=== PATIENT | female | born 1995 | race Caucasian/White ===

== ENCOUNTER 2020-12-26 01:09 | Emergency (ER) | payer SELFPAY ==
--- NOTE | 2020-12-26 04:31 | ER ---
Nurse's Notes [facility] Name: Janine Diaz Age: 25 yrs Sex: Female : 1995 Arrival Date: 12/26/2020 Time: 01:15 Bed 8 Private MD: Diagnosis: 19 weeks gestation of ;Possible amniotic fluid leakage Presentation: 12/26 01:17 Chief complaint: Patient states: Pt states she is 19 weeks preg and at 0045 she coughed wg and felt a wet leakage into her underwear. Pt states it was not bloody in nature and describes it as a small amount. Pt states she called her OB (Kiko Mcgovern) and she recommended she come to the ED. This is patient's first child. No other complaints or concerns at this time. Coronavirus screen: Vaccine status: Patient reports being unvaccinated. At this time, the client does not indicate any symptoms associated with coronavirus-19. Ebola Screen: Patient negative for fever greater than or equal to 101.5 degrees Fahrenheit, and additional compatible Ebola Virus Disease symptoms Patient denies exposure to infectious person. Patient denies travel to an Ebola-affected area in the 21 days before illness onset. Initial Sepsis Screen: Does the patient meet any 2 criteria? No. Patient's initial sepsis screen is negative. Does the patient have a suspected source of infection? No. Patient's initial sepsis screen is negative. Risk Assessment: Do you want to hurt yourself or someone else? Patient reports no desire to harm self or others. Onset of symptoms was December 26, 2020 at 00:45. 01:17 Method Of Arrival: Ambulatory 01:17 Acuity: RICARDO 4 wg Triage Assessment: 01:20 General: Appears in no apparent distress. Behavior is cooperative, appropriate for age, wg anxious. Pain: Denies pain. 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 - Social history:: Smoking status: Patient denies any tobacco usage or history of. Screenin:28 Abuse screen: Denies threats or abuse. Nutritional screening: No deficits noted. cw2 Tuberculosis screening: No symptoms or risk factors identified. Fall Risk None identified. Assessment: 01:28 Reassessment: Patient appears in no apparent distress at this time. No changes from cw2 previously documented assessment. General: Appears in no apparent distress. Behavior is calm, cooperative. Pain: Denies pain. Neuro: No deficits noted. Cardiovascular: No deficits noted. Respiratory: No deficits noted. 03:00 Reassessment: Patient and/or family updated on plan of care and expected duration. Pain ea level reassessed. Patient is alert, oriented x 3, equal unlabored respirations, skin warm/dry/pink. 04:36 Reassessment: Patient and/or family updated on plan of care and expected duration. Pain ea level reassessed. Patient is alert, oriented x 3, equal unlabored respirations, skin warm/dry/pink. Discharge instruction given to patient verbalized the understanding of instruction. Vital Signs: 01:17 BP 141 / 83; Pulse 88; Resp 18; Temp 98.7; Pulse Ox 100% on R/A; Weight 65.77 kg; wg Height 5 ft. 3 in. (160.02 cm); Pain 0/10; 04:36 BP 134 / 68; Pulse 88; Resp 17; Pulse Ox 99% ; ea 01:17 Body Mass Index 25.69 (65.77 kg, 160.02 cm) ED Course: 01:15 Patient arrived in ED. wm 01:20 Triage completed. wg 01:20 Arm band placed on left wrist. wg 01:24 Allen Arreola PA is PHCP. ea 01:24 Aayush Coppola MD is Attending Physician. ea 01:28 No apparent distress. cw2 01:28 Patient has correct armband on for positive identification. Placed in gown. Bed in low cw2 position. Call light in reach. Side rails up X2. 01:30 Yoselin Alex, REYNA is Primary Nurse. ea 02:44 US OB Limited In Process Unspecified. EDMS 03:02 Assist provider with pelvic exam: Set up pelvic tray. Performed by Allen MASON ea Patient tolerated well. 04:01 Reached out to [facility] to connect Dr. Coppola with the on-call OBGYN regarding the tt3 pt. Spoke with Myrna and was informed she would call back once she got in contact with whomever was electronic prepress operator. 04:36 Patient did not have IV access during this emergency room visit. ea Administered Medications: No medications were administered Outcome: 01:29 Condition: good cw2 04:30 Discharge ordered by . bon 04:35 Discharged to home ambulatory, with family. ea 04:35 Discharge instructions given to patient, Instructed on discharge instructions, follow up and referral plans. Demonstrated understanding of instructions, follow-up care. 04:36 Patient left the ED. ea Signatures: Dispatcher [employer] EDMS Allen Arreola PA PA jr8 Yoselin Alex RN RN Aayush Meneses MD MD 7 Nicolas Cai3 Jessica Novoa Liam, RN wg Williams, Christopher, RN RN cw2
--- NOTE | 2020-12-26 04:31 | EDPHYS ---
Physician Documentation [facility] Name: Janine Diaz Age: 25 yrs Sex: Female : 1995 Arrival Date: 12/26/2020 Time: 01:15 Bed 8 Private MD: ED Physician Aayush Coppola HPI: 12/26 01:36 This 25 yrs old Female presents to ER via Ambulatory with complaints of Leaking fluid, jr8 19wks . 01:36 Onset: The symptoms/episode began/occurred acutely, today. Associated signs and jr8 symptoms: The patient has no apparent associated signs or symptoms. The patient has not experienced similar symptoms in the past. The patient has not recently seen a physician. Stated that she coughed and felt a little fluid leak. Did not know where it came from. Incident happened about 1230 this morning. Since then has been feeling fine but had called the on-call OB nurse and stated that she needed to go to the emergency room for further evaluation. This is patient's first . Had anatomy scan with normal results yesterday.. 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 - Social history:: Smoking status: Patient denies any tobacco usage or history of. ROS: 01:36 Eyes: Negative for injury, pain, redness, and discharge, ENT: Negative for injury, jr8 pain, and discharge, Neck: Negative for injury, pain, and swelling, Cardiovascular: Negative for chest pain, palpitations, and edema, Respiratory: Negative for shortness of breath, cough, wheezing, and pleuritic chest pain, Abdomen/GI: Negative for abdominal pain, nausea, vomiting, diarrhea, and constipation, Back: Negative for injury and pain, : Negative for injury, bleeding, discharge, and swelling, MS/Extremity: Negative for injury and deformity, Skin: Negative for injury, rash, and discoloration, Neuro: Negative for headache, weakness, numbness, tingling, and seizure. Exam: 01:36 Constitutional: This is a well developed, well nourished patient who is awake, alert, jr8 and in no acute distress. Cardiovascular: Regular rate and rhythm with a normal S1 and S2. No gallops, murmurs, or rubs. Normal PMI, no JVD. No pulse deficits. Respiratory: Lungs have equal breath sounds bilaterally, clear to auscultation and percussion. No rales, rhonchi or wheezes noted. No increased work of breathing, no retractions or nasal flaring. Abdomen/GI: Soft, non-tender, with normal bowel sounds. No distension or tympany. No guarding or rebound. No evidence of tenderness throughout. Gravid in appearance Skin: Warm, dry with normal turgor. Normal color with no rashes, no lesions, and no evidence of cellulitis. MS/ Extremity: Pulses equal, no cyanosis. Neurovascular intact. Full, normal range of motion. Neuro: Awake and alert, GCS 15, oriented to person, place, time, and situation. Motor strength 5/5 in all extremities. Sensory grossly intact. Vital Signs: 01:17 BP 141 / 83; Pulse 88; Resp 18; Temp 98.7; Pulse Ox 100% on R/A; Weight 65.77 kg; wg Height 5 ft. 3 in. (160.02 cm); Pain 0/10; 04:36 BP 134 / 68; Pulse 88; Resp 17; Pulse Ox 99% ; ea 01:17 Body Mass Index 25.69 (65.77 kg, 160.02 cm) MDM: 01:35 Patient medically screened. [facility] 18:22 Data reviewed: vital signs, nurses notes, lab test result(s), radiologic studies, [facility] ultrasound. Data interpreted: Pulse oximetry: on room air is 99 %. Interpretation: normal. Counseling: I had a detailed discussion with the patient and/or guardian regarding: the historical points, exam findings, and any diagnostic results supporting the discharge/admit diagnosis, lab results, radiology results. 12/26 02:11 Order name: US OB Limited [facility] 12/26 04:00 Order name: Urine Dipstick-Ancillary (obtain specimen) [facility] Administered Medications: No medications were administered Disposition: 05:34 Co-signature as Attending Physician, Aayush Coppola MD. [facility] Disposition Summary: 12/26/20 04:30 Discharge Ordered Location: Home [facility] Problem: new [facility] Symptoms: have improved mh7 Condition: Stable mh7 Diagnosis - 19 weeks gestation of mh7 - Possible amniotic fluid leakage 7 Followup: [facility] - With: Private Physician - When: Today - Reason: Recheck today's complaints, Continuance of care, Re-evaluation by your physician Discharge Instructions: - Discharge Summary Sheet [facility] - Second Trimester of , [id number] [facility] - Amniotic Fluid Analysis [facility] Forms: - Medication Reconciliation Form [facility] - Thank You Letter [facility] - Antibiotic Education [facility] - Prescription Opioid Use [facility] Signatures: Dispatcher [employer] EDAllen Rosa PA PA jr8 Aayush Coppola MD MD 7 Devan Chin RN
[2020-12-26 04:42] VITALS: TEMP 98.7
[2020-12-26 04:43] VITALS: BP 134/68; O2SAT 99
--- NOTE | 2020-12-26 13:49 | RAD REPORT ---
EXAM DESCRIPTION: US - OB Limited - 12/26/2020 3:52 am COMPARISON: None. CLINICAL HISTORY: [facility] possible amniotic leak TECHNIQUE: Multiple transabdominal sonographic images of the pelvis were obtained. FINDINGS: Fetus: Single living intrauterine gestation in variable presentation has a heart rat e of 154 beats per minute. Placenta/Cervix: Placenta is anterior and demonstrates a 2.2 cm placental brambila. Cervical length is 3. 1 cm. Amniotic Fluid: Amniotic fluid volume appears subjectively normal with an amniotic fluid index of 1 1.2 cm, which is normal in quantity. Biometric measurements: Femur length is 29 mm (19 weeks 0 days). Humerus length is 30 mm (19 weeks 4 days). Estimated gestational age by this ultrasound: 19 weeks 2 days Estimated date of delivery by this ultrasound: 05/20/2021 IMPRESSION: 1. Single living intrauterine gestation with a heart rate of 154 beats per minute and a gestational age by this ultrasound of 19 weeks 2 days. 2. Placenta is anterior with a small placental brambila. Electronically signed by: Jalen Strange MD 12/26/2020 3:22 AM CDT Due to temporary technical issues with the PACS/Fluency reporting system, reports are being signed by the in house radiologists without review as a courtesy to insure prompt reporting. The interpreting radiologist is fully responsible for the content of the report.
== END 2020-12-26 04:36 | disposition home or self-care (01) ==
LOC: ER 01:09
DX: O42.90 Premature rupture of membranes, unspecified as to length of time between rupture and onset of labor, unspecified weeks of gestation (principal); Z3A.19 19 weeks gestation of pregnancy
CPT/HCPCS: 76815; 99283

== ENCOUNTER 2022-09-22 12:36 | Emergency (ER) | payer OTHER ==
--- OUTSIDE RECORDS SUMMARY | 2022-09-22 12:48 | XMS REPORT | Continuity of Care Document ---
:[address] [facility] t Address [address] [place] [address] Care Team Providers Name Role Phone TISH BELLAMY Attending Clinician Unavailable [id number] Attending Clinician Unavailable [facility] Attending Clinician Unavailable JOSHUA RAZO Attending Clinician Unavailable GC_QUIRINO_Shaniqua_Sasha Attending Clinician Unavailable Lashae Acevedo Attending Clinician [facility]_GC_VIRTUAL_PROV Attending Clinician Unavailable DORON_Efrain Attending Clinician Unavailable Aakash Stein Attending Clinician [phone] Kiko Mcgovern Attending Clinician [phone] Chitra Brink Attending Clinician Kiko Mcgovern Attending Clinician Unavailable Mandy Kaplan Attending Clinician Unavailable Andrzej Michelle Attending Clinician Nan Fontanez Attending Clinician GC_QUIRINO_Shaniqua_Sasha Admitting Clinician Unavailable PV_GC_VIRTUAL_PROV Admitting Clinician Unavailable [email or web address]_Emil_J Admitting Clinician Unavailable Kiko Mcgovern Admitting Clinician Unavailable Payers Payer Name Policy Type Policy Number Effective Date Expiration Date Reyna dixon [facility] 2 [id number] 2022 00:00:00 [facility] [id number] 2021 00:00:00 [facility] [id number] 2021 00:00:00 [employer] - [facility] [id number] SMART BENEFITS [facility] SMART [id number] BENEFITS (PPO) Problems Condition Condition Condition Status Onset Resolution Last Treating Co mments Source Name Details Category Date Date Treatment Clinician Date Borderline Borderline Disease Active K ramila personalit personalit 3-23 Se ybold y disorder y disorder 00:00: - 00 Externa l Bipolar 1 Bipolar 1 Disease Active Bryan sey disorder disorder 3-23 Seybol d 00:00: - 00 Externa l Depression Depression Disease Active Pat mcgrath with with 3 Seybold anxiety anxiety 00:00: - 00 Externa l WEAKNESS WEAKNESS Diagnosis Active 2020-10-26 Memoria Active 10-26 21:07:00 l 10/26/2020 00:00: [place] 00 [place] Depressive Depressiv Problem Active 2022-03-31 Memoria disorder e disorder 10:52:21 l (disorder) (disorder) He rmann Active Problem 03/31/2022 Medical Group,[facility] Time Share Disorder Disorder Problem Active 2022-03-31 Memoria of of 10:52:21 l hemostatic hemostatic He rmann system system (disorder) (disorder) Active Problem 03/31/2022 Medical Group,[facility] Time Share Recurrent Recurrent Problem Active 2022-03-31 Memoria urinary urinary 10:52:21 l tract tract [place] infection infection (disorder) (disorder) Active Problem 03/31/2022 Medical Group,[facility] Time Share History of Past Illness Condition Condition Condition Status Onset Resolution Last Treating Co mments Source Name Details Category Date Date Treatment Clinician Date Mild Mild Problem 2021-0 2020-10-28 2020-10-28 M emoria hyperemesi hyperemesi 10-26 22:57:56 22:57:56 l s s 17:00: Michael gravidarum gravidarum 00 10/26/2020 10/28/2020 [facility] Other Other Problem 2020-06-14 2020-06-14 M emoria fatigue fatigue -16 22:05:35 22:05:35 l 06/12/2020 17:00: Taurus n 1 [facility] Allergies, Adverse Reactions, Alerts Allergy Allergy Status Severity Reaction(s) Onset Inactive Treating Comm ents Source Name Type Date Date Clinician No Known DA Active [facility] 00 [facility] No Known DA Active [facility] Allergie 04-12 [facility] 00 [facility] No Known DA Active [facility] Allergie 04-04 [facility] 00 [facility] No Known DA Active [facility] Allergie 12-26 [facility] 00:[facility]: [facility] 00 [facility] No Known DA Active [facility] Allergie 12-26 [facility] 00:[facility]: [facility] 00 [facility] Cefprozi Propensi Active Rash 2009-03 Marci l ty to 04-15 Seybold Monohydr adverse 00:00: - ate reaction 00 Externa s l Cefprozi Allergy Active Mild Rash 2009-03 [facility] to 04-15 Medical substanc 00:00: e 00 Social History Social Habit Start Date Stop Date Quantity Comments Source Alcohol intake 2022-06-19 2022-06-19 Lifetime Marci Velazquez bold - 00:00:00 00:00:00 non-drinker External (finding) Sex Ass[birth year] At [birth year] Marci Multani ybold - 00:00:00 00:00:00 External Smoking Status Start Date Stop Date Source Tobacco smoking status [facility] Medications Ordered Filled Start Stop Current Ordering Indication Dosage Frequency Signature Comments Components Source Medication Medication Date Date Medication? Clinician (SIG) Name Name Quetiapine Yes 300mg Take 300 Marci Fumarate 3-23 mg by Seybold 300 MG oral 14:34: mouth - Tablet 48 daily Externa l Estradiol Yes [id number] 1{tbl} Place 1 Marci (Vagifem) 3-23 tablet Seybold 10 MCG 09:50: vaginally - vaginal 57 twice a Externa Tablet week l Norethin-Et 2022- No 1{each} 1 each Marci h Estrad-Fe 3-23 03-23 daily Seybol d Biphas (Lo 09:50: 00:00 - Loestrin 05 :00 Externa Fe) 1 MG-10 l MCG / 10 MCG oral Tablet Divalproex Yes 500mg 500 mg 2 Marci Sodium 125 3-22 times Seybold MG oral 00:00: daily - Tablet 00 Externa Delayed l Response Etonogestre Yes INSERT 1 Ke lsey l-Ethinyl 3-20 VAGINAL Seybold Estradiol 00:00: RING EVERY - 0.12-0.015 00 3 WEEKS BY Ext kaylen MG/24HR VAGINAL l vaginal ROUTE. RING Fluoxetine Yes 20mg Take 20 mg Marci HCl 20 MG 2-13 by mouth Seybol d oral 00:00: at bedtime - Capsule 00 Externa l QUEtiapine Yes 1{tbl} Take 1 Marci Fumarate 50 1-25 tablet by Sey bold MG oral 00:00: mouth - TABLET SR 00 daily Externa 24 HR l Fluconazole 0 2022- No TAKE 1 Bryan sey 150 MG oral 1-21 06-23 TABLET BY Se ybold Tablet 00:00: 00:00 MOUTH - 00 :00 EVERY DAY Externa l DIRECTED FOR 2 DAYS Yuvafem 10 2022- No INSERT 1 Ke lsey MCG vaginal 1-11 -23 TABLET Seybo ld Tablet 00:00: 00:00 TWICE A - 00 :00 WEEK BY Externa VAGINAL l ROUTE FOR 14 DAYS. Lamotrigine 2022- No TAKE 1 Bryan sey 25 MG oral 1-04 -23 TABLET BY Sey bold Tablet 00:00: 00:00 MOUTH AT - 00 :00 BEDTIME Externa FOR TWO l WEEKS AND THEN TAKE 2 TABLETS AFTER WEEK 2 Phenazopyri 2022- No 100mg Take 100 Marci dine HCl 04-01 mg by Seybold 100 MG oral 00:00: 00:00 mouth 3 - Tablet 00 :00 times Externa daily l Ibuprofen 2022- No 800mg [id number] Take 800 Marci (MOTRIN) 03-30 [id number] mg by Marcus bold 800 MG oral 00:00: 00:00 3D mouth 3 - Tablet 00 :00 times Externa daily as l needed ESTRADIOL 2021-03- No INSERT 1 Bryan sey VAGINAL 0.1 06-19 APPLICATOR S eybold MG/GM 00:00: 00:00 FUL - vaginal 00 :00 VAGINALLY Externa Cream EVERY l NIGHT AT BEDTIME Macrobid Yes 100 mg = 1 Mem oria 100 mg oral 9-21 cap, PO, l capsule 21:43: Daily, take #1 tab after intercours e as needed- max daily dose is #1 tab, # 30 cap, 0 Refill(s), Pharmacy: [id number], 160.02, cm, 09/02/21 10:46:00 CDT, Height, 65.17, kg, 09/02/21 10:46:00 CDT, Weight Macrobid Yes 100 mg = 1 Mem oria 100 mg oral 9-21 cap, PO, l capsule 21:43: Daily, take #1 tab after intercours e as needed- max daily dose is #1 tab, # 30 cap, 0 Refill(s), Pharmacy: [id number], 160.02, cm, 09/02/21 10:46:00 CDT, Height, 65.17, kg, 09/02/21 10:46:00 CDT, Weight Macrobid Yes 100 mg = 1 Mem oria 100 mg oral 9-21 cap, PO, l capsule 21:43: Daily, take #1 tab after intercours e as needed- max daily dose is #1 tab, # 30 cap, 0 Refill(s), Pharmacy: [id number], 160.02, cm, 09/02/21 10:46:00 CDT, Height, 65.17, kg, 09/02/21 10:46:00 CDT, Weight Cipro 500 2021-0 Yes 500 mg = 1 Me moria mg oral 6-09 tab, PO, l tablet 15:17: Q12H, X 7 Taurus n 00 day, # 14 tab, 0 Refill(s), Pharmacy: [id number], 160.02, cm, 09/02/21 10:46:00 CDT, Height, 65.17, kg, 09/02/21 10:46:00 CDT, Weight Cipro 500 2021-0 Yes 500 mg = 1 Me moria mg oral 6-09 tab, PO, l tablet 15:17: Q12H, X 7 Taurus n 00 day, # 14 tab, 0 Refill(s), Pharmacy: [id number], 160.02, cm, 09/02/21 10:46:00 CDT, Height, 65.17, kg, 09/02/21 10:46:00 CDT, Weight Cipro 500 2021-0 Yes 500 mg = 1 Me moria mg oral 6-09 tab, PO, l tablet 15:17: Q12H, X 7 Taurus n 00 day, # 14 tab, 0 Refill(s), Pharmacy: [id number], 160.02, cm, 09/02/21 10:46:00 CDT, Height, 65.17, kg, 09/02/21 10:46:00 CDT, Weight Latuda 80 2022-0 Yes 80 mg = 1 Mem oria mg oral 6-06 tab, PO, l tablet 15:39: Daily, 0 Michael 00 Refill(s) Latuda 80 2022-0 Yes 80 mg = 1 Mem oria mg oral 6-06 tab, PO, l tablet 15:39: Daily, 0 Michael 00 Refill(s) Latuda 80 2022-0 Yes 80 mg = 1 Mem oria mg oral 6-06 tab, PO, l tablet 15:39: Daily, 0 Michael 00 Refill(s) PROzac 2022-0 Yes 60 mg, PO, Memor ia 6-06 Daily, 0 l 15:38: Refill(s) [place] 00 PROzac 2022-0 Yes 60 mg, PO, Memor ia 6-06 Daily, 0 l 15:38: Refill(s) Michael 00 PROzac Yes 60 mg, PO, Memor ia 6-06 Daily, 0 l 15:38: Refill(s) Michael 00 ParaGard T ParaGard T No ParaGard T [facility] 380A 380 380A 380 3-17 380A 380 Med ical square mm square mm 12:54: square mm intrauterin intrauterin 50 intrauteri e e ne deviceTake deviceTake deviceTake 1 device by 1 device by 1 device intrauterin intrauterin by e route. e route. intrauteri ne route. RhoGAM RhoGAM 2020-03 No RhoGAM [facility] Ultra-Filte Ultra-Filte 2-15 Ultra-Filt Medical red PLUS red PLUS 14:26: ered PLUS 1,500 unit 1,500 unit 34 1,500 unit (300 mcg) (300 mcg) (300 mcg) intramuscul intramuscul intramuscu ar ar lar syringeInje syringeInje syringeInj ct 1 ct 1 ect 1 syringe by syringe by syringe by intramuscul intramuscul intramuscu ar route. ar route. lar route. Diclegis Yes 1 tab, PO, Memoria mg-10 mg 7- Bedtime, # l oral 03:51: 14 tab, 0 Michael delayed 00 Refill(s) release tablet doxylamine Yes 1 tab, PO, M emoria succinate 7- Bedtime, # l 10 MG / 03:51: 14 tab, 0 Ksenia nn Pyridoxine 00 Refill(s) Hydrochlori de 10 MG Enteric Coated Tablet [Diclegis] Diclegis Yes 1 tab, PO, Memoria mg-10 mg 7- Bedtime, # l oral 03:51: 14 tab, 0 [place] delayed 00 Refill(s) release tablet doxylamine Yes 1 tab, PO, M emoria succinate 7-31 Bedtime, # l 10 MG / 03:51: 14 tab, 0 Ksenia nn Pyridoxine 00 Refill(s) Hydrochlori de 10 MG Enteric Coated Tablet [Diclegis] Diclegis Yes 1 tab, PO, Memoria mg-10 mg 7-31 Bedtime, # l oral 03:51: 14 tab, 0 [place] delayed 00 Refill(s) release tablet doxylamine Yes 1 tab, PO, M emoria succinate 10-27 Bedtime, # l 10 MG / 03:51: 14 tab, 0 Ksenia nn Pyridoxine 00 Refill(s) Hydrochlori de 10 MG Enteric Coated Tablet [Diclegis] Calcium No 1,000 mL, Memor ia Chloride 10-27 1,000 l 0.0014 01:26: ml/hr, [place] MEQ/ML / 00 Infuse Potassium Over: 1 Chloride hr, Route: 0.004 IV, 1,000, MEQ/ML / Drug form: Sodium INJ, ONCE, Chloride Priority: 0.103 STAT, MEQ/ML / Dosing Sodium Weight Lactate 61.364 kg, 0.028 Start MEQ/ML date: Injectable 10/26/20 Solution 20:26:00 CDT, Stop date: 10/26/20 20:26:00 CDT, 0 Reglan No Notes: Memoria 10-27 (Same as: l : lan) Michael Calcium No 1,000 mL, Memor ia Chloride 10-27 1,000 l 0.0014 01:26: ml/hr, Michael MEQ/ML / 00 Infuse Potassium Over: 1 Chloride hr, Route: 0.004 IV, 1,000, MEQ/ML / Drug form: Sodium INJ, ONCE, Chloride Priority: 0.103 STAT, MEQ/ML / Dosing Sodium Weight Lactate 61.364 kg, 0.028 Start MEQ/ML date: Injectable 10/26/20 Solution 20:26:00 CDT, Stop date: 10/26/20 20:26:00 CDT, 0 Reglan No Notes: Memoria 10-27 (Same as: l : Reglan) [place] Calcium No 1,000 mL, Memor ia Chloride 10-27 1,000 l 0.0014 01:26: ml/hr, Michael MEQ/ML / 00 Infuse Potassium Over: 1 Chloride hr, Route: 0.004 IV, 1,000, MEQ/ML / Drug form: Sodium INJ, ONCE, Chloride Priority: 0.103 STAT, MEQ/ML / Dosing Sodium Weight Lactate 61.364 kg, 0.028 Start MEQ/ML date: Injectable 10/26/20 Solution 20:26:00 CDT, Stop date: 10/26/20 20:26:00 CDT, 0 Reglan 1-0 No Notes: Memoria 7-31 (Same as: l 01:26: Reglan) Michael 00 Sodium 1-0 No 1,000 mL, Memori a Chloride 3-16 1000 l 0.9% 17:53: ml/hr, Michael (Bolus) IV 00 Infuse Over: 1 hr, Route: IV, 1,000, Drug form: INJ, ONCE, Priority: STAT, Dosing Weight 61.364 kg, Start date: 06/12/20 12:53:00 CDT, Stop date: 06/12/20 12:53:00 CDT, 0 Sodium 2020-0 No 1,000 mL, Memori a Chloride 3-16 1000 l 0.9% 17:53: ml/hr, [place] (Bolus) IV 00 Infuse Over: 1 hr, Route: IV, 1,000, Drug form: INJ, ONCE, Priority: STAT, Dosing Weight 61.364 kg, Start date: 06/12/20 12:53:00 CDT, Stop date: 06/12/20 12:53:00 CDT, 0 Sodium 2020-0 No 1,000 mL, Memori a Chloride 3-16 1000 l 0.9% 17:53: ml/hr, Michael (Bolus) IV 00 Infuse Over: 1 hr, Route: IV, 1,000, Drug form: INJ, ONCE, Priority: STAT, Dosing Weight 61.364 kg, Start date: 06/12/20 12:53:00 CDT, Stop date: 06/12/20 12:53:00 CDT, 0 cephalexin cephalexin 2017- No cephalexin [facility] 500 mg 500 mg 8-24 500 mg Medical capsule capsule 00:00: capsule 00 mupirocin 2 mupirocin 2 No mupirocin [facility] % ointment % ointment 8-22 2 % Med ical topical kit topical kit 00:00: ointment 00 topical kit mupirocin 2 mupirocin 2 No mupirocin [facility] % ointment % ointment 8-22 2 % Med ical topical kit topical kit 00:00: ointment 00 topical kit mupirocin 2 mupirocin 2 2018-0 No mupirocin [facility] % ointment % ointment 8-22 2 % Med ical topical kit topical kit 00:00: ointment 00 topical kit mupirocin 2 mupirocin 2 2018-0 No mupirocin [facility] % ointment % ointment 8-22 2 % Med ical topical kit topical kit 00:00: ointment 00 topical kit mupirocin 2 mupirocin 2 2018-0 No mupirocin [facility] % ointment % ointment 8-22 2 % Med ical topical kit topical kit 00:00: ointment 00 topical kit mupirocin 2 mupirocin 2 2018-0 No mupirocin [facility] % ointment % ointment 8-22 2 % Med ical topical kit topical kit 00:00: ointment 00 topical kit mupirocin 2 mupirocin 2 2018-0 No mupirocin [facility] % ointment % ointment 8-22 2 % Med ical topical kit topical kit 00:00: ointment 00 topical kit Mydayis Mydayis No 1{tbl} Mydayis Pr ivia 12.5 mg 12.5 mg 8-15 12.5 mg Medica l capsule capsule 00:00: capsule extended extended 00 extended release 24 release 24 release 24 hr 1 {tbl} hr 1 {tbl} hr 1 {tbl} by oral by oral by oral route. route. route. Mydayis Mydayis No 1{tbl} Mydayis Pr ivia 12.5 mg 12.5 mg 8-15 12.5 mg Medica l capsule capsule 00:00: capsule extended extended 00 extended release 24 release 24 release 24 hr 1 {tbl} hr 1 {tbl} hr 1 by oral by oral {tbl} by route. route. oral route. Mydayis Mydayis No 1{tbl} Mydayis Pr ivia 12.5 mg 12.5 mg 8-15 12.5 mg Medica l capsule capsule 00:00: capsule extended extended 00 extended release 24 release 24 release 24 hr 1 {tbl} hr 1 {tbl} hr 1 {tbl} by oral by oral by oral route. route. route. Mydayis Mydayis No 1{tbl} Mydayis Pr ivia 12.5 mg 12.5 mg 8-15 12.5 mg Medica l capsule capsule 00:00: capsule extended extended 00 extended release 24 release 24 release 24 hr 1 {tbl} hr 1 {tbl} hr 1 {tbl} by oral by oral by oral route. route. route. Mydayis Mydayis No 1{tbl} Mydayis Pr ivia 12.5 mg 12.5 mg 8-15 12.5 mg Medica l capsule capsule 00:00: capsule extended extended 00 extended release 24 release 24 release 24 hr 1 {tbl} hr 1 {tbl} hr 1 {tbl} by oral by oral by oral route. route. route. Mydayis Mydayis No 1{tbl} Mydayis Pr ivia 12.5 mg 12.5 mg 8-15 12.5 mg Medica l capsule capsule 00:00: capsule extended extended 00 extended release 24 release 24 release 24 hr 1 {tbl} hr 1 {tbl} hr 1 {tbl} by oral by oral by oral route. route. route. Mydayis Mydayis No 1{tbl} Mydayis Pr ivia 12.5 mg 12.5 mg 8-15 12.5 mg Medica l capsule capsule 00:00: capsule extended extended 00 extended release 24 release 24 release 24 hr 1 {tbl} hr 1 {tbl} hr 1 {tbl} by oral by oral by oral route. route. route. lamotrigine lamotrigine No lamotrigin [facility] 100 mg 100 mg 6-05 e 100 mg Medical tablet tablet 00:00: tablet 00 lamotrigine lamotrigine No lamotrigin [facility] 100 mg 100 mg 6-05 e 100 mg Medical tablet tablet 00:00: tablet 00 lamotrigine lamotrigine No lamotrigin [facility] 100 mg 100 mg 6-05 e 100 mg Medical tablet tablet 00:00: tablet 00 lamotrigine lamotrigine No lamotrigin [facility] 100 mg 100 mg 6-05 e 100 mg Medical tablet tablet 00:00: tablet 00 lamotrigine lamotrigine 0 No lamotrigin [facility] 100 mg 100 mg 6-05 e 100 mg Medical tablet tablet 00:00: tablet 00 lamotrigine lamotrigine 0 No lamotrigin [facility] 100 mg 100 mg 6-05 e 100 mg Medical tablet tablet 00:00: tablet 00 lamotrigine lamotrigine 0 No lamotrigin [facility] 100 mg 100 mg 6-05 e 100 mg Medical tablet tablet 00:00: tablet 00 fluticasone fluticasone No 50ug fluticason [facility] propionate propionate 16 e Med ical 50 50 00:00: propionate mcg/actuati mcg/actuati 00 50 on nasal on nasal mcg/actuat spray,suspe spray,suspe ion nasal nsion 50 nsion 50 spray,susp ugs by ugs by ension 50 nasal nasal ugs by route. route. nasal route. fluticasone fluticasone No 50ug fluticason [facility] propionate propionate 16 e Med ical 50 50 00:00: propionate mcg/actuati mcg/actuati 00 50 on nasal on nasal mcg/actuat spray,suspe spray,suspe ion nasal nsion 50 nsion 50 spray,susp ugs by ugs by ension 50 nasal nasal ugs by route. route. nasal route. fluticasone fluticasone No 50ug fluticason [facility] propionate propionate 16 e Med ical 50 50 00:00: propionate mcg/actuati mcg/actuati 00 50 on nasal on nasal mcg/actuat spray,suspe spray,suspe ion nasal nsion 50 nsion 50 spray,susp ugs by ugs by ension 50 nasal nasal ugs by route. route. nasal route. fluticasone fluticasone No 50ug fluticason [facility] propionate propionate 16 e Med ical 50 50 00:00: propionate mcg/actuati mcg/actuati 00 50 on nasal on nasal mcg/actuat spray,suspe spray,suspe ion nasal nsion 50 nsion 50 spray,susp ugs by ugs by ension 50 nasal nasal ugs by route. route. nasal route. fluticasone fluticasone No 50ug fluticason [facility] propionate propionate 16 e Med ical 50 50 00:00: propionate mcg/actuati mcg/actuati 00 50 on nasal on nasal mcg/actuat spray,suspe spray,suspe ion nasal nsion 50 nsion 50 spray,susp ugs by ugs by ension 50 nasal nasal ugs by route. route. nasal route. fluticasone fluticasone No 50ug fluticason [facility] propionate propionate 16 e Med ical 50 50 00:00: propionate mcg/actuati mcg/actuati 00 50 on nasal on nasal mcg/actuat spray,suspe spray,suspe ion nasal nsion 50 nsion 50 spray,susp ugs by ugs by ension 50 nasal nasal ugs by route. route. nasal route. fluticasone fluticasone No 50ug fluticason [facility] propionate propionate 16 e Med ical 50 50 00:00: propionate mcg/actuati mcg/actuati 00 50 on nasal on nasal mcg/actuat spray,suspe spray,suspe ion nasal nsion 50 nsion 50 spray,susp ugs by ugs by ension 50 nasal nasal ugs by route. route. nasal route. Latuda 40 Latuda 40 No Latuda 40 [facility] mg tablet mg tablet mg tablet Medical TAKE 1 TAKE 1 TAKE 1 TABLET BY TABLET BY TABLET BY MOUTH ONCE MOUTH ONCE MOUTH ONCE A DAY IN A DAY IN A DAY IN THE EVENING THE EVENING THE WITH FOOD WITH FOOD EVENING WITH FOOD Latuda 80 Latuda 80 No Latuda 80 [facility] mg tablet mg tablet mg tablet Medical TAKE 1 TAKE 1 TAKE 1 TABLET BY TABLET BY TABLET BY MOUTH ONCE MOUTH ONCE MOUTH ONCE A DAY IN A DAY IN A DAY IN THE EVENING THE EVENING THE WITH FOOD WITH FOOD EVENING WITH FOOD Lo Loestrin Lo Loestrin No 1 Q1D Lo P rivia Fe 1 mg-10 Fe 1 mg-10 Loestrin Medical mcg (24)/10 mcg (24)/10 Fe 1 mg-10 mcg (2) mcg (2) mcg tablet Take tablet Take (24)/10 1 tablet 1 tablet mcg (2) every day every day tablet by oral by oral Take 1 route. route. tablet every day by oral route. Macrobid Macrobid No 1capsul Macrobid [facility] 100 mg 100 mg e(s) 100 mg Medical capsule capsule capsule Take 1 Take 1 Take 1 capsule as capsule as capsule as needed by needed by needed by oral route. oral route. oral route. methylpredn methylpredn No methylpred [facility] isolone 4 isolone 4 nisolone 4 Medical mg tablets mg tablets mg tablets in a dose in a dose in a dose pack TAKE 6 pack TAKE 6 pack TAKE TABLETS ON TABLETS ON 6 TABLETS DAY 1 DAY 1 ON DAY 1 DIRECTED ON DIRECTED ON PACKAGE AND PACKAGE AND DIRECTED DECREASE BY DECREASE BY ON PACKAGE 1 TAB EACH 1 TAB EACH AND DAY FOR A DAY FOR A DECREASE TOTAL OF 6 TOTAL OF 6 BY 1 TAB DAYS DAYS EACH DAY FOR A TOTAL OF 6 DAYS metronidazo metronidazo No metronidaz [facility] le 500 mg le 500 mg ole 500 mg Medical tablet TAKE tablet TAKE tablet 2 TABLETS 2 TABLETS TAKE 2 BY MOUTH BY MOUTH TABLETS BY EVERY DAY EVERY DAY MOUTH FOR 5 DAYS FOR 5 DAYS EVERY DAY FOR 5 DAYS ParaGard T ParaGard T No 1device ParaGard T [facility] 380A 380 380A 380 (s) 380A 380 Med ical square mm square mm square mm intrauterin intrauterin intrauteri e device e device ne device Take 1 Take 1 Take 1 device by device by device by intrauterin intrauterin intrauteri e route. e route. ne route. phenazopyri phenazopyri No phenazopyr [facility] dine 100 mg dine 100 mg idine 100 Medical tablet tablet mg tablet phenazopyri phenazopyri No phenazopyr [facility] dine 200 mg dine 200 mg idine 200 Medical tablet TAKE tablet TAKE mg tablet 1 TABLET BY 1 TABLET BY TAKE 1 MOUTH THREE MOUTH THREE TABLET BY TIMES A DAY TIMES A DAY MOUTH NEEDED NEEDED THREE TIMES A DAY NEEDED quetiapine quetiapine No quetiapine [facility] 100 mg 100 mg 100 mg Medical tablet TAKE tablet TAKE tablet 1 TABLET BY 1 TABLET BY TAKE 1 MOUTH EVERY MOUTH EVERY TABLET BY DAY DAY MOUTH EVERY DAY quetiapine quetiapine No quetiapine [facility] 300 mg 300 mg 300 mg Medical tablet TAKE tablet TAKE tablet 1 TABLET 1 TABLET TAKE 1 (300MG) BY (300MG) BY TABLET MOUTH MOUTH (300MG) BY NIGHTLY FOR NIGHTLY FOR MOUTH MOOD MOOD NIGHTLY FOR MOOD quetiapine quetiapine No quetiapine [facility] 50 mg 50 mg 50 mg Medical tablet tablet tablet PLEASE SEE PLEASE SEE PLEASE SEE ATTACHED ATTACHED ATTACHED FOR FOR FOR DETAILED DETAILED DETAILED DIRECTIONS DIRECTIONS DIRECTIONS quetiapine quetiapine No quetiapine [facility] ER 150 mg ER 150 mg ER 150 mg Medical tablet,exte tablet,exte tablet,ext nded nded ended release 24 release 24 release 24 hr TAKE 1 hr TAKE 1 hr TAKE 1 TABLET TABLET TABLET (150MG) BY (150MG) BY (150MG) BY MOUTH DAILY MOUTH DAILY MOUTH DAILY quetiapine quetiapine No quetiapine [facility] ER 50 mg ER 50 mg ER 50 mg Med ical tablet,exte tablet,exte tablet,ext nded nded ended release 24 release 24 release 24 hr TAKE 1 hr TAKE 1 hr TAKE 1 TABLET TABLET TABLET (50MG) BY (50MG) BY (50MG) BY MOUTH EVERY MOUTH EVERY MOUTH MORNING FOR MORNING FOR EVERY MOOD MOOD MORNING FOR MOOD sulfamethox sulfamethox No sulfametho [facility] azole 800 azole 800 xazole 800 Medical mg-trimetho mg-trimetho mg-trimeth prim 160 mg prim 160 mg oprim 160 tablet TAKE tablet TAKE mg tablet 1 TABLET BY 1 TABLET BY TAKE 1 MOUTH TWICE MOUTH TWICE TABLET BY A DAY WITH A DAY WITH MOUTH FOOD FOOD TWICE A DAY WITH FOOD terconazole terconazole No terconazol [facility] 0.8 % 0.8 % e 0.8 % Medical vaginal vaginal vaginal cream cream cream INSERT 1 INSERT 1 INSERT 1 APPLICATORF APPLICATORF APPLICATOR UL UL FUL VAGINALLY VAGINALLY VAGINALLY EVERY DAY EVERY DAY EVERY DAY AT BEDTIME AT BEDTIME AT BEDTIME FOR 7 DAYS FOR 7 DAYS FOR 7 DAYS terconazole terconazole No terconazol [facility] 80 mg 80 mg e 80 mg Medical vaginal vaginal vaginal suppository suppository suppositor y Yuvafem 10 Yuvafem 10 No 1 Q3.5D Yuvafem 10 [facility] mcg vaginal mcg vaginal mcg M edical tablet tablet vaginal Insert 1 Insert 1 tablet tablet tablet Insert 1 twice a twice a tablet week by week by twice a vaginal vaginal week by route for route for vaginal 14 days. 14 days. route for 14 days. amoxicillin amoxicillin No amoxicilli [facility] [phone] [id number] [id number] Medical mg-potassiu mg-potassiu mg-potassi m m um clavulanate clavulanate clavulanat 125 mg 125 mg e 125 mg tablet tablet tablet bupropion bupropion No bupropion [facility] HCl XL 150 HCl XL 150 HCl XL 150 Medical mg 24 hr mg 24 hr mg 24 hr tablet, tablet, tablet, extended extended extended release release release TAKE 1 TAKE 1 TAKE 1 TABLET TABLET TABLET (150MG) BY (150MG) BY (150MG) BY MOUTH DAILY MOUTH DAILY MOUTH FOR FOR DAILY FOR DEPRESSION DEPRESSION DEPRESSION cefdinir cefdinir No cefdinir [place] via 300 mg 300 mg 300 mg Medical capsule capsule capsule TAKE 1 TAKE 1 TAKE 1 CAPSULE BY CAPSULE BY CAPSULE BY MOUTH TWICE MOUTH TWICE MOUTH A DAY FOR A DAY FOR TWICE A 10 DAYS 10 DAYS DAY FOR 10 DAYS cephalexin cephalexin No cephalexin [facility] 250 mg 250 mg 250 mg Medical capsule capsule capsule TAKE 1 TAKE 1 TAKE 1 CAPSULE BY CAPSULE BY CAPSULE BY ORAL ROUTE ORAL ROUTE ORAL ROUTE DIRECTED. DIRECTED. DIRECTED. cephalexin cephalexin No cephalexin [facility] 500 mg 500 mg 500 mg Medical capsule capsule capsule TAKE 1 TAKE 1 TAKE 1 CAPSULE BY CAPSULE BY CAPSULE BY MOUTH THREE MOUTH THREE MOUTH TIMES A DAY TIMES A DAY THREE TIMES A DAY cephalexin cephalexin No cephalexin [facility] 500 mg 500 mg 500 mg Medical tablet TAKE tablet TAKE tablet 1 TABLET BY 1 TABLET BY TAKE 1 MOUTH THREE MOUTH THREE TABLET BY TIMES A DAY TIMES A DAY MOUTH FOR 7 DAYS FOR 7 DAYS THREE TIMES A DAY FOR 7 DAYS ciprofloxac ciprofloxac No ciprofloxa [facility] in 500 mg in 500 mg lukasz 500 mg Medical tablet TAKE tablet TAKE tablet 1 TABLET BY 1 TABLET BY TAKE 1 MOUTH EVERY MOUTH EVERY TABLET BY 12 HOURS 12 HOURS MOUTH DIRECTED DIRECTED EVERY 12 FOR 7 DAYS FOR 7 DAYS HOURS DIRECTED FOR 7 DAYS clindamycin clindamycin No clindamyci [facility] 2 % vaginal 2 % vaginal n 2 % Medical cream cream vaginal INSERT 1 INSERT 1 cream APPLICATOR APPLICATOR INSERT 1 FUL FUL APPLICATOR VAGINALLY VAGINALLY FUL EVERY DAY EVERY DAY VAGINALLY FOR 7 DAYS FOR 7 DAYS EVERY DAY FOR 7 DAYS clindamycin clindamycin No clindamyci [facility] HCl 300 mg HCl 300 mg n HCl 300 Medical capsule capsule mg capsule TAKE 1 TAKE 1 TAKE 1 CAPSULE BY CAPSULE BY CAPSULE BY MOUTH THREE MOUTH THREE MOUTH TIMES A DAY TIMES A DAY THREE FOR 10 DAYS FOR 10 DAYS TIMES A DAY FOR 10 DAYS clonazepam clonazepam No .25mg clonazepam [facility] 0.5 mg 0.5 mg 0.5 mg Medical tablet 0.25 tablet 0.25 tablet mg by oral mg by oral 0.25 mg by route. route. oral route. clotrimazol clotrimazol No clotrimazo [facility] e 1 % e 1 % le 1 % Medical vaginal vaginal vaginal cream cream cream INSERT 1 INSERT 1 INSERT 1 APPLICATORF APPLICATORF APPLICATOR UL IN THE UL IN THE FUL IN THE VAGINA VAGINA VAGINA EVERY NIGHT EVERY NIGHT EVERY AT BEDTIME AT BEDTIME NIGHT AT FOR 7 DAYS FOR 7 DAYS BEDTIME FOR 7 DAYS Diclegis 10 Diclegis 10 No Diclegis [facility] mg-10 mg mg-10 mg 10 mg-10 Med ical tablet,lotus tablet,lotus mg yed release yed release tablet,del TAKE 2 TAKE 2 ayed TABLET BY TABLET BY release MOUTH EVERY MOUTH EVERY TAKE 2 DAY DAY TABLET BY MOUTH EVERY DAY dicloxacill dicloxacill No dicloxacil [facility] in 500 mg in 500 mg laurita 500 mg Medical capsule capsule capsule TAKE 1 TAKE 1 TAKE 1 CAPSULE BY CAPSULE BY CAPSULE BY MOUTH EVERY MOUTH EVERY MOUTH 6 HOURS FOR 6 HOURS FOR EVERY 6 10 DAYS 10 DAYS HOURS FOR 10 DAYS docusate docusate No docusate [place] via sodium 100 sodium 100 sodium 100 Medical mg capsule mg capsule mg capsule TAKE 1 TAKE 1 TAKE 1 TABLET BY TABLET BY TABLET BY MOUTH EVERY MOUTH EVERY MOUTH DAY AT 9AM DAY AT 9AM EVERY DAY AND 9PM AND 9PM AT 9AM AND 9PM escitalopra escitalopra No 20mg escitalopr [facility] m 10 mg m 10 mg am 10 mg Medic al tablet 20 tablet 20 tablet 20 mg by oral mg by oral mg by oral route. route. route. estradiol estradiol No estradiol [facility] 0.01% (0.1 0.01% (0.1 0.01% (0.1 Medical mg/gram) mg/gram) mg/gram) vaginal vaginal vaginal cream cream cream INSERT 1 INSERT 1 INSERT 1 APPLICATORF APPLICATORF APPLICATOR UL UL FUL VAGINALLY VAGINALLY VAGINALLY EVERY DAY EVERY DAY EVERY DAY AT BEDTIME AT BEDTIME AT BEDTIME etonogestre etonogestre No etonogestr [facility] l 0.12 l 0.12 el 0.12 Medical mg-ethinyl mg-ethinyl mg-ethinyl estradiol estradiol estradiol 0.015 mg/24 0.015 mg/24 0.015 hr vaginal hr vaginal mg/24 hr ring INSERT ring INSERT vaginal 1 VAGINAL 1 VAGINAL ring RING EVERY RING EVERY INSERT 1 3 WEEKS BY 3 WEEKS BY VAGINAL VAGINAL VAGINAL RING EVERY ROUTE. ROUTE. 3 WEEKS BY VAGINAL ROUTE. fluconazole fluconazole No fluconazol [facility] 150 mg 150 mg e 150 mg Medical tablet TAKE tablet TAKE tablet 1 TABLET BY 1 TABLET BY TAKE 1 MOUTH EVERY MOUTH EVERY TABLET BY DAY DAY MOUTH DIRECTED DIRECTED EVERY DAY FOR 2 DAYS FOR 2 DAYS DIRECTED FOR 2 DAYS fluoxetine fluoxetine No fluoxetine [facility] 20 mg 20 mg 20 mg Medical capsule capsule capsule TAKE 1 TAKE 1 TAKE 1 CAPSULE BY CAPSULE BY CAPSULE BY MOUTH MOUTH MOUTH EVERYDAY AT EVERYDAY AT EVERYDAY BEDTIME BEDTIME AT BEDTIME fluoxetine fluoxetine No fluoxetine [facility] 40 mg 40 mg 40 mg Medical capsule capsule capsule TAKE 1 TAKE 1 TAKE 1 CAPSULE BY CAPSULE BY CAPSULE BY MOUTH EVERY MOUTH EVERY MOUTH DAY DAY EVERY DAY hydroxyzine hydroxyzine No hydroxyzin [facility] HCl 25 mg HCl 25 mg e HCl 25 M edical tablet Take tablet Take mg tablet 1 tablet 3 1 tablet 3 Take 1 times a day times a day tablet 3 by oral by oral times a route as route as day by needed. needed. oral route as needed. ibuprofen ibuprofen No ibuprofen [facility] 800 mg 800 mg 800 mg Medical tablet TAKE tablet TAKE tablet 1 TABLET BY 1 TABLET BY TAKE 1 MOUTH EVERY MOUTH EVERY TABLET BY 8 HOURS 8 HOURS MOUTH NEEDED FOR NEEDED FOR EVERY 8 PAIN PAIN HOURS NEEDED FOR PAIN ketoconazol ketoconazol No ketoconazo [facility] e 2 % e 2 % le 2 % Medical topical topical topical cream APPLY cream APPLY cream TO AFFECTED TO AFFECTED APPLY TO AREA 3 AREA 3 AFFECTED TIMES A DAY TIMES A DAY AREA 3 NEEDED NEEDED TIMES A FOR FOR DAY IRRITATION, IRRITATION, NEEDED FOR UNTIL UNTIL IRRITATION SYNPTOMS SYNPTOMS , UNTIL IMPROVE IMPROVE SYNPTOMS IMPROVE lamotrigine lamotrigine No lamotrigin [facility] 25 mg 25 mg e 25 mg Medical tablet tablet tablet Latuda 20 Latuda 20 No Latuda 20 [facility] mg tablet mg tablet mg tablet Medical TAKE 3 TAKE 3 TAKE 3 TABLETS BY TABLETS BY TABLETS BY MOUTH FOR 3 MOUTH FOR 3 MOUTH FOR DAYS, THEN DAYS, THEN 3 DAYS, 2 TABLETS 2 TABLETS THEN 2 FOR 3 DAYS, FOR 3 DAYS, TABLETS THEN 1 THEN 1 FOR 3 TABLET FOR TABLET FOR DAYS, THEN 3 DAYS THEN 3 DAYS THEN 1 TABLET STOP STOP FOR 3 DAYS THEN STOP Latuda 40 Latuda 40 No Latuda 40 [facility] mg tablet mg tablet mg tablet Medical TAKE 1 TAKE 1 TAKE 1 TABLET BY TABLET BY TABLET BY MOUTH ONCE MOUTH ONCE MOUTH ONCE A DAY IN A DAY IN A DAY IN THE EVENING THE EVENING THE WITH FOOD WITH FOOD EVENING WITH FOOD Latuda 80 Latuda 80 No Latuda 80 [facility] mg tablet mg tablet mg tablet Medical TAKE 1 TAKE 1 TAKE 1 TABLET BY TABLET BY TABLET BY MOUTH ONCE MOUTH ONCE MOUTH ONCE A DAY IN A DAY IN A DAY IN THE EVENING THE EVENING THE WITH FOOD WITH FOOD EVENING WITH FOOD Lo Loestrin Lo Loestrin No 1 Q1D Lo P [facility] Fe 1 mg-10 Fe 1 mg-10 Loestrin Medical mcg (24)/10 mcg (24)/10 Fe 1 mg-10 mcg (2) mcg (2) mcg tablet Take tablet Take (24)/10 1 tablet 1 tablet mcg (2) every day every day tablet by oral by oral Take 1 route. route. tablet every day by oral route. methylpredn methylpredn No methylpred [facility] isolone 4 isolone 4 nisolone 4 Medical mg tablets mg tablets mg tablets in a dose in a dose in a dose pack TAKE 6 pack TAKE 6 pack TAKE TABLETS ON TABLETS ON 6 TABLETS DAY 1 DAY 1 ON DAY 1 DIRECTED ON DIRECTED ON PACKAGE AND PACKAGE AND DIRECTED DECREASE BY DECREASE BY ON PACKAGE 1 TAB EACH 1 TAB EACH AND DAY FOR A DAY FOR A DECREASE TOTAL OF 6 TOTAL OF 6 BY 1 TAB DAYS DAYS EACH DAY FOR A TOTAL OF 6 DAYS metronidazo metronidazo No metronidaz [facility] le 500 mg le 500 mg ole 500 mg Medical tablet TAKE tablet TAKE tablet 2 TABLETS 2 TABLETS TAKE 2 BY MOUTH BY MOUTH TABLETS BY EVERY DAY EVERY DAY MOUTH FOR 5 DAYS FOR 5 DAYS EVERY DAY FOR 5 DAYS nitrofurant nitrofurant No nitrofuran [facility] oin oin toin Medical monohydrate monohydrate monohydrat /macrocryst /macrocryst e/macrocry als 100 mg als 100 mg stals 100 capsule capsule mg capsule TAKE 1 TAKE 1 TAKE 1 CAPSULE BY CAPSULE BY CAPSULE BY MOUTH TWICE MOUTH TWICE MOUTH A DAY A DAY TWICE A DIRECTED DIRECTED DAY FOR 7 DAYS FOR 7 DAYS DIRECTED FOR 7 DAYS ParaGard T ParaGard T No 1device ParaGard T [facility] 380A 380 380A 380 (s) 380A 380 Med ical square mm square mm square mm intrauterin intrauterin intrauteri e device e device ne device Take 1 Take 1 Take 1 device by device by device by intrauterin intrauterin intrauteri e route. e route. ne route. phenazopyri phenazopyri No phenazopyr [facility] dine 100 mg dine 100 mg idine 100 Medical tablet tablet mg tablet phenazopyri phenazopyri No phenazopyr [facility] dine 200 mg dine 200 mg idine 200 Medical tablet TAKE tablet TAKE mg tablet 1 TABLET BY 1 TABLET BY TAKE 1 MOUTH THREE MOUTH THREE TABLET BY TIMES A DAY TIMES A DAY MOUTH NEEDED NEEDED THREE TIMES A DAY NEEDED quetiapine quetiapine No quetiapine [facility] 100 mg 100 mg 100 mg Medical tablet TAKE tablet TAKE tablet 1 TABLET BY 1 TABLET BY TAKE 1 MOUTH EVERY MOUTH EVERY TABLET BY DAY DAY MOUTH EVERY DAY quetiapine quetiapine No quetiapine [facility] 300 mg 300 mg 300 mg Medical tablet TAKE tablet TAKE tablet 1 TABLET 1 TABLET TAKE 1 (300MG) BY (300MG) BY TABLET MOUTH MOUTH (300MG) BY NIGHTLY FOR NIGHTLY FOR MOUTH MOOD MOOD NIGHTLY FOR MOOD quetiapine quetiapine No quetiapine [facility] 50 mg 50 mg 50 mg Medical tablet tablet tablet PLEASE SEE PLEASE SEE PLEASE SEE ATTACHED ATTACHED ATTACHED FOR FOR FOR DETAILED DETAILED DETAILED DIRECTIONS DIRECTIONS DIRECTIONS quetiapine quetiapine No quetiapine [facility] ER 150 mg ER 150 mg ER 150 mg Medical tablet,exte tablet,exte tablet,ext nded nded ended release 24 release 24 release 24 hr TAKE 1 hr TAKE 1 hr TAKE 1 TABLET TABLET TABLET (150MG) BY (150MG) BY (150MG) BY MOUTH DAILY MOUTH DAILY MOUTH DAILY quetiapine quetiapine No quetiapine [facility] ER 50 mg ER 50 mg ER 50 mg Med ical tablet,exte tablet,exte tablet,ext nded nded ended release 24 release 24 release 24 hr TAKE 1 hr TAKE 1 hr TAKE 1 TABLET BY TABLET BY TABLET BY MOUTH EVERY MOUTH EVERY MOUTH DAY DAY EVERY DAY sulfamethox sulfamethox No sulfametho [facility] azole 800 azole 800 xazole 800 Medical mg-trimetho mg-trimetho mg-trimeth prim 160 mg prim 160 mg oprim 160 tablet TAKE tablet TAKE mg tablet 1 TABLET BY 1 TABLET BY TAKE 1 MOUTH TWICE MOUTH TWICE TABLET BY A DAY WITH A DAY WITH MOUTH FOOD FOOD TWICE A DAY WITH FOOD terconazole terconazole No terconazol [facility] 0.8 % 0.8 % e 0.8 % Medical vaginal vaginal vaginal cream cream cream INSERT 1 INSERT 1 INSERT 1 APPLICATORF APPLICATORF APPLICATOR UL UL FUL VAGINALLY VAGINALLY VAGINALLY EVERY DAY EVERY DAY EVERY DAY AT BEDTIME AT BEDTIME AT BEDTIME FOR 7 DAYS FOR 7 DAYS FOR 7 DAYS terconazole terconazole No terconazol [facility] 80 mg 80 mg e 80 mg Medical vaginal vaginal vaginal suppository suppository suppositor y Yuvafem 10 Yuvafem 10 No Yuvafem 10 [facility] mcg vaginal mcg vaginal mcg M edical tablet tablet vaginal INSERT 1 INSERT 1 tablet TABLET TABLET INSERT 1 TWICE A TWICE A TABLET WEEK BY WEEK BY TWICE A VAGINAL VAGINAL WEEK BY ROUTE FOR ROUTE FOR VAGINAL 14 DAYS. 14 DAYS. ROUTE FOR 14 DAYS. bupropion bupropion No bupropion [facility] HCl XL 150 HCl XL 150 HCl XL 150 Medical mg 24 hr mg 24 hr mg 24 hr tablet, tablet, tablet, extended extended extended release release release TAKE 1 TAKE 1 TAKE 1 TABLET TABLET TABLET (150MG) BY (150MG) BY (150MG) BY MOUTH DAILY MOUTH DAILY MOUTH FOR FOR DAILY FOR DEPRESSION DEPRESSION DEPRESSION cefdinir cefdinir No cefdinir [place] via 300 mg 300 mg 300 mg Medical capsule capsule capsule TAKE 1 TAKE 1 TAKE 1 CAPSULE BY CAPSULE BY CAPSULE BY MOUTH TWICE MOUTH TWICE MOUTH A DAY FOR A DAY FOR TWICE A 10 DAYS 10 DAYS DAY FOR 10 DAYS cephalexin cephalexin No cephalexin [facility] 250 mg 250 mg 250 mg Medical capsule capsule capsule TAKE 1 TAKE 1 TAKE 1 CAPSULE BY CAPSULE BY CAPSULE BY ORAL ROUTE ORAL ROUTE ORAL ROUTE DIRECTED. DIRECTED. DIRECTED. cephalexin cephalexin No cephalexin [facility] 500 mg 500 mg 500 mg Medical capsule capsule capsule TAKE 1 TAKE 1 TAKE 1 CAPSULE BY CAPSULE BY CAPSULE BY MOUTH THREE MOUTH THREE MOUTH TIMES A DAY TIMES A DAY THREE TIMES A DAY cephalexin cephalexin No cephalexin [facility] 500 mg 500 mg 500 mg Medical tablet TAKE tablet TAKE tablet 1 TABLET BY 1 TABLET BY TAKE 1 MOUTH THREE MOUTH THREE TABLET BY TIMES A DAY TIMES A DAY MOUTH FOR 7 DAYS FOR 7 DAYS THREE TIMES A DAY FOR 7 DAYS ciprofloxac ciprofloxac No 1 Q12H ciprofloxa [facility] in 500 mg in 500 mg lukasz 500 mg Medical tablet Take tablet Take tablet 1 tablet 1 tablet Take 1 every 12 every 12 tablet hours by hours by every 12 oral route oral route hours by as directed as directed oral route for 7 days. for 7 days. as directed for 7 days. clindamycin clindamycin No clindamyci [facility] 2 % vaginal 2 % vaginal n 2 % Medical cream cream vaginal INSERT 1 INSERT 1 cream APPLICATOR APPLICATOR INSERT 1 FUL FUL APPLICATOR VAGINALLY VAGINALLY FUL EVERY DAY EVERY DAY VAGINALLY FOR 7 DAYS FOR 7 DAYS EVERY DAY FOR 7 DAYS clindamycin clindamycin No clindamyci [facility] HCl 300 mg HCl 300 mg n HCl 300 Medical capsule capsule mg capsule TAKE 1 TAKE 1 TAKE 1 CAPSULE BY CAPSULE BY CAPSULE BY MOUTH THREE MOUTH THREE MOUTH TIMES A DAY TIMES A DAY THREE FOR 10 DAYS FOR 10 DAYS TIMES A DAY FOR 10 DAYS clonazepam clonazepam No .25mg clonazepam [facility] 0.5 mg 0.5 mg 0.5 mg Medical tablet 0.25 tablet 0.25 tablet mg by oral mg by oral 0.25 mg by route. route. oral route. clotrimazol clotrimazol No clotrimazo [facility] e 1 % e 1 % le 1 % Medical vaginal vaginal vaginal cream cream cream INSERT 1 INSERT 1 INSERT 1 APPLICATORF APPLICATORF APPLICATOR UL IN THE UL IN THE FUL IN THE VAGINA VAGINA VAGINA EVERY NIGHT EVERY NIGHT EVERY AT BEDTIME AT BEDTIME NIGHT AT FOR 7 DAYS FOR 7 DAYS BEDTIME FOR 7 DAYS Diclegis 10 Diclegis 10 No Diclegis [facility] mg-10 mg mg-10 mg 10 mg-10 Med ical tablet,lotus tablet,lotus mg yed release yed release tablet,del TAKE 2 TAKE 2 ayed TABLET BY TABLET BY release MOUTH EVERY MOUTH EVERY TAKE 2 DAY DAY TABLET BY MOUTH EVERY DAY dicloxacill dicloxacill No dicloxacil [facility] in 500 mg in 500 mg laurita 500 mg Medical capsule capsule capsule TAKE 1 TAKE 1 TAKE 1 CAPSULE BY CAPSULE BY CAPSULE BY MOUTH EVERY MOUTH EVERY MOUTH 6 HOURS FOR 6 HOURS FOR EVERY 6 10 DAYS 10 DAYS HOURS FOR 10 DAYS docusate docusate No docusate [place] via sodium 100 sodium 100 sodium 100 Medical mg capsule mg capsule mg capsule TAKE 1 TAKE 1 TAKE 1 TABLET BY TABLET BY TABLET BY MOUTH EVERY MOUTH EVERY MOUTH DAY AT 9AM DAY AT 9AM EVERY DAY AND 9PM AND 9PM AT 9AM AND 9PM escitalopra escitalopra No 20mg escitalopr [facility] m 10 mg m 10 mg am 10 mg Medic al tablet 20 tablet 20 tablet 20 mg by oral mg by oral mg by oral route. route. route. estradiol estradiol No 1applic Q1D estradiol [facility] 0.01% (0.1 0.01% (0.1 ator(s) 0.01% (0.1 Medical mg/gram) mg/gram) ful mg/gram) vaginal vaginal vaginal cream cream cream Insert 1 Insert 1 Insert 1 applicatorf applicatorf applicator ul every ul every ful every day by day by day by vaginal vaginal vaginal route at route at route at bedtime. bedtime. bedtime. etonogestre etonogestre No etonogestr [facility] l 0.12 l 0.12 el 0.12 Medical mg-ethinyl mg-ethinyl mg-ethinyl estradiol estradiol estradiol 0.015 mg/24 0.015 mg/24 0.015 hr vaginal hr vaginal mg/24 hr ring INSERT ring INSERT vaginal 1 VAGINAL 1 VAGINAL ring RING EVERY RING EVERY INSERT 1 3 WEEKS BY 3 WEEKS BY VAGINAL VAGINAL VAGINAL RING EVERY ROUTE. ROUTE. 3 WEEKS BY VAGINAL ROUTE. fluconazole fluconazole No fluconazol [facility] 150 mg 150 mg e 150 mg Medical tablet TAKE tablet TAKE tablet 1 PILL 1 PILL TAKE 1 TODAY MAY TODAY JULY PILL TODAY REPEAT IN 3 REPEAT IN 3 MAY REPEAT DAYS IF DAYS IF IN 3 DAYS STILL STILL IF STILL HAVING HAVING HAVING SYMPTOMS SYMPTOMS SYMPTOMS fluoxetine fluoxetine No fluoxetine [facility] 20 mg 20 mg 20 mg Medical capsule capsule capsule TAKE 1 TAKE 1 TAKE 1 CAPSULE BY CAPSULE BY CAPSULE BY MOUTH MOUTH MOUTH EVERYDAY AT EVERYDAY AT EVERYDAY BEDTIME BEDTIME AT BEDTIME fluoxetine fluoxetine No fluoxetine [facility] 40 mg 40 mg 40 mg Medical capsule capsule capsule TAKE 1 TAKE 1 TAKE 1 CAPSULE BY CAPSULE BY CAPSULE BY MOUTH EVERY MOUTH EVERY MOUTH DAY DAY EVERY DAY hydroxyzine hydroxyzine No hydroxyzin [facility] HCl 25 mg HCl 25 mg e HCl 25 M edical tablet Take tablet Take mg tablet 1 tablet 3 1 tablet 3 Take 1 times a day times a day tablet 3 by oral by oral times a route as route as day by needed. needed. oral route as needed. ibuprofen ibuprofen No ibuprofen [facility] 800 mg 800 mg 800 mg Medical tablet TAKE tablet TAKE tablet 1 TABLET BY 1 TABLET BY TAKE 1 MOUTH EVERY MOUTH EVERY TABLET BY 8 HOURS 8 HOURS MOUTH NEEDED FOR NEEDED FOR EVERY 8 PAIN PAIN HOURS NEEDED FOR PAIN ketoconazol ketoconazol No ketoconazo [facility] e 2 % e 2 % le 2 % Medical topical topical topical cream APPLY cream APPLY cream TO AFFECTED TO AFFECTED APPLY TO AREA 3 AREA 3 AFFECTED TIMES A DAY TIMES A DAY AREA 3 NEEDED NEEDED TIMES A FOR FOR DAY IRRITATION, IRRITATION, NEEDED FOR UNTIL UNTIL IRRITATION SYNPTOMS SYNPTOMS , UNTIL IMPROVE IMPROVE SYNPTOMS IMPROVE Latuda 20 Latuda 20 No Latuda 20 [facility] mg tablet mg tablet mg tablet Medical TAKE 3 TAKE 3 TAKE 3 TABLETS BY TABLETS BY TABLETS BY MOUTH FOR 3 MOUTH FOR 3 MOUTH FOR DAYS, THEN DAYS, THEN 3 DAYS, 2 TABLETS 2 TABLETS THEN 2 FOR 3 DAYS, FOR 3 DAYS, TABLETS THEN 1 THEN 1 FOR 3 TABLET FOR TABLET FOR DAYS, THEN 3 DAYS THEN 3 DAYS THEN 1 TABLET STOP STOP FOR 3 DAYS THEN STOP Latuda 40 Latuda 40 No Latuda 40 [facility] mg tablet mg tablet mg tablet Medical TAKE 1 TAKE 1 TAKE 1 TABLET BY TABLET BY TABLET BY MOUTH ONCE MOUTH ONCE MOUTH ONCE A DAY IN A DAY IN A DAY IN THE EVENING THE EVENING THE WITH FOOD WITH FOOD EVENING WITH FOOD Latuda 80 Latuda 80 No Latuda 80 [facility] mg tablet mg tablet mg tablet Medical TAKE 1 TAKE 1 TAKE 1 TABLET BY TABLET BY TABLET BY MOUTH ONCE MOUTH ONCE MOUTH ONCE A DAY IN A DAY IN A DAY IN THE EVENING THE EVENING THE WITH FOOD WITH FOOD EVENING WITH FOOD Lo Loestrin Lo Loestrin No 1 Q1D Lo P [facility] Fe 1 mg-10 Fe 1 mg-10 Loestrin Medical mcg (24)/10 mcg (24)/10 Fe 1 mg-10 mcg (2) mcg (2) mcg tablet Take tablet Take (24)/10 1 tablet 1 tablet mcg (2) every day every day tablet by oral by oral Take 1 route. route. tablet every day by oral route. methylpredn methylpredn No methylpred [facility] isolone 4 isolone 4 nisolone 4 Medical mg tablets mg tablets mg tablets in a dose in a dose in a dose pack TAKE 6 pack TAKE 6 pack TAKE TABLETS ON TABLETS ON 6 TABLETS DAY 1 DAY 1 ON DAY 1 DIRECTED ON DIRECTED ON PACKAGE AND PACKAGE AND DIRECTED DECREASE BY DECREASE BY ON PACKAGE 1 TAB EACH 1 TAB EACH AND DAY FOR A DAY FOR A DECREASE TOTAL OF 6 TOTAL OF 6 BY 1 TAB DAYS DAYS EACH DAY FOR A TOTAL OF 6 DAYS metronidazo metronidazo No metronidaz [facility] le 500 mg le 500 mg ole 500 mg Medical tablet TAKE tablet TAKE tablet 1 TABLET BY 1 TABLET BY TAKE 1 MOUTH TWICE MOUTH TWICE TABLET BY A DAY FOR 7 A DAY FOR 7 MOUTH DAYS DAYS TWICE A DAY FOR 7 DAYS nitrofurant nitrofurant No nitrofuran [facility] oin oin toin Medical monohydrate monohydrate monohydrat /macrocryst /macrocryst e/macrocry als 100 mg als 100 mg stals 100 capsule capsule mg capsule TAKE 1 TAKE 1 TAKE 1 CAPSULE BY CAPSULE BY CAPSULE BY MOUTH TWICE MOUTH TWICE MOUTH A DAY A DAY TWICE A DAY ParaGard T ParaGard T No 1device ParaGard T [facility] 380A 380 380A 380 (s) 380A 380 Med ical square mm square mm square mm intrauterin intrauterin intrauteri e device e device ne device Take 1 Take 1 Take 1 device by device by device by intrauterin intrauterin intrauteri e route. e route. ne route. phenazopyri phenazopyri No phenazopyr [facility] dine 200 mg dine 200 mg idine 200 Medical tablet TAKE tablet TAKE mg tablet 1 TABLET BY 1 TABLET BY TAKE 1 MOUTH THREE MOUTH THREE TABLET BY TIMES A DAY TIMES A DAY MOUTH NEEDED NEEDED THREE TIMES A DAY NEEDED quetiapine quetiapine No quetiapine [facility] 100 mg 100 mg 100 mg Medical tablet TAKE tablet TAKE tablet 1 TABLET 1 TABLET TAKE 1 (100MG) BY (100MG) BY TABLET MOUTH MOUTH (100MG) BY NIGHTLY FOR NIGHTLY FOR MOUTH MOOD MOOD NIGHTLY FOR MOOD quetiapine quetiapine No quetiapine [facility] 300 mg 300 mg 300 mg Medical tablet TAKE tablet TAKE tablet 1 TABLET 1 TABLET TAKE 1 (300MG) BY (300MG) BY TABLET MOUTH MOUTH (300MG) BY NIGHTLY FOR NIGHTLY FOR MOUTH MOOD MOOD NIGHTLY FOR MOOD quetiapine quetiapine No quetiapine [facility] 50 mg 50 mg 50 mg Medical tablet tablet tablet PLEASE SEE PLEASE SEE PLEASE SEE ATTACHED ATTACHED ATTACHED FOR FOR FOR DETAILED DETAILED DETAILED DIRECTIONS DIRECTIONS DIRECTIONS quetiapine quetiapine No quetiapine [facility] ER 150 mg ER 150 mg ER 150 mg Medical tablet,exte tablet,exte tablet,ext nded nded ended release 24 release 24 release 24 hr TAKE 1 hr TAKE 1 hr TAKE 1 TABLET TABLET TABLET (150MG) BY (150MG) BY (150MG) BY MOUTH DAILY MOUTH DAILY MOUTH DAILY quetiapine quetiapine No quetiapine [facility] ER 50 mg ER 50 mg ER 50 mg Med ical tablet,exte tablet,exte tablet,ext nded nded ended release 24 release 24 release 24 hr TAKE 1 hr TAKE 1 hr TAKE 1 TABLET TABLET TABLET (50MG) BY (50MG) BY (50MG) BY MOUTH EVERY MOUTH EVERY MOUTH MORNING FOR MORNING FOR EVERY MOOD MOOD MORNING FOR MOOD sulfamethox sulfamethox No sulfametho [facility] azole 800 azole 800 xazole 800 Medical mg-trimetho mg-trimetho mg-trimeth prim 160 mg prim 160 mg oprim 160 tablet TAKE tablet TAKE mg tablet 1 TABLET BY 1 TABLET BY TAKE 1 MOUTH TWICE MOUTH TWICE TABLET BY A DAY WITH A DAY WITH MOUTH FOOD FOOD TWICE A DAY WITH FOOD terconazole terconazole No terconazol [facility] 0.8 % 0.8 % e 0.8 % Medical vaginal vaginal vaginal cream cream cream INSERT 1 INSERT 1 INSERT 1 APPLICATORF APPLICATORF APPLICATOR UL UL FUL VAGINALLY VAGINALLY VAGINALLY EVERY DAY EVERY DAY EVERY DAY AT BEDTIME AT BEDTIME AT BEDTIME FOR 7 DAYS FOR 7 DAYS FOR 7 DAYS amoxicillin amoxicillin No amoxicilli [facility] 500 mg 500 mg n 500 mg Medical tablet TAKE tablet TAKE tablet 1 TABLET BY 1 TABLET BY TAKE 1 MOUTH TWICE MOUTH TWICE TABLET BY DAILY FOR 5 DAILY FOR 5 MOUTH DAYS DAYS TWICE DAILY FOR 5 DAYS cephalexin cephalexin No cephalexin [facility] 250 mg 250 mg 250 mg Medical capsule capsule capsule TAKE 1 TAKE 1 TAKE 1 CAPSULE BY CAPSULE BY CAPSULE BY ORAL ROUTE ORAL ROUTE ORAL ROUTE DIRECTED. DIRECTED. DIRECTED. clotrimazol clotrimazol No clotrimazo [facility] e 1 % e 1 % le 1 % Medical vaginal vaginal vaginal cream cream cream INSERT 1 INSERT 1 INSERT 1 APPLICATORF APPLICATORF APPLICATOR UL IN THE UL IN THE FUL IN THE VAGINA VAGINA VAGINA EVERY NIGHT EVERY NIGHT EVERY AT BEDTIME AT BEDTIME NIGHT AT FOR 7 DAYS FOR 7 DAYS BEDTIME FOR 7 DAYS Diclegis 10 Diclegis 10 No Diclegis [facility] mg-10 mg mg-10 mg 10 mg-10 Med ical tablet,lotus tablet,lotus mg yed release yed release tablet,del TAKE 2 TAKE 2 ayed TABLET BY TABLET BY release MOUTH EVERY MOUTH EVERY TAKE 2 DAY DAY TABLET BY MOUTH EVERY DAY fluconazole fluconazole No fluconazol [facility] 150 mg 150 mg e 150 mg Medical tablet Take tablet Take tablet 1 tablet by 1 tablet by Take 1 oral route oral route tablet by for 1 day. for 1 day. oral route for 1 day. fluoxetine fluoxetine No fluoxetine [facility] 20 mg 20 mg 20 mg Medical capsule capsule capsule Take 1 Take 1 Take 1 capsule by capsule by capsule by oral route oral route oral route in the in the in the morning. morning. morning. fluoxetine fluoxetine No fluoxetine [facility] 40 mg 40 mg 40 mg Medical capsule capsule capsule TAKE 1 TAKE 1 TAKE 1 CAPSULE BY CAPSULE BY CAPSULE BY MOUTH MOUTH MOUTH EVERYDAY AT EVERYDAY AT EVERYDAY BEDTIME BEDTIME AT BEDTIME hydroxyzine hydroxyzine No hydroxyzin [facility] HCl 25 mg HCl 25 mg e HCl 25 M edical tablet Take tablet Take mg tablet 1 tablet 3 1 tablet 3 Take 1 times a day times a day tablet 3 by oral by oral times a route as route as day by needed. needed. oral route as needed. ondansetron ondansetron No ondansetro [facility] 4 mg 4 mg n 4 mg Medical disintegrat disintegrat disintegra ing tablet ing tablet ting DISSOLVE 1 DISSOLVE 1 tablet TABLET ON TABLET ON DISSOLVE 1 THE TONGUE THE TONGUE TABLET ON EVERY 6 EVERY 6 THE TONGUE HOURS HOURS EVERY 6 NEEDED NEEDED HOURS NEEDED phenazopyri phenazopyri No phenazopyr [facility] dine 100 mg dine 100 mg idine 100 Medical tablet TAKE tablet TAKE mg tablet 1 TABLET BY 1 TABLET BY TAKE 1 MOUTH THREE MOUTH THREE TABLET BY TIMES A DAY TIMES A DAY MOUTH NEEDED NEEDED THREE FOR BLADDER FOR BLADDER TIMES A SPASMS/PAIN SPASMS/PAIN DAY NEEDED FOR BLADDER SPASMS/MINDY N promethazin promethazin No promethazi [facility] e 12.5 mg e 12.5 mg ne 12.5 mg Medical tablet TAKE tablet TAKE tablet 1 TABLET 1 TABLET TAKE 1 EVERY 6 EVERY 6 TABLET HOURS BY HOURS BY EVERY 6 ORAL ROUTE. ORAL ROUTE. HOURS BY ORAL ROUTE. RhoGAM RhoGAM No 1syring RhoGAM [facility] Ultra-Filte Ultra-Filte e(s) Ultra-Filt Medical red PLUS red PLUS ered PLUS 1,500 unit 1,500 unit 1,500 unit (300 mcg) (300 mcg) (300 mcg) intramuscul intramuscul intramuscu ar syringe ar syringe lar Inject 1 Inject 1 syringe syringe by syringe by Inject 1 intramuscul intramuscul syringe by ar route. ar route. intramuscu lar route. amoxicillin amoxicillin No amoxicilli [facility] 500 mg 500 mg n 500 mg Medical tablet TAKE tablet TAKE tablet 1 TABLET BY 1 TABLET BY TAKE 1 MOUTH TWICE MOUTH TWICE TABLET BY DAILY FOR 5 DAILY FOR 5 MOUTH DAYS DAYS TWICE DAILY FOR 5 DAYS cephalexin cephalexin No cephalexin [facility] 250 mg 250 mg 250 mg Medical capsule capsule capsule TAKE 1 TAKE 1 TAKE 1 CAPSULE BY CAPSULE BY CAPSULE BY ORAL ROUTE ORAL ROUTE ORAL ROUTE DIRECTED. DIRECTED. DIRECTED. clotrimazol clotrimazol No clotrimazo [facility] e 1 % e 1 % le 1 % Medical vaginal vaginal vaginal cream cream cream INSERT 1 INSERT 1 INSERT 1 APPLICATORF APPLICATORF APPLICATOR UL IN THE UL IN THE FUL IN THE VAGINA VAGINA VAGINA EVERY NIGHT EVERY NIGHT EVERY AT BEDTIME AT BEDTIME NIGHT AT FOR 7 DAYS FOR 7 DAYS BEDTIME FOR 7 DAYS Diclegis 10 Diclegis 10 No Diclegis [facility] mg-10 mg mg-10 mg 10 mg-10 Med ical tablet,lotus tablet,lotus mg yed release yed release tablet,del TAKE 2 TAKE 2 ayed TABLET BY TABLET BY release MOUTH EVERY MOUTH EVERY TAKE 2 DAY DAY TABLET BY MOUTH EVERY DAY fluconazole fluconazole No fluconazol [facility] 150 mg 150 mg e 150 mg Medical tablet Take tablet Take tablet 1 tablet by 1 tablet by Take 1 oral route oral route tablet by for 1 day. for 1 day. oral route for 1 day. fluoxetine fluoxetine No fluoxetine [facility] 20 mg 20 mg 20 mg Medical capsule capsule capsule Take 1 Take 1 Take 1 capsule by capsule by capsule by oral route oral route oral route in the in the in the morning. morning. morning. fluoxetine fluoxetine No fluoxetine [facility] 40 mg 40 mg 40 mg Medical capsule capsule capsule TAKE 1 TAKE 1 TAKE 1 CAPSULE BY CAPSULE BY CAPSULE BY MOUTH MOUTH MOUTH EVERYDAY AT EVERYDAY AT EVERYDAY BEDTIME BEDTIME AT BEDTIME hydroxyzine hydroxyzine No hydroxyzin [facility] HCl 25 mg HCl 25 mg e HCl 25 M edical tablet Take tablet Take mg tablet 1 tablet 3 1 tablet 3 Take 1 times a day times a day tablet 3 by oral by oral times a route as route as day by needed. needed. oral route as needed. ondansetron ondansetron No ondansetro [facility] 4 mg 4 mg n 4 mg Medical disintegrat disintegrat disintegra ing tablet ing tablet ting DISSOLVE 1 DISSOLVE 1 tablet TABLET ON TABLET ON DISSOLVE 1 THE TONGUE THE TONGUE TABLET ON EVERY 6 EVERY 6 THE TONGUE HOURS HOURS EVERY 6 NEEDED NEEDED HOURS NEEDED phenazopyri phenazopyri No phenazopyr [facility] dine 100 mg dine 100 mg idine 100 Medical tablet TAKE tablet TAKE mg tablet 1 TABLET BY 1 TABLET BY TAKE 1 MOUTH THREE MOUTH THREE TABLET BY TIMES A DAY TIMES A DAY MOUTH NEEDED NEEDED THREE FOR BLADDER FOR BLADDER TIMES A SPASMS/PAIN SPASMS/PAIN DAY NEEDED FOR BLADDER SPASMS/MINDY N promethazin promethazin No promethazi [facility] e 12.5 mg e 12.5 mg ne 12.5 mg Medical tablet TAKE tablet TAKE tablet 1 TABLET 1 TABLET TAKE 1 EVERY 6 EVERY 6 TABLET HOURS BY HOURS BY EVERY 6 ORAL ROUTE. ORAL ROUTE. HOURS BY ORAL ROUTE. RhoGAM RhoGAM No 1syring RhoGAM [facility] Ultra-Filte Ultra-Filte e(s) Ultra-Filt Medical red PLUS red PLUS ered PLUS 1,500 unit 1,500 unit 1,500 unit (300 mcg) (300 mcg) (300 mcg) intramuscul intramuscul intramuscu ar syringe ar syringe lar Inject 1 Inject 1 syringe syringe by syringe by Inject 1 intramuscul intramuscul syringe by ar route. ar route. intramuscu lar route. amoxicillin amoxicillin No amoxicilli [facility] 500 mg 500 mg n 500 mg Medical tablet TAKE tablet TAKE tablet 1 TABLET BY 1 TABLET BY TAKE 1 MOUTH TWICE MOUTH TWICE TABLET BY DAILY FOR 5 DAILY FOR 5 MOUTH DAYS DAYS TWICE DAILY FOR 5 DAYS cephalexin cephalexin No cephalexin [facility] 250 mg 250 mg 250 mg Medical capsule capsule capsule TAKE 1 TAKE 1 TAKE 1 CAPSULE BY CAPSULE BY CAPSULE BY ORAL ROUTE ORAL ROUTE ORAL ROUTE DIRECTED. DIRECTED. DIRECTED. clotrimazol clotrimazol No clotrimazo [facility] e 1 % e 1 % le 1 % Medical vaginal vaginal vaginal cream cream cream INSERT 1 INSERT 1 INSERT 1 APPLICATORF APPLICATORF APPLICATOR UL IN THE UL IN THE FUL IN THE VAGINA VAGINA VAGINA EVERY NIGHT EVERY NIGHT EVERY AT BEDTIME AT BEDTIME NIGHT AT FOR 7 DAYS FOR 7 DAYS BEDTIME FOR 7 DAYS Diclegis 10 Diclegis 10 No Diclegis [facility] mg-10 mg mg-10 mg 10 mg-10 Med ical tablet,lotus tablet,lotus mg yed release yed release tablet,del TAKE 2 TAKE 2 ayed TABLET BY TABLET BY release MOUTH EVERY MOUTH EVERY TAKE 2 DAY DAY TABLET BY MOUTH EVERY DAY fluconazole fluconazole No fluconazol [facility] 150 mg 150 mg e 150 mg Medical tablet Take tablet Take tablet 1 tablet by 1 tablet by Take 1 oral route oral route tablet by for 1 day. for 1 day. oral route for 1 day. fluoxetine fluoxetine No fluoxetine [facility] 20 mg 20 mg 20 mg Medical capsule capsule capsule Take 1 Take 1 Take 1 capsule by capsule by capsule by oral route oral route oral route in the in the in the morning. morning. morning. fluoxetine fluoxetine No fluoxetine [facility] 40 mg 40 mg 40 mg Medical capsule capsule capsule TAKE 1 TAKE 1 TAKE 1 CAPSULE BY CAPSULE BY CAPSULE BY MOUTH MOUTH MOUTH EVERYDAY AT EVERYDAY AT EVERYDAY BEDTIME BEDTIME AT BEDTIME hydroxyzine hydroxyzine No hydroxyzin [facility] HCl 25 mg HCl 25 mg e HCl 25 M edical tablet Take tablet Take mg tablet 1 tablet 3 1 tablet 3 Take 1 times a day times a day tablet 3 by oral by oral times a route as route as day by needed. needed. oral route as needed. ondansetron ondansetron No ondansetro [facility] 4 mg 4 mg n 4 mg Medical disintegrat disintegrat disintegra ing tablet ing tablet ting DISSOLVE 1 DISSOLVE 1 tablet TABLET ON TABLET ON DISSOLVE 1 THE TONGUE THE TONGUE TABLET ON EVERY 6 EVERY 6 THE TONGUE HOURS HOURS EVERY 6 NEEDED NEEDED HOURS NEEDED phenazopyri phenazopyri No phenazopyr [facility] dine 100 mg dine 100 mg idine 100 Medical tablet TAKE tablet TAKE mg tablet 1 TABLET BY 1 TABLET BY TAKE 1 MOUTH THREE MOUTH THREE TABLET BY TIMES A DAY TIMES A DAY MOUTH NEEDED NEEDED THREE FOR BLADDER FOR BLADDER TIMES A SPASMS/PAIN SPASMS/PAIN DAY NEEDED FOR BLADDER SPASMS/MINDY N promethazin promethazin No promethazi [facility] e 12.5 mg e 12.5 mg ne 12.5 mg Medical tablet TAKE tablet TAKE tablet 1 TABLET 1 TABLET TAKE 1 EVERY 6 EVERY 6 TABLET HOURS BY HOURS BY EVERY 6 ORAL ROUTE. ORAL ROUTE. HOURS BY ORAL ROUTE. RhoGAM RhoGAM No RhoGAM [facility] Ultra-Filte Ultra-Filte Ultra-Filt Medical red PLUS red PLUS ered PLUS 1,500 unit 1,500 unit 1,500 unit (300 mcg) (300 mcg) (300 mcg) intramuscul intramuscul intramuscu ar syringe ar syringe lar Inject 1 Inject 1 syringe syringe by syringe by Inject 1 intramuscul intramuscul syringe by ar route. ar route. intramuscu lar route. amoxicillin amoxicillin No amoxicilli [facility] 500 mg 500 mg n 500 mg Medical tablet TAKE tablet TAKE tablet 1 TABLET BY 1 TABLET BY TAKE 1 MOUTH TWICE MOUTH TWICE TABLET BY DAILY FOR 5 DAILY FOR 5 MOUTH DAYS DAYS TWICE DAILY FOR 5 DAYS cephalexin cephalexin No cephalexin [facility] 250 mg 250 mg 250 mg Medical capsule capsule capsule TAKE 1 TAKE 1 TAKE 1 CAPSULE BY CAPSULE BY CAPSULE BY ORAL ROUTE ORAL ROUTE ORAL ROUTE DIRECTED. DIRECTED. DIRECTED. clotrimazol clotrimazol No clotrimazo [facility] e 1 % e 1 % le 1 % Medical vaginal vaginal vaginal cream cream cream INSERT 1 INSERT 1 INSERT 1 APPLICATORF APPLICATORF APPLICATOR UL IN THE UL IN THE FUL IN THE VAGINA VAGINA VAGINA EVERY NIGHT EVERY NIGHT EVERY AT BEDTIME AT BEDTIME NIGHT AT FOR 7 DAYS FOR 7 DAYS BEDTIME FOR 7 DAYS Diclegis 10 Diclegis 10 No Diclegis [facility] mg-10 mg mg-10 mg 10 mg-10 Med ical tablet,lotus tablet,lotus mg yed release yed release tablet,del TAKE 2 TAKE 2 ayed TABLET BY TABLET BY release MOUTH EVERY MOUTH EVERY TAKE 2 DAY DAY TABLET BY MOUTH EVERY DAY fluconazole fluconazole No fluconazol [facility] 150 mg 150 mg e 150 mg Medical tablet Take tablet Take tablet 1 tablet by 1 tablet by Take 1 oral route oral route tablet by for 1 day. for 1 day. oral route for 1 day. fluoxetine fluoxetine No fluoxetine [facility] 20 mg 20 mg 20 mg Medical capsule capsule capsule Take 1 Take 1 Take 1 capsule by capsule by capsule by oral route oral route oral route in the in the in the morning. morning. morning. fluoxetine fluoxetine No fluoxetine [facility] 40 mg 40 mg 40 mg Medical capsule capsule capsule TAKE 1 TAKE 1 TAKE 1 CAPSULE BY CAPSULE BY CAPSULE BY MOUTH MOUTH MOUTH EVERYDAY AT EVERYDAY AT EVERYDAY BEDTIME BEDTIME AT BEDTIME hydroxyzine hydroxyzine No hydroxyzin [facility] HCl 25 mg HCl 25 mg e HCl 25 M edical tablet Take tablet Take mg tablet 1 tablet 3 1 tablet 3 Take 1 times a day times a day tablet 3 by oral by oral times a route as route as day by needed. needed. oral route as needed. ondansetron ondansetron No ondansetro [facility] 4 mg 4 mg n 4 mg Medical disintegrat disintegrat disintegra ing tablet ing tablet ting DISSOLVE 1 DISSOLVE 1 tablet TABLET ON TABLET ON DISSOLVE 1 THE TONGUE THE TONGUE TABLET ON EVERY 6 EVERY 6 THE TONGUE HOURS HOURS EVERY 6 NEEDED NEEDED HOURS NEEDED phenazopyri phenazopyri No phenazopyr [facility] dine 100 mg dine 100 mg idine 100 Medical tablet TAKE tablet TAKE mg tablet 1 TABLET BY 1 TABLET BY TAKE 1 MOUTH THREE MOUTH THREE TABLET BY TIMES A DAY TIMES A DAY MOUTH NEEDED NEEDED THREE FOR BLADDER FOR BLADDER TIMES A SPASMS/PAIN SPASMS/PAIN DAY NEEDED FOR BLADDER SPASMS/MINDY N promethazin promethazin No promethazi [facility] e 12.5 mg e 12.5 mg ne 12.5 mg Medical tablet TAKE tablet TAKE tablet 1 TABLET 1 TABLET TAKE 1 EVERY 6 EVERY 6 TABLET HOURS BY HOURS BY EVERY 6 ORAL ROUTE. ORAL ROUTE. HOURS BY ORAL ROUTE. RhoGAM RhoGAM No RhoGAM [facility] Ultra-Filte Ultra-Filte Ultra-Filt Medical red PLUS red PLUS ered PLUS 1,500 unit 1,500 unit 1,500 unit (300 mcg) (300 mcg) (300 mcg) intramuscul intramuscul intramuscu ar syringe ar syringe lar Inject 1 Inject 1 syringe syringe by syringe by Inject 1 intramuscul intramuscul syringe by ar route. ar route. intramuscu lar route. amoxicillin amoxicillin No amoxicilli [facility] 500 mg 500 mg n 500 mg Medical tablet TAKE tablet TAKE tablet 1 TABLET BY 1 TABLET BY TAKE 1 MOUTH TWICE MOUTH TWICE TABLET BY DAILY FOR 5 DAILY FOR 5 MOUTH DAYS DAYS TWICE DAILY FOR 5 DAYS cephalexin cephalexin No cephalexin [facility] 250 mg 250 mg 250 mg Medical capsule capsule capsule TAKE 1 TAKE 1 TAKE 1 CAPSULE BY CAPSULE BY CAPSULE BY ORAL ROUTE ORAL ROUTE ORAL ROUTE DIRECTED. DIRECTED. DIRECTED. clotrimazol clotrimazol No clotrimazo [facility] e 1 % e 1 % le 1 % Medical vaginal vaginal vaginal cream cream cream INSERT 1 INSERT 1 INSERT 1 APPLICATORF APPLICATORF APPLICATOR UL IN THE UL IN THE FUL IN THE VAGINA VAGINA VAGINA EVERY NIGHT EVERY NIGHT EVERY AT BEDTIME AT BEDTIME NIGHT AT FOR 7 DAYS FOR 7 DAYS BEDTIME FOR 7 DAYS Diclegis 10 Diclegis 10 No Diclegis [facility] mg-10 mg mg-10 mg 10 mg-10 Med ical tablet,lotus tablet,lotus mg yed release yed release tablet,del TAKE 2 TAKE 2 ayed TABLET BY TABLET BY release MOUTH EVERY MOUTH EVERY TAKE 2 DAY DAY TABLET BY MOUTH EVERY DAY fluconazole fluconazole No fluconazol [facility] 150 mg 150 mg e 150 mg Medical tablet Take tablet Take tablet 1 tablet by 1 tablet by Take 1 oral route oral route tablet by for 1 day. for 1 day. oral route for 1 day. fluoxetine fluoxetine No fluoxetine [facility] 20 mg 20 mg 20 mg Medical capsule capsule capsule Take 1 Take 1 Take 1 capsule by capsule by capsule by oral route oral route oral route in the in the in the morning. morning. morning. fluoxetine fluoxetine No fluoxetine [facility] 40 mg 40 mg 40 mg Medical capsule capsule capsule TAKE 1 TAKE 1 TAKE 1 CAPSULE BY CAPSULE BY CAPSULE BY MOUTH MOUTH MOUTH EVERYDAY AT EVERYDAY AT EVERYDAY BEDTIME BEDTIME AT BEDTIME hydroxyzine hydroxyzine No hydroxyzin [facility] HCl 25 mg HCl 25 mg e HCl 25 M edical tablet Take tablet Take mg tablet 1 tablet 3 1 tablet 3 Take 1 times a day times a day tablet 3 by oral by oral times a route as route as day by needed. needed. oral route as needed. ondansetron ondansetron No ondansetro [facility] 4 mg 4 mg n 4 mg Medical disintegrat disintegrat disintegra ing tablet ing tablet ting DISSOLVE 1 DISSOLVE 1 tablet TABLET ON TABLET ON DISSOLVE 1 THE TONGUE THE TONGUE TABLET ON EVERY 6 EVERY 6 THE TONGUE HOURS HOURS EVERY 6 NEEDED NEEDED HOURS NEEDED phenazopyri phenazopyri No phenazopyr [facility] dine 100 mg dine 100 mg idine 100 Medical tablet TAKE tablet TAKE mg tablet 1 TABLET BY 1 TABLET BY TAKE 1 MOUTH THREE MOUTH THREE TABLET BY TIMES A DAY TIMES A DAY MOUTH NEEDED NEEDED THREE FOR BLADDER FOR BLADDER TIMES A SPASMS/PAIN SPASMS/PAIN DAY NEEDED FOR BLADDER SPASMS/MINDY N promethazin promethazin No promethazi [facility] e 12.5 mg e 12.5 mg ne 12.5 mg Medical tablet TAKE tablet TAKE tablet 1 TABLET 1 TABLET TAKE 1 EVERY 6 EVERY 6 TABLET HOURS BY HOURS BY EVERY 6 ORAL ROUTE. ORAL ROUTE. HOURS BY ORAL ROUTE. RhoGAM RhoGAM No RhoGAM [facility] Ultra-Filte Ultra-Filte Ultra-Filt Medical red PLUS red PLUS ered PLUS 1,500 unit 1,500 unit 1,500 unit (300 mcg) (300 mcg) (300 mcg) intramuscul intramuscul intramuscu ar syringe ar syringe lar Inject 1 Inject 1 syringe syringe by syringe by Inject 1 intramuscul intramuscul syringe by ar route. ar route. intramuscu lar route. amoxicillin amoxicillin No amoxicilli [facility] 500 mg 500 mg n 500 mg Medical tablet TAKE tablet TAKE tablet 1 TABLET BY 1 TABLET BY TAKE 1 MOUTH TWICE MOUTH TWICE TABLET BY DAILY FOR 5 DAILY FOR 5 MOUTH DAYS DAYS TWICE DAILY FOR 5 DAYS cephalexin cephalexin No cephalexin [facility] 250 mg 250 mg 250 mg Medical capsule capsule capsule TAKE 1 TAKE 1 TAKE 1 CAPSULE BY CAPSULE BY CAPSULE BY ORAL ROUTE ORAL ROUTE ORAL ROUTE DIRECTED. DIRECTED. DIRECTED. cephalexin cephalexin No 1 Q6H cephalexin [facility] 500 mg 500 mg 500 mg Medical tablet Take tablet Take tablet 1 tablet 1 tablet Take 1 every 6 every 6 tablet hours by hours by every 6 oral route oral route hours by for 5 days. for 5 days. oral route for 5 days. clotrimazol clotrimazol No clotrimazo [facility] e 1 % e 1 % le 1 % Medical vaginal vaginal vaginal cream cream cream INSERT 1 INSERT 1 INSERT 1 APPLICATORF APPLICATORF APPLICATOR UL IN THE UL IN THE FUL IN THE VAGINA VAGINA VAGINA EVERY NIGHT EVERY NIGHT EVERY AT BEDTIME AT BEDTIME NIGHT AT FOR 7 DAYS FOR 7 DAYS BEDTIME FOR 7 DAYS Diclegis 10 Diclegis 10 No Diclegis [facility] mg-10 mg mg-10 mg 10 mg-10 Med ical tablet,lotus tablet,lotus mg yed release yed release tablet,del TAKE 2 TAKE 2 ayed TABLET BY TABLET BY release MOUTH EVERY MOUTH EVERY TAKE 2 DAY DAY TABLET BY MOUTH EVERY DAY docusate docusate No docusate [facility] via sodium 100 sodium 100 sodium 100 Medical mg capsule mg capsule mg capsule TAKE 1 TAKE 1 TAKE 1 TABLET BY TABLET BY TABLET BY MOUTH EVERY MOUTH EVERY MOUTH DAY AT 9AM DAY AT 9AM EVERY DAY AND 9PM AND 9PM AT 9AM AND 9PM fluconazole fluconazole No fluconazol [facility] 150 mg 150 mg e 150 mg Medical tablet Take tablet Take tablet 1 tablet by 1 tablet by Take 1 oral route oral route tablet by for 1 day. for 1 day. oral route for 1 day. fluoxetine fluoxetine No fluoxetine [facility] 20 mg 20 mg 20 mg Medical capsule capsule capsule Take 1 Take 1 Take 1 capsule by capsule by capsule by oral route oral route oral route in the in the in the morning. morning. morning. fluoxetine fluoxetine No fluoxetine [facility] 40 mg 40 mg 40 mg Medical capsule capsule capsule TAKE 1 TAKE 1 TAKE 1 CAPSULE BY CAPSULE BY CAPSULE BY MOUTH MOUTH MOUTH EVERYDAY AT EVERYDAY AT EVERYDAY BEDTIME BEDTIME AT BEDTIME hydroxyzine hydroxyzine No hydroxyzin [facility] HCl 25 mg HCl 25 mg e HCl 25 M edical tablet Take tablet Take mg tablet 1 tablet 3 1 tablet 3 Take 1 times a day times a day tablet 3 by oral by oral times a route as route as day by needed. needed. oral route as needed. ibuprofen ibuprofen No ibuprofen [facility] 800 mg 800 mg 800 mg Medical tablet TAKE tablet TAKE tablet 1 TABLET BY 1 TABLET BY TAKE 1 MOUTH EVERY MOUTH EVERY TABLET BY 8 HOURS 8 HOURS MOUTH NEEDED FOR NEEDED FOR EVERY 8 PAIN PAIN HOURS NEEDED FOR PAIN ondansetron ondansetron No ondansetro [facility] 4 mg 4 mg n 4 mg Medical disintegrat disintegrat disintegra ing tablet ing tablet ting DISSOLVE 1 DISSOLVE 1 tablet TABLET ON TABLET ON DISSOLVE 1 THE TONGUE THE TONGUE TABLET ON EVERY 6 EVERY 6 THE TONGUE HOURS HOURS EVERY 6 NEEDED NEEDED HOURS NEEDED phenazopyri phenazopyri No phenazopyr [facility] dine 100 mg dine 100 mg idine 100 Medical tablet TAKE tablet TAKE mg tablet 1 TABLET BY 1 TABLET BY TAKE 1 MOUTH THREE MOUTH THREE TABLET BY TIMES A DAY TIMES A DAY MOUTH NEEDED NEEDED THREE FOR BLADDER FOR BLADDER TIMES A SPASMS/PAIN SPASMS/PAIN DAY NEEDED FOR BLADDER SPASMS/MINDY N Prescriptio Prescriptio No Prescripti [facility] n - New n - New on - New Medic al promethazin promethazin No promethazi [facility] e 12.5 mg e 12.5 mg ne 12.5 mg Medical tablet TAKE tablet TAKE tablet 1 TABLET 1 TABLET TAKE 1 EVERY 6 EVERY 6 TABLET HOURS BY HOURS BY EVERY 6 ORAL ROUTE. ORAL ROUTE. HOURS BY ORAL ROUTE. RhoGAM RhoGAM No RhoGAM [facility] Ultra-Filte Ultra-Filte Ultra-Filt Medical red PLUS red PLUS ered PLUS 1,500 unit 1,500 unit 1,500 unit (300 mcg) (300 mcg) (300 mcg) intramuscul intramuscul intramuscu ar syringe ar syringe lar Inject 1 Inject 1 syringe syringe by syringe by Inject 1 intramuscul intramuscul syringe by ar route. ar route. intramuscu lar route. clotrimazol clotrimazol No clotrimazo [facility] e 1 % e 1 % le 1 % Medical vaginal vaginal vaginal cream cream cream INSERT 1 INSERT 1 INSERT 1 APPLICATORF APPLICATORF APPLICATOR UL IN THE UL IN THE FUL IN THE VAGINA VAGINA VAGINA EVERY NIGHT EVERY NIGHT EVERY AT BEDTIME AT BEDTIME NIGHT AT FOR 7 DAYS FOR 7 DAYS BEDTIME FOR 7 DAYS Diclegis 10 Diclegis 10 No Diclegis [facility] mg-10 mg mg-10 mg 10 mg-10 Med ical tablet,lotus tablet,lotus mg yed release yed release tablet,del TAKE 2 TAKE 2 ayed TABLET BY TABLET BY release MOUTH EVERY MOUTH EVERY TAKE 2 DAY DAY TABLET BY MOUTH EVERY DAY dicloxacill dicloxacill No dicloxacil [facility] in 500 mg in 500 mg laurita 500 mg Medical capsule capsule capsule TAKE 1 TAKE 1 TAKE 1 CAPSULE BY CAPSULE BY CAPSULE BY MOUTH EVERY MOUTH EVERY MOUTH 6 HOURS FOR 6 HOURS FOR EVERY 6 10 DAYS 10 DAYS HOURS FOR 10 DAYS docusate docusate No docusate [facility] via sodium 100 sodium 100 sodium 100 Medical mg capsule mg capsule mg capsule TAKE 1 TAKE 1 TAKE 1 TABLET BY TABLET BY TABLET BY MOUTH EVERY MOUTH EVERY MOUTH DAY AT 9AM DAY AT 9AM EVERY DAY AND 9PM AND 9PM AT 9AM AND 9PM fluconazole fluconazole No fluconazol [facility] 150 mg 150 mg e 150 mg Medical tablet Take tablet Take tablet 1 tablet by 1 tablet by Take 1 oral route oral route tablet by for 1 day. for 1 day. oral route for 1 day. fluoxetine fluoxetine No fluoxetine [facility] 20 mg 20 mg 20 mg Medical capsule capsule capsule Take 1 Take 1 Take 1 capsule by capsule by capsule by oral route oral route oral route in the in the in the morning. morning. morning. fluoxetine fluoxetine No fluoxetine [facility] 40 mg 40 mg 40 mg Medical capsule capsule capsule TAKE 1 TAKE 1 TAKE 1 CAPSULE BY CAPSULE BY CAPSULE BY MOUTH EVERY MOUTH EVERY MOUTH DAY DAY EVERY DAY hydroxyzine hydroxyzine No hydroxyzin [facility] HCl 25 mg HCl 25 mg e HCl 25 M edical tablet Take tablet Take mg tablet 1 tablet 3 1 tablet 3 Take 1 times a day times a day tablet 3 by oral by oral times a route as route as day by needed. needed. oral route as needed. ibuprofen ibuprofen No ibuprofen [facility] 800 mg 800 mg 800 mg Medical tablet TAKE tablet TAKE tablet 1 TABLET BY 1 TABLET BY TAKE 1 MOUTH EVERY MOUTH EVERY TABLET BY 8 HOURS 8 HOURS MOUTH NEEDED FOR NEEDED FOR EVERY 8 PAIN PAIN HOURS NEEDED FOR PAIN ParaGard T ParaGard T No 1device ParaGard T [facility] 380A 380 380A 380 (s) 380A 380 Med ical square mm square mm square mm intrauterin intrauterin intrauteri e device e device ne device Take 1 Take 1 Take 1 device by device by device by intrauterin intrauterin intrauteri e route. e route. ne route. cefdinir cefdinir No cefdinir [facility] via 300 mg 300 mg 300 mg Medical capsule capsule capsule TAKE 1 TAKE 1 TAKE 1 CAPSULE BY CAPSULE BY CAPSULE BY MOUTH TWICE MOUTH TWICE MOUTH A DAY FOR A DAY FOR TWICE A 10 DAYS 10 DAYS DAY FOR 10 DAYS cephalexin cephalexin No cephalexin [facility] 500 mg 500 mg 500 mg Medical tablet TAKE tablet TAKE tablet 1 TABLET BY 1 TABLET BY TAKE 1 MOUTH THREE MOUTH THREE TABLET BY TIMES A DAY TIMES A DAY MOUTH FOR 7 DAYS FOR 7 DAYS THREE TIMES A DAY FOR 7 DAYS ciprofloxac ciprofloxac No ciprofloxa [facility] in 500 mg in 500 mg lukasz 500 mg Medical tablet tablet tablet clindamycin clindamycin No clindamyci [facility] 2 % vaginal 2 % vaginal n 2 % Medical cream cream vaginal INSERT 1 INSERT 1 cream APPLICATOR APPLICATOR INSERT 1 FUL FUL APPLICATOR VAGINALLY VAGINALLY FUL EVERY DAY EVERY DAY VAGINALLY FOR 7 DAYS FOR 7 DAYS EVERY DAY FOR 7 DAYS clindamycin clindamycin No clindamyci [facility] HCl 300 mg HCl 300 mg n HCl 300 Medical capsule capsule mg capsule TAKE 1 TAKE 1 TAKE 1 CAPSULE BY CAPSULE BY CAPSULE BY MOUTH THREE MOUTH THREE MOUTH TIMES A DAY TIMES A DAY THREE FOR 10 DAYS FOR 10 DAYS TIMES A DAY FOR 10 DAYS clonazepam clonazepam No .25mg clonazepam [facility] 0.5 mg 0.5 mg 0.5 mg Medical tablet 0.25 tablet 0.25 tablet mg by oral mg by oral 0.25 mg by route. route. oral route. clotrimazol clotrimazol No clotrimazo [facility] e 1 % e 1 % le 1 % Medical vaginal vaginal vaginal cream cream cream INSERT 1 INSERT 1 INSERT 1 APPLICATORF APPLICATORF APPLICATOR UL IN THE UL IN THE FUL IN THE VAGINA VAGINA VAGINA EVERY NIGHT EVERY NIGHT EVERY AT BEDTIME AT BEDTIME NIGHT AT FOR 7 DAYS FOR 7 DAYS BEDTIME FOR 7 DAYS Diclegis 10 Diclegis 10 No Diclegis [facility] mg-10 mg mg-10 mg 10 mg-10 Med ical tablet,lotus tablet,lotus mg yed release yed release tablet,del TAKE 2 TAKE 2 ayed TABLET BY TABLET BY release MOUTH EVERY MOUTH EVERY TAKE 2 DAY DAY TABLET BY MOUTH EVERY DAY dicloxacill dicloxacill No dicloxacil [facility] in 500 mg in 500 mg laurita 500 mg Medical capsule capsule capsule TAKE 1 TAKE 1 TAKE 1 CAPSULE BY CAPSULE BY CAPSULE BY MOUTH EVERY MOUTH EVERY MOUTH 6 HOURS FOR 6 HOURS FOR EVERY 6 10 DAYS 10 DAYS HOURS FOR 10 DAYS docusate docusate No docusate [place] via sodium 100 sodium 100 sodium 100 Medical mg capsule mg capsule mg capsule TAKE 1 TAKE 1 TAKE 1 TABLET BY TABLET BY TABLET BY MOUTH EVERY MOUTH EVERY MOUTH DAY AT 9AM DAY AT 9AM EVERY DAY AND 9PM AND 9PM AT 9AM AND 9PM escitalopra escitalopra No 20mg escitalopr [facility] m 10 mg m 10 mg am 10 mg Medic al tablet 20 tablet 20 tablet 20 mg by oral mg by oral mg by oral route. route. route. fluconazole fluconazole No fluconazol [facility] 150 mg 150 mg e 150 mg Medical tablet TAKE tablet TAKE tablet 1 TAB BY 1 TAB BY TAKE 1 TAB MOUTH ON MOUTH ON BY MOUTH DAY 1. TAKE DAY 1. TAKE ON DAY 1. 2ND TAB BY 2ND TAB BY TAKE 2ND MOUTH AFTER MOUTH AFTER TAB BY COMPLETION COMPLETION MOUTH OF OF AFTER ANTIBIOTICS ANTIBIOTICS COMPLETION OF ANTIBIOTIC S fluoxetine fluoxetine No fluoxetine [facility] 20 mg 20 mg 20 mg Medical capsule capsule capsule TAKE 1 TAKE 1 TAKE 1 CAPSULE BY CAPSULE BY CAPSULE BY MOUTH MOUTH MOUTH EVERYDAY AT EVERYDAY AT EVERYDAY BEDTIME BEDTIME AT BEDTIME fluoxetine fluoxetine No fluoxetine [facility] 40 mg 40 mg 40 mg Medical capsule capsule capsule TAKE 1 TAKE 1 TAKE 1 CAPSULE BY CAPSULE BY CAPSULE BY MOUTH EVERY MOUTH EVERY MOUTH DAY DAY EVERY DAY hydroxyzine hydroxyzine No hydroxyzin [facility] HCl 25 mg HCl 25 mg e HCl 25 M edical tablet Take tablet Take mg tablet 1 tablet 3 1 tablet 3 Take 1 times a day times a day tablet 3 by oral by oral times a route as route as day by needed. needed. oral route as needed. ibuprofen ibuprofen No ibuprofen [facility] 800 mg 800 mg 800 mg Medical tablet TAKE tablet TAKE tablet 1 TABLET BY 1 TABLET BY TAKE 1 MOUTH EVERY MOUTH EVERY TABLET BY 8 HOURS 8 HOURS MOUTH NEEDED FOR NEEDED FOR EVERY 8 PAIN PAIN HOURS NEEDED FOR PAIN ketoconazol ketoconazol No ketoconazo [facility] e 2 % e 2 % le 2 % Medical topical topical topical cream APPLY cream APPLY cream TO AFFECTED TO AFFECTED APPLY TO AREA 3 AREA 3 AFFECTED TIMES A DAY TIMES A DAY AREA 3 NEEDED NEEDED TIMES A FOR FOR DAY IRRITATION, IRRITATION, NEEDED FOR UNTIL UNTIL IRRITATION SYNPTOMS SYNPTOMS , UNTIL IMPROVE IMPROVE SYNPTOMS IMPROVE Latuda 20 Latuda 20 No Latuda 20 [facility] mg tablet mg tablet mg tablet Medical TAKE ONE TAKE ONE TAKE ONE (1) (1) (1) TABLET(S) TABLET(S) TABLET(S) BY MOUTH BY MOUTH BY MOUTH ONCE A DAY ONCE A DAY ONCE A DAY IN THE IN THE IN THE EVENING. EVENING. EVENING. Latuda 40 Latuda 40 No Latuda 40 [facility] mg tablet mg tablet mg tablet Medical TAKE 1 TAKE 1 TAKE 1 TABLET BY TABLET BY TABLET BY MOUTH ONCE MOUTH ONCE MOUTH ONCE A DAY IN A DAY IN A DAY IN THE EVENING THE EVENING THE WITH FOOD WITH FOOD EVENING WITH FOOD Latuda 80 Latuda 80 No Latuda 80 [facility] mg tablet mg tablet mg tablet Medical TAKE 1 TAKE 1 TAKE 1 TABLET BY TABLET BY TABLET BY MOUTH ONCE MOUTH ONCE MOUTH ONCE A DAY IN A DAY IN A DAY IN THE EVENING THE EVENING THE WITH FOOD WITH FOOD EVENING WITH FOOD metronidazo metronidazo No metronidaz [facility] le 500 mg le 500 mg ole 500 mg Medical tablet TAKE tablet TAKE tablet 1 TABLET BY 1 TABLET BY TAKE 1 MOUTH TWICE MOUTH TWICE TABLET BY A DAY FOR 7 A DAY FOR 7 MOUTH DAYS DAYS TWICE A DAY FOR 7 DAYS nitrofurant nitrofurant No nitrofuran [facility] oin oin toin Medical monohydrate monohydrate monohydrat /macrocryst /macrocryst e/macrocry als 100 mg als 100 mg stals 100 capsule capsule mg capsule TAKE 1 TAKE 1 TAKE 1 CAPSULE BY CAPSULE BY CAPSULE BY MOUTH TWICE MOUTH TWICE MOUTH A DAY FOR 5 A DAY FOR 5 TWICE A DAYS DAYS DAY FOR 5 DAYS ParaGard T ParaGard T No 1device ParaGard T [facility] 380A 380 380A 380 (s) 380A 380 Med ical square mm square mm square mm intrauterin intrauterin intrauteri e device e device ne device Take 1 Take 1 Take 1 device by device by device by intrauterin intrauterin intrauteri e route. e route. ne route. phenazopyri phenazopyri No phenazopyr [facility] dine 200 mg dine 200 mg idine 200 Medical tablet TAKE tablet TAKE mg tablet 1 TABLET BY 1 TABLET BY TAKE 1 MOUTH THREE MOUTH THREE TABLET BY TIMES A DAY TIMES A DAY MOUTH NEEDED NEEDED THREE TIMES A DAY NEEDED cefdinir cefdinir No cefdinir [place] via 300 mg 300 mg 300 mg Medical capsule capsule capsule TAKE 1 TAKE 1 TAKE 1 CAPSULE BY CAPSULE BY CAPSULE BY MOUTH TWICE MOUTH TWICE MOUTH A DAY FOR A DAY FOR TWICE A 10 DAYS 10 DAYS DAY FOR 10 DAYS cephalexin cephalexin No cephalexin [facility] 250 mg 250 mg 250 mg Medical capsule capsule capsule TAKE 1 TAKE 1 TAKE 1 CAPSULE BY CAPSULE BY CAPSULE BY ORAL ROUTE ORAL ROUTE ORAL ROUTE DIRECTED. DIRECTED. DIRECTED. cephalexin cephalexin No cephalexin [facility] 500 mg 500 mg 500 mg Medical tablet TAKE tablet TAKE tablet 1 TABLET BY 1 TABLET BY TAKE 1 MOUTH THREE MOUTH THREE TABLET BY TIMES A DAY TIMES A DAY MOUTH FOR 7 DAYS FOR 7 DAYS THREE TIMES A DAY FOR 7 DAYS ciprofloxac ciprofloxac No ciprofloxa [facility] in 500 mg in 500 mg lukasz 500 mg Medical tablet TAKE tablet TAKE tablet 1 TABLET BY 1 TABLET BY TAKE 1 MOUTH EVERY MOUTH EVERY TABLET BY 12 HOURS 12 HOURS MOUTH FOR 3 DAYS FOR 3 DAYS EVERY 12 FOR UTI FOR UTI HOURS FOR 3 DAYS FOR UTI clindamycin clindamycin No clindamyci [facility] 2 % vaginal 2 % vaginal n 2 % Medical cream cream vaginal INSERT 1 INSERT 1 cream APPLICATOR APPLICATOR INSERT 1 FUL FUL APPLICATOR VAGINALLY VAGINALLY FUL EVERY DAY EVERY DAY VAGINALLY FOR 7 DAYS FOR 7 DAYS EVERY DAY FOR 7 DAYS clindamycin clindamycin No clindamyci [facility] HCl 300 mg HCl 300 mg n HCl 300 Medical capsule capsule mg capsule TAKE 1 TAKE 1 TAKE 1 CAPSULE BY CAPSULE BY CAPSULE BY MOUTH THREE MOUTH THREE MOUTH TIMES A DAY TIMES A DAY THREE FOR 10 DAYS FOR 10 DAYS TIMES A DAY FOR 10 DAYS clonazepam clonazepam No .25mg clonazepam [facility] 0.5 mg 0.5 mg 0.5 mg Medical tablet 0.25 tablet 0.25 tablet mg by oral mg by oral 0.25 mg by route. route. oral route. clotrimazol clotrimazol No clotrimazo [facility] e 1 % e 1 % le 1 % Medical vaginal vaginal vaginal cream cream cream INSERT 1 INSERT 1 INSERT 1 APPLICATORF APPLICATORF APPLICATOR UL IN THE UL IN THE FUL IN THE VAGINA VAGINA VAGINA EVERY NIGHT EVERY NIGHT EVERY AT BEDTIME AT BEDTIME NIGHT AT FOR 7 DAYS FOR 7 DAYS BEDTIME FOR 7 DAYS Diclegis 10 Diclegis 10 No Diclegis [facility] mg-10 mg mg-10 mg 10 mg-10 Med ical tablet,lotus tablet,lotus mg yed release yed release tablet,del TAKE 2 TAKE 2 ayed TABLET BY TABLET BY release MOUTH EVERY MOUTH EVERY TAKE 2 DAY DAY TABLET BY MOUTH EVERY DAY dicloxacill dicloxacill No dicloxacil [facility] in 500 mg in 500 mg laurita 500 mg Medical capsule capsule capsule TAKE 1 TAKE 1 TAKE 1 CAPSULE BY CAPSULE BY CAPSULE BY MOUTH EVERY MOUTH EVERY MOUTH 6 HOURS FOR 6 HOURS FOR EVERY 6 10 DAYS 10 DAYS HOURS FOR 10 DAYS docusate docusate No docusate [place] via sodium 100 sodium 100 sodium 100 Medical mg capsule mg capsule mg capsule TAKE 1 TAKE 1 TAKE 1 TABLET BY TABLET BY TABLET BY MOUTH EVERY MOUTH EVERY MOUTH DAY AT 9AM DAY AT 9AM EVERY DAY AND 9PM AND 9PM AT 9AM AND 9PM escitalopra escitalopra No 20mg escitalopr [facility] m 10 mg m 10 mg am 10 mg Medic al tablet 20 tablet 20 tablet 20 mg by oral mg by oral mg by oral route. route. route. fluconazole fluconazole No fluconazol [facility] 150 mg 150 mg e 150 mg Medical tablet TAKE tablet TAKE tablet 1 TAB BY 1 TAB BY TAKE 1 TAB MOUTH ON MOUTH ON BY MOUTH DAY 1. TAKE DAY 1. TAKE ON DAY 1. 2ND TAB BY 2ND TAB BY TAKE 2ND MOUTH AFTER MOUTH AFTER TAB BY COMPLETION COMPLETION MOUTH OF OF AFTER ANTIBIOTICS ANTIBIOTICS COMPLETION OF ANTIBIOTIC S fluoxetine fluoxetine No fluoxetine [facility] 20 mg 20 mg 20 mg Medical capsule capsule capsule TAKE 1 TAKE 1 TAKE 1 CAPSULE BY CAPSULE BY CAPSULE BY MOUTH MOUTH MOUTH EVERYDAY AT EVERYDAY AT EVERYDAY BEDTIME BEDTIME AT BEDTIME fluoxetine fluoxetine No fluoxetine [facility] 40 mg 40 mg 40 mg Medical capsule capsule capsule TAKE 1 TAKE 1 TAKE 1 CAPSULE BY CAPSULE BY CAPSULE BY MOUTH EVERY MOUTH EVERY MOUTH DAY DAY EVERY DAY hydroxyzine hydroxyzine No hydroxyzin [facility] HCl 25 mg HCl 25 mg e HCl 25 M edical tablet Take tablet Take mg tablet 1 tablet 3 1 tablet 3 Take 1 times a day times a day tablet 3 by oral by oral times a route as route as day by needed. needed. oral route as needed. ibuprofen ibuprofen No ibuprofen [facility] 800 mg 800 mg 800 mg Medical tablet TAKE tablet TAKE tablet 1 TABLET BY 1 TABLET BY TAKE 1 MOUTH EVERY MOUTH EVERY TABLET BY 8 HOURS 8 HOURS MOUTH NEEDED FOR NEEDED FOR EVERY 8 PAIN PAIN HOURS NEEDED FOR PAIN ketoconazol ketoconazol No ketoconazo [facility] e 2 % e 2 % le 2 % Medical topical topical topical cream APPLY cream APPLY cream TO AFFECTED TO AFFECTED APPLY TO AREA 3 AREA 3 AFFECTED TIMES A DAY TIMES A DAY AREA 3 NEEDED NEEDED TIMES A FOR FOR DAY IRRITATION, IRRITATION, NEEDED FOR UNTIL UNTIL IRRITATION SYNPTOMS SYNPTOMS , UNTIL IMPROVE IMPROVE SYNPTOMS IMPROVE Latuda 20 Latuda 20 No Latuda 20 [facility] mg tablet mg tablet mg tablet Medical TAKE 3 TAKE 3 TAKE 3 TABLETS BY TABLETS BY TABLETS BY MOUTH FOR 3 MOUTH FOR 3 MOUTH FOR DAYS, THEN DAYS, THEN 3 DAYS, 2 TABLETS 2 TABLETS THEN 2 FOR 3 DAYS, FOR 3 DAYS, TABLETS THEN 1 THEN 1 FOR 3 TABLET FOR TABLET FOR DAYS, THEN 3 DAYS THEN 3 DAYS THEN 1 TABLET STOP STOP FOR 3 DAYS THEN STOP Latuda 40 Latuda 40 No Latuda 40 [facility] mg tablet mg tablet mg tablet Medical TAKE 1 TAKE 1 TAKE 1 TABLET BY TABLET BY TABLET BY MOUTH ONCE MOUTH ONCE MOUTH ONCE A DAY IN A DAY IN A DAY IN THE EVENING THE EVENING THE WITH FOOD WITH FOOD EVENING WITH FOOD Latuda 80 Latuda 80 No Latuda 80 [facility] mg tablet mg tablet mg tablet Medical TAKE 1 TAKE 1 TAKE 1 TABLET BY TABLET BY TABLET BY MOUTH ONCE MOUTH ONCE MOUTH ONCE A DAY IN A DAY IN A DAY IN THE EVENING THE EVENING THE WITH FOOD WITH FOOD EVENING WITH FOOD Lo Loestrin Lo Loestrin No 1 Q1D Lo P [facility] Fe 1 mg-10 Fe 1 mg-10 Loestrin Medical mcg (24)/10 mcg (24)/10 Fe 1 mg-10 mcg (2) mcg (2) mcg tablet Take tablet Take (24)/10 1 tablet 1 tablet mcg (2) every day every day tablet by oral by oral Take 1 route. route. tablet every day by oral route. metronidazo metronidazo No metronidaz [facility] le 500 mg le 500 mg ole 500 mg Medical tablet TAKE tablet TAKE tablet 1 TABLET BY 1 TABLET BY TAKE 1 MOUTH TWICE MOUTH TWICE TABLET BY A DAY FOR 7 A DAY FOR 7 MOUTH DAYS DAYS TWICE A DAY FOR 7 DAYS nitrofurant nitrofurant No nitrofuran [facility] oin oin toin Medical monohydrate monohydrate monohydrat /macrocryst /macrocryst e/macrocry als 100 mg als 100 mg stals 100 capsule 1 capsule 1 mg capsule CAPSULE AT CAPSULE AT 1 CAPSULE BEDTIME BEDTIME AT BEDTIME WITH FOOD WITH FOOD WITH FOOD ORALLY ORALLY ORALLY TWICE A DAY TWICE A DAY TWICE A 5 DAY(S) 5 DAY(S) DAY 5 DAY(S) ParaGard T ParaGard T No 1device ParaGard T [facility] 380A 380 380A 380 (s) 380A 380 Med ical square mm square mm square mm intrauterin intrauterin intrauteri e device e device ne device Take 1 Take 1 Take 1 device by device by device by intrauterin intrauterin intrauteri e route. e route. ne route. phenazopyri phenazopyri No phenazopyr [facility] dine 200 mg dine 200 mg idine 200 Medical tablet TAKE tablet TAKE mg tablet 1 TABLET BY 1 TABLET BY TAKE 1 MOUTH THREE MOUTH THREE TABLET BY TIMES A DAY TIMES A DAY MOUTH NEEDED NEEDED THREE TIMES A DAY NEEDED quetiapine quetiapine No quetiapine [facility] 100 mg 100 mg 100 mg Medical tablet tablet tablet quetiapine quetiapine No quetiapine [facility] 300 mg 300 mg 300 mg Medical tablet TAKE tablet TAKE tablet 1 TABLET 1 TABLET TAKE 1 (300MG) BY (300MG) BY TABLET MOUTH MOUTH (300MG) BY NIGHTLY FOR NIGHTLY FOR MOUTH MOOD MOOD NIGHTLY FOR MOOD quetiapine quetiapine No quetiapine [facility] 50 mg 50 mg 50 mg Medical tablet tablet tablet PLEASE SEE PLEASE SEE PLEASE SEE ATTACHED ATTACHED ATTACHED FOR FOR FOR DETAILED DETAILED DETAILED DIRECTIONS DIRECTIONS DIRECTIONS bupropion bupropion No bupropion [facility] HCl XL 150 HCl XL 150 HCl XL 150 Medical mg 24 hr mg 24 hr mg 24 hr tablet, tablet, tablet, extended extended extended release release release TAKE 1 TAKE 1 TAKE 1 TABLET TABLET TABLET (150MG) BY (150MG) BY (150MG) BY MOUTH DAILY MOUTH DAILY MOUTH FOR FOR DAILY FOR DEPRESSION DEPRESSION DEPRESSION cefdinir cefdinir No cefdinir [place] via 300 mg 300 mg 300 mg Medical capsule capsule capsule TAKE 1 TAKE 1 TAKE 1 CAPSULE BY CAPSULE BY CAPSULE BY MOUTH TWICE MOUTH TWICE MOUTH A DAY FOR A DAY FOR TWICE A 10 DAYS 10 DAYS DAY FOR 10 DAYS cephalexin cephalexin No cephalexin [facility] 250 mg 250 mg 250 mg Medical capsule capsule capsule TAKE 1 TAKE 1 TAKE 1 CAPSULE BY CAPSULE BY CAPSULE BY ORAL ROUTE ORAL ROUTE ORAL ROUTE DIRECTED. DIRECTED. DIRECTED. cephalexin cephalexin No cephalexin [facility] 500 mg 500 mg 500 mg Medical tablet TAKE tablet TAKE tablet 1 TABLET BY 1 TABLET BY TAKE 1 MOUTH THREE MOUTH THREE TABLET BY TIMES A DAY TIMES A DAY MOUTH FOR 7 DAYS FOR 7 DAYS THREE TIMES A DAY FOR 7 DAYS ciprofloxac ciprofloxac No ciprofloxa [facility] in 500 mg in 500 mg lukasz 500 mg Medical tablet TAKE tablet TAKE tablet 1 TABLET BY 1 TABLET BY TAKE 1 MOUTH EVERY MOUTH EVERY TABLET BY 12 HOURS 12 HOURS MOUTH FOR 3 DAYS FOR 3 DAYS EVERY 12 FOR UTI FOR UTI HOURS FOR 3 DAYS FOR UTI clindamycin clindamycin No clindamyci [facility] 2 % vaginal 2 % vaginal n 2 % Medical cream cream vaginal INSERT 1 INSERT 1 cream APPLICATOR APPLICATOR INSERT 1 FUL FUL APPLICATOR VAGINALLY VAGINALLY FUL EVERY DAY EVERY DAY VAGINALLY FOR 7 DAYS FOR 7 DAYS EVERY DAY FOR 7 DAYS clindamycin clindamycin No clindamyci [facility] HCl 300 mg HCl 300 mg n HCl 300 Medical capsule capsule mg capsule TAKE 1 TAKE 1 TAKE 1 CAPSULE BY CAPSULE BY CAPSULE BY MOUTH THREE MOUTH THREE MOUTH TIMES A DAY TIMES A DAY THREE FOR 10 DAYS FOR 10 DAYS TIMES A DAY FOR 10 DAYS clonazepam clonazepam No .25mg clonazepam [facility] 0.5 mg 0.5 mg 0.5 mg Medical tablet 0.25 tablet 0.25 tablet mg by oral mg by oral 0.25 mg by route. route. oral route. clotrimazol clotrimazol No clotrimazo [facility] e 1 % e 1 % le 1 % Medical vaginal vaginal vaginal cream cream cream INSERT 1 INSERT 1 INSERT 1 APPLICATORF APPLICATORF APPLICATOR UL IN THE UL IN THE FUL IN THE VAGINA VAGINA VAGINA EVERY NIGHT EVERY NIGHT EVERY AT BEDTIME AT BEDTIME NIGHT AT FOR 7 DAYS FOR 7 DAYS BEDTIME FOR 7 DAYS Diclegis 10 Diclegis 10 No Diclegis [facility] mg-10 mg mg-10 mg 10 mg-10 Med ical tablet,lotus tablet,lotus mg yed release yed release tablet,del TAKE 2 TAKE 2 ayed TABLET BY TABLET BY release MOUTH EVERY MOUTH EVERY TAKE 2 DAY DAY TABLET BY MOUTH EVERY DAY dicloxacill dicloxacill No dicloxacil [facility] in 500 mg in 500 mg laurita 500 mg Medical capsule capsule capsule TAKE 1 TAKE 1 TAKE 1 CAPSULE BY CAPSULE BY CAPSULE BY MOUTH EVERY MOUTH EVERY MOUTH 6 HOURS FOR 6 HOURS FOR EVERY 6 10 DAYS 10 DAYS HOURS FOR 10 DAYS docusate docusate No docusate [place] via sodium 100 sodium 100 sodium 100 Medical mg capsule mg capsule mg capsule TAKE 1 TAKE 1 TAKE 1 TABLET BY TABLET BY TABLET BY MOUTH EVERY MOUTH EVERY MOUTH DAY AT 9AM DAY AT 9AM EVERY DAY AND 9PM AND 9PM AT 9AM AND 9PM escitalopra escitalopra No 20mg escitalopr [facility] m 10 mg m 10 mg am 10 mg Medic al tablet 20 tablet 20 tablet 20 mg by oral mg by oral mg by oral route. route. route. etonogestre etonogestre No 1 Q3W etonogestr [facility] l 0.12 l 0.12 el 0.12 Medical mg-ethinyl mg-ethinyl mg-ethinyl estradiol estradiol estradiol 0.015 mg/24 0.015 mg/24 0.015 hr vaginal hr vaginal mg/24 hr ring Insert ring Insert vaginal 1 vaginal 1 vaginal ring ring every ring every Insert 1 3 weeks by 3 weeks by vaginal vaginal vaginal ring every route. route. 3 weeks by vaginal route. fluconazole fluconazole No fluconazol [facility] 150 mg 150 mg e 150 mg Medical tablet TAKE tablet TAKE tablet 1 TAB BY 1 TAB BY TAKE 1 TAB MOUTH MOUTH BY MOUTH IMMEDIATELY IMMEDIATELY IMMEDIATEL AND REPEAT AND REPEAT Y AND IN 3 DAYS IN 3 DAYS REPEAT IN IF SYMPTOMS IF SYMPTOMS 3 DAYS IF PERSIST. PERSIST. SYMPTOMS PERSIST. fluoxetine fluoxetine No fluoxetine [facility] 20 mg 20 mg 20 mg Medical capsule capsule capsule TAKE 1 TAKE 1 TAKE 1 CAPSULE BY CAPSULE BY CAPSULE BY MOUTH MOUTH MOUTH EVERYDAY AT EVERYDAY AT EVERYDAY BEDTIME BEDTIME AT BEDTIME fluoxetine fluoxetine No fluoxetine [facility] 40 mg 40 mg 40 mg Medical capsule capsule capsule TAKE 1 TAKE 1 TAKE 1 CAPSULE BY CAPSULE BY CAPSULE BY MOUTH EVERY MOUTH EVERY MOUTH DAY DAY EVERY DAY hydroxyzine hydroxyzine No hydroxyzin [facility] HCl 25 mg HCl 25 mg e HCl 25 M edical tablet Take tablet Take mg tablet 1 tablet 3 1 tablet 3 Take 1 times a day times a day tablet 3 by oral by oral times a route as route as day by needed. needed. oral route as needed. ibuprofen ibuprofen No ibuprofen [facility] 800 mg 800 mg 800 mg Medical tablet TAKE tablet TAKE tablet 1 TABLET BY 1 TABLET BY TAKE 1 MOUTH EVERY MOUTH EVERY TABLET BY 8 HOURS 8 HOURS MOUTH NEEDED FOR NEEDED FOR EVERY 8 PAIN PAIN HOURS NEEDED FOR PAIN ketoconazol ketoconazol No ketoconazo [facility] e 2 % e 2 % le 2 % Medical topical topical topical cream APPLY cream APPLY cream TO AFFECTED TO AFFECTED APPLY TO AREA 3 AREA 3 AFFECTED TIMES A DAY TIMES A DAY AREA 3 NEEDED NEEDED TIMES A FOR FOR DAY IRRITATION, IRRITATION, NEEDED FOR UNTIL UNTIL IRRITATION SYNPTOMS SYNPTOMS , UNTIL IMPROVE IMPROVE SYNPTOMS IMPROVE Latuda 20 Latuda 20 No Latuda 20 [facility] mg tablet mg tablet mg tablet Medical TAKE 3 TAKE 3 TAKE 3 TABLETS BY TABLETS BY TABLETS BY MOUTH FOR 3 MOUTH FOR 3 MOUTH FOR DAYS, THEN DAYS, THEN 3 DAYS, 2 TABLETS 2 TABLETS THEN 2 FOR 3 DAYS, FOR 3 DAYS, TABLETS THEN 1 THEN 1 FOR 3 TABLET FOR TABLET FOR DAYS, THEN 3 DAYS THEN 3 DAYS THEN 1 TABLET STOP STOP FOR 3 DAYS THEN STOP Latuda 40 Latuda 40 No Latuda 40 [facility] mg tablet mg tablet mg tablet Medical TAKE 1 TAKE 1 TAKE 1 TABLET BY TABLET BY TABLET BY MOUTH ONCE MOUTH ONCE MOUTH ONCE A DAY IN A DAY IN A DAY IN THE EVENING THE EVENING THE WITH FOOD WITH FOOD EVENING WITH FOOD Latuda 80 Latuda 80 No Latuda 80 [facility] mg tablet mg tablet mg tablet Medical TAKE 1 TAKE 1 TAKE 1 TABLET BY TABLET BY TABLET BY MOUTH ONCE MOUTH ONCE MOUTH ONCE A DAY IN A DAY IN A DAY IN THE EVENING THE EVENING THE WITH FOOD WITH FOOD EVENING WITH FOOD Lo Loestrin Lo Loestrin No 1 Q1D Lo [facility] Fe 1 mg-10 Fe 1 mg-10 Loestrin Medical mcg (24)/10 mcg (24)/10 Fe 1 mg-10 mcg (2) mcg (2) mcg tablet Take tablet Take (24)/10 1 tablet 1 tablet mcg (2) every day every day tablet by oral by oral Take 1 route. route. tablet every day by oral route. metronidazo metronidazo No metronidaz [facility] le 500 mg le 500 mg ole 500 mg Medical tablet TAKE tablet TAKE tablet 1 TABLET BY 1 TABLET BY TAKE 1 MOUTH TWICE MOUTH TWICE TABLET BY A DAY FOR 7 A DAY FOR 7 MOUTH DAYS DAYS TWICE A DAY FOR 7 DAYS nitrofurant nitrofurant No nitrofuran [facility] oin oin toin Medical monohydrate monohydrate monohydrat /macrocryst /macrocryst e/macrocry als 100 mg als 100 mg stals 100 capsule 1 capsule 1 mg capsule CAPSULE AT CAPSULE AT 1 CAPSULE BEDTIME BEDTIME AT BEDTIME WITH FOOD WITH FOOD WITH FOOD ORALLY ORALLY ORALLY TWICE A DAY TWICE A DAY TWICE A 5 DAY(S) 5 DAY(S) DAY 5 DAY(S) ParaGard T ParaGard T No 1device ParaGard T [facility] 380A 380 380A 380 (s) 380A 380 Med ical square mm square mm square mm intrauterin intrauterin intrauteri e device e device ne device Take 1 Take 1 Take 1 device by device by device by intrauterin intrauterin intrauteri e route. e route. ne route. phenazopyri phenazopyri No phenazopyr [facility] dine 200 mg dine 200 mg idine 200 Medical tablet TAKE tablet TAKE mg tablet 1 TABLET BY 1 TABLET BY TAKE 1 MOUTH THREE MOUTH THREE TABLET BY TIMES A DAY TIMES A DAY MOUTH NEEDED NEEDED THREE TIMES A DAY NEEDED quetiapine quetiapine No quetiapine [facility] 100 mg 100 mg 100 mg Medical tablet tablet tablet quetiapine quetiapine No quetiapine [facility] 300 mg 300 mg 300 mg Medical tablet TAKE tablet TAKE tablet 1 TABLET 1 TABLET TAKE 1 (300MG) BY (300MG) BY TABLET MOUTH MOUTH (300MG) BY NIGHTLY FOR NIGHTLY FOR MOUTH MOOD MOOD NIGHTLY FOR MOOD quetiapine quetiapine No quetiapine [facility] 50 mg 50 mg 50 mg Medical tablet tablet tablet PLEASE SEE PLEASE SEE PLEASE SEE ATTACHED ATTACHED ATTACHED FOR FOR FOR DETAILED DETAILED DETAILED DIRECTIONS DIRECTIONS DIRECTIONS bupropion bupropion No bupropion [facility] HCl XL 150 HCl XL 150 HCl XL 150 Medical mg 24 hr mg 24 hr mg 24 hr tablet, tablet, tablet, extended extended extended release release release TAKE 1 TAKE 1 TAKE 1 TABLET TABLET TABLET (150MG) BY (150MG) BY (150MG) BY MOUTH DAILY MOUTH DAILY MOUTH FOR FOR DAILY FOR DEPRESSION DEPRESSION DEPRESSION cefdinir cefdinir No cefdinir [place] via 300 mg 300 mg 300 mg Medical capsule capsule capsule TAKE 1 TAKE 1 TAKE 1 CAPSULE BY CAPSULE BY CAPSULE BY MOUTH TWICE MOUTH TWICE MOUTH A DAY FOR A DAY FOR TWICE A 10 DAYS 10 DAYS DAY FOR 10 DAYS cephalexin cephalexin No cephalexin [facility] 250 mg 250 mg 250 mg Medical capsule capsule capsule TAKE 1 TAKE 1 TAKE 1 CAPSULE BY CAPSULE BY CAPSULE BY ORAL ROUTE ORAL ROUTE ORAL ROUTE DIRECTED. DIRECTED. DIRECTED. cephalexin cephalexin No cephalexin [facility] 500 mg 500 mg 500 mg Medical capsule capsule capsule TAKE 1 TAKE 1 TAKE 1 CAPSULE BY CAPSULE BY CAPSULE BY MOUTH THREE MOUTH THREE MOUTH TIMES A DAY TIMES A DAY THREE TIMES A DAY cephalexin cephalexin No cephalexin [facility] 500 mg 500 mg 500 mg Medical tablet TAKE tablet TAKE tablet 1 TABLET BY 1 TABLET BY TAKE 1 MOUTH THREE MOUTH THREE TABLET BY TIMES A DAY TIMES A DAY MOUTH FOR 7 DAYS FOR 7 DAYS THREE TIMES A DAY FOR 7 DAYS ciprofloxac ciprofloxac No ciprofloxa [facility] in 500 mg in 500 mg lukasz 500 mg Medical tablet TAKE tablet TAKE tablet 1 TABLET BY 1 TABLET BY TAKE 1 MOUTH EVERY MOUTH EVERY TABLET BY 12 HOURS 12 HOURS MOUTH DIRECTED DIRECTED EVERY 12 FOR 7 DAYS FOR 7 DAYS HOURS DIRECTED FOR 7 DAYS clindamycin clindamycin No clindamyci [facility] 2 % vaginal 2 % vaginal n 2 % Medical cream cream vaginal INSERT 1 INSERT 1 cream APPLICATOR APPLICATOR INSERT 1 FUL FUL APPLICATOR VAGINALLY VAGINALLY FUL EVERY DAY EVERY DAY VAGINALLY FOR 7 DAYS FOR 7 DAYS EVERY DAY FOR 7 DAYS clindamycin clindamycin No clindamyci [facility] HCl 300 mg HCl 300 mg n HCl 300 Medical capsule capsule mg capsule TAKE 1 TAKE 1 TAKE 1 CAPSULE BY CAPSULE BY CAPSULE BY MOUTH THREE MOUTH THREE MOUTH TIMES A DAY TIMES A DAY THREE FOR 10 DAYS FOR 10 DAYS TIMES A DAY FOR 10 DAYS clonazepam clonazepam No .25mg clonazepam [facility] 0.5 mg 0.5 mg 0.5 mg Medical tablet 0.25 tablet 0.25 tablet mg by oral mg by oral 0.25 mg by route. route. oral route. clotrimazol clotrimazol No clotrimazo [facility] e 1 % e 1 % le 1 % Medical vaginal vaginal vaginal cream cream cream INSERT 1 INSERT 1 INSERT 1 APPLICATORF APPLICATORF APPLICATOR UL IN THE UL IN THE FUL IN THE VAGINA VAGINA VAGINA EVERY NIGHT EVERY NIGHT EVERY AT BEDTIME AT BEDTIME NIGHT AT FOR 7 DAYS FOR 7 DAYS BEDTIME FOR 7 DAYS Diclegis 10 Diclegis 10 No Diclegis [facility] mg-10 mg mg-10 mg 10 mg-10 Med ical tablet,lotus tablet,lotus mg yed release yed release tablet,del TAKE 2 TAKE 2 ayed TABLET BY TABLET BY release MOUTH EVERY MOUTH EVERY TAKE 2 DAY DAY TABLET BY MOUTH EVERY DAY dicloxacill dicloxacill No dicloxacil [facility] in 500 mg in 500 mg laurita 500 mg Medical capsule capsule capsule TAKE 1 TAKE 1 TAKE 1 CAPSULE BY CAPSULE BY CAPSULE BY MOUTH EVERY MOUTH EVERY MOUTH 6 HOURS FOR 6 HOURS FOR EVERY 6 10 DAYS 10 DAYS HOURS FOR 10 DAYS docusate docusate No docusate [place] via sodium 100 sodium 100 sodium 100 Medical mg capsule mg capsule mg capsule TAKE 1 TAKE 1 TAKE 1 TABLET BY TABLET BY TABLET BY MOUTH EVERY MOUTH EVERY MOUTH DAY AT 9AM DAY AT 9AM EVERY DAY AND 9PM AND 9PM AT 9AM AND 9PM escitalopra escitalopra No 20mg escitalopr [facility] m 10 mg m 10 mg am 10 mg Medic al tablet 20 tablet 20 tablet 20 mg by oral mg by oral mg by oral route. route. route. estradiol estradiol No estradiol [facility] 0.01% (0.1 0.01% (0.1 0.01% (0.1 Medical mg/gram) mg/gram) mg/gram) vaginal vaginal vaginal cream cream cream INSERT 1 INSERT 1 INSERT 1 APPLICATORF APPLICATORF APPLICATOR UL UL FUL VAGINALLY VAGINALLY VAGINALLY EVERY DAY EVERY DAY EVERY DAY AT BEDTIME AT BEDTIME AT BEDTIME etonogestre etonogestre No etonogestr [facility] l 0.12 l 0.12 el 0.12 Medical mg-ethinyl mg-ethinyl mg-ethinyl estradiol estradiol estradiol 0.015 mg/24 0.015 mg/24 0.015 hr vaginal hr vaginal mg/24 hr ring INSERT ring INSERT vaginal 1 VAGINAL 1 VAGINAL ring RING EVERY RING EVERY INSERT 1 3 WEEKS BY 3 WEEKS BY VAGINAL VAGINAL VAGINAL RING EVERY ROUTE. ROUTE. 3 WEEKS BY VAGINAL ROUTE. fluconazole fluconazole No fluconazol [facility] 150 mg 150 mg e 150 mg Medical tablet TAKE tablet TAKE tablet 1 TABLET BY 1 TABLET BY TAKE 1 MOUTH EVERY MOUTH EVERY TABLET BY OTHER DAY OTHER DAY MOUTH EVERY OTHER DAY fluoxetine fluoxetine No fluoxetine [facility] 20 mg 20 mg 20 mg Medical capsule capsule capsule TAKE 1 TAKE 1 TAKE 1 CAPSULE BY CAPSULE BY CAPSULE BY MOUTH MOUTH MOUTH EVERYDAY AT EVERYDAY AT EVERYDAY BEDTIME BEDTIME AT BEDTIME fluoxetine fluoxetine No fluoxetine [facility] 40 mg 40 mg 40 mg Medical capsule capsule capsule TAKE 1 TAKE 1 TAKE 1 CAPSULE BY CAPSULE BY CAPSULE BY MOUTH EVERY MOUTH EVERY MOUTH DAY DAY EVERY DAY hydroxyzine hydroxyzine No hydroxyzin [facility] HCl 25 mg HCl 25 mg e HCl 25 M edical tablet Take tablet Take mg tablet 1 tablet 3 1 tablet 3 Take 1 times a day times a day tablet 3 by oral by oral times a route as route as day by needed. needed. oral route as needed. ibuprofen ibuprofen No ibuprofen [facility] 800 mg 800 mg 800 mg Medical tablet TAKE tablet TAKE tablet 1 TABLET BY 1 TABLET BY TAKE 1 MOUTH EVERY MOUTH EVERY TABLET BY 8 HOURS 8 HOURS MOUTH NEEDED FOR NEEDED FOR EVERY 8 PAIN PAIN HOURS NEEDED FOR PAIN ketoconazol ketoconazol No ketoconazo [facility] e 2 % e 2 % le 2 % Medical topical topical topical cream APPLY cream APPLY cream TO AFFECTED TO AFFECTED APPLY TO AREA 3 AREA 3 AFFECTED TIMES A DAY TIMES A DAY AREA 3 NEEDED NEEDED TIMES A FOR FOR DAY IRRITATION, IRRITATION, NEEDED FOR UNTIL UNTIL IRRITATION SYNPTOMS SYNPTOMS , UNTIL IMPROVE IMPROVE SYNPTOMS IMPROVE Latuda 20 Latuda 20 No Latuda 20 [facility] mg tablet mg tablet mg tablet Medical TAKE 3 TAKE 3 TAKE 3 TABLETS BY TABLETS BY TABLETS BY MOUTH FOR 3 MOUTH FOR 3 MOUTH FOR DAYS, THEN DAYS, THEN 3 DAYS, 2 TABLETS 2 TABLETS THEN 2 FOR 3 DAYS, FOR 3 DAYS, TABLETS THEN 1 THEN 1 FOR 3 TABLET FOR TABLET FOR DAYS, THEN 3 DAYS THEN 3 DAYS THEN 1 TABLET STOP STOP FOR 3 DAYS THEN STOP Latuda 40 Latuda 40 No Latuda 40 [facility] mg tablet mg tablet mg tablet Medical TAKE 1 TAKE 1 TAKE 1 TABLET BY TABLET BY TABLET BY MOUTH ONCE MOUTH ONCE MOUTH ONCE A DAY IN A DAY IN A DAY IN THE EVENING THE EVENING THE WITH FOOD WITH FOOD EVENING WITH FOOD Latuda 80 Latuda 80 No Latuda 80 [facility] mg tablet mg tablet mg tablet Medical TAKE 1 TAKE 1 TAKE 1 TABLET BY TABLET BY TABLET BY MOUTH ONCE MOUTH ONCE MOUTH ONCE A DAY IN A DAY IN A DAY IN THE EVENING THE EVENING THE WITH FOOD WITH FOOD EVENING WITH FOOD Lo Loestrin Lo Loestrin No 1 Q1D Lo P [facility]ia Fe 1 mg-10 Fe 1 mg-10 Loestrin Medical mcg (24)/10 mcg (24)/10 Fe 1 mg-10 mcg (2) mcg (2) mcg tablet Take tablet Take (24)/10 1 tablet 1 tablet mcg (2) every day every day tablet by oral by oral Take 1 route. route. tablet every day by oral route. methylpredn methylpredn No methylpred [facility] isolone 4 isolone 4 nisolone 4 Medical mg tablets mg tablets mg tablets in a dose in a dose in a dose pack TAKE 6 pack TAKE 6 pack TAKE TABLETS ON TABLETS ON 6 TABLETS DAY 1 DAY 1 ON DAY 1 DIRECTED ON DIRECTED ON PACKAGE AND PACKAGE AND DIRECTED DECREASE BY DECREASE BY ON PACKAGE 1 TAB EACH 1 TAB EACH AND DAY FOR A DAY FOR A DECREASE TOTAL OF 6 TOTAL OF 6 BY 1 TAB DAYS DAYS EACH DAY FOR A TOTAL OF 6 DAYS metronidazo metronidazo No metronidaz [facility] le 500 mg le 500 mg ole 500 mg Medical tablet TAKE tablet TAKE tablet 2 TABLETS 2 TABLETS TAKE 2 BY MOUTH BY MOUTH TABLETS BY EVERY DAY EVERY DAY MOUTH FOR 5 DAYS FOR 5 DAYS EVERY DAY FOR 5 DAYS nitrofurant nitrofurant No nitrofuran [facility] oin oin toin Medical monohydrate monohydrate monohydrat /macrocryst /macrocryst e/macrocry als 100 mg als 100 mg stals 100 capsule capsule mg capsule TAKE 1 TAKE 1 TAKE 1 CAPSULE BY CAPSULE BY CAPSULE BY MOUTH EVERY MOUTH EVERY MOUTH 12 HOURS 12 HOURS EVERY 12 DIRECTED DIRECTED HOURS FOR 7 DAYS FOR 7 DAYS DIRECTED FOR 7 DAYS ParaGard T ParaGard T No 1device ParaGard T [facility] 380A 380 380A 380 (s) 380A 380 Med ical square mm square mm square mm intrauterin intrauterin intrauteri e device e device ne device Take 1 Take 1 Take 1 device by device by device by intrauterin intrauterin intrauteri e route. e route. ne route. phenazopyri phenazopyri No phenazopyr [facility] dine 200 mg dine 200 mg idine 200 Medical tablet TAKE tablet TAKE mg tablet 1 TABLET BY 1 TABLET BY TAKE 1 MOUTH THREE MOUTH THREE TABLET BY TIMES A DAY TIMES A DAY MOUTH NEEDED NEEDED THREE TIMES A DAY NEEDED quetiapine quetiapine No quetiapine [facility] 100 mg 100 mg 100 mg Medical tablet TAKE tablet TAKE tablet 1 TABLET BY 1 TABLET BY TAKE 1 MOUTH EVERY MOUTH EVERY TABLET BY DAY DAY MOUTH EVERY DAY quetiapine quetiapine No quetiapine [facility] 300 mg 300 mg 300 mg Medical tablet TAKE tablet TAKE tablet 1 TABLET 1 TABLET TAKE 1 (300MG) BY (300MG) BY TABLET MOUTH MOUTH (300MG) BY NIGHTLY FOR NIGHTLY FOR MOUTH MOOD MOOD NIGHTLY FOR MOOD quetiapine quetiapine No quetiapine [facility] 50 mg 50 mg 50 mg Medical tablet tablet tablet PLEASE SEE PLEASE SEE PLEASE SEE ATTACHED ATTACHED ATTACHED FOR FOR FOR DETAILED DETAILED DETAILED DIRECTIONS DIRECTIONS DIRECTIONS quetiapine quetiapine No quetiapine [facility] ER 150 mg ER 150 mg ER 150 mg Medical tablet,exte tablet,exte tablet,ext nded nded ended release 24 release 24 release 24 hr TAKE 1 hr TAKE 1 hr TAKE 1 TABLET TABLET TABLET (150MG) BY (150MG) BY (150MG) BY MOUTH DAILY MOUTH DAILY MOUTH DAILY quetiapine quetiapine No quetiapine [facility] ER 50 mg ER 50 mg ER 50 mg Med ical tablet,exte tablet,exte tablet,ext nded nded ended release 24 release 24 release 24 hr TAKE 1 hr TAKE 1 hr TAKE 1 TABLET TABLET TABLET (50MG) BY (50MG) BY (50MG) BY MOUTH EVERY MOUTH EVERY MOUTH MORNING FOR MORNING FOR EVERY MOOD MOOD MORNING FOR MOOD sulfamethox sulfamethox No sulfametho [facility] azole 800 azole 800 xazole 800 Medical mg-trimetho mg-trimetho mg-trimeth prim 160 mg prim 160 mg oprim 160 tablet TAKE tablet TAKE mg tablet 1 TABLET BY 1 TABLET BY TAKE 1 MOUTH TWICE MOUTH TWICE TABLET BY A DAY WITH A DAY WITH MOUTH FOOD FOOD TWICE A DAY WITH FOOD terconazole terconazole No terconazol [facility] 0.8 % 0.8 % e 0.8 % Medical vaginal vaginal vaginal cream cream cream INSERT 1 INSERT 1 INSERT 1 APPLICATORF APPLICATORF APPLICATOR UL UL FUL VAGINALLY VAGINALLY VAGINALLY EVERY DAY EVERY DAY EVERY DAY AT BEDTIME AT BEDTIME AT BEDTIME FOR 7 DAYS FOR 7 DAYS FOR 7 DAYS amoxicillin amoxicillin No amoxicilli [facility] [phone] [phone] Medical mg-potassiu mg-potassiu mg-potassi m m um clavulanate clavulanate clavulanat 125 mg 125 mg e 125 mg tablet tablet tablet bupropion bupropion No bupropion [facility] HCl XL 150 HCl XL 150 HCl XL 150 Medical mg 24 hr mg 24 hr mg 24 hr tablet, tablet, tablet, extended extended extended release release release TAKE 1 TAKE 1 TAKE 1 TABLET TABLET TABLET (150MG) BY (150MG) BY (150MG) BY MOUTH DAILY MOUTH DAILY MOUTH FOR FOR DAILY FOR DEPRESSION DEPRESSION DEPRESSION cefdinir cefdinir No cefdinir [place] via 300 mg 300 mg 300 mg Medical capsule capsule capsule TAKE 1 TAKE 1 TAKE 1 CAPSULE BY CAPSULE BY CAPSULE BY MOUTH TWICE MOUTH TWICE MOUTH A DAY FOR A DAY FOR TWICE A 10 DAYS 10 DAYS DAY FOR 10 DAYS cephalexin cephalexin No cephalexin [facility] 250 mg 250 mg 250 mg Medical capsule capsule capsule TAKE 1 TAKE 1 TAKE 1 CAPSULE BY CAPSULE BY CAPSULE BY ORAL ROUTE ORAL ROUTE ORAL ROUTE DIRECTED. DIRECTED. DIRECTED. cephalexin cephalexin No cephalexin [facility] 500 mg 500 mg 500 mg Medical capsule capsule capsule TAKE 1 TAKE 1 TAKE 1 CAPSULE BY CAPSULE BY CAPSULE BY MOUTH THREE MOUTH THREE MOUTH TIMES A DAY TIMES A DAY THREE TIMES A DAY cephalexin cephalexin No cephalexin [facility] 500 mg 500 mg 500 mg Medical tablet TAKE tablet TAKE tablet 1 TABLET BY 1 TABLET BY TAKE 1 MOUTH THREE MOUTH THREE TABLET BY TIMES A DAY TIMES A DAY MOUTH FOR 7 DAYS FOR 7 DAYS THREE TIMES A DAY FOR 7 DAYS ciprofloxac ciprofloxac No ciprofloxa [facility] in 500 mg in 500 mg lukasz 500 mg Medical tablet TAKE tablet TAKE tablet 1 TABLET BY 1 TABLET BY TAKE 1 MOUTH EVERY MOUTH EVERY TABLET BY 12 HOURS 12 HOURS MOUTH DIRECTED DIRECTED EVERY 12 FOR 7 DAYS FOR 7 DAYS HOURS DIRECTED FOR 7 DAYS clindamycin clindamycin No clindamyci [facility] 2 % vaginal 2 % vaginal n 2 % Medical cream cream vaginal INSERT 1 INSERT 1 cream APPLICATOR APPLICATOR INSERT 1 FUL FUL APPLICATOR VAGINALLY VAGINALLY FUL EVERY DAY EVERY DAY VAGINALLY FOR 7 DAYS FOR 7 DAYS EVERY DAY FOR 7 DAYS clindamycin clindamycin No clindamyci [facility] HCl 300 mg HCl 300 mg n HCl 300 Medical capsule capsule mg capsule TAKE 1 TAKE 1 TAKE 1 CAPSULE BY CAPSULE BY CAPSULE BY MOUTH THREE MOUTH THREE MOUTH TIMES A DAY TIMES A DAY THREE FOR 10 DAYS FOR 10 DAYS TIMES A DAY FOR 10 DAYS clonazepam clonazepam No .25mg clonazepam [facility] 0.5 mg 0.5 mg 0.5 mg Medical tablet 0.25 tablet 0.25 tablet mg by oral mg by oral 0.25 mg by route. route. oral route. clotrimazol clotrimazol No clotrimazo [facility] e 1 % e 1 % le 1 % Medical vaginal vaginal vaginal cream cream cream INSERT 1 INSERT 1 INSERT 1 APPLICATORF APPLICATORF APPLICATOR UL IN THE UL IN THE FUL IN THE VAGINA VAGINA VAGINA EVERY NIGHT EVERY NIGHT EVERY AT BEDTIME AT BEDTIME NIGHT AT FOR 7 DAYS FOR 7 DAYS BEDTIME FOR 7 DAYS Diclegis 10 Diclegis 10 No Diclegis [facility] mg-10 mg mg-10 mg 10 mg-10 Med ical tablet,lotus tablet,lotus mg yed release yed release tablet,del TAKE 2 TAKE 2 ayed TABLET BY TABLET BY release MOUTH EVERY MOUTH EVERY TAKE 2 DAY DAY TABLET BY MOUTH EVERY DAY dicloxacill dicloxacill No dicloxacil [facility] in 500 mg in 500 mg laurita 500 mg Medical capsule capsule capsule TAKE 1 TAKE 1 TAKE 1 CAPSULE BY CAPSULE BY CAPSULE BY MOUTH EVERY MOUTH EVERY MOUTH 6 HOURS FOR 6 HOURS FOR EVERY 6 10 DAYS 10 DAYS HOURS FOR 10 DAYS docusate docusate No docusate Iwona via sodium 100 sodium 100 sodium 100 Medical mg capsule mg capsule mg capsule TAKE 1 TAKE 1 TAKE 1 TABLET BY TABLET BY TABLET BY MOUTH EVERY MOUTH EVERY MOUTH DAY AT 9AM DAY AT 9AM EVERY DAY AND 9PM AND 9PM AT 9AM AND 9PM escitalopra escitalopra No 20mg escitalopr [facility] m 10 mg m 10 mg am 10 mg Medic al tablet 20 tablet 20 tablet 20 mg by oral mg by oral mg by oral route. route. route. estradiol estradiol No estradiol [facility] 0.01% (0.1 0.01% (0.1 0.01% (0.1 Medical mg/gram) mg/gram) mg/gram) vaginal vaginal vaginal cream cream cream INSERT 1 INSERT 1 INSERT 1 APPLICATORF APPLICATORF APPLICATOR UL UL FUL VAGINALLY VAGINALLY VAGINALLY EVERY DAY EVERY DAY EVERY DAY AT BEDTIME AT BEDTIME AT BEDTIME etonogestre etonogestre No etonogestr [facility] l 0.12 l 0.12 el 0.12 Medical mg-ethinyl mg-ethinyl mg-ethinyl estradiol estradiol estradiol 0.015 mg/24 0.015 mg/24 0.015 hr vaginal hr vaginal mg/24 hr ring INSERT ring INSERT vaginal 1 VAGINAL 1 VAGINAL ring RING EVERY RING EVERY INSERT 1 3 WEEKS BY 3 WEEKS BY VAGINAL VAGINAL VAGINAL RING EVERY ROUTE. ROUTE. 3 WEEKS BY VAGINAL ROUTE. fluconazole fluconazole No fluconazol [facility] 150 mg 150 mg e 150 mg Medical tablet Take tablet Take tablet 1 tablet by 1 tablet by Take 1 oral route oral route tablet by as directed as directed oral route for 2 days. for 2 days. as directed for 2 days. fluoxetine fluoxetine No fluoxetine [facility] 20 mg 20 mg 20 mg Medical capsule capsule capsule TAKE 1 TAKE 1 TAKE 1 CAPSULE BY CAPSULE BY CAPSULE BY MOUTH MOUTH MOUTH EVERYDAY AT EVERYDAY AT EVERYDAY BEDTIME BEDTIME AT BEDTIME fluoxetine fluoxetine No fluoxetine [facility] 40 mg 40 mg 40 mg Medical capsule capsule capsule TAKE 1 TAKE 1 TAKE 1 CAPSULE BY CAPSULE BY CAPSULE BY MOUTH EVERY MOUTH EVERY MOUTH DAY DAY EVERY DAY hydroxyzine hydroxyzine No hydroxyzin [facility] HCl 25 mg HCl 25 mg e HCl 25 M edical tablet Take tablet Take mg tablet 1 tablet 3 1 tablet 3 Take 1 times a day times a day tablet 3 by oral by oral times a route as route as day by needed. needed. oral route as needed. ibuprofen ibuprofen No ibuprofen [facility] 800 mg 800 mg 800 mg Medical tablet TAKE tablet TAKE tablet 1 TABLET BY 1 TABLET BY TAKE 1 MOUTH EVERY MOUTH EVERY TABLET BY 8 HOURS 8 HOURS MOUTH NEEDED FOR NEEDED FOR EVERY 8 PAIN PAIN HOURS NEEDED FOR PAIN ketoconazol ketoconazol No ketoconazo [facility] e 2 % e 2 % le 2 % Medical topical topical topical cream APPLY cream APPLY cream TO AFFECTED TO AFFECTED APPLY TO AREA 3 AREA 3 AFFECTED TIMES A DAY TIMES A DAY AREA 3 NEEDED NEEDED TIMES A FOR FOR DAY IRRITATION, IRRITATION, NEEDED FOR UNTIL UNTIL IRRITATION SYNPTOMS SYNPTOMS , UNTIL IMPROVE IMPROVE SYNPTOMS IMPROVE lamotrigine lamotrigine No lamotrigin [facility] 25 mg 25 mg e 25 mg Medical tablet tablet tablet Latuda 20 Latuda 20 No Latuda 20 [facility] mg tablet mg tablet mg tablet Medical TAKE 3 TAKE 3 TAKE 3 TABLETS BY TABLETS BY TABLETS BY MOUTH FOR 3 MOUTH FOR 3 MOUTH FOR DAYS, THEN DAYS, THEN 3 DAYS, 2 TABLETS 2 TABLETS THEN 2 FOR 3 DAYS, FOR 3 DAYS, TABLETS THEN 1 THEN 1 FOR 3 TABLET FOR TABLET FOR DAYS, THEN 3 DAYS THEN 3 DAYS THEN 1 TABLET STOP STOP FOR 3 DAYS THEN STOP Vital Signs Vital Name Observation Time Observation Value Comments Source Systolic blood 2022-06-19 14:36:00 102 mm[Hg] Marci Mojicaold - pressure External Diastolic blood 2022-06-19 14:36:00 64 mm[Hg] Rachael Mojicaold - pressure External Heart rate 2022-06-19 14:36:00 80 /min Marci hill - External Body temperature 2022-06-19 14:36:00 36.17 Verna Dina halie Multaniybold - External Respiratory rate 2022-06-19 14:36:00 15 /min Dina Mojicaold - External Body height 2022-06-19 14:36:00 160 cm Marci hill - External Body weight 2022-06-19 14:36:00 76.658 kg Marci hill - External BMI 2022-06-19 14:36:00 29.94 kg/m2 Marci Reyna sergio - External BP Diastolic 2022-05-07 00:00:00 91 mm[Hg] [facility] Height 2022-05-07 00:00:00 63 [in_i] [facility] BMI (Body Mass Index) 2022-05-07 00:00:00 28.5 kg/m2 [facility] BP Systolic 2022-05-07 00:00:00 134 mm[Hg] [facility] Body Weight 2022-05-07 00:00:00 161 [lb_av] [facility] BP Diastolic 2022-04-09 00:00:00 92 mm[Hg] [facility] Height 2022-04-09 00:00:00 63 [in_i] [facility] BP Systolic 2022-04-09 00:00:00 142 mm[Hg] [facility] Body Weight 2022-04-09 00:00:00 159 [lb_av] [facility] BP Diastolic 2022-02-05 00:00:00 84 mm[Hg] [facility] Height 2022-02-05 00:00:00 63 [in_i] [facility] BP Systolic 2022-02-05 00:00:00 137 mm[Hg] [facility] Body Weight 2022-02-05 00:00:00 158 [lb_av] [facility] BP Diastolic 2022-01-08 00:00:00 82 mm[Hg] [facility] Height 2022-01-08 00:00:00 63 [in_i] [facility] BMI (Body Mass Index) 2022-01-08 00:00:00 26.9 kg/m2 [facility] BP Systolic 2022-01-08 00:00:00 121 mm[Hg] [facility] Body Weight 2022-01-08 00:00:00 152 [lb_av] [facility] BP Diastolic 2021-11-27 00:00:00 75 mm[Hg] [facility] Height 2021-11-27 00:00:00 63 [in_i] [facility] BP Systolic 2021-11-27 00:00:00 123 mm[Hg] [facility] Body Weight 2021-11-27 00:00:00 148 [lb_av] [facility] BP Diastolic 2021-09-09 00:00:00 80 mm[Hg] [facility] Height 2021-09-09 00:00:00 63 [in_i] [facility] BMI (Body Mass Index) 2021-09-09 00:00:00 25.7 kg/m2 [facility] BP Systolic 2021-09-09 00:00:00 122 mm[Hg] [facility] Body Weight 2021-09-09 00:00:00 145 [lb_av] [facility] BP Diastolic 2021-06-13 00:00:00 90 mm[Hg] [facility] Height 2021-06-13 00:00:00 63 [in_i] [facility] BMI (Body Mass Index) 2021-06-13 00:00:00 25.3 kg/m2 [facility] BP Systolic 2021-06-13 00:00:00 150 mm[Hg] [facility] Body Weight 2021-06-13 00:00:00 143 [lb_av] [facility] BP Diastolic 2021-05-10 00:00:00 100 mm[Hg] [facility] BP Systolic 2021-05-10 00:00:00 150 mm[Hg] [facility] Body Weight 2021-05-10 00:00:00 143 [lb_av] [facility] BP Diastolic 2021-04-04 00:00:00 88 mm[Hg] [facility] Height 2021-04-04 00:00:00 63 [in_i] [facility] BP Systolic 2021-04-04 00:00:00 138 mm[Hg] [facility] BP Diastolic 2021-03-28 00:00:00 110 mm[Hg] [facility] BP Systolic 2021-03-28 00:00:00 162 mm[Hg] [facility] Body Weight 2021-03-28 00:00:00 153 [lb_av] [facility] BP Diastolic 2021-03-25 00:00:00 90 mm[Hg] [facility] BP Systolic 2021-03-25 00:00:00 136 mm[Hg] [facility] Body Weight 2021-03-25 00:00:00 152 [lb_av] [facility] BP Diastolic 2021-03-13 00:00:00 80 mm[Hg] [facility] Height 2021-03-13 00:00:00 63 [in_i] [facility] BMI (Body Mass Index) 2021-03-13 00:00:00 26.9 kg/m2 [facility] BP Systolic 2021-03-13 00:00:00 120 mm[Hg] [facility] Body Weight 2021-03-13 00:00:00 152 [lb_av] [facility] BP Diastolic 2021-03-08 00:00:00 68 mm[Hg] [facility] Height 2021-03-08 00:00:00 63 [in_i] [facility] BP Systolic 2021-03-08 00:00:00 121 mm[Hg] [facility] Body Weight 2021-03-08 00:00:00 151 [lb_av] [facility] Height 2021-09-02 15:46:00 160.02 cm [facility] [place] Weight 2021-09-02 15:46:00 [facility] BMI Calculated 2021-09-02 15:46:00 [facility] [place] Temperature Oral (F) 2020-10-27 04:02:00 98.2 F [facility] Heart Rate 2020-10-27 04:02:00 [facility] [place] Respitory Rate 2020-10-27 04:02:00 [facility] [place] Systolic (mm Hg) 2020-10-27 04:02:00 Kaz [facility] [place] Diastolic (mm Hg) 2020-10-27 04:02:00 [facility] Height 2020-10-27 00:52:00 160.02 cm [facility] BMI Calculated 2020-10-27 00:52:00 [facility] [place] Weight 2020-10-27 00:52:00 [facility] Systolic (mm Hg) 2020-10-27 00:52:00 Kaz [facility] Diastolic (mm Hg) 2020-10-27 00:52:00 [facility] Heart Rate 2020-10-27 00:52:00 [facility] [place] Respitory Rate 2020-10-27 00:52:00 [facility] [place] Temperature Oral (F) 2020-10-27 00:52:00 99.8 F [facility] [place] Temperature Oral (F) 2020-06-12 18:48:00 98.6 F [facility] [place] Heart Rate 2020-06-12 18:48:00 [facility] Respitory Rate 2020-06-12 18:48:00 [facility] Systolic (mm Hg) 2020-06-12 18:48:00 Kaz [facility] Diastolic (mm Hg) 2020-06-12 18:48:00 [facility] Height 2020-06-12 17:34:00 160.02 cm [facility] BMI Calculated 2020-06-12 17:34:00 [facility] [place] Weight 2020-06-12 17:34:00 [facility] [place] Systolic (mm Hg) 2020-06-12 17:34:00 Kaz [facility] [place] Diastolic (mm Hg) 2020-06-12 17:34:00 [facility] [place] Heart Rate 2020-06-12 17:34:00 [facility] [place] Respitory Rate 2020-06-12 17:34:00 [facility] [place] Temperature Oral (F) 2020-06-12 17:34:00 98.2 F [facility] Procedures Procedure Date / Time Performed Performing Clinician [facility] e [id number] 2021-04-29 00:00:00 LEE.01 [facility] [id number] 2021-04-29 00:00:00 [facility]01 [facility] [id number] 2021-04-29 00:00:00 [facility]01 [facility] [id number] 2021-04-29 00:00:00 [facility]01 [facility] [id number] 2021-04-29 00:00:00 [facility].01 [facility] [id number] 2021-04-28 00:00:00 [facility]01 [facility] Plan of Care Planned Activity Planned Date Details Comments Source Diagnostic Test 2022-05-07 00:00:00 unlisted lab [code = [facility] Pending unlisted lab] Encounters Start End Encounter Admission Attending Care Care Encounter Source Date/Time Date/Time Type Type Clinicians Facility Department ID 2022-08-15 2022-08-15 Outpatient MARCI BELLAMY [id number] [facility] 00:00:00 00:00:00 TISH zayas 2022-08-07 2022-08-07 Outpatient LAB90 MARCI MONGE [id number] Marci 16:15:00 16:15:00 Seybol d 2022-08-07 2022-08-07 Outpatient JENNIFER ESCOBAR MARCI MONGE [id number] Marci 15:30:00 15:30:00 Seybol d 2022-08-07 2022-08-07 Outpatient PREZAS, MARCI MONGE [id number] Marci 00:00:00 00:00:00 JOSHUA Seybol d 2022-08-07 2022-08-07 Outpatient HUNDL, MARCI MONGE [id number] [facility]ci 00:00:00 00:00:00 TISH Seybol d 2022-07-28 2022-07-28 Outpatient HUNDL, MARCI MONGE [id number] [facility]ci 00:00:00 00:00:00 TISH Seybol d 2022-07-25 2022-07-25 Outpatient HUNDL, MARCI MONGE [id number] [facility] 00:00:00 00:00:00 TISH Seybol d 2022-06-24 2022-06-24 Outpatient HUNDL, MARCI MONGE [id number] Marci 00:00:00 00:00:00 TISH Seybol d 2022-06-20 2022-06-20 Outpatient JOSESITO MARCI MONGE [id number] Marci 00:00:00 00:00:00 TISH Seybol d 2022-06-20 2022-06-20 Outpatient GC_SWHAOMC_ PRIV PRIV [id number] [facility] 00:00:00 00:00:00 Shira [id number] [facility] irina 2022-06-19 2022-06-19 Outpatient LAB90 MARCI MONGE [id number] Marci 10:25:00 10:25:00 Seybol d 2022-06-19 2022-06-19 Outpatient BIBIANAAlonso MARCI MONGE [id number] Marci 09:30:00 09:30:00 TISH Seybol d 2022-05-09 2022-05-09 Outpatient GC_SWHAOMC_ PRIV PRIV [id number] [facility] 00:00:00 00:00:00 Shira [id number] Medi irina 2022-05-07 2022-05-07 Aakash [facility] [id number] [facility] Stein GC_QUIRINO_ : [address], [place] [address] , Ph. 2022-05-06 2022-05-06 Outpatient GC_SWHAOMC_ PRIV PRIV [id number] [facility] 00:00:00 00:00:00 McCloud_C [id number] [facility] 2022-05-06 2022-05-06 Outpatient GC_SWHAOMC_ PRIV PRIV [id number] [facility] 00:00:00 00:00:00 McCloud_C [id number] [facility] 2022-04-09 2022-04-09 Outpatient GC_SWHAOMC_ PRIV PRIV [id number] [facility] 00:00:00 00:00:00 McCloud_C [id number] [facility] 2022-04-09 2022-04-09 Aakash [facility] 11 [facility] 00:00:00 00:00:00 [facility] - Medic sherri Stein GC_QUIRINO_ : [address], [place] [address] , Ph. 2022-04-08 2022-04-08 Outpatient GC_SWHAOMC_ PRIV PRIV [id number] [facility] 00:00:00 00:00:00 McCloud_C [id number] [facility] 2022-04-07 2022-04-07 Outpatient GC_SWHAOMC_ PRIV PRIV [id number] [facility] 00:00:00 00:00:00 McCloud_C [id number] [facility] 2022-03-28 2022-03-29 Outpatient [facility] [id number] [facility] 17:30:00 05:59:59 [place] 02 l [place] 2022-03-28 2022-03-29 Outpatient [facility] [id number] [facility] 17:30:00 05:59:59 [place] 02 l [place] 2022-03-28 2022-03-28 Outpatient Curtis [id number] 11:30:00 23:59:59 Lashae [id number] 2022-03-26 2022-03-26 Outpatient PVH_GC_VIRT PRIV PRIV [id number] [facility] 00:00:00 00:00:00 UAL_PROV [id number] Medic al 2022-03-04 2022-03-04 Outpatient GC_SWHAOMC_ PRIV PRIV [id number] [facility] 00:00:00 00:00:00 Maricel [id number] Medic al 2022-03-01 2022-03-01 Outpatient PRIV PRIV [id number] [facility] 00:00:00 00:00:00 [id number] Medica l 2022-02-05 2022-02-05 Aakash [facility] [id number] [facility] 00:00:00 00:00:00 [facility] - Medic NIKOLE Gracia MD: [address], [place] [address] , Ph. 2022-02-03 2022-02-03 Outpatient GC_SWHAOMC_ PRIV PRIV [id number] [facility] 00:00:00 00:00:00 Shira [id number] [facility] irina 2022-01-27 2022-01-27 Outpatient GC_SWHAOMC_ PRIV PRIV [id number] [facility] 00:00:00 00:00:00 Shaniqua_C [id number] Medi irina 2022-01-09 2022-01-09 Outpatient GC_SWHAOMC_ PRIV PRIV [id number] [facility] 00:00:00 00:00:00 hSaniqua_C [id number] Medi irina 2022-01-08 2022-01-08 Aakash [facility] 00:00:00 00:00:00 [facility] - Medic NIKOLE Gracia MD: [address], [place] [address] , Ph. 2021-12-19 2021-12-19 Outpatient GC_SWHAOMC_ PRIV PRIV [id number] [facility] 00:00:00 00:00:00 McCloud_C [id number] [facility] 2021-12-13 2021-12-14 Between [facility] [id number] [facility] 12:35:07 12:35:07 Visit r [place] 03 l [place] Ksenia nn 2021-12-13 2021-12-14 Between [facility] [id number] Memoria 12:35:07 12:35:07 Visit r [place] 03 l [place] Ksenia nn 2021-12-13 2021-12-14 Outpatient MHSL MHSL [id number] 07:35:07 07:35:07 03 2021-12-12 2021-12-12 Outpatient GC_SWHAOMC_ PRIV PRIV [id number] [facility] 00:00:00 00:00:00 Tiffanieloud_C [id number] [facility] 2021-11-27 2021-11-27 Outpatient GC_SWHAOMC_ PRIV PRIV [id number] [facility] 00:00:00 00:00:00 Tiffanieloud_C [id number] [facility] 2021-11-27 2021-11-27 Aakash [facility] 00:00:00 00:00:00 Sixto Oliver [facility] JOSEPH Gracia_ : [address], [place] [address] , Ph. 2021-11-27 2021-11-27 Outpatient Emil PRIV PRIV [id number] 00:00:00 00:00:00 Aakash [id number] Sixto [id number] 2021-11-26 2021-11-26 Outpatient GC_SWHAOMC_ PRIV PRIV [id number] [facility] 00:00:00 00:00:00 Tiffanielosukhjinder_C [id number] [facility] 2021-11-04 2021-11-04 Kiko [facility] 08 [facility] 00:00:00 00:00:00 Melody Mcgovern MD: [id number] [place], Office* [address], [place] [address] , Ph. 2021-11-04 2021-11-04 Outpatient Shaniqua, PRIV PRIV [id number] 00:00:00 00:00:00 Kiko [id number] 2021-10-13 2021-10-13 Outpatient GC_[facility]AOM[facility]_ PRIV PRIV [id number] [facility] 00:00:00 00:00:00 McCloud_C [id number] [facility] 2021-09-16 2021-09-16 Outpatient GC_SWHAOMC_ PRIV PRIV [id number] [facility] 12:38:00 12:38:00 McCloud_C [id number] [facility] 2021-09-10 2021-09-10 Outpatient GC_SWHAOMC_ PRIV PRIV [id number] [facility] 05:50:00 05:50:00 McCloud_C [id number] [facility] 2021-09-09 2021-09-09 Outpatient GC_SWHAOMC_ PRIV PRIV [id number] [facility] 11:45:00 11:45:00 McCloud_C [id number] [facility] 2021-09-09 2021-09-09 Kiko [facility] 13 [facility] 00:00:00 00:00:00 Shaniqua [facility] irina WILEY: [address] [facility] [address] [place], Office* [address], [place] [address] , Ph. 2021-09-09 2021-09-09 Outpatient Shaniqua, PRIV PRIV [id number] 00:00:00 00:00:00 Kiko [id number] 2021-09-05 2021-09-06 Between nullFlavo [facility] Multi [id number] Memoria 13:12:52 13:12:52 Visit r Specialty 02 l [facility] 2021-09-05 2021-09-06 Between nullFlavo [facility] [id number] Memoria 13:12:52 13:12:52 Visit r Specialty 02 l Andriy Rodriguez 2021-09-05 2021-09-06 Outpatient [facility] MG [id number] 08:12:52 08:12:52 02 2021-09-06 2021-09-06 Outpatient [facility]_ PRIV PRIV [id number] [facility] 03:40:00 03:40:00 McCloud_C [id number] [facility] 2021-09-02 2021-09-03 [place] [id number] Mem[facility] 15:15:00 04:59:59 r Urology 00 l [facility] Share 2021-09-02 2021-09-03 [place] [id number] Memoria 15:15:00 04:59:59 r Urology 00 l [facility] nn Time Share 2021-09-02 2021-09-02 Outpatient Staller, [facility] [id number] 10:15:00 23:59:59 Chitra L 00 2021-09-02 2021-09-02 Outpatient IE [facility] [id number] [facility] 10:15:00 10:15:00 00 l [place] 2021-08-19 2021-08-19 Outpatient GC_[facility]_ PRIV PRIV [id number] [facility] 01:14:00 01:14:00 McCloud_C [id number] [facility] 2021-07-23 2021-07-23 Outpatient GC_[facility]_ PRIV PRIV [id number] [facility] 12:04:00 12:04:00 McCloud_C [id number] [facility] 2021-06-28 2021-06-28 Outpatient GC_[facility]_ PRIV PRIV [id number] [facility] 11:56:00 11:56:00 McCloud_C [id number] [facility] 2021-06-24 2021-06-24 Outpatient GC_[facility]_ PRIV PRIV [id number] [facility] 01:17:00 01:17:00 McCloud_C [id number] [facility] 2021-06-14 2021-06-14 Outpatient GC_[facility]_ PRIV PRIV [id number] [facility] 03:23:00 03:23:00 McCloud_C [id number] [facility] 2021-06-13 2021-06-13 Outpatient GC_[facility]_ PRIV PRIV [id number] [facility] 01:22:00 01:22:00 McCloud_C [id number] [facility] 2021-06-13 2021-06-13 Kiko [facility]IV [facility] 00:00:00 00:00:00 Melody Mcgovern [facility] irina WILEY: 7900 GC_[facility]_ Adiel Chun [place], Office* [address], [place] [address] , Ph. 2021-06-13 2021-06-13 Outpatient Shaniqua, PRIV PRIV [id number] 00:00:00 00:00:00 Kiko [id number] 2021-06-11 2021-06-11 Outpatient GC_[facility]_ PRIV PRIV [id number] [facility] 01:16:00 01:16:00 McCloud_C [id number] [facility] 2021-06-03 2021-06-03 Outpatient GC_[facility]_ PRIV PRIV 219 [id number] [facility] 12:16:00 12:16:00 McCloud_C [id number] [facility] 2021-05-27 2021-05-27 Outpatient GC_[facility]_ PRIV PRIV 219 [id number] [facility] 01:37:00 01:37:00 Tiffanieloud_C [id number] [facility] 2021-05-15 2021-05-15 Outpatient GC_[facility]_ PRIV PRIV [id number] [facility] 03:21:00 03:21:00 McCloud_C [id number] [facility] 2021-05-10 2021-05-10 Outpatient GC_[facility]_ PRIV PRIV [id number] [facility] 02:07:00 02:07:00 Tiffanieloud_C [id number] [facility] 2021-05-10 2021-05-10 Kiko [facility]IV [facility] 00:00:00 00:00:00 Melody Mcgovern [facility] irina WILEY: 7900 GC_[facility]_ Adiel Chun [place], Office* [address], [place] [address] , Ph. 2021-05-10 2021-05-10 Outpatient Shaniqua, PRIV PRIV [id number] 00:00:00 00:00:00 Kiko [id number] 2021-04-17 2021-04-30 Inpatient EL OMAR McgovernWH OBPP [id number] [facility] 16:45:00 15:00:00 Kiko 25 [facility] 2021-04-23 2021-04-23 Outpatient GC_[facility]_ PRIV PRIV [id number] [facility] 06:57:00 06:57:00 McCloud_C [id number] [facility] irina 2021-04-17 2021-04-17 Outpatient GC_[facility]_ PRIV PRIV [id number] [facility] 03:47:00 03:47:00 McCloud_C [id number] [facility] 2021-04-17 2021-04-17 Kiko [facility] 00:00:00 00:00:00 Shaniqua [facility] MD: 7900 GC[facility]_ Adiel Adiel [place], Office* [address], [place] [address] , Ph. 2021-04-12 2021-04-13 Emergency EM Shaniqua, OMARWH JANKI [id number] [facility] 20:02:00 00:06:00 Kiko 85 [facility] 2021-04-06 2021-04-06 Emergency EM Shaniqua, OMARWH JANKI [id number] [facility] 15:29:00 20:06:00 Kiko 64 [facility] 2021-04-06 2021-04-06 Outpatient GC_[facility]_ PRIV PRIV [id number] [facility] 01:30:00 01:30:00 McCloud_C [id number] [facility] 2021-04-04 2021-04-04 Emergency EM Shaniqua, OMARWH JANKI [id number] [facility] 20:44:00 23:35:00 Kiko 24 [facility] 2021-04-04 2021-04-04 Outpatient GC_[facility]_ PRIV PRIV [id number] [facility] 11:36:00 11:36:00 McCloud_C [id number] [facility] 2021-04-04 2021-04-04 Kiko [facility] 00:00:00 00:00:00 Melody Mcgovern [facility] irina MD: 7900 GC_[facility]_ Adiel [facility], Office* [address], [place] [address] , Ph. 2021-04-04 2021-04-04 Outpatient Shaniqua, PRIV PRIV [id number] 00:00:00 00:00:00 Kiko [id number] 2021-04-03 2021-04-03 Outpatient GC_[facility]_ PRIV PRIV [id number] [facility] 06:03:00 06:03:00 Tiffanieloud_C [id number] [facility] 2021-04-01 2021-04-02 Emergency EL OMRA McgovernWH JANKI [id number] [facility] 21:30:00 00:50:00 Kiko 04 [facility] 2021-04-01 2021-04-01 Outpatient GC_[facility]_ PRIV PRIV [id number] [facility] 05:49:00 05:49:00 McCloud_C [id number] [facility] 2021-04-01 2021-04-01 Outpatient GC_[facility]_ PRIV PRIV [id number] [facility] 05:49:00 05:49:00 McCloud_C [id number] [facility] 2021-03-28 2021-03-30 Inpatient EL DEMI Mcgovern OBANTE [id number] [facility] 13:12:00 13:00:00 Kiko 62 [facility] 2021-03-29 2021-03-29 Outpatient GC_[facility]_ PRIV PRIV [id number] [facility] 05:28:00 05:28:00 Tiffanieloud_C [id number] [facility] 2021-03-29 2021-03-29 Outpatient GC_[facility]_ PRIV PRIV [id number] [facility] 05:28:00 05:28:00 McCloud_C [id number] [facility] 2021-03-28 2021-03-28 Outpatient GC_[facility]_ PRIV PRIV [id number] [facility] 01:01:00 01:01:00 McCloud_C [id number] [facility] 2021-03-28 2021-03-28 Kiko [facility]IV [facility] [id number] [facility] 00:00:00 00:00:00 Melody Mcgovern [facility] irina MD: 7900 GC_[facility]_ [facility], Office* [address], [place] [address] , Ph. 2021-03-28 2021-03-28 Outpatient Shaniqua, PRIV PRIV [id number] 00:00:00 00:00:00 Kiko [id number] 2021-03-25 2021-03-25 Emergency EL Shaniqua, [facility] JANKI [id number] [facility] 11:50:00 13:35:[address] [facility] 2021-03-25 2021-03-25 Outpatient GC_[facility]_ PRIV PRIV [id number] [facility] 02:16:00 02:16:00 HaileeC [id number] [facility] 2021-03-25 2021-03-25 Kiko [facility] [id number] [facility] 00:00:00 00:00:00 Melody Mcgovern MD: 7900 GC_[facility]_ [facility], Office* [address], [place] [address] , Ph. 2021-03-25 2021-03-25 Outpatient Shaniqua, PRIV PRIV [id number] 00:00:00 00:00:00 Kiko [id number] 2021-03-20 2021-03-20 Outpatient GC_[facility]_ PRIV PRIV 219 [id number] [facility] 05:20:00 05:20:00 Shira [id number] [facility] irina 2021-03-20 2021-03-20 Outpatient GC_[facility]_ PRIV PRIV 219 [id number] [facility] 05:20:00 05:20:00 McCloud_C [id number] [facility] irina 2021-03-16 2021-03-16 Outpatient GC_[facility]_ PRIV PRIV [id number] [facility] 03:01:00 03:01:00 McCloud_C [id number] [facility] irina 2021-03-13 2021-03-13 Outpatient GC_[facility]_ PRIV PRIV [id number] [facility] 03:13:00 03:13:00 McCloud_C [id number] [facility] irina 2021-03-13 2021-03-13 Outpatient Shaniqua, PRIV PRIV [id number] 00:00:00 00:00:00 Kiko [id number] 2021-03-13 2021-03-13 Kiko [facility] [id number] [facility] 00:00:00 00:00:00 Melody Mcgovern MD: 7900 GC_[facility]_ [facility], Office* [address], [place] [address] , Ph. 2021-03-09 2021-03-09 Outpatient GC_[facility]_ PRIV PRIV [id number] [facility] 01:46:00 01:46:00 McCloud_C [id number] [facility] irina 2021-03-08 2021-03-08 Outpatient GC_[facility]_ PRIV PRIV [id number] [facility] 12:48:00 12:48:00 McCloud_C [id number] [facility] irina 2021-03-08 2021-03-08 Kiko [facility]IV [facility] [id number] [facility] 00:00:00 00:00:00 Melody Mcgovern MD: 7900 GC_[facility]_ [facility], Office* [address], [place] [address] , Ph. 2021-03-08 2021-03-08 Outpatient Shaniqua, PRIV PRIV [id number] 00:00:00 00:00:00 Kiko [id number] 2021-03-04 2021-03-04 Outpatient GC_[facility]_ PRIV PRIV [id number] [facility] 12:31:00 12:31:00 Shira [id number] [facility] 2021-02-14 2021-02-14 Kiko [facility]IV [facility] [id number] [facility] 00:00:00 00:00:00 Melody Mcgovern [facility] irina MD: 7900 GC_[facility]_ [facility], Office* [address], [place] [address] , Ph. 2020-12-26 2020-12-26 Inpatient JAVON Eusebio [facility] [id number] [facility] 05:58:00 08:46:00 [place] [address] [facility] 2020-10-27 2020-10-27 [facility] [id number] [facility] 00:38:39 04:06:00 r Michael 01 [facility] 2020-10-27 2020-10-27 [facility] [id number] [facility] 00:38:39 04:06:00 r Michael 01 [facility] 2020-10-26 2020-10-26 Outpatient Miguel Angel [facility] [id number] 19:38:39 23:06:00 Andrzej Green 2020-06-12 2020-06-12 [facility] [id number] [facility] 17:25:59 19:08:00 r Michael 00 [facility] 2020-06-12 2020-06-12 [facility] [id number] [facility] 17:25:59 19:08:00 r Michael 00 [facility] 2020-06-12 2020-06-12 Outpatient Karis [facility] [id number] 12:25:59 14:08:00 daArtemNan 00 Inocencia Results Test Description Test Time Test Comments Results Result Comments Source Bacteria identified in Urine by Culture 2022-01-11 00:00:00 Test Item Value Reference Range Interpretation Comme nts bacteria, urine (test code = bacteria, urine) none none-few blood, urine (test code = blood, urine) negative negative bilirubin, urine (test code = bilirubin, urine) negative negati ve cast, granular, ur (test code = cast, granular, none seen 0-1 ur) cast, hyaline, urine (test code = cast, hyaline, 0-4 0-4 urine) cast, RBC, urine (test code = cast, RBC, urine) none seen 0-1 character (test code = character) clear clear color (test code = color) yellow yellow, straw, daelina crystal amt. urine (test code = crystal amt. none none urine) crystals urine (test code = crystals urine) none none culture, urine (test code = culture, urine) see below no growth A epithelial cells, ur (test code = epithelial few none-few cells, ur) glucose, urine (test code = glucose, urine) negative negative ketone, urine (test code = ketone, urine) negative negative leukocyte esterase (test code = leukocyte negative negative esterase) nitrites urine (test code = nitrites urine) negative negative pH urine (test code = pH urine) 7.5 5.0-8.0 protein, urine (test code = protein, urine) negative negative RBC, urine (test code = RBC, urine) none seen none seen specific gravity ur (test code = specific gravity 1.023 1.00 3-1.030 ur) urobilinogen urine (test code = urobilinogen 0.2 mg/dL 0.2-1.0 urine) WBC, urine (test code = WBC, urine) 0-4 0-4 [facility] [id number] 16:36:00 Test Item Value Reference Range Interpretation Comments Result 2 (Urine Culture) See Result Comment (test code = Result 2 (Urine Culture)) [facility] LAB [id number] 16:36:00 Test Item Value Reference Range Interpretation Comments Result 2 (Urine Culture) See Result Comment (test code = Result 2 (Urine Culture)) [facility] [id number] 16:36:00 Test Item Value Reference Range Interpretation Comments Result 2 (Urine Culture) See Result Comment (test code = Result 2 (Urine Culture)) [facility] AND [id number] 15:43:00 Test Item Value Reference Range Interpretation Comments POC UA Nit (test code Negative *NA*(09/02/21 = POC UA Nit) 10:43 AM) [facility] [id number] 15:43:00 Test Item Value Reference Range Interpretation Comments POC UA LeukEst (test Trace *ABN*(09/02/21 code = POC UA LeukEst) 10:43 AM) [facility] [id number] 15:43:00 Test Item Value Reference Range Interpretation Comments POC UA Color (test code = POC UA Dark yellow Color) [facility] [id number] 15:43:00 Test Item Value Reference Range Interpretation Comments POC UA Turbidity (test Clear *NA*(09/02/21 code = POC UA Turbidity) 10:43 AM) [facility] [id number] 15:43:00 Test Item Value Reference Range Interpretation Comments POC UA SG (test code = POC UA SG) 1.020 1 [facility] [id number] 15:43:00 Test Item Value Reference Range Interpretation Comments POC UA pH (test code = POC UA pH) 5.5 1 5.0-8.0 [facility] [id number] 15:43:00 Test Item Value Reference Range Interpretation Comments POC UA Prot (test code = POC Negative mg/dL UA Prot) [facility] [id number] 15:43:00 Test Item Value Reference Range Interpretation Comments POC UA Glu (test code = POC UA Negative mg/dL Glu) [facility] [id number] 15:43:00 Test Item Value Reference Range Interpretation Comments POC UA Ket (test code = POC UA Negative mg/dL Ket) [facility] [id number] 15:43:00 Test Item Value Reference Range Interpretation Comments POC UA Bili (test Negative *NA*(09/02/21 code = POC UA Bili) 10:43 AM) [facility] [id number] 15:43:00 Test Item Value Reference Range Interpretation Comments POC UA Bld (test code Negative *NA*(09/02/21 = POC UA Bld) 10:43 AM) [facility] [id number] 15:43:00 Test Item Value Reference Range Interpretation Comments POC UA Uro (test code = POC UA Uro) 0.2 0.1-1.0 [facility] [id number] 15:43:00 Test Item Value Reference Range Interpretation Comments POC UA Nit (test code Negative *NA*(09/02/21 = POC UA Nit) 10:43 AM) [facility] [id number] 15:43:00 Test Item Value Reference Range Interpretation Comments POC UA LeukEst (test Trace *ABN*(09/02/21 code = POC UA LeukEst) 10:43 AM) [facility] [id number] 15:43:00 Test Item Value Reference Range Interpretation Comments POC UA Color (test code = POC UA Dark yellow Color) [facility] [id number] 15:43:00 Test Item Value Reference Range Interpretation Comments POC UA Turbidity (test Clear *NA*(09/02/21 code = POC UA Turbidity) 10:43 AM) [facility] [id number] 15:43:00 Test Item Value Reference Range Interpretation Comments POC UA SG (test code = POC UA SG) 1.020 1 [facility] [id number] 15:43:00 Test Item Value Reference Range Interpretation Comments POC UA pH (test code = POC UA pH) 5.5 1 5.0-8.0 [facility] [id number] 15:43:00 Test Item Value Reference Range Interpretation Comments POC UA Prot (test code = POC Negative mg/dL UA Prot) [facility] [id number] 15:43:00 Test Item Value Reference Range Interpretation Comments POC UA Glu (test code = POC UA Negative mg/dL Glu) [facility] [id number] 15:43:00 Test Item Value Reference Range Interpretation Comments POC UA Ket (test code = POC UA Negative mg/dL Ket) [facility] [id number] 15:43:00 Test Item Value Reference Range Interpretation Comments POC UA Bili (test Negative *NA*(09/02/21 code = POC UA Bili) 10:43 AM) [facility] [id number] 15:43:00 Test Item Value Reference Range Interpretation Comments POC UA Bld (test code Negative *NA*(09/02/21 = POC UA Bld) 10:43 AM) [facility] AND [id number] 15:43:00 Test Item Value Reference Range Interpretation Comments POC UA Uro (test code = POC UA Uro) 0.2 0.1-1.0 [facility] AND [id number] 15:43:00 Test Item Value Reference Range Interpretation Comments POC UA Nit (test code Negative *NA*(09/02/21 = POC UA Nit) 10:43 AM) [facility] AND [id number] 15:43:00 Test Item Value Reference Range Interpretation Comments POC UA LeukEst (test Trace *ABN*(09/02/21 code = POC UA LeukEst) 10:43 AM) [facility] AND [id number] 15:43:00 Test Item Value Reference Range Interpretation Comments POC UA Color (test code = POC UA Dark yellow Color) [facility] AND [id number] 15:43:00 Test Item Value Reference Range Interpretation Comments POC UA Turbidity (test Clear *NA*(09/02/21 code = POC UA Turbidity) 10:43 AM) [facility] AND [id number] 15:43:00 Test Item Value Reference Range Interpretation Comments POC UA SG (test code = POC UA SG) 1.[address] [facility] AND [id number] 15:43:00 Test Item Value Reference Range Interpretation Comments POC UA pH (test code = POC UA pH) 5.5 1 5.0-8.[address] [facility] AND [id number] 15:43:00 Test Item Value Reference Range Interpretation Comments POC UA Prot (test code = POC Negative mg/dL UA Prot) [facility] AND [id number] 15:43:00 Test Item Value Reference Range Interpretation Comments POC UA Glu (test code = POC UA Negative mg/dL Glu) [facility] AND [id number] 15:43:00 Test Item Value Reference Range Interpretation Comments POC UA Ket (test code = POC UA Negative mg/dL Ket) [facility] AND [id number] 15:43:00 Test Item Value Reference Range Interpretation Comments POC UA Bili (test Negative *NA*(09/02/21 code = POC UA Bili) 10:43 AM) [facility] Roxann AND [id number] 15:43:00 Test Item Value Reference Range Interpretation Comments POC UA Bld (test code Negative *NA*(09/02/21 = POC UA Bld) 10:43 AM) G[facility]nesis Hackett AND [id number] 15:43:00 Test Item Value Reference Range Interpretation Comments POC UA Uro (test code = POC UA Uro) 0.2 0.1-1.0 [facility] MichaelBacteria identified in Urine by [id number] 00:00:00 Test Item Value Reference Range Interpretation Comments bacteria, urine (test code many none-few A = bacteria, urine) blood, urine (test code = large negative A blood, urine) bilirubin, urine (test code small negative A = bilirubin, urine) cast, granular, ur (test none seen 0-1 code = cast, granular, ur) cast, hyaline, urine (test >20 0-4 H code = cast, hyaline, urine) cast, RBC, urine (test code none seen 0-1 = cast, RBC, urine) character (test code = cloudy clear A character) color (test code = color) dk yellow yellow, straw, adelina crystal amt. urine (test none none code = crystal amt. urine) crystals urine (test code = none none crystals urine) culture, urine (test code = see below no growth culture, urine) epithelial cells, ur (test few none-few code = epithelial cells, ur) glucose, urine (test code = negative negative glucose, urine) ketone, urine (test code = negative negative ketone, urine) leukocyte esterase (test moderate negative A code = leukocyte esterase) nitrites urine (test code = negative negative nitrites urine) pH urine (test code = pH 6.5 5.0-8.0 urine) protein, urine (test code = 2+,100 mg/dL negative A protein, urine) RBC, urine (test code = >100 none seen H RBC, urine) specific gravity ur (test 1.029 1.003-1.030 code = specific gravity ur) urobilinogen urine (test 1.0 mg/dL 0.2-1.0 code = urobilinogen urine) WBC, urine (test code = >100 0-4 H WBC, urine) [facility] [id number] 07:34:00 Test Item Value Reference Range Interpretation Comments HEMOGLOBIN (test code = HGB) 11.4 g/dL 10.1-13.8 N HEMATOCRIT (test code = HCT) 34.2 % 32.5-41.8 N CBC W/AUTO [id number] 08:10:00 Test Item Value Reference Range Interpretation Comments WHITE BLOOD CELL (test code = WBC) 15.0 K/mm3 6.5-12.3 H RED BLOOD CELL (test code = RBC) 4.38 M/mm3 3.51-4.69 N HEMOGLOBIN (test code = HGB) 13.4 g/dL 10.1-13.8 N HEMATOCRIT (test code = HCT) 39.3 % 32.5-41.8 N MEAN CELL VOLUME (test code = MCV) 89.7 fL 84.6-96.6 N MEAN CELL HGB (test code = MCH) 30.6 pg 27.3-33.9 N MEAN CELL HGB CONCETRATION (test 34.1 gm/dL 32.0-34.2 N code = MCHC) RED CELL DISTRIBUTION WIDTH (test 11.9 % 12.2-16.3 L code = RDW) PLATELET COUNT (test code = PLT) 297 K/mm3 134-363 N MEAN PLATELET VOLUME (test code = 9.0 fL 9.2-12.7 L MPV) NEUTROPHIL % (test code = NT%) 73.1 % 57.9-77.3 N LYMPHOCYTE % (test code = LY%) 16.2 % 14.5-29.7 N MONOCYTE % (test code = MO%) 7.9 % 3.6-10.2 N EOSINOPHIL % (test code = EO%) 1.1 % 0.0-3.0 N BASOPHIL % (test code = BA%) 0.6 % 0.1-0.9 N NEUTROPHIL # (test code = NT#) 11.0 K/mm3 LYMPHOCYTE # (test code = LY#) 2.4 K/mm3 MONOCYTE # (test code = MO#) 1.2 K/mm3 EOSINOPHIL # (test code = EO#) 0.17 K/mm3 BASOPHIL # (test code = BA#) 0.1 K/mm3 RBC MORPHOLOGY REQUIRED (test code NORMAL NORMAL = RBCM) PLATELET MORPHOLOGY REQUIRED (test NORMAL NORMAL code = PLTMR) PROTHROMBIN [id number] 12:45:00 Test Item Value Reference Range Interpretation Comments PROTHROMBIN TIME PATIENT (test code 11.1 secs 10.1-12.3 N = PTP) THROMBOPLASTIN TIME [id number] 12:45:00 Test Item Value Reference Range Interpretation Comments THROMBOPLASTIN TIME PARTIAL (test 31.7 secs 22-38 N code = PTT) [id number] 12:45:00 Test Item Value Reference Range Interpretation Comments FIBRINOGEN (test code = 703 mg/dL 297-524 H Plea se note new FIB) normal range 2021 LIVER [id number] 12:23:00 Test Item Value Reference Range Interpretation Comments TOTAL PROTEIN (test code = PROT) 6.1 gm/dL 6.3-8.2 L ALBUMIN (test code = ALB) 2.8 gm/dL 3.4-4.8 L BILIRUBIN TOTAL (test code = 0.6 mg/dL 0.2-1.0 N BILT) BILIRUBIN DIRECT (test code = 0.2 mg/dL <0.2 N BILD) SGOT/AST (test code = AST) 19 units/L 15-37 N SGPT/ALT (test code = ALT) 28 units/L 12-78 N ALKALINE PHOSPHATASE TOTAL (test 315 units/L 46-116 H code = ALKP) BLOOD UREA [id number] 12:23:00 Test Item Value Reference Range Interpretation Comments BLOOD UREA NITROGEN (test code = BUN) 8 mg/dL 7-18 N [id number] 12:23:00 Test Item Value Reference Range Interpretation Comments CREATININE (test code = CREAT) 0.6 mg/dL 0.5-1.0 N URIC [id number] 12:23:00 Test Item Value Reference Range Interpretation Comments URIC ACID (test code = URIC) 4.7 mg/dL 2.6-6.0 N CBC W/AUTO [id number] 12:15:00 Test Item Value Reference Range Interpretation Comments WHITE BLOOD CELL (test code = WBC) 13.2 K/mm3 6.5-12.3 H RED BLOOD CELL (test code = RBC) 4.35 M/mm3 3.51-4.69 N HEMOGLOBIN (test code = HGB) 13.3 g/dL 10.1-13.8 N HEMATOCRIT (test code = HCT) 38.9 % 32.5-41.8 N MEAN CELL VOLUME (test code = MCV) 89.4 fL 84.6-96.6 N MEAN CELL HGB (test code = MCH) 30.6 pg 27.3-33.9 N MEAN CELL HGB CONCETRATION (test 34.2 gm/dL 32.0-34.2 N code = MCHC) RED CELL DISTRIBUTION WIDTH (test 11.9 % 12.2-16.3 L code = RDW) PLATELET COUNT (test code = PLT) 291 K/mm3 134-363 N MEAN PLATELET VOLUME (test code = 8.8 fL 9.2-12.7 L MPV) NEUTROPHIL % (test code = NT%) 72.7 % 57.9-77.3 N LYMPHOCYTE % (test code = LY%) 16.5 % 14.5-29.7 N MONOCYTE % (test code = MO%) 7.9 % 3.6-10.2 N EOSINOPHIL % (test code = EO%) 1.2 % 0.0-3.0 N BASOPHIL % (test code = BA%) 0.6 % 0.1-0.9 N NEUTROPHIL # (test code = NT#) 9.6 K/mm3 LYMPHOCYTE # (test code = LY#) 2.2 K/mm3 MONOCYTE # (test code = MO#) 1.0 K/mm3 EOSINOPHIL # (test code = EO#) 0.16 K/mm3 BASOPHIL # (test code = BA#) 0.1 K/mm3 RBC MORPHOLOGY REQUIRED (test code NORMAL NORMAL = RBCM) PLATELET MORPHOLOGY REQUIRED (test NORMAL NORMAL code = PLTMR) Streptococcus agalactiae [Presence] in Specimen by Organism specific culture 2021-04-24 00:00:00 Test Item Value Reference Range Interpretation Comments culture, genital (strep B) (test negative negative code = culture, genital (strep B)) [facility] [id number] 22:10:00 Test Item Value Reference Range Interpretation Comments UR PROTEIN RANDOM 19.9 mg/dL (test code = PROTU) UR PROTEIN 24HR (test 279 mg/24HR 20-150 HH Units for 24 HR Urine code = RBXA08P) Protein have changed: New Units = MG/ 24HR UR VOLUME (test code 1400 ML = VOL) [id number] 05:22:00 Test Item Value Reference Range Interpretation Comments CREATININE (test code = CREAT) 0.7 mg/dL 0.5-1.0 N URIC [id number] 05:22:00 Test Item Value Reference Range Interpretation Comments URIC ACID (test code = URIC) 3.7 mg/dL 2.6-6.0 N [id number] 05:22:00 Test Item Value Reference Range Interpretation Comments SGOT/AST (test code = AST) 17 units/L 15-37 N [id number] 05:22:00 Test Item Value Reference Range Interpretation Comments SGPT/ALT (test code = ALT) 21 units/L 12-78 N LACTIC DEHYDROGENASE(LDH)2021-04-22 05:22:00 Test Item Value Reference Range Interpretation Comments LACTIC DEHYDROGENASE(LDH) (test 131 units/L 81-234 N code = LDH) CBC W/AUTO [id number] 04:50:00 Test Item Value Reference Range Interpretation Comments WHITE BLOOD CELL (test code = WBC) 11.8 K/mm3 6.5-12.3 N RED BLOOD CELL (test code = RBC) 3.88 M/mm3 3.51-4.69 N HEMOGLOBIN (test code = HGB) 12.1 g/dL 10.1-13.8 N HEMATOCRIT (test code = HCT) 35.2 % 32.5-41.8 N MEAN CELL VOLUME (test code = MCV) 90.7 fL 84.6-96.6 N MEAN CELL HGB (test code = MCH) 31.2 pg 27.3-33.9 N MEAN CELL HGB CONCETRATION (test 34.4 gm/dL 32.0-34.2 H code = MCHC) RED CELL DISTRIBUTION WIDTH (test 12.0 % 12.2-16.3 L code = RDW) PLATELET COUNT (test code = PLT) 244 K/mm3 134-363 N MEAN PLATELET VOLUME (test code = 8.7 fL 9.2-12.7 L MPV) NEUTROPHIL % (test code = NT%) 71.4 % 57.9-77.3 N LYMPHOCYTE % (test code = LY%) 19.5 % 14.5-29.7 N MONOCYTE % (test code = MO%) 6.5 % 3.6-10.2 N EOSINOPHIL % (test code = EO%) 1.2 % 0.0-3.0 N BASOPHIL % (test code = BA%) 0.6 % 0.1-0.9 N NEUTROPHIL # (test code = NT#) 8.4 K/mm3 LYMPHOCYTE # (test code = LY#) 2.3 K/mm3 MONOCYTE # (test code = MO#) 0.8 K/mm3 EOSINOPHIL # (test code = EO#) 0.14 K/mm3 BASOPHIL # (test code = BA#) 0.1 K/mm3 RBC MORPHOLOGY REQUIRED (test code NORMAL NORMAL = RBCM) PLATELET MORPHOLOGY REQUIRED (test NORMAL NORMAL code = PLTMR) UR PROTEIN/CREATININE [id number] 20:21:00 Test Item Value Reference Range Interpretation Comments UR PROTEIN RANDOM (test code = 42.0 mg/dL PROTU) UR CREATININE RANDOM (test 203.5 mg/dL code = CREATU) PROTEIN/CREATININE RATIO (test 206.3 mg/gcrea <200 H code = P/CRATIO) AG HEPATITIS B [id number] 19:25:00 Test Item Value Reference Range Interpretation Comments AG HEPATITIS B SURFACE (test code NONREACTIVE NONREACTIVE = HBSAG) AB HEPATITIS C [id number] 19:25:00 Test Item Value Reference Range Interpretation Comments AB HEPATITIS C (test code = NONREACTIVE NONREACTIVE HCVAB) SIGNAL TO CUTOFF (test code = <0.02 <0.80 N CUTOFF) AB [id number] 19:25:00 Test Item Value Reference Range Interpretation Comments AB TREPONEMA (test code = TREPAB) NONREACTIVE NONREACTIVE AB HIV 1 19:25:00 Test Item Value Reference Range Interpretation Comments AB HIV 1 2 (test NONREACTIVE NONREACTIVE Done by [facility] code = [id number]) 4th Gen HIV Ag/Ab Combo Screen [id number] 18:34:00 Test Item Value Reference Range Interpretation Comments CREATININE (test code = CREAT) 0.6 mg/dL 0.5-1.0 N URIC [id number] 18:34:00 Test Item Value Reference Range Interpretation Comments URIC ACID (test code = URIC) 4.0 mg/dL 2.6-6.0 N [id number] 18:34:00 Test Item Value Reference Range Interpretation Comments SGOT/AST (test code = AST) 18 units/L 15-37 N [id number] 18:34:00 Test Item Value Reference Range Interpretation Comments SGPT/ALT (test code = ALT) 23 units/L 12-78 N COVID 19 Asymptomatic IH [id number] 18:34:00 Test Item Value Reference Range Interpretation Comments COVID 19 NEGATIVE NEGATIVE This test has b een Asymptomatic IH AG authorize d only for the (test code = detection ofpro teins from COVNONPUIAG) SARS-CoV-2, not for any other viruses orpathogens. Ne gative results should be treated as presumptive andconfirmed wi th a molecular assay , if necessary for patientmanageme nt. Negative result s do not rule out COVID- 19 andshould not b e used as the sole basis for treatment orpat ient management deci sions, including infec tion controldecision s. Negative result s should be considered i n thecontext of a patient's recent exposure s, history and thepresence of clinical signs and symptoms consis tent withCOVID-19. T his test has not been FD A cleared or approved; th e test hasbeen authori iwona by FDA under an Emerge ncy Use Authorization(E UA) for use by laborato nat certified under the CLIA thatmeet the re quirements to perform mode rate, high or waivedcomple xity tests. This fady t is authorized for use at thePoint of Car e (POC), i.e., in patien t care settingsoperati ng under a CLIA Certificat e of Waiver, Certifi david ofCompliance, o r Certificate of Accreditation. This test is only authori zed for the duration of thedeclaration that circumstances e xist justifying theauthorizatio n of emergency use o f in vitro diagnostic test sfor detection and/o r diagnosis of CO VID-19 under Msleefh21 4(b)(1) of the Act, 21 U.S .C. 360bbb-3(b)(1), unless theauthorizatio n is terminated or r evoked sooner. CBC W/AUTO [id number] 17:48:00 Test Item Value Reference Range Interpretation Comments WHITE BLOOD CELL (test code = WBC) 11.0 K/mm3 6.5-12.3 N RED BLOOD CELL (test code = RBC) 4.27 M/mm3 3.51-4.69 N HEMOGLOBIN (test code = HGB) 13.2 g/dL 10.1-13.8 N HEMATOCRIT (test code = HCT) 38.4 % 32.5-41.8 N MEAN CELL VOLUME (test code = MCV) 89.9 fL 84.6-96.6 N MEAN CELL HGB (test code = MCH) 30.9 pg 27.3-33.9 N MEAN CELL HGB CONCETRATION (test 34.4 gm/dL 32.0-34.2 H code = MCHC) RED CELL DISTRIBUTION WIDTH (test 12.0 % 12.2-16.3 L code = RDW) PLATELET COUNT (test code = PLT) 263 K/mm3 134-363 N MEAN PLATELET VOLUME (test code = 8.5 fL 9.2-12.7 L MPV) NEUTROPHIL % (test code = NT%) 73.3 % 57.9-77.3 N LYMPHOCYTE % (test code = LY%) 17.0 % 14.5-29.7 N MONOCYTE % (test code = MO%) 7.3 % 3.6-10.2 N EOSINOPHIL % (test code = EO%) 1.2 % 0.0-3.0 N BASOPHIL % (test code = BA%) 0.5 % 0.1-0.9 N NEUTROPHIL # (test code = NT#) 8.1 K/mm3 LYMPHOCYTE # (test code = LY#) 1.9 K/mm3 MONOCYTE # (test code = MO#) 0.8 K/mm3 EOSINOPHIL # (test code = EO#) 0.13 K/mm3 BASOPHIL # (test code = BA#) 0.1 K/mm3 RBC MORPHOLOGY REQUIRED (test code NORMAL NORMAL = RBCM) PLATELET MORPHOLOGY REQUIRED (test NORMAL NORMAL code = PLTMR) UR PROTEIN [id number] 13:08:00 Test Item Value Reference Range Interpretation Comments UR PROTEIN RANDOM 18.3 mg/dL (test code = PROTU) UR PROTEIN 24HR (test 201 mg/24HR 20-150 H Units for 24 HR Urine code = [id number]) Protein have changed: New Units = MG/ 24HR UR VOLUME (test code 1100 ML = VOL) URIC [id number] 22:34:00 Test Item Value Reference Range Interpretation Comments URIC ACID (test code = URIC) 4.2 mg/dL 2.6-6.0 N BASIC METABOLIC [id number] 22:34:00 Test Item Value Reference Range Interpretation Comments SODIUM (test code = NA) 136 mEq/L 135-145 N POTASSIUM (test code = K) 4.0 mEq/L 3.5-5.0 N CHLORIDE (test code = CL) 102 mEq/L 100-115 N CARBON DIOXIDE (test code = CO2) 25 mEq/L 22-31 N ANION GAP (test code = GAP) 13.20 10-20 N GLUCOSE (test code = GLU) 91 mg/dL 65-110 N BLOOD UREA NITROGEN (test code = 7 mg/dL 7-18 N BUN) GLOMERULAR FILTRATION RATE (test 150 ml/min >60 N code = GFR) CREATININE (test code = CREAT) 0.5 mg/dL 0.5-1.0 N CALCIUM (test code = CA) 8.6 mg/dL 8.4-10.2 N LIVER [id number] 22:34:00 Test Item Value Reference Range Interpretation Comments TOTAL PROTEIN (test code = PROT) 6.4 gm/dL 6.3-8.2 N ALBUMIN (test code = ALB) 3.0 gm/dL 3.4-4.8 L BILIRUBIN TOTAL (test code = 0.2 mg/dL 0.2-1.0 N BILT) BILIRUBIN DIRECT (test code = <0.1 mg/dL <0.2 N BILD) SGOT/AST (test code = AST) 16 units/L 15-37 N SGPT/ALT (test code = ALT) 28 units/L 12-78 N ALKALINE PHOSPHATASE TOTAL (test 201 units/L 46-116 H code = ALKP) COVID 19 Asymptomatic IH [id number] 22:30:00 Test Item Value Reference Range Interpretation Comments COVID 19 NEGATIVE NEGATIVE This test has b een Asymptomatic IH AG authorize d only for the (test code = detection ofpro teins from COVNONPUIAG) SARS-CoV-2, not for any other viruses orpathogens. Ne gative results should be treated as presumptive andconfirmed wi th a molecular assay , if necessary for patientmanageme nt. Negative result s do not rule out COVID- 19 andshould not b e used as the sole basis for treatment orpat ient management deci sions, including infec tion controldecision s. Negative result s should be considered i n thecontext of a patient's recent exposure s, history and thepresence of clinical signs and symptoms consis tent withCOVID-19. T his test has not been FD A cleared or approved; th e test hasbeen authori zed by FDA under an Emerge ncy Use Authorization(E UA) for use by laborato nat certified under the CLIA thatmeet the re quirements to perform mode rate, high or waivedcomple xity tests. This fady t is authorized for use at thePoint of Car e (POC), i.e., in patien t care settingsoperati ng under a CLIA Certificat e of Waiver, Certifi david ofCompliance, o r Certificate of Accreditation. This test is only authori zed for the duration of thedeclaration that circumstances e xist justifying theauthorizatio n of emergency use o f in vitro diagnostic test sfor detection and/o r diagnosis of CO VID-19 under Eegnrrg65 4(b)(1) of the Act, 21 U.S .C. 360bbb-3(b)(1), unless theauthorizatio n is terminated or r evoked sooner. CBC W/AUTO [id number] 22:16:00 Test Item Value Reference Range Interpretation Comments WHITE BLOOD CELL (test code = WBC) 15.1 K/mm3 6.5-12.3 H RED BLOOD CELL (test code = RBC) 4.35 M/mm3 3.51-4.69 N HEMOGLOBIN (test code = HGB) 13.3 g/dL 10.1-13.8 N HEMATOCRIT (test code = HCT) 38.9 % 32.5-41.8 N MEAN CELL VOLUME (test code = MCV) 89.4 fL 84.6-96.6 N MEAN CELL HGB (test code = MCH) 30.6 pg 27.3-33.9 N MEAN CELL HGB CONCETRATION (test 34.2 gm/dL 32.0-34.2 N code = MCHC) RED CELL DISTRIBUTION WIDTH (test 11.7 % 12.2-16.3 L code = RDW) PLATELET COUNT (test code = PLT) 286 K/mm3 134-363 N MEAN PLATELET VOLUME (test code = 8.7 fL 9.2-12.7 L MPV) NEUTROPHIL % (test code = NT%) 76.8 % 57.9-77.3 N LYMPHOCYTE % (test code = LY%) 13.3 % 14.5-29.7 L MONOCYTE % (test code = MO%) 7.7 % 3.6-10.2 N EOSINOPHIL % (test code = EO%) 0.7 % 0.0-3.0 N BASOPHIL % (test code = BA%) 0.5 % 0.1-0.9 N NEUTROPHIL # (test code = NT#) 11.6 K/mm3 LYMPHOCYTE # (test code = LY#) 2.0 K/mm3 MONOCYTE # (test code = MO#) 1.2 K/mm3 EOSINOPHIL # (test code = EO#) 0.11 K/mm3 BASOPHIL # (test code = BA#) 0.1 K/mm3 RBC MORPHOLOGY REQUIRED (test code NORMAL NORMAL = RBCM) PLATELET MORPHOLOGY REQUIRED (test NORMAL NORMAL code = PLTMR) UR PROTEIN/CREATININE [id number] 21:59:00 Test Item Value Reference Range Interpretation Comments UR PROTEIN RANDOM (test code = 4 mg/dL PROTU) UR CREATININE RANDOM (test 23.6 mg/dL code = CREATU) PROTEIN/CREATININE RATIO (test 169.4 mg/gcrea <200 code = P/CRATIO) UR PROTEIN/CREATININE [id number] 16:48:00 Test Item Value Reference Range Interpretation Comments UR PROTEIN RANDOM (test code = 25.9 mg/dL PROTU) UR CREATININE RANDOM (test 84.7 mg/dL code = CREATU) PROTEIN/CREATININE RATIO (test 305.7 mg/gcrea <200 H code = P/CRATIO) COMPREHENSIVE METABOLIC [id number] 16:48:00 Test Item Value Reference Range Interpretation Comments SODIUM (test code = NA) 141 mEq/L 135-145 N POTASSIUM (test code = K) 4.0 mEq/L 3.5-5.0 N CHLORIDE (test code = CL) 104 mEq/L 100-115 N CARBON DIOXIDE (test code = CO2) 27 mEq/L 22-31 N ANION GAP (test code = GAP) 13.60 10-20 N GLUCOSE (test code = GLU) 100 mg/dL 65-110 N BLOOD UREA NITROGEN (test code = 6 mg/dL 7-18 L BUN) GLOMERULAR FILTRATION RATE (test 122 ml/min >60 N code = GFR) CREATININE (test code = CREAT) 0.6 mg/dL 0.5-1.0 N TOTAL PROTEIN (test code = PROT) 6.2 gm/dL 6.3-8.2 L ALBUMIN (test code = ALB) 3.1 gm/dL 3.4-4.8 L CALCIUM (test code = CA) 9.0 mg/dL 8.4-10.2 N BILIRUBIN TOTAL (test code = 0.2 mg/dL 0.2-1.0 N BILT) SGOT/AST (test code = AST) 14 units/L 15-37 L SGPT/ALT (test code = ALT) 28 units/L 12-78 N ALKALINE PHOSPHATASE TOTAL (test 154 units/L 46-116 H code = ALKP) CBC W/AUTO [id number] 16:20:00 Test Item Value Reference Range Interpretation Comments WHITE BLOOD CELL (test code = WBC) 13.6 K/mm3 6.5-12.3 H RED BLOOD CELL (test code = RBC) 4.33 M/mm3 3.51-4.69 N HEMOGLOBIN (test code = HGB) 13.4 g/dL 10.1-13.8 N HEMATOCRIT (test code = HCT) 39.0 % 32.5-41.8 N MEAN CELL VOLUME (test code = MCV) 90.1 fL 84.6-96.6 N MEAN CELL HGB (test code = MCH) 30.9 pg 27.3-33.9 N MEAN CELL HGB CONCETRATION (test 34.4 gm/dL 32.0-34.2 H code = MCHC) RED CELL DISTRIBUTION WIDTH (test 11.8 % 12.2-16.3 L code = RDW) PLATELET COUNT (test code = PLT) 269 K/mm3 134-363 N MEAN PLATELET VOLUME (test code = 8.3 fL 9.2-12.7 L MPV) NEUTROPHIL % (test code = NT%) 71.9 % 57.9-77.3 N LYMPHOCYTE % (test code = LY%) 17.4 % 14.5-29.7 N MONOCYTE % (test code = MO%) 7.6 % 3.6-10.2 N EOSINOPHIL % (test code = EO%) 1.0 % 0.0-3.0 N BASOPHIL % (test code = BA%) 0.6 % 0.1-0.9 N NEUTROPHIL # (test code = NT#) 9.8 K/mm3 LYMPHOCYTE # (test code = LY#) 2.4 K/mm3 MONOCYTE # (test code = MO#) 1.0 K/mm3 EOSINOPHIL # (test code = EO#) 0.14 K/mm3 BASOPHIL # (test code = BA#) 0.1 K/mm3 RBC MORPHOLOGY REQUIRED (test code NORMAL NORMAL = RBCM) PLATELET MORPHOLOGY REQUIRED (test NORMAL NORMAL code = PLTMR) UR CREATININE CLEARANCE [id number] 00:00:00 Test Item Value Reference Range Interpretation Comments CREATININE CLEARANCE RESULT (test 153 ml/min 70-120 H code = CREATCLR) CREATININE (test code = CREAT) 0.5 mg/dL 0.5-1.0 N UR CREATININE RANDOM (test code = 110.7 mg/dL CREATU) UR VOLUME (test code = VOL) 1000 ML UR PROTEIN [id number] 00:00:00 Test Item Value Reference Range Interpretation Comments UR PROTEIN RANDOM 26.4 mg/dL (test code = PROTU) UR PROTEIN 24HR (test 264 mg/24HR 20-150 HH RESULT S CALLED TO code = [id number]) YOVANNY Zayas BACK & CONFIRMED? Y.BY F.LAB.LGL0 10/18 3419.Units for 24 HR Urine Protein h ave changed: New Un its = MG/24HR - US FET BIO PH LA W/O [id number] 00:00:00 [facility] 1995 Sex: F Patient Name: ASHER MOELLER Unit No: [id number] EXAMS: CPT CODE: [id number] US FET BIO PH LA W/O NST 62978 PROCEDURE INFORMATION: Exam: US Biophysical Profile Without Non-Stress Test Exam date and time: 04/06/2021 6:16 PM Age: 26 years old Clinical indication: Screening exam; Routine US screening of fetus;Third trimester (=28 weeks 0 days); ; Additional info: Iup 34wks; Elevated BP TECHNIQUE: Imag ing protocol: US biophysical profile without non-stress testing. COMPARISON: OT US FLW UP 04/04/2021 2:59 PM FINDINGS: Gestation: A single live intrauterine is identified currently inbreech position with heart tones 158 bpm. Anterior grade 2 placenta is seen. No placenta previa identified. Amniotic fluid index measures 13.4 cm. The cervix measures 4 cm in length. Both ovariesare obscured by overlying gas. BIOPHYSICAL PROFILE: Breathin/2 Gross body movements:2/2 tone: 2/2 Qualitative amniotic fluid: 2/2 Biophysical Profile Score: 8/8 IMPRESSION: Biophysical profile score of 8/8. at 1857 Reported and signed by: Tino Nava MD CC: Bette Armenta DO; Kiko Mcgovern MD Technologist: Mona Lorenzo RDMS Probe: Trnscrbd D/ (1856) GCD.CPS Orig Print D/T: S: 04/06/2021 (1857) [facility] NAME: ASHER MOELLER Radiology Department PHYS: Bette Harmon [id number] Adiel : 1995 AGE: 26 SEX: F [place], [place] [address] LOC: AngelicaJANKI PHONE #: [phone] EXAM DATE: 04/06/2021 STATUS: REG ER FAX #: [phone] RAD NO: [id number] Page 1 Signed Report Patient Name: ASHER MOELLER Unit No: [id number] EXAMS: CPT CODE: [id number] US FET BIO PH LA W/O NST 22331 (Continued) [facility] NAME: ASHER MOELLER Radiology Department PHYS: Bette Harmon DO [address] : 1995 AGE: 26 SEX: F [place], [place] [address] LOC: AngelicaJANKI PHONE #: [phone] EXAM DATE: 04/06/2021 STATUS: REG ER FAX #: [phone] RAD NO: [id number] Page 2 Signed ReportCBC W/AUTO [id number] 23:06:00 Test Item Value Reference Range Interpretation Comments WHITE BLOOD CELL (test code = WBC) 15.1 K/mm3 6.5-12.3 H RED BLOOD CELL (test code = RBC) 4.13 M/mm3 3.51-4.69 N HEMOGLOBIN (test code = HGB) 12.8 g/dL 10.1-13.8 N HEMATOCRIT (test code = HCT) 37.0 % 32.5-41.8 N MEAN CELL VOLUME (test code = MCV) 89.6 fL 84.6-96.6 N MEAN CELL HGB (test code = MCH) 31.0 pg 27.3-33.9 N MEAN CELL HGB CONCETRATION (test 34.6 gm/dL 32.0-34.2 H code = MCHC) RED CELL DISTRIBUTION WIDTH (test 11.9 % 12.2-16.3 L code = RDW) PLATELET COUNT (test code = PLT) 277 K/mm3 134-363 N MEAN PLATELET VOLUME (test code = 8.4 fL 9.2-12.7 L MPV) NEUTROPHIL % (test code = NT%) 69.1 % 57.9-77.3 N LYMPHOCYTE % (test code = LY%) 19.1 % 14.5-29.7 N MONOCYTE % (test code = MO%) 8.4 % 3.6-10.2 N EOSINOPHIL % (test code = EO%) 1.2 % 0.0-3.0 N BASOPHIL % (test code = BA%) 0.5 % 0.1-0.9 N NEUTROPHIL # (test code = NT#) 10.4 K/mm3 LYMPHOCYTE # (test code = LY#) 2.9 K/mm3 MONOCYTE # (test code = MO#) 1.3 K/mm3 EOSINOPHIL # (test code = EO#) 0.18 K/mm3 BASOPHIL # (test code = BA#) 0.1 K/mm3 RBC MORPHOLOGY REQUIRED (test code NORMAL NORMAL = RBCM) PLATELET MORPHOLOGY REQUIRED (test NORMAL NORMAL code = PLTMR) COMPREHENSIVE METABOLIC [id number] 23:03:00 Test Item Value Reference Range Interpretation Comments SODIUM (test code = NA) 140 mEq/L 135-145 N POTASSIUM (test code = K) 4.3 mEq/L 3.5-5.0 N CHLORIDE (test code = CL) 105 mEq/L 100-115 N CARBON DIOXIDE (test code = CO2) 26 mEq/L 22-31 N ANION GAP (test code = GAP) 13.60 10-20 N GLUCOSE (test code = GLU) 102 mg/dL 65-110 N BLOOD UREA NITROGEN (test code = 7 mg/dL 7-18 N BUN) GLOMERULAR FILTRATION RATE (test 150 ml/min >60 N code = GFR) CREATININE (test code = CREAT) 0.5 mg/dL 0.5-1.0 N TOTAL PROTEIN (test code = PROT) 6.0 gm/dL 6.3-8.2 L ALBUMIN (test code = ALB) 2.9 gm/dL 3.4-4.8 L CALCIUM (test code = CA) 8.7 mg/dL 8.4-10.2 N BILIRUBIN TOTAL (test code = 0.2 mg/dL 0.2-1.0 N BILT) SGOT/AST (test code = AST) 15 units/L 15-37 N SGPT/ALT (test code = ALT) 27 units/L 12-78 N ALKALINE PHOSPHATASE TOTAL (test 134 units/L 46-116 H code = ALKP) CBC W/AUTO [id number] 12:56:00 Test Item Value Reference Range Interpretation Comments WHITE BLOOD CELL (test code = WBC) 13.7 K/mm3 6.5-12.3 H RED BLOOD CELL (test code = RBC) 4.41 M/mm3 3.51-4.69 N HEMOGLOBIN (test code = HGB) 13.5 g/dL 10.1-13.8 N HEMATOCRIT (test code = HCT) 39.6 % 32.5-41.8 N MEAN CELL VOLUME (test code = MCV) 89.8 fL 84.6-96.6 N MEAN CELL HGB (test code = MCH) 30.6 pg 27.3-33.9 N MEAN CELL HGB CONCETRATION (test 34.1 gm/dL 32.0-34.2 N code = MCHC) RED CELL DISTRIBUTION WIDTH (test 11.9 % 12.2-16.3 L code = RDW) PLATELET COUNT (test code = PLT) 293 K/mm3 134-363 N MEAN PLATELET VOLUME (test code = 8.6 fL 9.2-12.7 L MPV) NEUTROPHIL % (test code = NT%) 71.3 % 57.9-77.3 N LYMPHOCYTE % (test code = LY%) 17.0 % 14.5-29.7 N MONOCYTE % (test code = MO%) 8.0 % 3.6-10.2 N EOSINOPHIL % (test code = EO%) 1.1 % 0.0-3.0 N BASOPHIL % (test code = BA%) 0.6 % 0.1-0.9 N NEUTROPHIL # (test code = NT#) 9.8 K/mm3 LYMPHOCYTE # (test code = LY#) 2.3 K/mm3 MONOCYTE # (test code = MO#) 1.1 K/mm3 EOSINOPHIL # (test code = EO#) 0.15 K/mm3 BASOPHIL # (test code = BA#) 0.1 K/mm3 COMPREHENSIVE METABOLIC [id number] 12:53:00 Test Item Value Reference Range Interpretation Comments SODIUM (test code = NA) 140 mEq/L 135-145 N POTASSIUM (test code = K) 3.9 mEq/L 3.5-5.0 N CHLORIDE (test code = CL) 104 mEq/L 100-115 N CARBON DIOXIDE (test code = CO2) 27 mEq/L 22-31 N ANION GAP (test code = GAP) 13.30 10-20 N GLUCOSE (test code = GLU) 124 mg/dL 65-110 H BLOOD UREA NITROGEN (test code = 7 mg/dL 7-18 N BUN) GLOMERULAR FILTRATION RATE (test 122 ml/min >60 N code = GFR) CREATININE (test code = CREAT) 0.6 mg/dL 0.5-1.0 N TOTAL PROTEIN (test code = PROT) 6.2 gm/dL 6.3-8.2 L ALBUMIN (test code = ALB) 3.1 gm/dL 3.4-4.8 L CALCIUM (test code = CA) 8.8 mg/dL 8.4-10.2 N BILIRUBIN TOTAL (test code = 0.2 mg/dL 0.2-1.0 N BILT) SGOT/AST (test code = AST) 16 units/L 15-37 N SGPT/ALT (test code = ALT) 28 units/L 12-78 N ALKALINE PHOSPHATASE TOTAL (test 139 units/L 46-116 H code = ALKP) UR PROTEIN/CREATININE [id number] 12:19:00 Test Item Value Reference Range Interpretation Comments UR PROTEIN RANDOM (test code = 38.9 mg/dL PROTU) UR CREATININE RANDOM (test 139.8 mg/dL code = CREATU) PROTEIN/CREATININE RATIO (test 278.2 mg/gcrea <200 H code = P/CRATIO) - US OKW [id number] 00:00:00 [facility] 1995 Sex: F Patient Name: ASHER MOELLER Unit No: [id number] EXAMS: CPT CODE: [id number] [place]W [place] [id number] PROCEDURE INFORMATION: Exam: US ; Follow up Exam date and time: 04/04/2021 2:59 PM Age: 26 years oldClinical indication: Other: Elev BP; Lmp or gestational age (in weeks): 34wks; ; Additional info: Elevated blood pressures TECHNIQUE: Imaging protocol: Transabdominal ultrasound of the uterus, real time with image documentation. Follow-up (eg, re-evaluation of size by measuring standard growth parameters and amniotic fluid volume, re-evaluation of organ system(s) suspected or confirmed to be abnormal on a previous scan). COMPARISON: OT US LTD 12/26/2020 7:05 AM FINDINGS: Gestation: Single intrauterine . heart rate: 127 bpm. presentation: Cephalicpresentation. Placenta: Anterior grade 1 placenta. No placenta previa. Amniotic fluid index: The AFIis 16.4 cm. The largest pocket is 6.9 cm. BIOMETRY: Estimated due date (AUA): 05/21/2021 Gestationalage (AUA): 33 weeks 2 days. Estimated weight: 2167 g +/-316 g. Estimated weight percentile: 50.5 percentile. Biparietal diameter (BPD): 8.40 cm, 33 weeks 6 days. Head circumference (HC): 29.58 cm, 32 weeks 5 days. Abdominal circumference (AC): 29.73 cm, 33 weeks 5 days. Femur length (FL): 6.31 cm, 32 weeks 4 days. MATERNAL: Cervix: The cervical length is 3.0 cm. PROCEDURE INFORMATION: Exam: US Biophysical Profile Without Non-Stress Test Exam date and time:04/04/2021 2:59 PM Age: 26 years old Clinical indication: Other: Elev BP; Lmp or gestational age (in we eks): 34wks; ; Additional info: Elevated blood pressures TECHNIQUE: Imaging protocol: US biophysical profile without non-stress testing. COMPARISON: OT US LTD 12/26/2020 7:[address] [facility] NAME: ASHER MOELLER Radiology Department PHYS: Kiko Salvador MD [address] : 1995 AGE: 26 SEX: F [place], [place] [address] LOC: AngelicaJANKI PHONE #: [phone] EXAM DATE: 04/04/2021 STATUS: REG ER FAX #: [phone] RAD NO: [id number] Page 1 SignedReport (CONTINUED) Patient Name: ASHER MOELLER Unit No: [id number] EXAMS: CPT CODE: [id number] US FLW UP [id number] (Continued) FINDINGS: BIOPHYSICAL PROFILE: Breathin/2 Gross body movements: 2/2 tone: 2/2 Qualitative amniotic fluid: 2/2 Biophysical Profile Score: 8/8 IMPRESSION: US ; Follow up 1. Single live intrauterine gestation with an estimated gestational age of 33 weeks 2 days. 2. Estimated weight is 2167 g +/-316 g. Estimated weight percentile: 50.5 percentile. 3. The KEN is 16.4 cm. The largest pocket is 6.9 cm. There should be a low threshold to repeat this study. US Biophysical Profile Without Non-Stress Test Biophysical profile score is 8 out of 8. There should be a low threshold to repeat this study. at 1553 Reported and signed by: Willian Colon M.D. CC: Kiko Mcgovern MD Technologist: Tanisha Forrester RDMS Probe: Trnscrbd D/ (1553) GCD.CPS Orig Print D/T: S: 04/04/2021 (1553) [facility] NAME: ASHER MOELLER Radiology De partment PHYS: Kiko Salvador MD [address] : 1995 AGE: 26 SEX: [id number] LOC: KUNAL PHONE #: [phone] EXAM DATE: 04/04/2021 STATUS: REG ER FAX #: [phone] RAD NO: [id number] Page 2 Signed Report Patient Name: ASHER MOELLER Unit No: [id number] EXAMS: CPT CODE: [id number] US FLW UP [id number] (Continued) [facility] NAME: ASHER MOELLER Radiology Department PHYS: Kiko Salvador MD [address] : 1995 AGE: 26 SEX: F [place] [address] LOC: [email or web address] PHONE #: [phone] EXAM DATE: 0 04/04/2021 STATUS: REG ER FAX #: [phone] RAD NO: [id number] Page 3 Signed Report- US FET BIO PH LA W/O [id number] 00:00:[address] [facility] : 1995 Sex: F Patient Name: ASHER MOELLER Unit No: [id number] EXAMS: CPT CODE: [id number] US FET BIO PH LA W/O NST 47960 PROCEDURE INFORMATION: Exam: US ; Follow up Exam date and time: 04/04/2021 2:59 PM Age: 26 years old Clinical indication: Other: Elev BP; Lmp or gestational age (in weeks): 34wks; ; Additional info: Elevated blood pressures TECHNIQUE: Imaging protocol: Transabdominal ultrasound of the uterus, real time with image documentation. Follow-up (eg, re- evaluation of size by measuring standard growth parameters and amniotic fluid volume, re-evaluation of organ system(s) suspected or confirmed to be abnormal on a previous scan). COMPARISON: OT US LTD 12/26/2020 7:05 AM FINDINGS: Gestation: Single intrauterine . heart rate: 127 bpm. presentation: Cephalic presentation. Placenta: Anterior grade 1 placenta. No placenta previa. Amniotic fluid index: The KEN is 16.4 cm. The largest pocket is 6.9 cm. BIOMETRY: Estimated due date (AUA): 05/21/2021 Gestational age (AUA): 33 weeks 2 days. Estimated weight: 2167 g +/-316 g. Estimated weight percentile: 50.5 percentile. Biparietal diameter (BPD): 8.40 cm, 33 weeks 6 days. Head circumference (HC):29.58 cm, 32 weeks 5 days. Abdominal circumference (AC): 29.73 cm, 33 weeks 5 days. Femur length (FL): 6.31 cm, 32 weeks 4 days. MATERNAL: Cervix: The cervical length is 3.0 cm. PROCEDURE INFORMATION: Exam: US Biophysical Profile Without Non-Stress Test Exam date and time: 04/04/2021 2:59 PM Age: 26 years old Clinical indication: Other: Elev BP; Lmp or gestational age (in weeks): 34wks; ; Additional info: Elevated blood pressures TECHNIQUE: Imaging protocol: US biophysical profile without non-stress testing. COMPARISON: OT US LTD 12/26/2020 7:05 AM [facility] NAME: ASHER MOELLER Radiology Department PHYS: Kiko Salvador MD [address] : 1995 AGE: 26 SEX: F [place], [place] [address] LOC: AngelicaJANKI PHONE #: [phone] EXAM DATE: 04/04/2021 STATUS: REG ER FAX #: [phone] RAD NO: [id number] Page 1 Signed Report (CONTINUED) Patient Name: ASHER MOELLER Unit No: [id number] EXAMS: CPT CODE: [id number] US FET BIO PH LA W/O NST 20134 (Continued) FINDINGS: BIOPHYSICAL PROFILE: Breathin/2 Gross body movements: 2/2 tone: 2/2 Qualitative amniotic fluid: 2/2 Biophysical Profile Score: 8/8 IMPRESSION: US ; Follow up 1. Single live intrauterine gestation with an estimated gestational age of 33 weeks 2 days. 2. Estimated weight is 2167 g +/-316 g. Estimated weight percentile: 50.5 percentile. 3. The KEN is 16.4 cm. The largest pocket is 6.9 cm. There should be a low threshold to repeat this study. US Biophysical Profile Without Non-Stress Test Biophysical profile score is 8 out of 8. There should be a low threshold to repeat this study. at 1553 Reported and signed by: Willian Colon M.D. CC: Kiko Mcgovern MD Technologist: Tanisha Forrester RDMS Probe: Trnscrbd D/ (1553) GCD.CPS Orig Print D/T: S: 04/04/2021 (1553) [facility] NAME: ASHER MOELLER Radiology Department PHYS: Kiko Salvador MD [address] : 1995 AGE: 26 SEX: F [place] [address] LOC: AngelicaJANKI PHONE #: [phone] EXAM DATE: 04/04/2021 STATUS: REG ER FAX #: [phone] RAD NO: [id number] Page 2 Signed Report Patient Name: ASHER MOELLER Unit No: [id number] EXAMS: CPT CODE: [id number] US FET BIO PH LA W/O NST 34795 (Continued) [facility] NAME: ASHER MOELLER Radiology Department PHYS: Kiko Salvador MD [address] : 1995 AGE: 26 SEX: F [place] [address] LOC: AngelicaJANKI PHONE #: [phone] EXAM DATE: 04/04/2021 STATUS: REG ER FAX #: [phone] RAD NO: [id number] Page 3 Signed ReportURINALYSIS [id number] 23:25:00 Test Item Value Reference Range Interpretation Comments UA COLOR (test code = COLU) YELLOW YELLOW UA APPEARANCE (test code = Slightly-Cloudy CLEAR APPU) UA GLUCOSE DIPSTICK (test NEGATIVE NEG code = DGLUU) UA BILIRUBIN DIPSTICK (test NEGATIVE NEG code = BILU) UA KETONE DIPSTICK (test code NEGATIVE NEG = KETU) UA SPECIFIC GRAVITY (test 1.012 1.001-1.035 N code = SGU) UA BLOOD DIPSTICK (test code 1+ NEG A = STEPHEN) UA PH DIPSTICK (test code = 7.0 5-9 MIREILLE) UA PROTEIN DIPSTICK (test NEGATIVE NEG code = PROU) UA UROBILINIOGEN DIPSTICK NEGATIVE mg/dL NEG (test code = URO) UA NITRITE DIPSTICK (test NEG NEG code = JULIA) UA LEUKOCYTE ESTERASE TRACE NEG A DIPSTICK (test code = LEUU) UA WBC (test code = WBCU) 0-2 #/hpf NONE SEEN UA EPITHELIAL CELLS (test RARE #/HPF RARE-FEW code = EPIU) UA RBC (test code = RBCU) 0-2 #/hpf NONE SEEN UA BACTERIA (test code = RARE /HPF RARE-FEW BACU) UA MUCUS (test code = MUCU) RARE NONE SEEN URINE SAMPLE: CLEAN CATCHUR PROTEIN/CREATININE [id number] 23:25:00 Test Item Value Reference Range Interpretation Comments UR PROTEIN RANDOM (test code = 24.7 mg/dL PROTU) UR CREATININE RANDOM (test 66.1 mg/dL code = CREATU) PROTEIN/CREATININE RATIO (test 373.6 mg/gcrea <200 H code = P/CRATIO) URINE SAMPLE: CLEAN CATCHCOMPREHENSIVE METABOLIC [id number] 23:23:00 Test Item Value Reference Range Interpretation Comments SODIUM (test code = NA) 137 mEq/L 135-145 N POTASSIUM (test code = K) 3.7 mEq/L 3.5-5.0 N CHLORIDE (test code = CL) 101 mEq/L 100-115 N CARBON DIOXIDE (test code = CO2) 25 mEq/L 22-31 N ANION GAP (test code = GAP) 14.60 10-20 N GLUCOSE (test code = GLU) 93 mg/dL 65-110 N BLOOD UREA NITROGEN (test code = 8 mg/dL 7-18 N BUN) GLOMERULAR FILTRATION RATE (test 122 ml/min >60 N code = GFR) CREATININE (test code = CREAT) 0.6 mg/dL 0.5-1.0 N TOTAL PROTEIN (test code = PROT) 7.0 gm/dL 6.3-8.2 N ALBUMIN (test code = ALB) 3.5 gm/dL 3.4-4.8 N CALCIUM (test code = CA) 9.5 mg/dL 8.4-10.2 N BILIRUBIN TOTAL (test code = 0.2 mg/dL 0.2-1.0 N BILT) SGOT/AST (test code = AST) 11 units/L 15-37 L SGPT/ALT (test code = ALT) 21 units/L 12-78 N ALKALINE PHOSPHATASE TOTAL (test 128 units/L 46-116 H code = ALKP) URIC [id number] 23:23:00 Test Item Value Reference Range Interpretation Comments URIC ACID (test code = URIC) 3.0 mg/dL 2.6-6.0 N LACTIC DEHYDROGENASE(LDH)2021-04-01 23:23:00 Test Item Value Reference Range Interpretation Comments LACTIC DEHYDROGENASE(LDH) (test 145 units/L 81-234 N code = LDH) CBC W/AUTO [id number] 23:10:00 Test Item Value Reference Range Interpretation Comments WHITE BLOOD CELL (test code = WBC) 16.9 K/mm3 6.5-12.3 H RED BLOOD CELL (test code = RBC) 4.63 M/mm3 3.51-4.69 N HEMOGLOBIN (test code = HGB) 14.3 g/dL 10.1-13.8 H HEMATOCRIT (test code = HCT) 41.1 % 32.5-41.8 N MEAN CELL VOLUME (test code = MCV) 88.8 fL 84.6-96.6 N MEAN CELL HGB (test code = MCH) 30.9 pg 27.3-33.9 N MEAN CELL HGB CONCETRATION (test 34.8 gm/dL 32.0-34.2 H code = MCHC) RED CELL DISTRIBUTION WIDTH (test 11.8 % 12.2-16.3 L code = RDW) PLATELET COUNT (test code = PLT) 270 K/mm3 134-363 N MEAN PLATELET VOLUME (test code = 8.5 fL 9.2-12.7 L MPV) NEUTROPHIL % (test code = NT%) 71.7 % 57.9-77.3 N LYMPHOCYTE % (test code = LY%) 17.0 % 14.5-29.7 N MONOCYTE % (test code = MO%) 8.3 % 3.6-10.2 N EOSINOPHIL % (test code = EO%) 0.6 % 0.0-3.0 N BASOPHIL % (test code = BA%) 0.4 % 0.1-0.9 N NEUTROPHIL # (test code = NT#) 12.1 K/mm3 LYMPHOCYTE # (test code = LY#) 2.9 K/mm3 MONOCYTE # (test code = MO#) 1.4 K/mm3 EOSINOPHIL # (test code = EO#) 0.10 K/mm3 BASOPHIL # (test code = BA#) 0.1 K/mm3 RBC MORPHOLOGY REQUIRED (test code NORMAL NORMAL = RBCM) PLATELET MORPHOLOGY REQUIRED (test NORMAL NORMAL code = PLTMR) UR CREATININE CLEARANCE [id number] 17:15:00 Test Item Value Reference Range Interpretation Comments CREATININE CLEARANCE RESULT (test 159 ml/min 70-120 H code = CREATCLR) CREATININE (test code = CREAT) 0.6 mg/dL 0.5-1.0 N UR CREATININE RANDOM (test code = 138.4 mg/dL CREATU) UR VOLUME (test code = VOL) 1000 ML UR PROTEIN [id number] 17:15:00 Test Item Value Reference Range Interpretation Comments UR PROTEIN RANDOM 29.7 mg/dL (test code = PROTU) UR PROTEIN 24HR 297 mg/24HR 20-150 HH RESULTS VERI FIED BY (test code = REPEAT ANALYSIS RESULTS [id number]) CALLED TO [facility].READ B ACK & CONFIRMED? Y.BY F.LAB.RV 03/29/21 9444.U nits for 24 HR Urine Pro tein have changed: New Un its = MG/24HR COVID 19 Asymptomatic IH [id number] 14:53:00 Test Item Value Reference Range Interpretation Comments COVID 19 NEGATIVE NEGATIVE This test has b een Asymptomatic IH AG authorize d only for the (test code = detection ofpro teins from COVNONPUIAG) SARS-CoV-2, not for any other viruses orpathogens. Ne gative results should be treated as presumptive andconfirmed wi th a molecular assay , if necessary for patientmanageme nt. Negative result s do not rule out COVID- 19 andshould not b e used as the sole basis for treatment orpat ient management deci sions, including infec tion controldecision s. Negative result s should be considered i n thecontext of a patient's recent exposure s, history and thepresence of clinical signs and symptoms consis tent withCOVID-19. T his test has not been FD A cleared or approved; th e test hasbeen authori zed by FDA under an Emerge ncy Use Authorization(E UA) for use by maren johns certified under the CLIA thatmeet the re quirements to perform mode rate, high or waivedcomple xity tests. This fady t is authorized for use at thePoint of Car e (POC), i.e., in patien t care settingsoperati ng under a CLIA Certificat e of Waiver, Certifi david ofCompliance, o r Certificate of Accreditation. This test is only authori zed for the duration of thedeclaration that circumstances e xist justifying theauthorizatio n of emergency use o f in vitro diagnostic test sfor detection and/o r diagnosis of CO VID-19 under Oxslsnn05 4(b)(1) of the Act, 21 U.S .C. 360bbb-3(b)(1), unless theauthorizatio n is terminated or r evoked sooner. URINALYSIS [id number] 13:52:00 Test Item Value Reference Range Interpretation Comments UA COLOR (test code = COLU) YELLOW YELLOW UA APPEARANCE (test code = CLOUDY CLEAR A APPU) UA GLUCOSE DIPSTICK (test code NEGATIVE NEG = DGLUU) UA BILIRUBIN DIPSTICK (test NEGATIVE NEG code = BILU) UA KETONE DIPSTICK (test code NEGATIVE NEG = KETU) UA SPECIFIC GRAVITY (test code 1.020 1.001-1.035 N = SGU) UA BLOOD DIPSTICK (test code = NEG NEG STEPHEN) UA PH DIPSTICK (test code = 6.0 5-9 MIREILLE) UA PROTEIN DIPSTICK (test code NEGATIVE NEG = PROU) UA UROBILINIOGEN DIPSTICK NEGATIVE mg/dL NEG (test code = URO) UA NITRITE DIPSTICK (test code NEG NEG = JULIA) UA LEUKOCYTE ESTERASE DIPSTICK 2+ NEG A (test code = LEUU) UA WBC (test code = WBCU) 6-10 #/hpf NONE SEEN A UA RBC (test code = RBCU) 3-5 #/hpf NONE SEEN A UA EPITHELIAL CELLS (test code RARE #/HPF RARE-FEW = EPIU) UA BACTERIA (test code = BACU) FEW /HPF RARE-FEW UA MUCUS (test code = MUCU) RARE NONE SEEN URINE SAMPLE: CLEAN CATCHUR PROTEIN/CREATININE [id number] 13:52:00 Test Item Value Reference Range Interpretation Comments UR PROTEIN RANDOM (test code = 32.8 mg/dL PROTU) UR CREATININE RANDOM (test 133.4 mg/dL code = CREATU) PROTEIN/CREATININE RATIO (test 245.8 mg/gcrea <200 H code = P/CRATIO) URINE SAMPLE: CLEAN CATCHCOMPREHENSIVE METABOLIC [id number] 13:45:00 Test Item Value Reference Range Interpretation Comments SODIUM (test code = NA) 130 mEq/L 135-145 L POTASSIUM (test code = K) 3.8 mEq/L 3.5-5.0 N CHLORIDE (test code = CL) 101 mEq/L 100-115 N CARBON DIOXIDE (test code = CO2) 26 mEq/L 22-31 N ANION GAP (test code = GAP) 6.50 10-20 L GLUCOSE (test code = GLU) 91 mg/dL 65-110 N BLOOD UREA NITROGEN (test code = 7 mg/dL 7-18 N BUN) GLOMERULAR FILTRATION RATE (test 122 ml/min >60 N code = GFR) CREATININE (test code = CREAT) 0.6 mg/dL 0.5-1.0 N TOTAL PROTEIN (test code = PROT) 7.0 gm/dL 6.3-8.2 N ALBUMIN (test code = ALB) 3.1 gm/dL 3.4-4.8 L CALCIUM (test code = CA) 8.9 mg/dL 8.4-10.2 N BILIRUBIN TOTAL (test code = 0.2 mg/dL 0.2-1.0 N BILT) SGOT/AST (test code = AST) 12 units/L 15-37 L SGPT/ALT (test code = ALT) 20 units/L 12-78 N ALKALINE PHOSPHATASE TOTAL (test 124 units/L 46-116 H code = ALKP) URIC [id number] 13:45:00 Test Item Value Reference Range Interpretation Comments URIC ACID (test code = URIC) 3.5 mg/dL 2.6-6.0 N LACTIC DEHYDROGENASE(LDH)2021-03-28 13:45:00 Test Item Value Reference Range Interpretation Comments LACTIC DEHYDROGENASE(LDH) (test 138 units/L 81-234 N code = LDH) CBC W/AUTO [id number] 13:27:00 Test Item Value Reference Range Interpretation Comments WHITE BLOOD CELL (test code = WBC) 14.0 K/mm3 6.5-12.3 H RED BLOOD CELL (test code = RBC) 4.30 M/mm3 3.51-4.69 N HEMOGLOBIN (test code = HGB) 13.3 g/dL 10.1-13.8 N HEMATOCRIT (test code = HCT) 38.7 % 32.5-41.8 N MEAN CELL VOLUME (test code = MCV) 90.0 fL 84.6-96.6 N MEAN CELL HGB (test code = MCH) 30.9 pg 27.3-33.9 N MEAN CELL HGB CONCETRATION (test 34.4 gm/dL 32.0-34.2 H code = MCHC) RED CELL DISTRIBUTION WIDTH (test 11.9 % 12.2-16.3 L code = RDW) PLATELET COUNT (test code = PLT) 245 K/mm3 134-363 N MEAN PLATELET VOLUME (test code = 8.6 fL 9.2-12.7 L MPV) NEUTROPHIL % (test code = NT%) 76.2 % 57.9-77.3 N LYMPHOCYTE % (test code = LY%) 15.0 % 14.5-29.7 N MONOCYTE % (test code = MO%) 6.7 % 3.6-10.2 N EOSINOPHIL % (test code = EO%) 0.6 % 0.0-3.0 N BASOPHIL % (test code = BA%) 0.5 % 0.1-0.9 N NEUTROPHIL # (test code = NT#) 10.6 K/mm3 LYMPHOCYTE # (test code = LY#) 2.1 K/mm3 MONOCYTE # (test code = MO#) 0.9 K/mm3 EOSINOPHIL # (test code = EO#) 0.09 K/mm3 BASOPHIL # (test code = BA#) 0.1 K/mm3 RBC MORPHOLOGY REQUIRED (test code NORMAL NORMAL = RBCM) PLATELET MORPHOLOGY REQUIRED (test NORMAL NORMAL code = PLTMR) UR PROTEIN/CREATININE [id number] 13:21:00 Test Item Value Reference Range Interpretation Comments UR PROTEIN RANDOM (test code = 25.1 mg/dL PROTU) UR CREATININE RANDOM (test 112.6 mg/dL code = CREATU) PROTEIN/CREATININE RATIO (test 222.9 mg/gcrea <200 H code = P/CRATIO) COMPREHENSIVE METABOLIC [id number] 12:52:00 Test Item Value Reference Range Interpretation Comments SODIUM (test code = NA) 138 mEq/L 135-145 N POTASSIUM (test code = K) 3.9 mEq/L 3.5-5.0 N CHLORIDE (test code = CL) 103 mEq/L 100-115 N CARBON DIOXIDE (test code = CO2) 28 mEq/L 22-31 N ANION GAP (test code = GAP) 11.40 10-20 N GLUCOSE (test code = GLU) 110 mg/dL 65-110 N BLOOD UREA NITROGEN (test code = 8 mg/dL 7-18 N BUN) GLOMERULAR FILTRATION RATE (test 102 ml/min >60 N code = GFR) CREATININE (test code = CREAT) 0.7 mg/dL 0.5-1.0 N TOTAL PROTEIN (test code = PROT) 6.6 gm/dL 6.3-8.2 N ALBUMIN (test code = ALB) 3.3 gm/dL 3.4-4.8 L CALCIUM (test code = CA) 9.2 mg/dL 8.4-10.2 N BILIRUBIN TOTAL (test code = 0.2 mg/dL 0.2-1.0 N BILT) SGOT/AST (test code = AST) 16 units/L 15-37 N SGPT/ALT (test code = ALT) 25 units/L 12-78 N ALKALINE PHOSPHATASE TOTAL (test 112 units/L 46-116 N code = ALKP) CBC W/AUTO [id number] 12:21:00 Test Item Value Reference Range Interpretation Comments WHITE BLOOD CELL (test code = WBC) 13.0 K/mm3 6.5-12.3 H RED BLOOD CELL (test code = RBC) 4.45 M/mm3 3.51-4.69 N HEMOGLOBIN (test code = HGB) 13.8 g/dL 10.1-13.8 N HEMATOCRIT (test code = HCT) 39.9 % 32.5-41.8 N MEAN CELL VOLUME (test code = MCV) 89.7 fL 84.6-96.6 N MEAN CELL HGB (test code = MCH) 31.0 pg 27.3-33.9 N MEAN CELL HGB CONCETRATION (test 34.6 gm/dL 32.0-34.2 H code = MCHC) RED CELL DISTRIBUTION WIDTH (test 11.9 % 12.2-16.3 L code = RDW) PLATELET COUNT (test code = PLT) 257 K/mm3 134-363 N MEAN PLATELET VOLUME (test code = 8.3 fL 9.2-12.7 L MPV) NEUTROPHIL % (test code = NT%) 75.4 % 57.9-77.3 N LYMPHOCYTE % (test code = LY%) 15.9 % 14.5-29.7 N MONOCYTE % (test code = MO%) 5.9 % 3.6-10.2 N EOSINOPHIL % (test code = EO%) 1.1 % 0.0-3.0 N BASOPHIL % (test code = BA%) 0.5 % 0.1-0.9 N NEUTROPHIL # (test code = NT#) 9.8 K/mm3 LYMPHOCYTE # (test code = LY#) 2.1 K/mm3 MONOCYTE # (test code = MO#) 0.8 K/mm3 EOSINOPHIL # (test code = EO#) 0.14 K/mm3 BASOPHIL # (test code = BA#) 0.1 K/mm3 RBC MORPHOLOGY REQUIRED (test code NORMAL NORMAL = RBCM) PLATELET MORPHOLOGY REQUIRED (test NORMAL NORMAL code = PLTMR) HIV 1+2 Ab+HIV1 p24 Ag [Presence] in Serum or Plasma by [id number] 00:00:00 Test Item Value Reference Range Interpretation Comments ethnicity: (test code = not provided ethnicity:) race: (test code = race:) unknown HIV Ag/Ab (test code = HIV non-reactive non-reactive Ag/Ab) [facility] [Presence] in Serum by [id number] 00:00:00 Test Item Value Reference Range Interpretation Comments ethnicity: (test code = not provided ethnicity:) race: (test code = race:) unknown RPR (test code = RPR) non-reactive non-reactive [facility] Ab+HIV1 p24 Ag [Presence] in Serum or Plasma by [id number] 00:00:00 Test Item Value Reference Range Interpretation Comments ethnicity: (test code = not provided ethnicity:) race: (test code = race:) unknown HIV Ag/Ab (test code = HIV non-reactive non-reactive Ag/Ab) [facility] [Presence] in Serum by [id number] 00:00:00 Test Item Value Reference Range Interpretation Comments ethnicity: (test code = not provided ethnicity:) race: (test code = race:) unknown RPR (test code = RPR) non-reactive non-reactive [facility] Ab+HIV1 p24 Ag [Presence] in Serum or Plasma by [id number] 00:00:00 Test Item Value Reference Range Interpretation Comments ethnicity: (test code = not provided ethnicity:) race: (test code = race:) unknown HIV Ag/Ab (test code = HIV non-reactive non-reactive Ag/Ab) [facility] [Presence] in Serum by [id number] 00:00:00 Test Item Value Reference Range Interpretation Comments ethnicity: (test code = not provided ethnicity:) race: (test code = race:) unknown RPR (test code = RPR) non-reactive non-reactive [facility] Ab+HIV1 p24 Ag [Presence] in Serum or Plasma by [id number] 00:00:00 Test Item Value Reference Range Interpretation Comments ethnicity: (test code = not provided ethnicity:) race: (test code = race:) unknown HIV Ag/Ab (test code = HIV non-reactive non-reactive Ag/Ab) [facility] [Presence] in Serum by [id number] 00:00:00 Test Item Value Reference Range Interpretation Comments ethnicity: (test code = not provided ethnicity:) race: (test code = race:) unknown RPR (test code = RPR) non-reactive non-reactive [facility] - Serum or [id number] 00:00:00 Test Item Value Reference Range Interpretation Comments TSH (test code = TSH) 0.765 uIU/mL 0.178-4.530 free T4 (test code = free T4) 1.12 NG/dL 0.80-1.73 [facility] - Serum or [id number] 00:00:00 Test Item Value Reference Range Interpretation Comments sodium (test code = 137 mmol/L 136-145 sodium) potassium (test code = 4.2 mmol/L 3.5-5.5 potassium) chloride (test code = 102 mmol/L 98-107 chloride) CO2 (test code = CO2) 23 mmol/ L 24-31 L glucose (test code = 78 mg/dL 70-99 glucose) BUN (test code = BUN) 4 mg/dL 6-20 L creatinine (test code = 0.4 mg/dL 0.5-0.9 L creatinine) calcium (test code = 9.1 mg/dL 8.8-10.6 calcium) total protein (test code = 6.3 g/dL 6.0-8.3 total protein) albumin (test code = 4.0 g/dL 3.5-5.2 albumin) total bilirubin (test code 0.3 mg/dL 0.0-1.2 = total bilirubin) alkaline phosphatase (test 76 U/L 44-147 code = alkaline phosphatase) AST (SGOT) (test code = 13 U/L 0-32 AST (SGOT)) ALT (SGPT) (test code = 11 U/L 0-33 ALT (SGPT)) globulin (test code = 2.3 g/dL 1.7-3.7 globulin) A/G ratio (test code = A/G 1.7 calc. 1.1-2.9 ratio) BUN/creatinine ratio (test 10.5 calc 10.0-28.0 code = BUN/creatinine ratio) eGFR non- 206.708 >60.000 (test code = eGFR mL/min/1.73A? non-) eGFR 248.050 >60.000 (test code = eGFR mL/min/1.73A? maltese) [facility] T4 and TSH panel - Serum or [id number] 00:00:00 Test Item Value Reference Range Interpretation Comments TSH (test code = TSH) 0.765 uIU/mL 0.178-4.530 free T4 (test code = free T4) 1.12 NG/dL 0.80-1.73 [facility] 2000 panel - Serum or [id number] 00:00:00 Test Item Value Reference Range Interpretation Comments sodium (test code = 137 mmol/L 136-145 sodium) potassium (test code = 4.2 mmol/L 3.5-5.5 potassium) chloride (test code = 102 mmol/L 98-107 chloride) CO2 (test code = CO2) 23 mmol/ L 24-31 L glucose (test code = 78 mg/dL 70-99 glucose) BUN (test code = BUN) 4 mg/dL 6-20 L creatinine (test code = 0.4 mg/dL 0.5-0.9 L creatinine) calcium (test code = 9.1 mg/dL 8.8-10.6 calcium) total protein (test code = 6.3 g/dL 6.0-8.3 total protein) albumin (test code = 4.0 g/dL 3.5-5.2 albumin) total bilirubin (test code 0.3 mg/dL 0.0-1.2 = total bilirubin) alkaline phosphatase (test 76 U/L 44-147 code = alkaline phosphatase) AST (SGOT) (test code = 13 U/L 0-32 AST (SGOT)) ALT (SGPT) (test code = 11 U/L 0-33 ALT (SGPT)) globulin (test code = 2.3 g/dL 1.7-3.7 globulin) A/G ratio (test code = A/G 1.7 calc. 1.1-2.9 ratio) BUN/creatinine ratio (test 10.5 calc 10.0-28.0 code = BUN/creatinine ratio) eGFR non- 206.708 >60.000 (test code = eGFR mL/min/1.73A? non-) eGFR 248.050 >60.000 (test code = eGFR mL/min/1.73A? maltese) [facility] T[facility] panel - Serum or [id number] 00:00:00 Test Item Value Reference Range Interpretation Comments TSH (test code = TSH) 0.765 uIU/mL 0.178-4.530 free T4 (test code = free T4) 1.12 NG/dL 0.80-1.73 [facility] - Serum or [id number] 00:00:00 Test Item Value Reference Range Interpretation Comments sodium (test code = 137 mmol/L 136-145 sodium) potassium (test code = 4.2 mmol/L 3.5-5.5 potassium) chloride (test code = 102 mmol/L 98-107 chloride) CO2 (test code = CO2) 23 mmol/ L 24-31 L glucose (test code = 78 mg/dL 70-99 glucose) BUN (test code = BUN) 4 mg/dL 6-20 L creatinine (test code = 0.4 mg/dL 0.5-0.9 L creatinine) calcium (test code = 9.1 mg/dL 8.8-10.6 calcium) total protein (test code = 6.3 g/dL 6.0-8.3 total protein) albumin (test code = 4.0 g/dL 3.5-5.2 albumin) total bilirubin (test code 0.3 mg/dL 0.0-1.2 = total bilirubin) alkaline phosphatase (test 76 U/L 44-147 code = alkaline phosphatase) AST (SGOT) (test code = 13 U/L 0-32 AST (SGOT)) ALT (SGPT) (test code = 11 U/L 0-33 ALT (SGPT)) globulin (test code = 2.3 g/dL 1.7-3.7 globulin) A/G ratio (test code = A/G 1.7 calc. 1.1-2.9 ratio) BUN/creatinine ratio (test 10.5 calc 10.0-28.0 code = BUN/creatinine ratio) eGFR non- 206.708 >60.000 (test code = eGFR mL/min/1.73A? non-) eGFR 248.050 >60.000 (test code = eGFR mL/min/1.73A? maltese) [facility] T[facility] - Serum or [id number] 00:00:00 Test Item Value Reference Range Interpretation Comments TSH (test code = TSH) 0.765 uIU/mL 0.178-4.530 free T4 (test code = free T4) 1.12 NG/dL 0.80-1.73 [facility] MedicalComprehensive metabolic 2000 panel - Serum or [id number] 00:00:00 Test Item Value Reference Range Interpretation Comments sodium (test code = 137 mmol/L 136-145 sodium) potassium (test code = 4.2 mmol/L 3.5-5.5 potassium) chloride (test code = 102 mmol/L 98-107 chloride) CO2 (test code = CO2) 23 mmol/ L 24-31 L glucose (test code = 78 mg/dL 70-99 glucose) BUN (test code = BUN) 4 mg/dL 6-20 L creatinine (test code = 0.4 mg/dL 0.5-0.9 L creatinine) calcium (test code = 9.1 mg/dL 8.8-10.6 calcium) total protein (test code = 6.3 g/dL 6.0-8.3 total protein) albumin (test code = 4.0 g/dL 3.5-5.2 albumin) total bilirubin (test code 0.3 mg/dL 0.0-1.2 = total bilirubin) alkaline phosphatase (test 76 U/L 44-147 code = alkaline phosphatase) AST (SGOT) (test code = 13 U/L 0-32 AST (SGOT)) ALT (SGPT) (test code = 11 U/L 0-33 ALT (SGPT)) globulin (test code = 2.3 g/dL 1.7-3.7 globulin) A/G ratio (test code = A/G 1.7 calc. 1.1-2.9 ratio) BUN/creatinine ratio (test 10.5 calc 10.0-28.0 code = BUN/creatinine ratio) eGFR non- 206.708 >60.000 (test code = eGFR mL/min/1.73A? non-) eGFR 248.050 >60.000 (test code = eGFR mL/min/1.73A? maltese) [facility] MedicalGlucose [Mass/volume] in Serum or Plasma --1 hour post dose [id number] 00:00:00 Test Item Value Reference Range Interpretation Comments g.T.T. 1HR(50) (test code = g.T.T. 115 mg/dL <140 1HR(50)) [facility] MedicalGlucose [Mass/volume] in Serum or Plasma --1 hour post dose [id number] 00:00:00 Test Item Value Reference Range Interpretation Comments g.T.T. 1HR(50) (test code = g.T.T. 115 mg/dL <140 1HR(50)) [facility] MedicalCBC panel - Blood by Automated [id number] 00:00:00 Test Item Value Reference Range Interpretation Comments WBC (test code = WBC) 11.0 10 3.7-12.0 RBC (test code = RBC) 4.20 10 3.60-5.50 HGB (test code = HGB) 13.2 g/dL 11.5-15.6 HCT (test code = HCT) 38.2 % 34.5-46.5 MCV (test code = MCV) 90.8 um 80.0-102.0 MCH (test code = MCH) 31.5 pg 25.0-34.1 MCHC (test code = MCHC) 34.7 g/dL 29.0-35.0 RDW (test code = RDW) 12.6 % 10.9-16.9 plt (test code = plt) 289 10 136-392 MPV (test code = MPV) 6.8 um 7.4-11.1 L gran % (test code = gran %) 75.7 % 36.0-78.0 lymph % (test code = lymph %) 17.0 % 12.0-48.0 mono % (test code = mono %) 5.1 % 0.0-13.0 eos % (test code = eos %) 2 % 0-8 baso % (test code = baso %) 0 % 0-2 gran # (test code = gran #) 8.4 10 1.2-6.8 H lymph # (test code = lymph #) 1.9 10 1.2-3.2 mono # (test code = mono #) 0.6 10 0.3-0.8 eos # (test code = eos #) 0.2 10 0.0-0.2 baso # (test code = baso #) 0.0 10 0.0-0.2 [facility] panel - Blood by Automated [id number] 00:00:00 Test Item Value Reference Range Interpretation Comments WBC (test code = WBC) 11.0 10 3.7-12.0 RBC (test code = RBC) 4.20 10 3.60-5.50 HGB (test code = HGB) 13.2 g/dL 11.5-15.6 HCT (test code = HCT) 38.2 % 34.5-46.5 MCV (test code = MCV) 90.8 um 80.0-102.0 MCH (test code = MCH) 31.5 pg 25.0-34.1 MCHC (test code = MCHC) 34.7 g/dL 29.0-35.0 RDW (test code = RDW) 12.6 % 10.9-16.9 plt (test code = plt) 289 10 136-392 MPV (test code = MPV) 6.8 um 7.4-11.1 L gran % (test code = gran %) 75.7 % 36.0-78.0 lymph % (test code = lymph %) 17.0 % 12.0-48.0 mono % (test code = mono %) 5.1 % 0.0-13.0 eos % (test code = eos %) 2 % 0-8 baso % (test code = baso %) 0 % 0-2 gran # (test code = gran #) 8.4 10 1.2-6.8 H lymph # (test code = lymph #) 1.9 10 1.2-3.2 mono # (test code = mono #) 0.6 10 0.3-0.8 eos # (test code = eos #) 0.2 10 0.0-0.2 baso # (test code = baso #) 0.0 10 0.0-0.2 [facility] PREG UT [id number] 00:00:00 [facility] 1995 Sex: F Patient Name: ASHER MOELLER Unit No: [id number] EXAMS: CPT CODE: [id number] US PREG UT TRANSVAGINAL [id number] PROCEDURE INFORMATION: Exam: US , Limited and US , Transvaginal Exam date and time: 12/26/2020 7:05 AM Age: 25 years old Clinical indication: Lmp or gestational age (in weeks): 19.4wks; Other: Leaking fluids; ; Additional info: Check amniotic fluid level TECHNIQUE: Imaging protocol: Real-time ultrasound of the maternal uterus with image documentation. Transvaginal imaging was used for better evaluation of the fetus, adnexa, and/or cervix. Exam focused on the clinical indication. COMPARISON: No relevant prior studies available. FINDINGS: GA (established): 19 weeks 4 days. JAVED (established): 05/18/2021. Presentation: Breech Heart rate: 157 bpm. Placenta: Anterior, grade1 placenta with no evidence of placenta previa or abruption. Amniotic fluid: Adequate, with single deepest pocket measuring 5.3 cm Cervix: 3.7 cm. IMPRESSION: Live intrauterine gestation. at 0822 Reported and signed by: Rigoberto Gerber MD CC:Jessi Berman MD; Kiko Mcgovern MD Technologist: Tanisha Forrester RDMS Probe: [id number] Trnscrbd D/ (08) GCD.CPS Orig Print D/T: S: 12/26/2020 (0822) [facility] NAME: ASHER MOELLER Radiology Department PHYS: Jessi Sands MD [address] : 1995 AGE: 25 SEX: F [place], [place] [address] LOC: Trudy.ERS PHONE #: [phone] EXAM DATE: 12/26/2020 STATUS: PRE ER FAX #: [phone] RAD NO: [id number] Page 1 Signed Report Patient Name: ASHER MOELLER Unit No: [id number] EXAMS: CPT CODE: [id number] US PREG UT TRANSVAGINAL 71361 (Continued)[facility] NAME: ASHER MOELLER Radiology Department PHYS: Jessi Sands MD [address] : 1995 AGE: 25 SEX: F [place], [place] [address] LOC: AngelicaERSPHONE #: [phone] EXAM DATE: 12/26/2020 STATUS: PRE ER FAX #: [phone] RAD NO: [id number] Page 2Signed Report- US [id number] 00:00:[address] [facility] 1995 Sex: F Patient Name: ASHER MOELLER Unit No: [id number] EXAMS: CPT CODE: [id number] US LTD 96667 PROCEDURE INFORMATION: Exam: US , Limited and US , Transvaginal Exam date and time: 12/26/2020 7:05 AM Age: 25 years old Clinical indication: Lmp or gestational age (in weeks): 19.4wks; Other: Leaking fluids; ; Additional info: Check amniotic fluid level TECHNIQUE: Imaging protocol: Real-time ultrasound of the maternal uterus with image documentation. Transvaginal imaging was used for better evaluation of the fetus, adnexa, and/or cervix. Exam focused on the clinical indication. COMPARISON: No relevant prior studies available. FINDINGS: GA (established): 19 weeks 4 days. JAVED (established): 05/18/2021. Presentation: Breech Heart rate: 157 bpm. Placenta: Anterior, grade 1 placenta with no evidence of placenta previa or abruption. Amniotic fluid: Adequate, with single deepest pocket measuring 5.3 cm Cervix: 3.7 cm. IMPRESSION: Live intrauterine gestation. Electronically Sign ed by Rigoberto Gerber MD on 12/26/2020 at 0822 Reported and signed by: Rigoberto Gerber MD CC: Mandy De La O MD; Kiko Mcgovern MD Technologist: Tanisha Forrester RDMS Probe: Trnscrbd D/ (08) GCD.CPS Orig Print D/T: S: 12/26/2020 (08) [facility] NAME: ASEHR MOELLER Radiology Department PHYS: JulyMandy moore [address] : 1995 AGE: 25 SEX: F [place] [address] LOC: AngelicaERS PHONE #: [phone] EXAM DATE: 12/26/2020 STATUS: PRE ER FAX #: [phone] RAD NO: [id number] Page 1 Signed Report Patient Name: ASHER MOELLER Unit No: [id number] EXAMS: CPT CODE: [id number] LTD [id number] (Continued) [facility] NAME: ASHER MOELLER Radiology Department PHYS: JulyMandy moore [address] : 1995 AGE: 25 SEX: F [place] [address] LOC: AngelicaERS PHONE #: [phone] EXAM DATE: 12/26/2020 STATUS: PRE ER FAX #: [phone] [facility] NO: [id number] Page 2 [facility]2021-07-31 01:55:00 Test Item Value Reference Range Interpretation Comments Glucose Lvl (test code = Glucose Lvl) 92 [facility]2021-07-31 01:55:00 Test Item Value Reference Range Interpretation Comments BUN (test code = BUN) 9 10-18 [facility]2021-07-31 01:55:00 Test Item Value Reference Range Interpretation Comments Glucose Lvl (test code = Glucose Lvl) 92 [facility]2021-07-31 01:55:00 Test Item Value Reference Range Interpretation Comments BUN (test code = BUN) 10-18 [facility]2021-07-31 01:55:00 Test Item Value Reference Range Interpretation Comments Creatinine Lvl (test code = Creatinine 0.71 0.50-1.40 Lvl) [place] 073141-07-31 01:55:00 Test Item Value Reference Range Interpretation Comments Sodium Lvl (test code = Sodium Lvl) 139 135-145 [place] 073141-07-31 01:55:00 Test Item Value Reference Range Interpretation Comments Potassium Lvl (test code = Potassium 3.9 3.5-5.1 Lvl) [place] 073141-07-31 01:55:00 Test Item Value Reference Range Interpretation Comments Chloride Lvl (test code = Chloride Lvl) 103 95-109 [place] 073141-07-31 01:55:00 Test Item Value Reference Range Interpretation Comments CO2 (test code = CO2) -32 [facility]2021-07-31 01:55:00 Test Item Value Reference Range Interpretation Comments Calcium Lvl (test code = Calcium Lvl) 9.2 8.5-10.5 [facility]2021-07-31 01:55:00 Test Item Value Reference Range Interpretation Comments AGAP (test code = AGAP) 12.9 10.0-20.0 [place] 073141-07-31 01:55:00 Test Item Value Reference Range Interpretation Comments B/C Ratio (test code = B/C Ratio) 13 1 6-25 [place] 073141-07-31 01:55:00 Test Item Value Reference Range Interpretation Comments eGFR (test code = eGFR) 120 [place] 073141-07-31 01:55:00 Test Item Value Reference Range Interpretation Comments Total Protein (test code = Total 7.5 6.4-8.4 Protein) [place] 073141-07-31 01:55:00 Test Item Value Reference Range Interpretation Comments Creatinine Lvl (test code = Creatinine 0.71 0.50-1.40 Lvl) [place] [address]-07-31 01:55:00 Test Item Value Reference Range Interpretation Comments Albumin Lvl (test code = Albumin Lvl) 4.0 3.5-5.0 [place] 073141-07-31 01:55:00 Test Item Value Reference Range Interpretation Comments ALT (test code = ALT) 24 See_Comment [Auto mated message] The system which ge nerated this result transmit [place] reference range : <=65. The reference range was not used to interpr et this result as casey l/abnormal. [place] 073141-07-31 01:55:00 Test Item Value Reference Range Interpretation Comments AST (test code = AST) 12 See_Comment [Auto mated message] The system which ge nerated this result transmit [place] reference range : <=37. The reference range was not used to interpr et this result as casey l/abnormal. [place] 073141-07-31 01:55:00 Test Item Value Reference Range Interpretation Comments Alk Phos (test code = Alk Phos) 50 39-136 [place] 073141-07-31 01:55:00 Test Item Value Reference Range Interpretation Comments Bili Total (test code = Bili Total) 0.2 0.2-1.3 [place] 073141-07-31 01:55:00 Test Item Value Reference Range Interpretation Comments Globulin (test code = Globulin) 3.5 2.7-4.2 [place] 073141-07-31 01:55:00 Test Item Value Reference Range Interpretation Comments A/G Ratio (test code = A/G Ratio) 1.1 1 0.7-1.6 [place] 668601-07-31 01:55:00 Test Item Value Reference Range Interpretation Comments WBC (test code = WBC) 12.3 3.7-10.4 [facility] CenterDnqcnibMYSDSSDCLH1124-26-09 01:55:00 Test Item Value Reference Range Interpretation Comments RBC (test code = RBC) 4.38 4.20-5.40 [facility] CenterNselebwFUGJHBFEYO2122-74-48 01:55:00 Test Item Value Reference Range Interpretation Comments Hgb (test code = Hgb) 13.6 12.0-16.0 [facility] CenterMpiglrmUQRFJDQDFZ6108-48-09 01:55:00 Test Item Value Reference Range Interpretation Comments Hct (test code = Hct) 40.3 36.0-48.0 [facility] CenterUapquneOQTMGGWTBI4778-01-00 01:55:00 Test Item Value Reference Range Interpretation Comments MCV (test code = MCV) 91.9 80.0-98.0 [facility] CenterRwvrvozCGDPATHNFE7499-90-42 01:55:00 Test Item Value Reference Range Interpretation Comments MCH (test code = MCH) 31.0 pg 27.0-31.0 [facility] CenterVwjvybtJGTAMSLGXT6844-47-12 01:55:00 Test Item Value Reference Range Interpretation Comments MCHC (test code = MCHC) 33.7 32.0-36.0 [facility] CenterFtorpqwINDHDXEJVA1907-15-60 01:55:00 Test Item Value Reference Range Interpretation Comments RDW (test code = RDW) 12.1 11.5-14.5 [facility] CenterKzjozgeVCQMOMMZNH1816-36-75 01:55:00 Test Item Value Reference Range Interpretation Comments Platelet (test code = Platelet) 299 133-450 [facility] CenterPyrpncrTDWHZKUMRD3854-93-78 01:55:00 Test Item Value Reference Range Interpretation Comments MPV (test code = MPV) 6.6 7.4-10.4 [facility] CenterBzzrnteLJBEBZUUFX9362-96-65 01:55:00 Test Item Value Reference Range Interpretation Comments Segs (test code = Segs) 68.7 45.0-75.0 [facility] CenterKmsadpqGZPFEHTOBQ8232-22-53 01:55:00 Test Item Value Reference Range Interpretation Comments Lymphocytes (test code = Lymphocytes) 21.2 20.0-40.0 [facility] CenterFwkjhffICRVUAAFOF9897-22-60 01:55:00 Test Item Value Reference Range Interpretation Comments Monocytes (test code = Monocytes) 6.3 2.0-12.0 [place] 668601-07-31 01:55:00 Test Item Value Reference Range Interpretation Comments Eosinophils (test code = 2.8 See_Comment [A utomated message] The Eosinophils) system which ge nerated this result tra nsmitted reference range : <=4.0. The reference r monae was not used to int erpret this result as normal/abnormal . [facility] CenterExqgiyuSCHMCIHRXL0802-64-11 01:55:00 Test Item Value Reference Range Interpretation Comments Basophils (test code = 1.0 See_Comment [Aut omated message] The Basophils) system which ge nerated this result tra nsmitted reference range : <=1.0. The reference r monae was not used to int erpret this result as normal/abnormal . [place] 668601-07-31 01:55:00 Test Item Value Reference Range Interpretation Comments Neutrophils # (test code = Neutrophils 8.5 1.5-8.1 #) [facility] CenterNfytpxwWONEHEQWWW5536-68-91 01:55:00 Test Item Value Reference Range Interpretation Comments Lymphocytes # (test code = Lymphocytes 2.6 1.0-5.5 #) [place] 668601-07-31 01:55:00 Test Item Value Reference Range Interpretation Comments Monocytes # (test code 0.8 See_Comment [Aut omated message] The = Monocytes #) system which generated this result tra nsmitted reference range : <=0.8. The reference r monae was not used to int erpret this result as normal/abnormal . [facility] CenterQwaxvsiDDJZBVSTVT8679-65-91 01:55:00 Test Item Value Reference Range Interpretation Comments Eosinophils # (test code 0.3 See_Comment [A utomated message] The = Eosinophils #) system whic h generated this result tra nsmitted reference range : <=0.5. The reference r monae was not used to int erpret this result as normal/abnormal . [place] 668601-07-31 01:55:00 Test Item Value Reference Range Interpretation Comments Basophils # (test code 0.1 See_Comment [Aut omated message] The = Basophils #) system which generated this result tra nsmitted reference range : <=0.2. The reference r monae was not used to int erpret this result as normal/abnormal . [facility]2021-07-31 01:55:00 Test Item Value Reference Range Interpretation Comments UA Color (test code = Yellow (10/26/20 8:55 UA Color) PM) [facility] AND [id number] 01:55:00 Test Item Value Reference Range Interpretation Comments UA Turbidity (test code Cloudy *ABN*(10/26/20 = UA Turbidity) 8:55 PM) [facility] AND [id number] 01:55:00 Test Item Value Reference Range Interpretation Comments UA Spec Grav (test code = UA Spec 1.020 1 Grav) [facility] AND [id number] 01:55:00 Test Item Value Reference Range Interpretation Comments UA pH (test code = UA pH) 8.0 1 5.0-8.[address] [facility] AND [id number] 01:55:00 Test Item Value Reference Range Interpretation Comments UA Protein (test code Negative (10/26/20 8:55 = UA Protein) PM) [facility] AND [id number] 01:55:00 Test Item Value Reference Range Interpretation Comments UA Glucose (test code Negative (10/26/20 8:55 = UA Glucose) PM) [facility] AND [id number] 01:55:00 Test Item Value Reference Range Interpretation Comments UA Ketones (test code Negative (10/26/20 8:55 = UA Ketones) PM) [facility] AND [id number] 01:55:00 Test Item Value Reference Range Interpretation Comments UA Bili (test code = Negative (10/26/20 8:55 UA Bili) PM) [facility] AND [id number] 01:55:00 Test Item Value Reference Range Interpretation Comments UA Blood (test code = Negative (10/26/20 8:55 UA Blood) PM) [facility] AND [id number] 01:55:00 Test Item Value Reference Range Interpretation Comments UA Urobilinogen (test code = UA 0.2 0.1-1.0 Urobilinogen) [facility] AND [id number] 01:55:00 Test Item Value Reference Range Interpretation Comments UA Nitrite (test code Negative (10/26/20 8:55 = UA Nitrite) PM) [facility] AND [id number] 01:55:00 Test Item Value Reference Range Interpretation Comments UA Leuk Est (test Negative (10/26/20 8:55 code = UA Leuk Est) PM) [facility] AND [id number] 01:55:00 Test Item Value Reference Range Interpretation Comments UA Sq Epi (test code = UA Sq Epi) Many /LPF [facility]2021-07-31 01:55:00 Test Item Value Reference Range Interpretation Comments Sodium Lvl (test code = Sodium Lvl) 139 135-[address] [facility] AND [id number] 01:55:00 Test Item Value Reference Range Interpretation Comments UA WBC (test code = UA WBC) 0-2 /HPF [facility] AND [id number] 01:55:00 Test Item Value Reference Range Interpretation Comments UA RBC (test code = UA RBC) 0-2 /HPF [facility] AND [id number] 01:55:00 Test Item Value Reference Range Interpretation Comments UA Bacteria (test code = UA Few /HPF Bacteria) [facility] AND [id number] 01:55:00 Test Item Value Reference Range Interpretation Comments UA Amorph [place] (test code = UA Many /HPF Amorph [place]) [facility]2021-07-31 01:55:00 Test Item Value Reference Range Interpretation Comments Potassium Lvl (test code = Potassium 3.9 3.5-5.1 Lvl) [place] 073141-07-31 01:55:00 Test Item Value Reference Range Interpretation Comments Chloride Lvl (test code = Chloride Lvl) 103 95-109 [place] 073141-07-31 01:55:00 Test Item Value Reference Range Interpretation Comments CO2 (test code = CO2) 27 24-32 [place] 073141-07-31 01:55:00 Test Item Value Reference Range Interpretation Comments Calcium Lvl (test code = Calcium Lvl) 9.2 8.5-10.5 [place] 073141-07-31 01:55:00 Test Item Value Reference Range Interpretation Comments AGAP (test code = AGAP) 12.9 10.0-20.0 [place] 073141-07-31 01:55:00 Test Item Value Reference Range Interpretation Comments B/C Ratio (test code = B/C Ratio) 13 1 6-25 [place] 073141-07-31 01:55:00 Test Item Value Reference Range Interpretation Comments eGFR (test code = eGFR) 120 [place] 073141-07-31 01:55:00 Test Item Value Reference Range Interpretation Comments Total Protein (test code = Total 7.5 6.4-8.4 Protein) [place] 073141-07-31 01:55:00 Test Item Value Reference Range Interpretation Comments Albumin Lvl (test code = Albumin Lvl) 4.0 3.5-5.0 [place] 073141-07-31 01:55:00 Test Item Value Reference Range Interpretation Comments ALT (test code = ALT) 24 See_Comment [Auto mated message] The system which ge nerated this result transmit fl[place] reference range : <=65. The reference range was not used to interpr et this result as casey l/abnormal. [place] 073141-07-31 01:55:00 Test Item Value Reference Range Interpretation Comments AST (test code = AST) 12 See_Comment [Auto mated message] The system which ge nerated this result transmit [place] reference range : <=37. The reference range was not used to interpr et this result as casey l/abnormal. [place] 073141-07-31 01:55:00 Test Item Value Reference Range Interpretation Comments Alk Phos (test code = Alk Phos) 50 39-136 [place] 073141-07-31 01:55:00 Test Item Value Reference Range Interpretation Comments Bili Total (test code = Bili Total) 0.2 0.2-1.3 [place] 073141-07-31 01:55:00 Test Item Value Reference Range Interpretation Comments Globulin (test code = Globulin) 3.5 2.7-4.2 [place] 073141-07-31 01:55:00 Test Item Value Reference Range Interpretation Comments A/G Ratio (test code = A/G Ratio) 1.1 1 0.7-1.6 [place] 668601-07-31 01:55:00 Test Item Value Reference Range Interpretation Comments WBC (test code = WBC) 12.3 3.7-10.4 [place] 668601-07-31 01:55:00 Test Item Value Reference Range Interpretation Comments RBC (test code = RBC) 4.38 4.20-5.40 [place] 668601-07-31 01:55:00 Test Item Value Reference Range Interpretation Comments Hgb (test code = Hgb) 13.6 12.0-16.0 [place] 668601-07-31 01:55:00 Test Item Value Reference Range Interpretation Comments Hct (test code = Hct) 40.3 36.0-48.0 [place] 668601-07-31 01:55:00 Test Item Value Reference Range Interpretation Comments MCV (test code = MCV) 91.9 80.0-98.0 [place] 668601-07-31 01:55:00 Test Item Value Reference Range Interpretation Comments MCH (test code = MCH) 31.0 pg 27.0-31.0 [place] 668601-07-31 01:55:00 Test Item Value Reference Range Interpretation Comments MCHC (test code = MCHC) 33.7 32.0-36.0 [facility] CenterQfnorvyHQPCLVQFSX6681-89-91 01:55:00 Test Item Value Reference Range Interpretation Comments RDW (test code = RDW) 12.1 11.5-14.5 [facility] CenterSgafjgeDAQPHQHCMX6082-04-08 01:55:00 Test Item Value Reference Range Interpretation Comments Platelet (test code = Platelet) 299 133-450 [facility] CenterDlfuyisDZTDMDTWFT7730-00-37 01:55:00 Test Item Value Reference Range Interpretation Comments MPV (test code = MPV) 6.6 7.4-10.4 [place] 668601-07-31 01:55:00 Test Item Value Reference Range Interpretation Comments Segs (test code = Segs) 68.7 45.0-75.0 [place] 668601-07-31 01:55:00 Test Item Value Reference Range Interpretation Comments Lymphocytes (test code = Lymphocytes) 21.2 20.0-40.0 [place] 668601-07-31 01:55:00 Test Item Value Reference Range Interpretation Comments Monocytes (test code = Monocytes) 6.3 2.0-12.0 [place] 668601-07-31 01:55:00 Test Item Value Reference Range Interpretation Comments Eosinophils (test code = 2.8 See_Comment [A utomated message] The Eosinophils) system which ge nerated this result tra nsmitted reference range : <=4.0. The reference r monae was not used to int erpret this result as normal/abnormal . [facility] CenterEfsfyahRYDNLEZUCY3886-15-25 01:55:00 Test Item Value Reference Range Interpretation Comments Basophils (test code = 1.0 See_Comment [Aut omated message] The Basophils) system which ge nerated this result tra nsmitted reference range : <=1.0. The reference r monae was not used to int erpret this result as normal/abnormal . [facility] CenterCzgctziQMDDLSZGCJ2206-94-50 01:55:00 Test Item Value Reference Range Interpretation Comments Neutrophils # (test code = Neutrophils 8.5 1.5-8.1 #) [facility] CenterEyqefyfJLLCJEYMEC5535-70-45 01:55:00 Test Item Value Reference Range Interpretation Comments Lymphocytes # (test code = Lymphocytes 2.6 1.0-5.5 #) [facility] CenterFzzwwkmUOECWLUSKJ7916-28-21 01:55:00 Test Item Value Reference Range Interpretation Comments Monocytes # (test code 0.8 See_Comment [Aut omated message] The = Monocytes #) system which generated this result tra nsmitted reference range : <=0.8. The reference r monae was not used to int erpret this result as normal/abnormal . [facility] CenterLtykzbvPULFFBYUHT9381-33-73 01:55:00 Test Item Value Reference Range Interpretation Comments Eosinophils # (test code 0.3 See_Comment [A utomated message] The = Eosinophils #) system [facility] h generated this result tra nsmitted reference range : <=0.5. The reference r monae was not used to int erpret this result as normal/abnormal . [facility] CenterWmndkafYNJYBXPGHS2639-27-80 01:55:00 Test Item Value Reference Range Interpretation Comments Basophils # (test code 0.1 See_Comment [Aut omated message] The = Basophils #) system which generated this result tra nsmitted reference range : <=0.2. The reference r monae was not used to int erpret this result as normal/abnormal . [facility]2021-07-31 01:55:00 Test Item Value Reference Range Interpretation Comments UA Color (test code = Yellow (10/26/20 8:55 UA Color) PM) [facility] AND [id number] 01:55:00 Test Item Value Reference Range Interpretation Comments UA Turbidity (test code Cloudy *ABN*(10/26/20 = UA Turbidity) 8:55 PM) [facility] AND [id number] 01:55:00 Test Item Value Reference Range Interpretation Comments UA Spec Grav (test code = UA Spec 1.020 1 Grav) [facility] AND [id number] 01:55:00 Test Item Value Reference Range Interpretation Comments UA pH (test code = UA pH) 8.0 1 5.0-8.0 [facility] AND [id number] 01:55:00 Test Item Value Reference Range Interpretation Comments UA Protein (test code Negative (10/26/20 8:55 = UA Protein) PM) [facility] AND [id number] 01:55:00 Test Item Value Reference Range Interpretation Comments UA Glucose (test code Negative (10/26/20 8:55 = UA Glucose) PM) [facility] AND [id number] 01:55:00 Test Item Value Reference Range Interpretation Comments UA Ketones (test code Negative (10/26/20 8:55 = UA Ketones) PM) [facility] AND [id number] 01:55:00 Test Item Value Reference Range Interpretation Comments UA Bili (test code = Negative (10/26/20 8:55 UA Bili) PM) [facility] AND [id number] 01:55:00 Test Item Value Reference Range Interpretation Comments UA Blood (test code = Negative (10/26/20 8:55 UA Blood) PM) [facility] AND [id number] 01:55:00 Test Item Value Reference Range Interpretation Comments UA Urobilinogen (test code = UA 0.2 0.1-1.0 Urobilinogen) [facility] AND [id number] 01:55:00 Test Item Value Reference Range Interpretation Comments UA Nitrite (test code Negative (10/26/20 8:55 = UA Nitrite) PM) [facility] AND [id number] 01:55:00 Test Item Value Reference Range Interpretation Comments UA Leuk Est (test Negative (10/26/20 8:55 code = UA Leuk Est) PM) [facility] AND [id number] 01:55:00 Test Item Value Reference Range Interpretation Comments UA Sq Epi (test code = UA Sq Epi) Many /LPF [facility] AND [id number] 01:55:00 Test Item Value Reference Range Interpretation Comments UA WBC (test code = UA WBC) 0-2 /HPF [facility] AND [id number] 01:55:00 Test Item Value Reference Range Interpretation Comments UA RBC (test code = UA RBC) 0-2 /HPF [facility] AND [id number] 01:55:00 Test Item Value Reference Range Interpretation Comments UA Bacteria (test code = UA Few /HPF Bacteria) [facility] AND [id number] 01:55:00 Test Item Value Reference Range Interpretation Comments UA Amorph [place] (test code = UA Many /HPF Amorph [place]) [place] 073141-07-31 01:55:00 Test Item Value Reference Range Interpretation Comments Glucose Lvl (test code = Glucose Lvl) 92 70-99 [place] 073141-07-31 01:55:00 Test Item Value Reference Range Interpretation Comments BUN (test code = BUN) 9 7-22 [place] 073141-07-31 01:55:00 Test Item Value Reference Range Interpretation Comments Creatinine Lvl (test code = Creatinine 0.71 0.50-1.40 Lvl) [place] 073141-07-31 01:55:00 Test Item Value Reference Range Interpretation Comments Sodium Lvl (test code = Sodium Lvl) 139 135-145 [place] 073141-07-31 01:55:00 Test Item Value Reference Range Interpretation Comments Potassium Lvl (test code = Potassium 3.9 3.5-5.1 Lvl) [place] 073141-07-31 01:55:00 Test Item Value Reference Range Interpretation Comments Chloride Lvl (test code = Chloride Lvl) 103 95-109 [place] 073141-07-31 01:55:00 Test Item Value Reference Range Interpretation Comments CO2 (test code = CO2) 27 24-32 [place] 073141-07-31 01:55:00 Test Item Value Reference Range Interpretation Comments Calcium Lvl (test code = Calcium Lvl) 9.2 8.5-10.5 [place] 073141-07-31 01:55:00 Test Item Value Reference Range Interpretation Comments AGAP (test code = AGAP) 12.9 10.0-20.0 [place] 073141-07-31 01:55:00 Test Item Value Reference Range Interpretation Comments B/C Ratio (test code = B/C Ratio) 13 1 6-25 [place] 073141-07-31 01:55:00 Test Item Value Reference Range Interpretation Comments eGFR (test code = eGFR) 120 [place] 073141-07-31 01:55:00 Test Item Value Reference Range Interpretation Comments Total Protein (test code = Total 7.5 6.4-8.4 Protein) [place] 073141-07-31 01:55:00 Test Item Value Reference Range Interpretation Comments Albumin Lvl (test code = Albumin Lvl) 4.0 3.5-5.0 [place] 073141-07-31 01:55:00 Test Item Value Reference Range Interpretation Comments ALT (test code = ALT) 24 See_Comment [Auto mated message] The system which ge nerated this result transmit [place] reference range : <=65. The reference range was not used to interpr et this result as casey l/abnormal. [place] 073141-07-31 01:55:00 Test Item Value Reference Range Interpretation Comments AST (test code = AST) 12 See_Comment [Auto mated message] The system which ge nerated this result transmit [place] reference range : <=37. The reference range was not used to interpr et this result as casey l/abnormal. [place] 073141-07-31 01:55:00 Test Item Value Reference Range Interpretation Comments Alk Phos (test code = Alk Phos) 50 39-136 [place] 073141-07-31 01:55:00 Test Item Value Reference Range Interpretation Comments Bili Total (test code = Bili Total) 0.2 0.2-1.3 [place] 073141-07-31 01:55:00 Test Item Value Reference Range Interpretation Comments Globulin (test code = Globulin) 3.5 2.7-4.2 [place] 073141-07-31 01:55:00 Test Item Value Reference Range Interpretation Comments A/G Ratio (test code = A/G Ratio) 1.1 1 0.7-1.6 [facility] [id number] 01:55:00 Test Item Value Reference Range Interpretation Comments WBC (test code = WBC) 12.3 3.7-10.4 [facility] CenterGynczhnZSZWWDJQPT8825-57-05 01:55:00 Test Item Value Reference Range Interpretation Comments RBC (test code = RBC) 4.38 4.20-5.40 [facility] CenterPnqlrzkAHWTHZLFVV2278-21-46 01:55:00 Test Item Value Reference Range Interpretation Comments Hgb (test code = Hgb) 13.6 12.0-16.0 [place] 668601-07-31 01:55:00 Test Item Value Reference Range Interpretation Comments Hct (test code = Hct) 40.3 36.0-48.0 [place] 668601-07-31 01:55:00 Test Item Value Reference Range Interpretation Comments MCV (test code = MCV) 91.9 80.0-98.0 [facility] CenterUprgaciIOFVVVRKUJ5062-82-79 01:55:00 Test Item Value Reference Range Interpretation Comments MCH (test code = MCH) 31.0 pg 27.0-31.0 [facility] CenterXnckxmkFRCCPXIDIR0853-31-00 01:55:00 Test Item Value Reference Range Interpretation Comments MCHC (test code = MCHC) 33.7 32.0-36.0 [facility] CenterLnssuwuWASMJVCDWL6033-57-41 01:55:00 Test Item Value Reference Range Interpretation Comments RDW (test code = RDW) 12.1 11.5-14.5 [facility] CenterBsydsekMNWYUCTOJG6564-74-26 01:55:00 Test Item Value Reference Range Interpretation Comments Platelet (test code = Platelet) 299 133-450 [facility] CenterJxdnlcfZJHXCYWVRJ3173-73-89 01:55:00 Test Item Value Reference Range Interpretation Comments MPV (test code = MPV) 6.6 7.4-10.4 [facility] CenterNsdksnmPKUVQDPRFI6315-35-13 01:55:00 Test Item Value Reference Range Interpretation Comments Segs (test code = Segs) 68.7 45.0-75.0 [facility] CenterIzzjmumDSCLRBPWPJ3463-39-35 01:55:00 Test Item Value Reference Range Interpretation Comments Lymphocytes (test code = Lymphocytes) 21.2 20.0-40.0 [place] 668601-07-31 01:55:00 Test Item Value Reference Range Interpretation Comments Monocytes (test code = Monocytes) 6.3 2.0-12.0 [place] 668601-07-31 01:55:00 Test Item Value Reference Range Interpretation Comments Eosinophils (test code = 2.8 See_Comment [A utomated message] The Eosinophils) system which ge nerated this result tra nsmitted reference range : <=4.0. The reference r monae was not used to int erpret this result as normal/abnormal . [place] 668601-07-31 01:55:00 Test Item Value Reference Range Interpretation Comments Basophils (test code = 1.0 See_Comment [Aut omated message] The Basophils) system which ge nerated this result tra nsmitted reference range : <=1.0. The reference r monae was not used to int erpret this result as normal/abnormal . [place] 668601-07-31 01:55:00 Test Item Value Reference Range Interpretation Comments Neutrophils # (test code = Neutrophils 8.5 1.5-8.1 #) [place] 668601-07-31 01:55:00 Test Item Value Reference Range Interpretation Comments Lymphocytes # (test code = Lymphocytes 2.6 1.0-5.5 #) [place] 668601-07-31 01:55:00 Test Item Value Reference Range Interpretation Comments Monocytes # (test code 0.8 See_Comment [Aut omated message] The = Monocytes #) system which generated this result tra nsmitted reference range : <=0.8. The reference r monae was not used to int erpret this result as normal/abnormal . [place] 668601-07-31 01:55:00 Test Item Value Reference Range Interpretation Comments Eosinophils # (test code 0.3 See_Comment [A utomated message] The = Eosinophils #) system whic h generated this result tra nsmitted reference range : <=0.5. The reference r monae was not used to int erpret this result as normal/abnormal . [place] 668601-07-31 01:55:00 Test Item Value Reference Range Interpretation Comments Basophils # (test code 0.1 See_Comment [Aut omated message] The = Basophils #) system which generated this result tra nsmitted reference range : <=0.2. The reference r monae was not used to int erpret this result as normal/abnormal . [facility] AND [id number] 01:55:00 Test Item Value Reference Range Interpretation Comments UA Color (test code = Yellow (10/26/20 8:55 UA Color) PM) [facility] AND [id number] 01:55:00 Test Item Value Reference Range Interpretation Comments UA Turbidity (test code Cloudy *ABN*(10/26/20 = UA Turbidity) 8:55 PM) [facility] AND [id number] 01:55:00 Test Item Value Reference Range Interpretation Comments UA Spec Grav (test code = UA Spec 1.020 1 Grav) [facility] AND [id number] 01:55:00 Test Item Value Reference Range Interpretation Comments UA pH (test code = UA pH) 8.0 1 5.0-8.[address] [facility] AND [id number] 01:55:00 Test Item Value Reference Range Interpretation Comments UA Protein (test code Negative (10/26/20 8:55 = UA Protein) PM) [facility] AND [id number] 01:55:00 Test Item Value Reference Range Interpretation Comments UA Glucose (test code Negative (10/26/20 8:55 = UA Glucose) PM) [facility] AND [id number] 01:55:00 Test Item Value Reference Range Interpretation Comments UA Ketones (test code Negative (10/26/20 8:55 = UA Ketones) PM) [facility] AND [id number] 01:55:00 Test Item Value Reference Range Interpretation Comments UA Bili (test code = Negative (10/26/20 8:55 UA Bili) PM) [facility] AND [id number] 01:55:00 Test Item Value Reference Range Interpretation Comments UA Blood (test code = Negative (10/26/20 8:55 UA Blood) PM) [facility] AND [id number] 01:55:00 Test Item Value Reference Range Interpretation Comments UA Urobilinogen (test code = UA 0.2 0.1-1.0 Urobilinogen) [facility] AND [id number] 01:55:00 Test Item Value Reference Range Interpretation Comments UA Nitrite (test code Negative (10/26/20 8:55 = UA Nitrite) PM) [facility] AND [id number] 01:55:00 Test Item Value Reference Range Interpretation Comments UA Leuk Est (test Negative (10/26/20 8:55 code = UA Leuk Est) PM) [facility] AND [id number] 01:55:00 Test Item Value Reference Range Interpretation Comments UA Sq Epi (test code = UA Sq Epi) Many /LPF [facility] AND [id number] 01:55:00 Test Item Value Reference Range Interpretation Comments UA WBC (test code = UA WBC) 0-2 /HPF [facility] AND [id number] 01:55:00 Test Item Value Reference Range Interpretation Comments UA RBC (test code = UA RBC) 0-2 /HPF [facility] AND [id number] 01:55:00 Test Item Value Reference Range Interpretation Comments UA Bacteria (test code = UA Few /HPF Bacteria) [facility] AND [id number] 01:55:00 Test Item Value Reference Range Interpretation Comments UA Amorph [place] (test code = UA Many /HPF Amorph [place]) [facility]2021-03-16 18:06:00 Test Item Value Reference Range Interpretation Comments Creatinine Lvl (test code = Creatinine 0.98 0.50-1.40 Lvl) [facility]2021-03-16 18:06:00 Test Item Value Reference Range Interpretation Comments Sodium Lvl (test code = Sodium Lvl) 139 135-145 [facility]2021-03-16 18:06:00 Test Item Value Reference Range Interpretation Comments Potassium Lvl (test code = Potassium 4.4 3.5-5.1 Lvl) [facility]2021-03-16 18:06:00 Test Item Value Reference Range Interpretation Comments Chloride Lvl (test code = Chloride Lvl) 103 95-109 [facility]2021-03-16 18:06:00 Test Item Value Reference Range Interpretation Comments CO2 (test code = CO2) 28 24-32 [facility]2021-03-16 18:06:00 Test Item Value Reference Range Interpretation Comments Calcium Lvl (test code = Calcium Lvl) 9.4 8.5-10.5 [facility] [id number] 18:06:00 Test Item Value Reference Range Interpretation Comments AGAP (test code = AGAP) 12.4 10.0-20.0 [facility] [id number] 18:06:00 Test Item Value Reference Range Interpretation Comments B/C Ratio (test code = B/C Ratio) 21 1 6-25 [facility] [id number] 18:06:00 Test Item Value Reference Range Interpretation Comments eGFR (test code = eGFR) 81 [facility] [id number] 18:06:00 Test Item Value Reference Range Interpretation Comments Total Protein (test code = Total 7.6 6.4-8.4 Protein) [facility] [id number] 18:06:00 Test Item Value Reference Range Interpretation Comments Albumin Lvl (test code = Albumin Lvl) 4.3 3.5-5.0 [facility] [id number] 18:06:00 Test Item Value Reference Range Interpretation Comments ALT (test code = ALT) 39 See_Comment [Auto mated message] The system which ge nerated this result transmit [place] reference range : <=65. The reference range was not used to interpr et this result as casey l/abnormal. [facility] [id number] 18:06:00 Test Item Value Reference Range Interpretation Comments AST (test code = AST) 23 See_Comment [Auto mated message] The system which ge nerated this result transmit [place] reference range : <=37. The reference range was not used to interpr et this result as casey l/abnormal. [facility] [id number] 18:06:00 Test Item Value Reference Range Interpretation Comments Alk Phos (test code = Alk Phos) 76 39-136 [facility] [id number] 18:06:00 Test Item Value Reference Range Interpretation Comments Bili Total (test code = Bili Total) 0.1 0.2-1.3 [facility] [id number] 18:06:00 Test Item Value Reference Range Interpretation Comments Globulin (test code = Globulin) 3.3 2.7-4.2 [facility]2021-03-16 18:06:00 Test Item Value Reference Range Interpretation Comments A/G Ratio (test code = A/G Ratio) 1.3 1 0.7-1.6 [place] [id number] 18:06:00 Test Item Value Reference Range Interpretation Comments S Preg (test code = S Negative *NA*(06/12/20 Preg) 1:06 PM) [facility] CenterExhfrtfWYJJMYYQOY3512-12-31 18:06:00 Test Item Value Reference Range Interpretation Comments WBC (test code = WBC) 10.7 3.7-10.4 [facility] CenterMnedvjkSWADKXCXWX9066-17-19 18:06:00 Test Item Value Reference Range Interpretation Comments RBC (test code = RBC) 4.59 4.20-5.40 [facility] C[id number] 18:06:00 Test Item Value Reference Range Interpretation Comments Hgb (test code = Hgb) 14.2 12.0-16.0 [facility] C[id number] 18:06:00 Test Item Value Reference Range Interpretation Comments Hct (test code = Hct) 42.4 36.0-48.0 [facility] CenterEnkxwfbEORTLPUNSJ4247-25-22 18:06:00 Test Item Value Reference Range Interpretation Comments MCV (test code = MCV) 92.4 80.0-98.0 [facility] CenterKdkuymxNUJMSTXNPA5243-30-89 18:06:00 Test Item Value Reference Range Interpretation Comments MCH (test code = MCH) 31.0 pg 27.0-31.0 [facility] CenterPtgkcntKLWXBECYPA6273-59-86 18:06:00 Test Item Value Reference Range Interpretation Comments MCHC (test code = MCHC) 33.5 32.0-36.0 [facility] CenterBzxbrenKWRDIIHXEW7923-65-84 18:06:00 Test Item Value Reference Range Interpretation Comments RDW (test code = RDW) 13.8 11.5-14.5 [facility] CenterFbpwoqoQSKQUQESSC4777-06-43 18:06:00 Test Item Value Reference Range Interpretation Comments Platelet (test code = Platelet) 319 133-450 [facility] CenterMugigkePZPMQAGGSF1394-14-59 18:06:00 Test Item Value Reference Range Interpretation Comments MPV (test code = MPV) 6.8 7.4-10.4 [place] 668601-03-16 18:06:00 Test Item Value Reference Range Interpretation Comments Segs (test code = Segs) 68.9 45.0-75.0 [place] 668601-03-16 18:06:00 Test Item Value Reference Range Interpretation Comments Lymphocytes (test code = Lymphocytes) 21.3 20.0-40.0 [place] 668601-03-16 18:06:00 Test Item Value Reference Range Interpretation Comments Monocytes (test code = Monocytes) 5.7 2.0-12.0 [place] 668601-03-16 18:06:00 Test Item Value Reference Range Interpretation Comments Eosinophils (test code = 3.1 See_Comment [A utomated message] The Eosinophils) system which ge nerated this result tra nsmitted reference range : <=4.0. The reference r monae was not used to int erpret this result as normal/abnormal . [facility] [id number] 18:06:00 Test Item Value Reference Range Interpretation Comments Basophils (test code = 1.0 See_Comment [Aut omated message] The Basophils) system which ge nerated this result tra nsmitted reference range : <=1.0. The reference r monae was not used to int erpret this result as normal/abnormal . [facility] [id number] 18:06:00 Test Item Value Reference Range Interpretation Comments Neutrophils # (test code = Neutrophils 7.3 1.5-8.1 #) [facility] C[id number] 18:06:00 Test Item Value Reference Range Interpretation Comments Lymphocytes # (test code = Lymphocytes 2.3 1.0-5.5 #) [place] 668601-03-16 18:06:00 Test Item Value Reference Range Interpretation Comments Monocytes # (test code 0.6 See_Comment [Aut omated message] The = Monocytes #) system which generated this result tra nsmitted reference range : <=0.8. The reference r monae was not used to int erpret this result as normal/abnormal . [facility] CenterSardgaxOAWBDMOMGO2295-90-10 18:06:00 Test Item Value Reference Range Interpretation Comments Eosinophils # (test code 0.3 See_Comment [A utomated message] The = Eosinophils #) system whic h generated this result tra nsmitted reference range : <=0.5. The reference r monae was not used to int erpret this result as normal/abnormal . [facility] HospitalZoxmyzlCCFOABDANF8042-74-11 18:06:00 Test Item Value Reference Range Interpretation Comments Basophils # (test code 0.1 See_Comment [Aut omated message] The = Basophils #) system which generated this result tra nsmitted reference range : <=0.2. The reference r monae was not used to int erpret this result as normal/abnormal . [facility] HospitalannCARDIAC [id number] 18:06:00 Test Item Value Reference Range Interpretation Comments Total CK (test code = Total CK) 254 12-191 [facility]CHEM [id number] 18:06:00 Test Item Value Reference Range Interpretation Comments Glucose Lvl (test code = Glucose Lvl) 111 70-99 [facility] [id number] 18:06:00 Test Item Value Reference Range Interpretation Comments BUN (test code = BUN) 21 7-22 [facility] [id number] 18:06:00 Test Item Value Reference Range Interpretation Comments Calcium Lvl (test code = Calcium Lvl) 9.4 8.5-10.5 [facility] [id number] 18:06:00 Test Item Value Reference Range Interpretation Comments AGAP (test code = AGAP) 12.4 10.0-20.0 [facility] [id number] 18:06:00 Test Item Value Reference Range Interpretation Comments B/C Ratio (test code = B/C Ratio) 21 1 6-25 [facility] [id number] 18:06:00 Test Item Value Reference Range Interpretation Comments eGFR (test code = eGFR) 81 [facility] [id number] 18:06:00 Test Item Value Reference Range Interpretation Comments Total Protein (test code = Total 7.6 6.4-8.4 Protein) [facility] [id number] 18:06:00 Test Item Value Reference Range Interpretation Comments Albumin Lvl (test code = Albumin Lvl) 4.3 3.5-5.0 [facility] [id number] 18:06:00 Test Item Value Reference Range Interpretation Comments ALT (test code = ALT) 39 See_Comment [Auto mated message] The system which ge nerated this result transmit [place] reference range : <=65. The reference range was not used to interpr et this result as casey l/abnormal. [facility] [id number] 18:06:00 Test Item Value Reference Range Interpretation Comments AST (test code = AST) 23 See_Comment [Auto mated message] The system which ge nerated this result transmit [place] reference range : <=37. The reference range was not used to interpr et this result as casey l/abnormal. [facility] [id number] 18:06:00 Test Item Value Reference Range Interpretation Comments Alk Phos (test code = Alk Phos) 76 39-136 [facility] [id number] 18:06:00 Test Item Value Reference Range Interpretation Comments Bili Total (test code = Bili Total) 0.1 0.2-1.3 [facility] [id number] 18:06:00 Test Item Value Reference Range Interpretation Comments Globulin (test code = Globulin) 3.3 2.7-4.2 [facility] [id number] 18:06:00 Test Item Value Reference Range Interpretation Comments A/G Ratio (test code = A/G Ratio) 1.3 1 0.7-1.6 [facility] HospitalQcsspghLUMEUOJFZTXXQ2746-21-03 18:06:00 Test Item Value Reference Range Interpretation Comments S Preg (test code = S Negative *NA*(06/12/20 Preg) 1:06 PM) [facility] FszapjxKFSMTIRAIY5723-48-51 18:06:00 Test Item Value Reference Range Interpretation Comments WBC (test code = WBC) 10.7 3.7-10.4 [facility] NmwrrkfBDTGJNGOTP1413-27-62 18:06:00 Test Item Value Reference Range Interpretation Comments RBC (test code = RBC) 4.59 4.20-5.40 [facility] [id number] 18:06:00 Test Item Value Reference Range Interpretation Comments Hgb (test code = Hgb) 14.2 12.0-16.0 [facility] NvttosiNVRKQVDBBI1655-95-27 18:06:00 Test Item Value Reference Range Interpretation Comments Hct (test code = Hct) 42.4 36.0-48.0 [place] [address]-03-16 18:06:00 Test Item Value Reference Range Interpretation Comments MCV (test code = MCV) 92.4 80.0-98.0 [place] 668601-03-16 18:06:00 Test Item Value Reference Range Interpretation Comments MCH (test code = MCH) 31.0 pg 27.0-31.0 [place] 668601-03-16 18:06:00 Test Item Value Reference Range Interpretation Comments MCHC (test code = MCHC) 33.5 32.0-36.0 [place] 668601-03-16 18:06:00 Test Item Value Reference Range Interpretation Comments RDW (test code = RDW) 13.8 11.5-14.5 [place] [address]-03-16 18:06:00 Test Item Value Reference Range Interpretation Comments Platelet (test code = Platelet) 319 133-450 [place] 668601-03-16 18:06:00 Test Item Value Reference Range Interpretation Comments MPV (test code = MPV) 6.8 7.4-10.4 [place] 668601-03-16 18:06:00 Test Item Value Reference Range Interpretation Comments Segs (test code = Segs) 68.9 45.0-75.0 [place] 668601-03-16 18:06:00 Test Item Value Reference Range Interpretation Comments Lymphocytes (test code = Lymphocytes) 21.3 20.0-40.0 [place] 668601-03-16 18:06:00 Test Item Value Reference Range Interpretation Comments Monocytes (test code = Monocytes) 5.7 2.0-12.0 [place] [address]-03-16 18:06:00 Test Item Value Reference Range Interpretation Comments Eosinophils (test code = 3.1 See_Comment [A utomated message] The Eosinophils) system which ge nerated this result tra nsmitted reference range : <=4.0. The reference r monae was not used to int erpret this result as normal/abnormal . [place] 668601-03-16 18:06:00 Test Item Value Reference Range Interpretation Comments Basophils (test code = 1.0 See_Comment [Aut omated message] The Basophils) system which ge nerated this result tra nsmitted reference range : <=1.0. The reference r monae was not used to int erpret this result as normal/abnormal . [facility]frpefpLAGJMMBPPY5640-40-88 18:06:00 Test Item Value Reference Range Interpretation Comments Neutrophils # (test code = Neutrophils 7.3 1.5-8.1 #) [facility]lgjqztDXBXKVGZVQ7913-64-51 18:06:00 Test Item Value Reference Range Interpretation Comments Lymphocytes # (test code = Lymphocytes 2.3 1.0-5.5 #) [facility] HospitalKhpwlvdBGOOLXLDFJ9349-68-13 18:06:00 Test Item Value Reference Range Interpretation Comments Monocytes # (test code 0.6 See_Comment [Aut omated message] The = Monocytes #) system which generated this result tra nsmitted reference range : <=0.8. The reference r monae was not used to int erpret this result as normal/abnormal . [id number] 18:06:00 Test Item Value Reference Range Interpretation Comments Eosinophils # (test code 0.3 See_Comment [A utomated message] The = Eosinophils #) system whic h generated this result tra nsmitted reference range : <=0.5. The reference r monae was not used to int erpret this result as normal/abnormal . [facility] HospitalFutoyzsGIDDJOKVMC9597-32-19 18:06:00 Test Item Value Reference Range Interpretation Comments Basophils # (test code 0.1 See_Comment [Aut omated message] The = Basophils #) system which generated this result tra nsmitted reference range : <=0.2. The reference r monae was not used to int erpret this result as normal/abnormal . [facility] [id number] 18:06:00 Test Item Value Reference Range Interpretation Comments Total CK (test code = Total CK) 254 12-191 [facility] [id number] 18:06:00 Test Item Value Reference Range Interpretation Comments Glucose Lvl (test code = Glucose Lvl) 111 70-99 [facility] [id number] 18:06:00 Test Item Value Reference Range Interpretation Comments BUN (test code = BUN) 21 7-22 [facility] [id number] 18:06:00 Test Item Value Reference Range Interpretation Comments Creatinine Lvl (test code = Creatinine 0.98 0.50-1.40 Lvl) [place] [id number] 18:06:00 Test Item Value Reference Range Interpretation Comments Sodium Lvl (test code = Sodium Lvl) 139 135-145 [place] [id number] 18:06:00 Test Item Value Reference Range Interpretation Comments Potassium Lvl (test code = Potassium 4.4 3.5-5.1 Lvl) [place] [id number] 18:06:00 Test Item Value Reference Range Interpretation Comments Chloride Lvl (test code = Chloride Lvl) 103 95-109 [place] [id number] 18:06:00 Test Item Value Reference Range Interpretation Comments CO2 (test code = CO2) 28 24-32 [place] [id number] 18:06:00 Test Item Value Reference Range Interpretation Comments Calcium Lvl (test code = Calcium Lvl) 9.4 8.5-10.5 [place] [id number] 18:06:00 Test Item Value Reference Range Interpretation Comments AGAP (test code = AGAP) 12.4 10.0-20.0 [place] [id number] 18:06:00 Test Item Value Reference Range Interpretation Comments B/C Ratio (test code = B/C Ratio) 21 1 6-25 [place] [id number] 18:06:00 Test Item Value Reference Range Interpretation Comments eGFR (test code = eGFR) 81 [place] [id number] 18:06:00 Test Item Value Reference Range Interpretation Comments Total Protein (test code = Total 7.6 6.4-8.4 Protein) [place] [id number] 18:06:00 Test Item Value Reference Range Interpretation Comments Albumin Lvl (test code = Albumin Lvl) 4.3 3.5-5.0 [place] [id number] 18:06:00 Test Item Value Reference Range Interpretation Comments ALT (test code = ALT) 39 See_Comment [Auto mated message] The system which ge nerated this result transmit [place] reference range : <=65. The reference range was not used to interpr et this result as casey l/abnormal. [facility] [id number] 18:06:00 Test Item Value Reference Range Interpretation Comments AST (test code = AST) 23 See_Comment [Auto mated message] The system which ge nerated this result transmit [place] reference range : <=37. The reference range was not used to interpr et this result as casey l/abnormal. [facility] [id number] 18:06:00 Test Item Value Reference Range Interpretation Comments Alk Phos (test code = Alk Phos) 76 39-136 [facility] [id number] 18:06:00 Test Item Value Reference Range Interpretation Comments Bili Total (test code = Bili Total) 0.1 0.2-1.3 [facility] [id number] 18:06:00 Test Item Value Reference Range Interpretation Comments Globulin (test code = Globulin) 3.3 2.7-4.2 [facility] [id number] 18:06:00 Test Item Value Reference Range Interpretation Comments A/G Ratio (test code = A/G Ratio) 1.3 1 0.7-1.6 [facility]CngpqdxEWNLRQYVSCLAD0822-87-80 18:06:00 Test Item Value Reference Range Interpretation Comments S Preg (test code = S Negative *NA*(06/12/20 Preg) 1:06 PM) [id number] 18:06:00 Test Item Value Reference Range Interpretation Comments WBC (test code = WBC) 10.7 3.7-10.4 [id number] 18:06:00 Test Item Value Reference Range Interpretation Comments RBC (test code = RBC) 4.59 4.20-5.40 [facility]burgTuvelocWMZWVTNHJB2321-80-29 18:06:00 Test Item Value Reference Range Interpretation Comments Hgb (test code = Hgb) 14.2 12.0-16.0 [id number] 18:06:00 Test Item Value Reference Range Interpretation Comments Hct (test code = Hct) 42.4 36.0-48.0 [facility]burgRqhtizsYBEIWTOZDB6324-58-90 18:06:00 Test Item Value Reference Range Interpretation Comments MCV (test code = MCV) 92.4 80.0-98.0 [facility]burgRjbhvczQLAEDGLAPU3826-72-73 18:06:00 Test Item Value Reference Range Interpretation Comments MCH (test code = MCH) 31.0 pg 27.0-31.0 [facility] Cent[id number] 18:06:00 Test Item Value Reference Range Interpretation Comments MCHC (test code = MCHC) 33.5 32.0-36.0 [place] [id number] 18:06:00 Test Item Value Reference Range Interpretation Comments RDW (test code = RDW) 13.8 11.5-14.5 [facility] CenterQtxxxcyEGXTDMWVMB0433-46-76 18:06:00 Test Item Value Reference Range Interpretation Comments Platelet (test code = Platelet) 319 133-450 [facility] CenterKwumwkeGFZRYCAUFI3231-90-62 18:06:00 Test Item Value Reference Range Interpretation Comments MPV (test code = MPV) 6.8 7.4-10.4 [facility] CenterFuumaczQFBHZZNZXN2485-12-98 18:06:00 Test Item Value Reference Range Interpretation Comments Segs (test code = Segs) 68.9 45.0-75.0 [facility] CenterJyludqhQPGMRHONFU7788-74-19 18:06:00 Test Item Value Reference Range Interpretation Comments Lymphocytes (test code = Lymphocytes) 21.3 20.0-40.0 [facility] CenterSmxmptbEVTZLYGSOZ5369-33-54 18:06:00 Test Item Value Reference Range Interpretation Comments Monocytes (test code = Monocytes) 5.7 2.0-12.0 [facility] CenterGanjvamTTAAPBSVBN7273-93-31 18:06:00 Test Item Value Reference Range Interpretation Comments Eosinophils (test code = 3.1 See_Comment [A utomated message] The Eosinophils) system which ge nerated this result tra nsmitted reference range : <=4.0. The reference r monae was not used to int erpret this result as normal/abnormal . [facility] [id number] 18:06:00 Test Item Value Reference Range Interpretation Comments Basophils (test code = 1.0 See_Comment [Aut omated message] The Basophils) system which ge nerated this result tra nsmitted reference range : <=1.0. The reference r monae was not used to int erpret this result as normal/abnormal . [place] [id number] 18:06:00 Test Item Value Reference Range Interpretation Comments Neutrophils # (test code = Neutrophils 7.3 1.5-8.1 #) [facility]XxmsivuDKZIHVEOSY3072-78-87 18:06:00 Test Item Value Reference Range Interpretation Comments Lymphocytes # (test code = Lymphocytes 2.3 1.0-5.5 #) [facility] CenterVgwmoipEMDNPPUKAM0362-60-09 18:06:00 Test Item Value Reference Range Interpretation Comments Monocytes # (test code 0.6 See_Comment [Aut omated message] The = Monocytes #) system which generated this result tra nsmitted reference range : <=0.8. The reference r monae was not used to int erpret this result as normal/abnormal . [facility] CenterJrefqtzXKKXBJUBFU6970-09-74 18:06:00 Test Item Value Reference Range Interpretation Comments Eosinophils # (test code 0.3 See_Comment [A utomated message] The = Eosinophils #) system whic h generated this result tra nsmitted reference range : <=0.5. The reference r monae was not used to int erpret this result as normal/abnormal . [facility] CenterCgymdncBGRQDXGZLO8945-17-66 18:06:00 Test Item Value Reference Range Interpretation Comments Basophils # (test code 0.1 See_Comment [Aut omated message] The = Basophils #) system which generated this result tra nsmitted reference range : <=0.2. The reference r monae was not used to int erpret this result as normal/abnormal . [facility] [id number] 18:06:00 Test Item Value Reference Range Interpretation Comments Total CK (test code = Total CK) 254 12-191 [facility] [id number] 18:06:00 Test Item Value Reference Range Interpretation Comments Glucose Lvl (test code = Glucose Lvl) 111 70-99 [facility] [id number] 18:06:00 Test Item Value Reference Range Interpretation Comments BUN (test code = BUN) 21 7-22 [facility] [id number] 18:06:00 Test Item Value Reference Range Interpretation Comments Creatinine Lvl (test code = Creatinine 0.98 0.50-1.40 Lvl) [facility] [id number] 18:06:00 Test Item Value Reference Range Interpretation Comments Sodium Lvl (test code = Sodium Lvl) 139 135-145 [facility] [id number] 18:06:00 Test Item Value Reference Range Interpretation Comments Potassium Lvl (test code = Potassium 4.4 3.5-5.1 Lvl) [facility] [id number] 18:06:00 Test Item Value Reference Range Interpretation Comments Chloride Lvl (test code = Chloride Lvl) 103 95-109 [facility] [id number] 18:06:00 Test Item Value Reference Range Interpretation Comments CO2 (test code = CO2) 28 24-32 [facility] Notes Date/Time Note Provider Source 2021-04-30 12:58:00-00:00 [facility] OB Postpart Progr Note REPORT#:[id number] REPORT STATUS: Signed DATE:04/30/21 TIME: 1258 PATIENT: ASHER MOELLER UNIT #: [id number] ROOM/BED: [address] : 96 AGE: 26 SEX: F ATTEND: Ignacio Mcgovern MD ADM AUTHOR: Kiko Mcgovern MD * ALL edits or amendments must be made on the ulike/computer document * Subjective Subjective Admission EGA: Weeks: 35 Days: 4 Status/day: post (day 1) Patient reports: Patient reports: Yes: normal lochia, pain management effective, tolerating po well, voiding well, voiding without pain, tolerating ambulatio n. No: complaints. Objective Nursing Documentation Review Nursing data: The data set between the solid lines has been im ported from nursing documentation. Any exceptions have been noted be low under Provider comments. Feeding preference: Post hemorrhage risk score: Low Risk for Hemorrhage Provider comments on imported nursing data: [] General VS: Vital Signs Date Temp Pulse Resp B/P B/P Mean Pulse Ox FiO2 04/29-04/30 36.7-36.9 51-58 18 109-128/- Last Documented: Result Date Time B/P 04/30 Temp 36.7 04/30 08 Pulse 58 04/30 08 Resp 18 04/30 08 B/P Mean 80.0 04/29 0329 Pulse Ox 97 04/27 0805 PATIENT WEIGHT: Weight (lb): Weight (oz): 5.18 Weight (kg): 70.000 Physical Exam Lungs: unlabored breathing Neuro: Exam: alert, oriented x3 Uterus: firm, non-tender Lacerations: Perineal laceration(s): 1st Degree w/vagina Lower extremities: Edema: trace Calf tenderness: negative Results Findings/data: Laboratory Tests: 04/30 0659 Hematology Hgb (10.1 - 13.8 g/dL) 11.4 Hct (32.5 - 41.8 %) 34.2 Diagnosis, Assessment Plan Diagnosis, Assessment Plan Assessment: nml progress, PIH: BPs no rmotensive Plan: routine care, discharge today ( if discharged) Electronically Signed by Kiko Mcgovern MD on 0 04/30/21 at 1259 RPT #:[id number] END OF REPORT 2021-04-29 12:43:00-00:00 [facility] ([facility]) OB Postpart Progr Note REPORT#:[id number] REPORT STATUS: Signed DATE:04/29/21 TIME: 1243 PATIENT: ASHER MOELLER UNIT #: [id number] ROOM/BED: [address] : 96 AGE: 26 SEX: F ATTEND: Ignacio Mcgovern MD ADM AUTHOR: Kiko Mcgovern MD * ALL edits or amendments must be made on the el [employer]/computer document * Subjective Subjective Admission EGA: Weeks: 35 Days: 4 Status/day: post (day 0) Patient reports: Patient reports: Yes: normal lochia, pain management effective, tolerating po well, voiding well, voiding without pain, tolerating ambulatio n. No: complaints. Objective Nursing Documentation Review Nursing data: The data set between the solid lines has been im ported from nursing documentation. Any exceptions have been noted be low under Provider comments. Feeding preference: Post hemorrhage risk score: Low Risk for Hemorrhage Provider comments on imported nursing data: [] General VS: Vital Signs Date Temp Pulse Resp B/P B/P Mean Pulse Ox FiO2 04/28-04/29 36.6-37.7 45-107 18 104-151/56-98 76 .0-117.0 Last Documented: Result Date Time B/P 115/75 04/29 824 Temp 36.9 04/29 824 Pulse 52 04/29 824 Resp 18 04/29 824 B/P Mean 80.0 04/29 0329 Pulse Ox 97 04/27 08 PATIENT WEIGHT: Weight (lb): Weight (oz): 5.18 Weight (kg): 70.000 Physical Exam Lungs: unlabored breathing Neuro: Exam: alert, oriented x3 Uterus: firm, non-tender Lacerations: Perineal laceration(s): 1st Degree w/vagina Lower extremities: Edema: trace Calf tenderness: negative Diagnosis, Assessment Plan Diagnosis, Assessment Plan Assessment: nml progress, PIH: BPs no rmotensive Plan: routine care, discharge tomorro w Electronically Signed by Kiko Mcgovern MD on 0 04/29/21 at 1244 RPT #:[id number] END OF REPORT 2021-04-29 01:21:00-00:00 [facility] ([facility]) OB Delivery Note REPORT#:[id number] REPORT STATUS: Signed DATE:04/29/21 TIME: 120 PATIENT: ASHER MOELLER UNIT #: [id number] ROOM/BED: [address] : 96 AGE: 26 SEX: F ATTEND: Ignacio Mcgovern MD ADM AUTHOR: Kimberley Brown MD * ALL edits or amendments must be made on the ulike/computer document * OB Delivery Pre-delivery GBS status: GBS status: positive Baby A Information Baby A information Delivery date: 04/29/21 Delivery time: 51 status: live born Wt of baby: not yet available Gender: female 1 minute: 8 5 minutes: 9 Presentation: vertex Vaginal Delivery Vaginal delivery: Labor: induced Medications/Devices used: oxytocin Vaginal delivery: spontaneous Amniotic fluid: clear Anesthesia type: epidural anesthesia Laceration repair: yes, 2-0 suture Placenta: spontaneous, expressed, intact Post delivery meds used: oxytocin Count: correct, vag exam neg for sponges Mother's condition: mother stable Infant's condition: infant stable in room Lacerations: Perineal laceration(s): 1st Degree w/vagina Blood Loss/Details Blood loss at delivery: <1K: no sx hypovol=no he m, 100 at 0123 RPT #:[id number] END OF REPORT 2021-04-28 15:33:00-00:00 [facility] ([facility]) OB Intrapart Prog Note REPORT#:[id number] REPORT STATUS: Signed DATE:04/28/21 TIME: 1533 PATIENT: ASHER MOELLER UNIT #: [id number] ROOM/BED: [address] : 96 AGE: 26 SEX: F ATTEND: Ignacio Mcgovern MD ADM AUTHOR: Kimberley Brown MD * ALL edits or amendments must be made on the ulike/computer document * Subjective Subjective Patient reports: Patient reports: Yes comfortable with epidural Comments: called by rn d/t period of repetitive late decel erations... since resolved Objective Nursing Documentation Review Nursing data: The data set between the solid lines has been im ported from nursing documentation. Any exceptions have been noted be low under Provider comments. __ ROM date: 04/28/21 ROM time: 1427 __ Provider comments on imported nursing data: [] General VS: Last Documented: Result Date Time B/P Mean 80.0 04/28 1459 B/P 111/59 04/28 1459 Pulse 56 04/28 1459 Temp 98.3 04/28 1438 Resp 16 04/28 0700 Pulse Ox 97 04/27 0805 Vital Signs Date Temp Pulse Resp B/P B/P Mean Pulse Ox FiO2 04/27-04/28 97.9-98.9 43-78 16-18 85-130/50-84 64.0-97.0 PATIENT WEIGHT: Weight (lb): Weight (oz): 5.18 Weight (kg): 70.000 Objective Cervical/ exam: Dilatation (cm): 4 Effacement (%): 80 station: - 3 presentation: cephalic Uterine activity: Monitor: toco Frequency (description): difficult to trace Procedures: artificial rupture memb, intrauterin e press cath, vaginal exam FHR Evaluation Baby A: Baby A baseline: 120 bpm Baby A variability: moderate 6-25 bpm Baby A accelerations: 15 X 15 Baby A decelerations: none Baby A FHR category: category 1 Result Findings/Data: Laboratory Tests: 04/28 0355 Hematology WBC (6.5 - 12.3 K/mm3) 15.0 H RBC (3.51 - 4.69 M/mm3) 4.38 Hgb (10.1 - 13.8 g/dL) 13.4 Hct (32.5 - 41.8 %) 39.3 MCV (84.6 - 96.6 fL) 89.7 MCH (27.3 - 33.9 pg) 30.6 MCHC (32.0 - 34.2 gm/dL) 34.1 RDW (12.2 - 16.3 %) 11.9 L Plt Count (134 - 363 K/mm3) 297 MPV (9.2 - 12.7 fL) 9.0 L Neut % (Auto) (57.9 - 77.3 %) 73.1 Lymph % (Auto) (14.5 - 29.7 %) 16.2 [place] % (Auto) (3.6 - 10.2 %) 7.9 Eos % (Auto) (0.0 - 3.0 %) 1.1 Baso % (Auto) (0.1 - 0.9 %) 0.6 Neut # (Auto) (K/mm3) 11.0 Lymph # (Auto) (K/mm3) 2.4 [place] # (Auto) (K/mm3) 1.2 Eos # (Auto) (K/mm3) 0.17 Baso # (Auto) (K/mm3) 0.1 Diagnosis, Assessment Plan Free Text A P: siup, ghtn, stalled dilation w/o easy monitroing of ctrx occ late decel- self resolving o/w reassuring clear fluid vtx not well applied... continue positioning at 1537 RPT #:[id number] END OF REPORT 2021-04-28 11:24:00-00:00 [facility] OB Intrapart Prog Note REPORT#:[id number] REPORT STATUS: Signed DATE:04/28/21 TIME: 1124 PATIENT: ASHER MOELLER UNIT #: [id number] ROOM/BED: [address] : 96 AGE: 26 SEX: F ATTEND: Ignacio Mcgovern MD ADM AUTHOR: Kimberley Brown MD * ALL edits or amendments must be made on the el ectronic/computer document * Subjective Subjective Patient reports: Patient reports: Yes comfortable with epidural Comments: plan of action discussed; pt resting Objective Nursing Documentation Review Nursing data: The data set between the solid lines has been im ported from nursing documentation. Any exceptions have been noted be low under Provider comments. __ ROM date: ROM time: __ Provider comments on imported nursing data: [] General VS: Last Documented: Result Date Time B/P Mean 75.0 04/28 1058 B/P 102/59 04/28 1058 Pulse 43 04/28 1058 Temp 98.0 04/28 0910 Resp 16 04/28 0700 Pulse Ox 97 04/27 0805 Vital Signs Date Temp Pulse Resp B/P B/P Mean Pulse Ox FiO2 04/27-04/28 97.9-98.9 43-97 16-18 99-139/56-88 75.0-100.0 PATIENT WEIGHT: Weight (lb): Weight (oz): 5.18 Weight (kg): 70.000 Objective Cervical/ exam: Dilatation (cm): 3 Effacement (%): 70 station: - 2 presentation: cephalic Uterine activity: Monitor: toco Frequency (description): regular Frequency (minutes): 3 Intensity: moderate Resting tone: relaxed Current oxytocin: Indication: induction Infusion rate: 8.00 FHR Evaluation Baby A: Baby A baseline: 135 bpm Baby A variability: moderate 6-25 bpm Baby A accelerations: 15 X 15 Baby A decelerations: none Baby A FHR category: category 1 Diagnosis, Assessment Plan Free Text A P: term siup s/p cervical ripening for HTN now on pit- comfortable w/epidural; reassuirng mat/ status arom soon for iupc and labor acceleration at 1126 RPT #:[id number] END OF REPORT 2021-04-28 06:47:00-00:00 [facility] ([facility]) OB Intrapart Prog Note REPORT#:[id number] REPORT STATUS: Signed DATE:04/28/21 TIME: 0647 PATIENT: ASHER MOELLER UNIT #: [id number] ROOM/BED: 028-A : 96 AGE: 26 SEX: F ATTEND: Ignacio Mcgovern MD ADM AUTHOR: Jessika Baker MD * ALL edits or amendments must be made on the el ectronic/computer document * Subjective Subjective Patient reports: Patient reports: Yes contractions, No vaginal bleeding, No leaki ng fluid, No headache Objective Nursing Documentation Review Nursing data: The data set between the solid lines has been im ported from nursing documentation. Any exceptions have been noted be low under Provider comments. __ ROM date: ROM time: __ Provider comments on imported nursing data: [] General VS: Last Documented: Result Date Time B/P Mean 80.0 04/28 0408 B/P 121/56 04/28 0408 Pulse 62 04/28 0408 Temp 98.9 04/28 0116 Resp 18 04/28 0116 Pulse Ox 97 04/27 0805 Vital Signs Date Temp Pulse Resp B/P B/P Mean Pulse Ox FiO2 04/27-04/28 98.2-98.9 58-97 18 111-139/56-88 80 .0-100.0 97 PATIENT WEIGHT: Weight (lb): Weight (oz): 5.18 Weight (kg): 70.000 Objective Cervical/ exam: Dilatation (cm): 2 Effacement (%): 60 station: - 3 presentation: cephalic Pelvis exam: Clinically adequate for this fetus: yes Uterine activity: Monitor: toco Frequency (description): regular Frequency (minutes): 3 Intensity: moderate FHR Evaluation Baby A: Baby A baseline: 130 bpm Baby A variability: moderate 6-25 bpm Baby A accelerations: 15 X 15 Baby A decelerations: none Baby A FHR category: category 1 Diagnosis, Assessment Plan Assessment: normal FHR genote rn, G1 at 37w1d with Mild preeclampsia with multiple off/on episodes of severe range BPs. Now in L D and moving to delivery. BPs normal at this time and repeat labs normal yeste rday. s/p cervical ripening with cytotec x 4. Now on pitocin started at 6 am . Plan: anticipate vag delivery, continue labor in duction (On pitocin) at 0649 RPT #:[id number] END OF REPORT 2021-04-27 14:01:00-00:00 [facility]) OB Intrapart Prog Note REPORT#:[id number] REPORT STATUS: Signed DATE:04/27/21 TIME: 1401 PATIENT: ASHER MOELLER UNIT #: [id number] ROOM/BED: [address] : 96 AGE: 26 SEX: F ATTEND: Ignacio Mcgovern MD ADM AUTHOR: Jessika Baker MD * ALL edits or amendments must be made on the el [employer]/computer document * Subjective Subjective Patient reports: Patient reports: Yes normal movement, No complaints, No ab dominal pain, No vaginal bleeding, No leaking fluid, No contractions, No headache, No scotomata Objective Nursing Documentation Review Nursing data: The data set between the solid lines has been im ported from nursing documentation. Any exceptions have been noted be low under Provider comments. __ ROM date: ROM time: __ Provider comments on imported nursing data: [] General VS: Last Documented: Result Date Time B/P Mean 98.0 04/27 1259 B/P 120/85 04/27 1259 Pulse 80 04/27 1259 Pulse Ox 97 04/27 0805 Temp 99.0 04/27 0601 Resp 18 04/27 0601 Vital Signs Date Temp Pulse Resp B/P B/P Mean Pulse Ox FiO2 04/26-04/27 98.0-99.0 52-87 18 108-125/56-85 78 .0-98.0 97-98 PATIENT WEIGHT: Weight (lb): Weight (oz): 5.18 Weight (kg): 70.000 Objective Cervical/ exam: Dilatation (cm): 0 - closed Effacement (%): 0 station: - 3 presentation: cephalic Uterine activity: Monitor: toco Frequency (description): irregular FHR Evaluation Baby A: Baby A baseline: 130 bpm Baby A variability: moderate 6-25 bpm Baby A accelerations: 15 X 15 Baby A decelerations: none Baby A FHR category: category 1 Result Findings/Data: Laboratory Tests: 04/27 1130 Chemistry BUN (7 - 18 mg/dL) 8 Creatinine (0.5 - 1.0 mg/dL) 0.6 Uric Acid (2.6 - 6.0 mg/dL) 4.7 Total Bilirubin (0.2 - 1.0 mg/dL) 0.6 Direct Bilirubin (<0.2 mg/dL) 0.2 AST (15 - 37 units/L) 19 ALT (12 - 78 units/L) 28 Total Alk Phosphatase (46 - 116 units/L) 315 H Total Protein (6.3 - 8.2 gm/dL) 6.1 L Albumin (3.4 - 4.8 gm/dL) 2.8 L Coagulation PT (10.1 - 12.3 secs) 11.1 PTT ([place]) (22 - 38 secs) 31.7 Fibrinogen (297 - 524 mg/dL) 703 H Hematology WBC (6.5 - 12.3 K/mm3) 13.2 H RBC (3.51 - 4.69 M/mm3) 4.35 Hgb (10.1 - 13.8 g/dL) 13.3 Hct (32.5 - 41.8 %) 38.9 MCV (84.6 - 96.6 fL) 89.4 MCH (27.3 - 33.9 pg) 30.6 MCHC (32.0 - 34.2 gm/dL) 34.2 RDW (12.2 - 16.3 %) 11.9 L Plt Count (134 - 363 K/mm3) 291 MPV (9.2 - 12.7 fL) 8.8 L Neut % (Auto) (57.9 - 77.3 %) 72.7 Lymph % (Auto) (14.5 - 29.7 %) 16.5 [place] % (Auto) (3.6 - 10.2 %) 7.9 Eos % (Auto) (0.0 - 3.0 %) 1.2 Baso % (Auto) (0.1 - 0.9 %) 0.6 Neut # (Auto) (K/mm3) 9.6 Lymph # (Auto) (K/mm3) 2.2 [place] # (Auto) (K/mm3) 1.0 Eos # (Auto) (K/mm3) 0.16 Baso # (Auto) (K/mm3) 0.1 Diagnosis, Assessment Plan Assessment: normal FHR pattern, G1 at 37 weeks w ith Mild preeclampsia with multiple off/on episodes of sever range BPs. Now in L D and moving to delivery. BPs normal at this time and repeat labs normal t his AM. Plan: anticipate vag deliver y, Cytotec cervical ripening and pitocin induction. at 1403 RPT #:[id number] END OF REPORT 2021-04-27 07:58:00-00:00 [facility] OB Antepartum Prog Note REPORT#:[id number] REPORT STATUS: Signed DATE:04/27/21 TIME: 0758 PATIENT: ASHER MOELLER UNIT #: [id number] ROOM/BED: 5046-A : 96 AGE: 26 SEX: F ATTEND: Ignacio Mcgovern MD ADM AUTHOR: Kiko Mcgovern MD * ALL edits or amendments must be made on the el [employer]/computer document * Subjective Subjective Admission EGA: Weeks: 35 Days: 4 Patient reports: Comments: No complaints. Denies PIH sx. +FM Objective Nursing Documentation Review Nursing data: The data set between the solid lines has been im ported from nursing documentation. Any exceptions have been noted be low under Provider comments. ROM date: ROM time: Labor onset date: Labor onset time: Provider comments on imported nursing data: [] VS: Last Documented: Result Date Time B/P Mean 79.0 04/27 600 Pulse Ox 97 04/27 600 B/P 111/56 04/27 600 Temp 37.2 04/27 600 Pulse 64 04/27 0601 Resp 18 04/27 600 Vital Signs Date Temp Pulse Resp B/P B/P Mean Pulse Ox FiO2 04/26-04/27 36.6-37.2 52-82 18 106-125/54-73 75 .0-92.0 95-98 PATIENT WEIGHT: Weight (lb): Weight (oz): 5.18 Weight (kg): 70.000 Membranes: Intact Cervical/ exam: Dilatation (cm): 0 - closed Effacement (%): 0 station: - 3 presentation: cephalic Uterine activity: Monitor: toco Frequency (description): irregular Lungs: unlabored breathing Neuro: Exam: alert, oriented x3 Abdomen: gravid, soft, no abnormal tenderness Uterus: soft, non-tender Lower extremities: Edema: trace Calf tenderness: negative Baby A: Baby A baseline: 130 bpm Baby A variability: moderate 6-25 bpm Baby A accelerations: 15 X 15 Baby A decelerations: none Baby A FHR category: category 1 Diagnosis, Assessment Plan Diagnosis, Assessment Plan Free Text A P: 26 yo G1 at 37w0d with failed outpatient managem ent of mild pre-eclampsia ( multiple episodes of severe range BPs at home and in office, 1 prior admission and 4-5 MAC evaluations). BPs have significantly improved with bedrest. - Monitor BPs. S/p BMS x2 (03/30/21), NST BID. PIH labs normal - Delivery planning: schedul ed IOL list (starting 04/26 PM). Transfer to L D when RN/bed available Plan cytote c to pitocin staged induction. Pelvis adequate, EFW 7 lb - Plan admission until delivery due to failed ou tpatient management - Continue home meds (fluoxetine, diclegis) Electronically Signed by Kiko Mcgovern MD on 0 04/27/21 at 0759 RPT #:[id number] END OF REPORT 2021-04-26 12:51:00-00:00 [facility] ([facility]) OB Antepartum Prog Note REPORT#:[id number] REPORT STATUS: Signed DATE:04/26/21 TIME: 1251 PATIENT: ASHER MOELLER UNIT #: [id number] ROOM/BED: [facility]6-A : 96 AGE: 26 SEX: F ATTEND: Ignacio Mcgovern MD ADM AUTHOR: Kiko Mcgovern MD * ALL edits or amendments must be made on the el ect[employer]/computer document * Subjective Subjective Admission EGA: Weeks: 35 Days: 4 Patient reports: Comments: No complaints. Denies PIKai sx. + Objective Nursing Documentation Review Nursing data: The data set between the solid lines has been im ported from nursing documentation. Any exceptions have been noted be low under Provider comments. ROM date: ROM time: Labor onset date: Labor onset time: Provider comments on imported nursing data: [] VS: Last Documented: Result Date Time B/P Mean 75.0 04/26 0853 Pulse Ox 97 04/26 0853 B/P 106/54 04/26 0853 Temp 36.8 04/26 0853 Pulse 57 04/26 0853 Resp 18 04/26 0853 Vital Signs Date Temp Pulse Resp B/P B/P Mean Pulse Ox FiO2 04/25-04/26 36.7-37.1 56-66 17-18 89-123/50-72 65.0-91.0 97-98 PATIENT WEIGHT: Weight (lb): Weight (oz): 5.18 Weight (kg): 70.000 Membranes: Intact Cervical/ exam: Dilatation (cm): 0 - closed Effacement (%): 0 station: - 3 presentation: cephalic Uterine activity: Monitor: toco Frequency (description): irregular Lungs: unlabored breathing Neuro: Exam: alert, oriented x3 Abdomen: gravid, soft, no abnormal tenderness Uterus: soft, non-tender Lower extremities: Edema: trace Calf tenderness: negative Baby A: Baby A baseline: 130 bpm Baby A variability: moderate 6-25 bpm Baby A accelerations: 15 X 15 Baby A decelerations: none Baby A FHR category: category 1 Diagnosis, Assessment Plan Diagnosis, Assessment Plan Free Text A P: 26 yo G1 at 36w6d with failed outpatient managem ent of mild pre-eclampsia ( multiple episodes of severe range BPs at home and in office, 1 prior admission and 4-5 MAC evaluations). BPs have significantly improved with bedrest. - Monitor BPs. S/p BMS x2 (03/30/21), NST BID. PIH labs normal - Delivery planning: scheduled IOL on 04/26/21 PM (37 weeks, tonight). Plan cytotec to pitocin staged induction. Pelvis adeq uate, EFW 7 lb - Plan admission until delivery due to failed ou tpatient management - Continue home meds (fluoxetine, diclegis) Electronically Signed by Kiko Mcgovern MD on 0 04/26/21 at 1253 RPT #:[id number] END OF REPORT 2021-04-25 13:14:00-00:00 [facility] ([facility]) OB Antepartum Prog Note REPORT#:[id number] REPORT STATUS: Signed DATE:04/25/21 TIME: 1314 PATIENT: ASHER MOELLER UNIT #: [id number] ROOM/BED: 5046-A : 96 AGE: 26 SEX: F ATTEND: Ignacio Mcgovern MD ADM AUTHOR: Kiko Mcgovern MD * ALL edits or amendments must be made on the el [employer]/computer document * Subjective Subjective Admission EGA: Weeks: 35 Days: 4 Patient reports: Comments: No complaints. Denies PIH sx. +FM Objective Nursing Documentation Review Nursing data: The data set between the solid lines has been im ported from nursing documentation. Any exceptions have been noted be low under Provider comments. ROM date: ROM time: Labor onset date: Labor onset time: Provider comments on imported nursing data: [] VS: Last Documented: Result Date Time B/P Mean 71.0 04/25 0839 B/P 95/55 04/25 0839 Pulse 58 04/25 0839 Pulse Ox 95 04/25 0838 Resp 16 04/25 0607 Temp 36.9 04/25 0005 Vital Signs Date Temp Pulse Resp B/P B/P Mean Pulse Ox FiO2 /-04/25 36.9 58-73 16-17 95-111/52-57 71.0- 77.0 95-98 PATIENT WEIGHT: Weight (lb): Weight (oz): 5.18 Weight (kg): 70.000 Membranes: Intact Cervical/ exam: Dilatation (cm): 0 - closed Effacement (%): 0 station: - 3 presentation: cephalic Uterine activity: Monitor: toco Frequency (description): irregular Lungs: unlabored breathing Neuro: Exam: alert, oriented x3 Abdomen: gravid, soft, no abnormal tenderness Uterus: soft, non-tender Lower extremities: Edema: trace Calf tenderness: negative Baby A: Baby A baseline: 130 bpm Baby A variability: moderate 6-25 bpm Baby A accelerations: 15 X 15 Baby A decelerations: none Baby A FHR category: category 1 Diagnosis, Assessment Plan Diagnosis, Assessment Plan Free Text A P: 26 yo G1 at 36w5d with failed outpatient managem ent of mild pre-eclampsia ( multiple episodes of severe range BPs at home and in office, 1 prior admission and 4-5 MAC evaluations). BPs have significantly improved with bedrest. - Monitor BPs. S/p BMS x2 (03/30/21), NST BID. PIH labs normal - Delivery planning: scheduled IOL on PM (37 weeks), deliver sooner if evidence of severe pre-eclampsia - Plan admission until delivery due to failed ou tpatient management - Continue home meds (fluoxetine, diclegis) Electronically Signed by Kiko Mcgovern MD on 0 04/25/21 at 1315 RPT #:[id number] END OF REPORT 2021-04-24 09:26:00-00:00 [facility] ([facility]) OB Antepartum Prog Note REPORT#:[id number] REPORT STATUS: Signed DATE:04/24/21 TIME: 925 PATIENT: ASHER MOELLER UNIT #: [id number] ROOM/BED: [address] : 96 AGE: 26 SEX: F ATTEND: Ignacio Mcgovern MD ADM AUTHOR: Kiko Mcgovern MD * ALL edits or amendments must be made on the ulike/computer document * Subjective Subjective Admission EGA: Weeks: 35 Days: 4 Patient reports: Patient reports: Yes no complaints, Yes normal movement, N o abdominal pain, No vaginal bleeding, No leaking fluid, No contractions, No headache, No blurred vision Objective Nursing Documentation Review Nursing data: The data set between the solid lines has been im ported from nursing documentation. Any exceptions have been noted be low under Provider comments. ROM date: ROM time: Labor onset date: Labor onset time: Provider comments on imported nursing data: [] VS: Last Documented: Result Date Time B/P Mean 71.0 04/24 0606 B/P 105/49 04/24 0606 Pulse 61 04/24 0606 Resp 16 04/24 0606 Pulse Ox 99 04/24 0007 Temp 36.9 04/24 0007 Vital Signs Date Temp Pulse Resp B/P B/P Mean Pulse Ox FiO2 04/23-04/24 36.9-37.3 51-64 15-18 101-124/49-67 71.0-85.0 87-99 PATIENT WEIGHT: Weight (lb): Weight (oz): 5.18 Weight (kg): 70.000 Membranes: Intact Cervical/ exam: Dilatation (cm): 0 - closed Effacement (%): 0 station: - 3 presentation: cephalic Uterine activity: Monitor: toco Frequency (description): irregular Lungs: unlabored breathing Neuro: Exam: alert, oriented x3 Abdomen: gravid, soft, no abnormal tenderness Uterus: soft, non-tender Lower extremities: Edema: trace Baby A: Baby A baseline: 130 bpm Baby A variability: moderate 6-25 bpm Baby A accelerations: 15 X 15 Baby A decelerations: none Baby A FHR category: category 1 Findings/data: Laboratory Tests: 04/22 04/22 0500 0430 Chemistry Creatinine (0.5 - 1.0 mg/dL) 0.7 Uric Acid (2.6 - 6.0 mg/dL) 3.7 AST (15 - 37 units/L) 17 ALT (12 - 78 units/L) 21 Lactate Dehydrogenase (81 - 234 units/L) 131 Hematology WBC (6.5 - 12.3 K/mm3) 11.8 RBC (3.51 - 4.69 M/mm3) 3.88 Hgb (10.1 - 13.8 g/dL) 12.1 Hct (32.5 - 41.8 %) 35.2 MCV (84.6 - 96.6 fL) 90.7 MCH (27.3 - 33.9 pg) 31.2 MCHC (32.0 - 34.2 gm/dL) 34.4 H RDW (12.2 - 16.3 %) 12.0 L Plt Count (134 - 363 K/mm3) 244 MPV (9.2 - 12.7 fL) 8.7 L Neut % (Auto) (57.9 - 77.3 %) 71.4 Lymph % (Auto) (14.5 - 29.7 %) 19.5 [place] % (Auto) (3.6 - 10.2 %) 6.5 Eos % (Auto) (0.0 - 3.0 %) 1.2 Baso % (Auto) (0.1 - 0.9 %) 0.6 Neut # (Auto) (K/mm3) 8.4 Lymph # (Auto) (K/mm3) 2.3 [place] # (Auto) (K/mm3) 0.8 Eos # (Auto) (K/mm3) 0.14 Baso # (Auto) (K/mm3) 0.1 Urines U Random Total Protein (mg/dL) 19.9 Urine Total Volume (ML) 1400 Ur Total Protein 24 Hr (20 - 150 mg/24HR) 279 *H Diagnosis, Assessment Plan Diagnosis, Assessment Plan Free Text A P: 26 yo G1 at 36w4d with failed outpatient managem ent of mild pre-eclampsia ( multiple episodes of severe range BPs at home and in office, 1 prior admission and 4-5 MAC evaluations). BPs have significantly improved with bedrest. - Monitor BPs. S/p BMS x2 (03/30/21), NST BID. PIH labs normal - Delivery planning: scheduled IOL on PM (37 weeks), deliver sooner if evidence of severe pre-eclampsia - Plan admission until delivery due to failed ou tpatient management - Continue home meds (fluoxetine, diclegis) Electronically Signed by Kiko Mcgovern MD on 0 04/24/21 at 4169 RPT #:[id number] END OF REPORT 2021-04-23 11:31:00-00:[address] [facility] ([facility]) OB Antepartum Prog Note REPORT#:[id number] REPORT STATUS: Signed DATE:04/23/21 TIME: 1131 PATIENT: ASHER MOELLER UNIT #: [id number] ROOM/BED: [address] : 96 AGE: 26 SEX: F ATTEND: Ignacio Mcgovern MD ADM AUTHOR: Kiko Mcgovern MD * ALL edits or amendments must be made on the ulike/computer document * Subjective Subjective Admission EGA: Weeks: 35 Days: 4 Patient reports: Comments: No complaints currently. Had ctx last ni ght- cervix closed. Denies PIH sx. +FM Objective Nursing Documentation Review Nursing data: The data set between the solid lines has been im ported from nursing documentation. Any exceptions have been noted be low under Provider comments. ROM date: ROM time: Labor onset date: Labor onset time: Provider comments on imported nursing data: [] VS: Last Documented: Result Date Time B/P Mean 72.0 04/23 836 Pulse Ox 97 01/25 0837 B/P 100/59 04/23 0837 Pulse 54 04/23 0837 Temp 37.1 04/22 1612 Resp 20 04/22 1612 Vital Signs Date Temp Pulse Resp B/P B/P Mean Pulse Ox FiO2 04/22-04/23 37.1 54-75 20 98-120/52-79 71.0-95. 0 92-97 PATIENT WEIGHT: Weight (lb): Weight (oz): 5.18 Weight (kg): 70.000 Membranes: Intact Cervical/ exam: Dilatation (cm): 0 - closed Effacement (%): 0 station: - 3 presentation: cephalic Uterine activity: Monitor: toco Frequency (description): irregular Lungs: unlabored breathing Neuro: Exam: alert, oriented x3 Abdomen: gravid, soft, no abnormal tenderness Uterus: soft, non-tender Lower extremities: Edema: trace Calf tenderness: negative Baby A: Baby A baseline: 130 bpm Baby A variability: moderate 6-25 bpm Baby A accelerations: 15 X 15 Baby A decelerations: none Baby A FHR category: category 1 Diagnosis, Assessment Plan Diagnosis, Assessment Plan Free Text A P: 26 yo G1 at 36w3d with failed outpatient managem ent of mild pre-eclampsia ( multiple episodes of severe range BPs at home and in office, 1 prior admission and 4-5 MAC evaluations). BPs have significantly improved with bedrest. - Monitor BPs. S/p BMS x2 (03/30/21), NST BID. PIH labs normal - Delivery planning: scheduled IOL on PM (37 weeks), deliver sooner if evidence of severe pre-eclampsia - Plan admission until delivery due to failed ou tpatient management - Continue home meds (fluoxetine, diclegis) Electronically Signed by Kiko Mcgovern MD on 0 04/23/21 at 1134 RPT #:[id number] END OF REPORT 2021-04-22 19:27:00-00:00 [facility] ([facility]) Clinical Note REPORT#:[id number] REPORT STATUS: Signed DATE:04/22/21 TIME: 1926 PATIENT: ASHER MOELLER UNIT #: [id number] ROOM/BED: [address] : 96 AGE: 26 SEX: F ATTEND: Natalie Mcgovern MD ADM AUTHOR: Britt Adam MD * ALL edits or amendments must be made on the [employer] document * Clinical Note Note: Brief interval note: Received call from RN lavern soliz was having ctx q3-5 min. She rated them 6/10 now 4 /10 after urinating, hydration, tylenol. NST cat egory 1, ctx q3min. Went to assess- patient reports ctx are somewhat painful. She appears AAOx3/NAD. SVE- cl /th/high. gave ob precautions. GBS pending. Most likely BH ctx Electronically Signed by Britt Adam MD on 04/22 at 1928 RPT #:[id number] END OF REPORT 2021-04-22 17:18:00-00:00 [facility] ([facility]) Clinical Note REPORT#:[id number] REPORT STATUS: Signed DATE:04/22/21 TIME: 1718 PATIENT: ASHER MOELLER UNIT #: [id number] ROOM/BED: 5046-A : 96 AGE: 26 SEX: F ATTEND: Ignacio Mcgovern MD ADM AUTHOR: Kiko Mcgovern MD * ALL edits or amendments must be made on the [employer] document * Clinical Note Note: Brief Note Spoke with patient via phone this afternoon. Pt feeling very anxious about course of events last night. Had contrac tions- received terb x1 with improvement. Pt did not like side effects of ter butaline. Discussed reasoning for injection. Pt worried ab out if this would happen again. Recommend hydration and to monitor for symptoms. Disc goal to induce at 37 weeks. Electronically Signed by Kiko Mcgovern MD on 0 04/22/21 at 1720 RPT #:[id number] END OF REPORT 2021-04-22 12:52:00-00:00 [facility] ([facility]) OB Antepartum Prog Note REPORT#:[id number] REPORT STATUS: Signed DATE:04/22/21 TIME: 1252 PATIENT: ASHER MOELLER UNIT #: [id number] ROOM/BED: [address] : 96 AGE: 26 SEX: F ATTEND: Ignacio Mcgovern MD ADM AUTHOR: Kiko Mcgovern MD * ALL edits or amendments must be made on the [employer]/computer document * See Addendum Subjective Subjective Admission EGA: Weeks: 35 Days: 4 Patient reports: Patient reports: Yes normal movement Comments: No complaints currently. Had back pain/ctx last night- resolved with terbutaline Objective Nursing Documentation Review Nursing data: The data set between the solid lines has been im ported from nursing documentation. Any exceptions have been noted be low under Provider comments. ROM date: ROM time: Labor onset date: Labor onset time: Provider comments on imported nursing data: [] VS: Last Documented: Result Date Time B/P Mean 90.0 04/22 0919 B/P 120/73 04/22 09 Pulse 57 04/22 09 Pulse Ox 97 04/22 0342 Temp 37.0 04/21 1556 Resp 18 04/21 1556 Vital Signs Date Temp Pulse Resp B/P B/P Mean Pulse Ox FiO2 04/21-04/22 37.0 54-133 18 108-123/58-78 77.0-9 6.0 92-98 PATIENT WEIGHT: Weight (lb): Weight (oz): 5.18 Weight (kg): 70.000 Membranes: Intact Cervical/ exam: Dilatation (cm): 0 - closed Effacement (%): 0 station: - 3 presentation: cephalic Uterine activity: Monitor: toco Frequency (description): irregular Lungs: unlabored breathing Neuro: Exam: alert, oriented x3 Abdomen: gravid, soft, no abnormal tenderness Uterus: soft, non-tender Lower extremities: Edema: trace Calf tenderness: negative Baby A: Baby A baseline: 130 bpm Baby A variability: moderate 6-25 bpm Baby A accelerations: 15 X 15 Baby A decelerations: none Baby A FHR category: category 1 Findings/data: Laboratory Tests: 04/22 0430 Chemistry Creatinine (0.5 - 1.0 mg/dL) 0.7 Uric Acid (2.6 - 6.0 mg/dL) 3.7 AST (15 - 37 units/L) 17 ALT (12 - 78 units/L) 21 Lactate Dehydrogenase (81 - 234 units/L) 131 Hematology WBC (6.5 - 12.3 K/mm3) 11.8 RBC (3.51 - 4.69 M/mm3) 3.88 Hgb (10.1 - 13.8 g/dL) 12.1 Hct (32.5 - 41.8 %) 35.2 MCV (84.6 - 96.6 fL) 90.7 MCH (27.3 - 33.9 pg) 31.2 MCHC (32.0 - 34.2 gm/dL) 34.4 H RDW (12.2 - 16.3 %) 12.0 L Plt Count (134 - 363 K/mm3) 244 MPV (9.2 - 12.7 fL) 8.7 L Neut % (Auto) (57.9 - 77.3 %) 71.4 Lymph % (Auto) (14.5 - 29.7 %) 19.5 [place] % (Auto) (3.6 - 10.2 %) 6.5 Eos % (Auto) (0.0 - 3.0 %) 1.2 Baso % (Auto) (0.1 - 0.9 %) 0.6 Neut # (Auto) (K/mm3) 8.4 Lymph # (Auto) (K/mm3) 2.3 [place] # (Auto) (K/mm3) 0.8 Eos # (Auto) (K/mm3) 0.14 Baso # (Auto) (K/mm3) 0.1 Diagnosis, Assessment Plan Diagnosis, Assessment Plan Free Text A P: 26 yo G1 at 36w1d with failed outpatient management of mild pre-eclampsia. BPs non severe. - Monitor BPs. S/p BMS x2 (03/30/21), NST BID. Rep eat PIH labs today normal, repeat 24 hr TP - Delivery planning: scheduled IOL on PM (37 weeks), deliver sooner if evidence of severe pre-eclampsia - Plan admission until delivery due to failed ou tpatient management - Continue home meds (fluoxetine, diclegis) Electronically Signed by Kiko Mcgovern MD on 0 04/22/21 at 1254 Addendum 1: 04/22/21 1724 by Kiok Mcgovern MD Correction 36w2d today Electronically Signed by Kiko Mcgovern MD on 0 04/22/21 at 1724 RPT #:[id number] END OF REPORT 2021-04-22 04:04:00-00:00 [facility] ([facility]) Clinical Note REPORT#:[id number] REPORT STATUS: Signed DATE:04/22/21 TIME: 0404 PATIENT: ASHER MOELLER UNIT #: [id number] ROOM/BED: [address] : 96 AGE: 26 SEX: F ATTEND: Ignacio Mcgovern MD ADM AUTHOR: Cristina Forrest MD * ALL edits or amendments must be made on the el [employer]/computer document * Clinical Note Note: Called to bedside to evaluate back pain and pelv ic pressure. SVE c/t/h. Cat I tracing; no contractons on toco. Dr. Mcgovern not ified. at 0405 RPT #:[id number] END OF REPORT 2021-04-21 08:45:00-00:00 [facility] ([facility]) OB Antepartum Prog Note REPORT#:[id number] REPORT STATUS: Signed DATE:04/21/21 TIME: 0845 PATIENT: ASHER MOELLER UNIT #: [id number] ROOM/BED: [address] : 96 AGE: 26 SEX: F ATTEND: Ignacio Mcgovern MD ADM AUTHOR: Yolie Jensen MD * ALL edits or amendments must be made on the [employer] document * Subjective Subjective Admission EGA: Weeks: 35 Days: 4 Patient reports: Patient reports: Yes normal movement, No no complaints, No abdominal pain, No vaginal bleeding, No leaking fluid, No contractions, No headache, No blurred vision Comments: LEPE improved with Fioricet. Nausea/GERD improved with pepcid. Objective VS: Last Documented: Result Date Time B/P Mean 73.0 04/21 0803 Pulse Ox 97 04/21 0803 B/P 99/51 04/21 0803 Temp 98.3 04/21 0803 Pulse 59 04/21 0803 Resp 20 04/21 0803 Vital Signs Date Temp Pulse Resp B/P B/P Mean Pulse Ox FiO2 04/20-04/21 98.0-98.3 59-96 17-20 97-141/49-83 70.0-106.0 97-98 PATIENT WEIGHT: Weight (lb): Weight (oz): 5.18 Weight (kg): 70.000 Membranes: Intact Cervical/ exam: Dilatation (cm): 0 - closed Effacement (%): 0 station: - 3 presentation: cephalic Uterine activity: Monitor: toco Frequency (description): irregular Lungs: unlabored breathing Neuro: Exam: alert, oriented x3 Abdomen: gravid, soft, no abnormal tenderness Uterus: soft, non-tender Lower extremities: Edema: trace Calf tenderness: negative Baby A: Baby A baseline: 130 bpm Baby A variability: moderate 6-25 bpm Baby A accelerations: 15 X 15 Baby A decelerations: none Baby A FHR category: category 1 Results: labs reviewed, vital signs stable Diagnosis, Assessment Plan Diagnosis, Assessment Plan Free Text A P: 26 yo G1 at 36w1d with failed outpatient management of mild pre-eclampsia. BPs non severe. - PIH labs wnl, monitor BPs. S/p BMS x2 (03/30/21), NST BID. Plan repeat 24 hr TP and PIH labs tomorrow - ordered. - Delivery planning: scheduled IOL on PM (37 weeks), deliver sooner if evidence of severe pre-eclampsia - Plan admission until delivery due to failed ou tpatient management - Continue home meds (fluoxetine, diclegis) Plan discussed with: patient, spouse/partner Electronically Signed by Yolie Jensen MD on 0 04/21/21 at 1118 RPT #:[id number] END OF REPORT 2021-04-20 11:27:00-00:00 [facility] ([facility]) OB Antepartum Prog Note REPORT#:[id number] REPORT STATUS: Signed DATE:04/20/21 TIME: 112 PATIENT: ASHER MOELLER UNIT #: [id number] ROOM/BED: [address] : 96 AGE: 26 SEX: F ATTEND: Ignacio Mcgovern MD ADM AUTHOR: Gilles Acharya MD * ALL edits or amendments must be made on the [employer]ike/computer document * Subjective Subjective Admission EGA: Weeks: 35 Days: 4 Patient reports: Comments: Reports intermittent LEPE for 3 weeks. States headache is associated with nausea. Also reports persistent nausea. Unsure if she lepe s GERD. Denies vision changes/RUQ pain. No obstetrical complaints. Objective VS: Last Documented: Result Date Time B/P Mean 79.0 04/20 0811 Pulse Ox 97 04/20 0811 B/P 109/62 04/20 0811 Temp 98.1 04/20 0811 Pulse 59 04/20 0811 Resp 16 04/20 0406 Vital Signs Date Temp Pulse Resp B/P B/P Mean Pulse Ox FiO2 04/19-04/20 98.1-98.6 56-69 16-18 95-112/50-66 68.0-82.0 95-99 PATIENT WEIGHT: Weight (lb): Weight (oz): 5.18 Weight (kg): 70.000 Membranes: Intact Cervical/ exam: Dilatation (cm): 0 - closed Effacement (%): 0 station: - 3 presentation: cephalic Uterine activity: Monitor: toco Frequency (description): irregular Lungs: unlabored breathing Neuro: Exam: alert, oriented x3 Abdomen: gravid, soft, no abnormal tenderness Lower extremities: Edema: trace Baby A: Baby A baseline: 130 bpm Baby A variability: moderate 6-25 bpm Baby A accelerations: 15 X 15 Baby A decelerations: none Baby A FHR category: category 1 Diagnosis, Assessment Plan Diagnosis, Assessment Plan Free Text A P: 26 yo G1 at 36w0d with failed outpatient management of mild pre-eclampsia. BPs non severe. - PIH labs wnl, monitor BPs. S/p BMS x2 (03/30/21), NST BID. Plan repeat 24 hr TP on 04/22 (Thursday, 1 week from last). Repeat PIH l abs on Thursday. - Delivery planning: scheduled IOL on PM (37 weeks), deliver sooner if evidence of severe pre-eclampsia - Plan admission until delivery due to failed ou tpatient management - Continue home meds (fluoxetine, diclegis) -Currently having intermittent headache/nausea, fioricet and pepcid added Dispo: Monitor headaches, BP stable. at 1159 RPT #:[id number] END OF REPORT 2021-04-19 10:53:00-00:00 [facility] ([facility]) OB Antepartum Prog Note REPORT#:[id number] REPORT STATUS: Signed DATE:04/19/21 TIME: 1053 PATIENT: ASHER MOELLER UNIT #: [id number] ROOM/BED: 5046-A : 96 AGE: 26 SEX: F ATTEND: Ignacio Mcgovern MD ADM AUTHOR: Kiko Mcgovern MD * ALL edits or amendments must be made on the el [employer]/computer document * Subjective Subjective Admission EGA: Weeks: 35 Days: 4 Patient reports: Patient reports: Yes normal movement, No abdominal pain, No vaginal bleeding, No leaking fluid, No contractions, No headache, No blurred vision, No scotomata Comments: Had emesis last night. Resolved. Objective Nursing Documentation Review Nursing data: The data set between the solid lines has been im ported from nursing documentation. Any exceptions have been noted be low under Provider comments. ROM date: ROM time: Labor onset date: Labor onset time: Provider comments on imported nursing data: [] VS: Last Documented: Result Date Time B/P Mean 77.0 04/19 822 B/P 103/62 04/19 822 Temp 36.8 04/19 822 Pulse 56 04/19 822 Resp 18 04/19 822 Pulse Ox 98 04/19 820 Vital Signs Date Temp Pulse Resp B/P B/P Mean Pulse Ox FiO2 04/18-04/19 36.7-36.8 55-95 17-18 103-151/52-82 70.0-107.0 97-100 PATIENT WEIGHT: Weight (lb): Weight (oz): 5.18 Weight (kg): 70.000 Membranes: Intact Cervical/ exam: Dilatation (cm): 0 - closed Effacement (%): 0 station: - 3 presentation: cephalic Neuro: Exam: alert, oriented x3 Abdomen: gravid, soft, no abnormal tenderness Lower extremities: Edema: trace Baby A: Baby A baseline: 120 bpm Baby A variability: moderate 6-25 bpm Baby A accelerations: 15 X 15 Baby A decelerations: none Baby A FHR category: category 1 Diagnosis, Assessment Plan Diagnosis, Assessment Plan Free Text A P: 26 yo G1 at 35w6d with failed outpatient management of mild pre-eclampsia. BPs non severe. - PIH labs wnl, monitor BPs. S/p BMS x2 (03/30/21), NST BID. Plan repeat 24 hr TP on 04/22 (Thursday, 1 week from last). Repeat PIH l abs on Thursday. - Delivery planning: scheduled IOL on PM (37 weeks), deliver sooner if evidence of severe pre-eclampsia - Plan admission until delivery due to failed ou tpatient management - Continue home meds (fluoxetine, diclegis) Electronically Signed by Kiko Mcgovern MD on 0 04/19/21 at 1054 RPT #:[id number] END OF REPORT 2021-04-18 13:49:00-00:00 [facility] ([facility]) OB Antepartum Prog Note REPORT#:[id number] REPORT STATUS: Signed DATE:04/18/21 TIME: 1349 PATIENT: ASHER MOELLER UNIT #: [id number] ROOM/BED: [address] : 96 AGE: 26 SEX: F ATTEND: Ignacio Mcgovern MD ADM AUTHOR: Kiko Mcgovern MD * ALL edits or amendments must be made on the el [employer]/computer document * Subjective Subjective Admission EGA: Weeks: 35 Days: 4 Patient reports: Patient reports: Yes normal movement, No no compla ints, No contractions, No headache, No blurred vision Comments: Intermittent LEPE, denies currently Objective Nursing Documentation Review Nursing data: The data set between the solid lines has been im ported from nursing documentation. Any exceptions have been noted be low under Provider comments. ROM date: ROM time: Labor onset date: Labor onset time: Provider comments on imported nursing data: [] VS: Last Documented: Result Date Time B/P Mean 80.0 04/18 1220 Pulse Ox 97 04/18 1220 B/P 108/57 04/18 1220 Temp 36.7 04/18 1220 Pulse 83 04/18 1220 Resp 17 04/18 1220 Vital Signs Date Temp Pulse Resp B/P B/P Mean Pulse Ox FiO2 04/17-04/18 36.7-36.8 52-102 16-17 101-141/57-81 77.0-106.0 97-99 PATIENT WEIGHT: Weight (lb): Weight (oz): 5.18 Weight (kg): 70.000 Membranes: Intact Cervical/ exam: Dilatation (cm): 0 - closed Effacement (%): 0 station: - 3 presentation: cephalic Neuro: Exam: alert, oriented x3 Abdomen: gravid, soft, no abnormal tenderness Lower extremities: Edema: trace Baby A: Baby A baseline: 130 bpm Baby A variability: moderate 6-25 bpm Baby A accelerations: 15 X 15 Baby A decelerations: none Baby A FHR category: category 1 Findings/data: Laboratory Tests: 04/17 04/17 04/17 1946 1510 1510 Chemistry Creatinine (0.5 - 1.0 mg/dL) 0.6 Uric Acid (2.6 - 6.0 mg/dL) 4.0 AST (15 - 37 units/L) 18 ALT (12 - 78 units/L) 23 Hematology WBC (6.5 - 12.3 K/mm3) 11.0 RBC (3.51 - 4.69 M/mm3) 4.27 Hgb (10.1 - 13.8 g/dL) 13.2 Hct (32.5 - 41.8 %) 38.4 MCV (84.6 - 96.6 fL) 89.9 MCH (27.3 - 33.9 pg) 30.9 MCHC (32.0 - 34.2 gm/dL) 34.4 H RDW (12.2 - 16.3 %) 12.0 L Plt Count (134 - 363 K/mm3) 263 MPV (9.2 - 12.7 fL) 8.5 L Neut % (Auto) (57.9 - 77.3 %) 73.3 Lymph % (Auto) (14.5 - 29.7 %) 17.0 [place] % (Auto) (3.6 - 10.2 %) 7.3 Eos % (Auto) (0.0 - 3.0 %) 1.2 Baso % (Auto) (0.1 - 0.9 %) 0.5 Neut # (Auto) (K/mm3) 8.1 Lymph # (Auto) (K/mm3) 1.9 [place] # (Auto) (K/mm3) 0.8 Eos # (Auto) (K/mm3) 0.13 Baso # (Auto) (K/mm3) 0.1 Serology Treponema pallidum Ab (NONREACTIVE) NONREACTIVE Hep Bs Antigen (NONREACTIVE) NONREACTIVE Hepatitis C Antibody (NONREACTIVE) NONREACTIVE Hep C Ab Signal/Cutoff (<0.80) <0.02 HIV 1 2 Antibody (NONREACTIVE) NONREACTIVE SARS-CoV-2 Ag (Rapid) (NEGATIVE) NEGATIVE Urines Ur Random Creatinine (mg/dL) 203.5 U Random Total Protein (mg/dL) 42.0 Protein/Creatinin Ratio (<200 mg/gcrea) 206.3 H Diagnosis, Assessment Plan Diagnosis, Assessment Plan Free Text A P: 26 yo G1 at 35w5d with failed outpatient management of mild pre-eclampsia. BPs non severe. - PIH labs wnl, monitor BPs. S/p BMS x2 (03/30/21) , NST BID - Delivery planning: scheduled IOL on PM (37 weeks), deliver sooner if evidence of severe pre-eclampsia - Plan admission until delivery due to failed ou tpatient management - Continue home meds (fluoxetine) Electronically Signed by Kiko Mcgovern MD on 0 04/18/21 at 1352 RPT #:[id number] END OF REPORT 2021-04-17 16:49:00-00:00 [facility] ([facility]) OB Admission / H P REPORT#:[id number] REPORT STATUS: Signed DATE:04/17/21 TIME: 1649 PATIENT: ASHER MOELLER UNIT #: [id number] ROOM/BED: [facility]6-A : 96 AGE: 26 SEX: F ATTEND: Ignacio Mcgovern MD ADM AUTHOR: Kiko Mcgovern MD * ALL edits or amendments must be made on the el [employer]/computer document * OB History Chief complaint: elevated blood pressure HPI: 26 yo G1 at 35w4d who presents from [facility] for admission due to elevated blood pressures. BP in office 158/100. Pt has dx of pr e-eclampsia without severe features. Pt reports feeling intermitten t LEPE. Denies vision changes, RUQ pain. Having intermittent episodes of emesis. No labor complaints. Good FM. She was initially dx with PI 03/25/21 at 32 we eks. She has been admitted to [facility]U 03/28/21. Has been seen in MAC x5 times for elevated BPs at home. Pt reports BPs are labile, no severe ra nge in past 1-2 days, but did come into make on 04/12 for 170/90s BPs. Pt was discharged home and repe ated a 24 hr TP. 24 hr TP 297 (04/29/20) - 264 (04/05/21) - 201 (03/30 09/18) history: : 1 Current : Admission EGA (weeks) 35 Admission EGA (days) 4 Conditions of : HTN-gestational Labs: Blood type: A Rh: negative Rubella: immune Hepatitis B: negative HIV: negative STD: negative Syphilis: currently negative GBS: unknown (GBS swab sent 04/17/21) Date Rhogam administered: 03/13/21 Genetic testing: NIPT/AFP low risk Past History Additional Medical History: Bipolar disorder Additional Surgical History: Denies Alcohol Use Denies EtOH use Drug Use Denies recreational drugs Smoking status: Smoking status for patients 13 years old or old er: Never Smoker Medications: Home Medications: PNV WITH FE FUMARATE/FA () DOXYLAMINE (UNISOM) 25 MG PO BEDTIME PYRIDOXINE (VITAMIN B-6) 25 MG PO DAILY FLUoxetine (PROzac) 20 MG PO DAILY Allergies: Coded Allergies: No Known Allergies (04/12/21) Objective General VS: PATIENT WEIGHT: Weight (lb): Weight (oz): Weight (kg): Physical Exam Neuro: Exam: alert, oriented x3 Abdomen: gravid, soft, no abnormal tenderness Cervical/ exam: Dilatation (cm): 0 - closed Effacement (%): 0 station: - 3 presentation: cephalic Membranes: Membranes: Intact Lower extremities: Edema: trace Diagnosis, Assessment Plan Diagnosis, Assessment Plan Free Text A P: 26 yo G1 at 35w4d with failed outpatient managem ent of mild pre-eclampsia. - Admit to [facility]U - Check PIH labs, monitor BPs. S/p BMS x2 ( 2), NST BID - Delivery planning: scheduled IOL on PM (37 weeks), deliver sooner if evidence of severe pre-eclampsia - Plan admission until delivery due to failed ou tpatient management - Continue home meds (fluoxetine) Electronically Signed by Kiko Mcgovern MD on 0 04/17/21 at 1702 RPT #:[id number] END OF REPORT 2021-04-06 21:16:00-00:00 [facility] ([facility]) [facility] Evaluation Note REPORT#:[id number] REPORT STATUS: Signed DATE:04/06/21 TIME: 2115 PATIENT: ASHER MOELLER UNIT #: [id number] ROOM/BED: : 96 AGE: 26 SEX: F ATTEND: Ignacio Mcgovern MD ADM DT: AUTHOR: Anne Oswald MD * ALL edits or amendments must be made on the [employer] document * J[facility]I History Chief complaint: headache, hypertension at home history: : 1 Conditions of : gestational HTN Past medical history: denies PMH Past surgical history: denies PSH Social history: no alcohol use, no tobacco use, no drug use Allergies Coded Allergies: No Known Allergies (04/04/21) Objective Physical Exam Abdomen: gravid, soft, no abnormal tenderness, n o guarding, no rebound tenderness Uterine activity: Frequency (description): irregular FHR evaluation: FHR category: category 1 Membranes: Membranes: Intact Lower extremities: Edema: none Diagnosis, Assessment Plan Diagnosis, Assessment Plan Comments: Patient reassessed and BPs 103/63, 109/65; highe st BP 133/84 on arrival Headache resolved BPP 8/8 Category I tracing, occasional vaiable noted Discussed with Dr Vince Campbell, covering physician f or Dr Mcgovern Pt to call office on Thursday for appt Electronically Signed by Anne Oswald MD on 11/18 at 2118 RPT #:[id number] END OF REPORT 2021-04-06 16:31:00-00:00 [facility] ([facility]) EMERGENCY PROVIDER REPORT REPORT#:[id number] REPORT STATUS: Signed DATE:04/06/21 TIME: 1631 PATIENT: ASHER MOELLER UNIT #: [id number] ROOM/BED: AGE: 26 SEX: F PCP PHYS: Kiko Mcgovern MD SERVICE AUTHOR: Bette Armenta DO * ALL edits or amendments must be made on the [employer] document * [facility] History Nursing Documentation Review Nursing data: The data set between the solid lines has been im ported from nursing documentation. Any exceptions have been noted be low under Provider comments. Current data Steroids prior to arrival: ROM date: ROM time: EDC date: 05/18/21 Gestational age (labor triage): Post hemorrhage risk score: Prior history : 1 Para: 0 Term: : Abortions spontaneous: Abortions induced: Living children: Ectopic: Stillbirths: Live births: deaths: Number of previous C/S: Reported maternal labs/data Blood type: Rh type: Rubella: Hepatitis B: HIV exposure test: VDRL: Group B beta strep: Rho(D) immune globulin this preg: Monitor mode - UA: Feeding preference: Provider comments on imported nursing data: [] Chief complaint: headache, hypertension at home HPI: 26 y/o primigravida at 34 we eks EGA patient of Dr. Mcgovern presents to the [facility] with elevated BP's at home ( 140's-162/100's) and a LEPE since Thursday that will not go away after multiple trials of tylenol. She has been seen multiple times in the [facility] ove r the past 1-2 weeks and has known GHTN. She turned in a 24 hour urine protei n collection last night. She also reports right uppper belly pain as a "dull achy feeling", denies vision changes, reports +FM. She denies VB/LOF/RUC. Pt re ports that she has never had to deal with headaches in the past and these LEPE are new for her. history: : 1 Conditions of : gestational HTN Past medical history: denies PMH Past surgical history: denies PSH Social history: no alcohol use, no tobacco use, no drug use Medications: Home Medications: Medication Dose/Rte/Freq Days Qty Entered Last Max Daily Dose Reviewed PNV WITH FE 12/26/20 04/06/21 FUMARATE/FA 0648 1558 () Strength: 1 EACH TAB DOXYLAMINE (UNISOM) 25 MG PO BEDTIME 03/25/21 0 04/06/21 Strength: 25 MG TAB 1216 1558 PYRIDOXINE (VITAMIN B-6) 25 MG PO DAILY 1 04/06/21 Strength: 25 MG TAB 1217 1558 FLUoxetine (PROzac) 20 MG PO DAILY 03/25/2111/18 Strength: 20 MG CAP 1217 1558 Current Hospital Medications: Antihistamine Drugs Sig/Jian Start time Last Medication Dose Route Stop Time Status Admin Diphenhydramine HCl 50 MG ONCE ONE 04/06 1645 U NV (diphenhydrAMINE HCL PO 04/06 164 25 MG CAP) Central Nervous System Agents Sig/Jian Start time Last Medication Dose Route Stop Time Status Admin Acetaminophen 1,000 MG ONCE ONE 04/06 1545 DC 04/06 (TYLENOL EXTRA PO 04/06 1546 1550 STRENGTH) Gastrointestinal Drugs Sig/Jian Start time Last Medication Dose Route Stop Time Status Admin Metoclopramide HCl 10 MG ONCE ONE 04/06 1645 UN V (METOCLOPRAMIDE HCL IV 04/06 1645 10 MG/2 ML VIAL) Allergies Coded Allergies: No Known Allergies (04/04/21) Review of Systems Free Text ROS Notes Free text ROS notes: 10 systems reviewed and negative with exception of the following pertinent positives: headache, hypertension, right upper b alejandra pain Objective General VS: PATIENT WEIGHT: Weight (lb): 153 Weight (oz): Weight (kg): 69.074888 Notes: VS BP's normal here, otherwise normal VS Physical Exam HEENT: normocephalic w/o injury, no scleral icte ryan Cardiac: no peripheral edema Lungs: unlabored breathing Neuro: Exam: alert, oriented x3, normal speech, CNII-X II grossly intact Abdomen: gravid, soft, no abnormal tenderness, n o guarding, no rebound tenderness Musculoskeletal: normal inspection, painless ran ge of motion Uterine activity: Frequency (description): irregular FHR evaluation: FHR category: category 1 Membranes: Membranes: Intact Lower extremities: Edema: none Results Findings/Data: Laboratory Tests: 04/06 152 Hematology WBC (6.5 - 12.3 K/mm3) 13.6 H RBC (3.51 - 4.69 M/mm3) 4.33 Hgb (10.1 - 13.8 g/dL) 13.4 Hct (32.5 - 41.8 %) 39.0 MCV (84.6 - 96.6 fL) 90.1 MCH (27.3 - 33.9 pg) 30.9 MCHC (32.0 - 34.2 gm/dL) 34.4 H RDW (12.2 - 16.3 %) 11.8 L Plt Count (134 - 363 K/mm3) 269 MPV (9.2 - 12.7 fL) 8.3 L Neut % (Auto) (57.9 - 77.3 %) 71.9 Lymph % (Auto) (14.5 - 29.7 %) 17.4 [place] % (Auto) (3.6 - 10.2 %) 7.6 Eos % (Auto) (0.0 - 3.0 %) 1.0 Baso % (Auto) (0.1 - 0.9 %) 0.6 Neut # (Auto) (K/mm3) 9.8 Lymph # (Auto) (K/mm3) 2.4 [place] # (Auto) (K/mm3) 1.0 Eos # (Auto) (K/mm3) 0.14 Baso # (Auto) (K/mm3) 0.1 Diagnosis, Assessment Plan Diagnosis, Assessment Plan Free Text A P: 26 y/o primigravida at 34 we eks with known GHTN and new severe range BP's and LEPE at home today. Here BP's normal thus far. FHR Ca tegory 1, with irregular ctx 24 hour urine protein: 274mg () Plan: -obtain pre-e labs, gave 1 gram of tylenol that has not helped thus far, -give LEPE cocktail (benadryl, reglan), IvF bolus, -BPP ordered -will reeval patient in 1-2 hours once initial w ork up complete- Electronically Signed by Bette Armenta DO on 12/19 at 0700 RPT #:[id number] END OF REPORT 2021-04-04 23:16:00-00:00 [facility] ([facility]) DT History Physical REPORT#:[id number] REPORT STATUS: Signed DATE:04/04/21 TIME: 2315 PATIENT: ASHER MOELLER UNIT #: [id number] ROOM/BED: : 96 AGE: 26 SEX: F ATTEND: Ignacio Mcgovern MD ADM AUTHOR: Britt Adam MD * ALL edits or amendments must be made on the el [employer]/computer document * History Physical History Physical [facility] H P S: 26 yo at 33w5d seen in [facility] for the 2nd time to day due to concern for BP 150s/100s at home. She to ok 1 BP in this range, did not take a repeat, called examination grader RN, and was told to come in. Patient has a hx of preeclampsia w/o severe features. She was seen in MAC earlier today due to concern of worsening symptoms. NST category 1, se rial BP normal, PIH labs normal. Dr. Mcgovern wanted to admit patient for obs onto [facility]U as patient was highly anxious about her BP, but no APU beds. She was sent home for a 24 hour urine collection. Patient was admitted to hosp ital last week for monitoring. She was diagnosed w/ gHTN, received BMZx2, and se nt home for weekly monitoring given no e/o worsening symptoms. She arrives this PM with LEPE and nausea, no vision changes/chest pain/RUQ pain or other concerns. +fm, - lof, - vb, - ctx. 12 point ROS negative PMH: bipolar, RH negative PSH: None M: PNV A: none S: no T/E/D Fhx: noncontributory O: VSS, bp normal serially Gen: NAD/AAOX3 HEENT: Nc/at chest: no increased wob Abd: soft, gravid, NT, ND Ext: no TTP, 1+ edema. FHT: 120 bpm, mod variability, + Accels, no dece ls. A/P : 26 yo G1 at 33w5d with c/b gHTN diagnosed at 32w and bipolar disorder (stopped all meds at beginning of pregn winnie, restarted prozac during ). # gHTN vs mild preeclampsia - second [facility] visit today - no APU beds confirmed - discussed with patient and extensively signs and symptoms of preeclampsia- severe feature s vs hellp. discussed taking bp BID and if BP >160/> 110, recheck in 10 min. if s till high, be seen OR be seen for severe LEPE, vision changes, chest pain, RUQ pain. - should be seen weekly with OB for labs/NST/bp check - LEPE improved after tylenol and nausea resolved after phenergan - PIH labs still normal - serial BP normal/ no severe range - gave patient option of jody ng admitted to hospital- but may need to wait in MAC for several hours as no beds available. She mary red to go home as she was feeling better - 24hr UP in process, last 297 # Pt take home meds of prozac daily # FWB - NST cat 1 # DC home w/ f/u within 1 week. - 24hr UP in process MD Sadi Electronically Signed by Britt Adam MD on 04/04 at 2323 RPT #:[id number] END OF REPORT 2021-04-02 23:59:00-00:00 [id number] [facility] [address] [address] PATIENT NAME: ASHER MOELLER ADMIT DATE: 04/01/21 ACCOUNT NO: [id number] ROOM NO: AGE: 26 SEX: F ADMITTING PHYSICIAN: ATTENDING PHYSICIAN: Kiko Mcgovern MD ADMISSION DATE: 04/01/2021 TRIAGE EVALUATION Evaluation in OB ED begun on 04/01/2021 with disposition on 04/02/2021, by Janina Guillen MD, triage hospital ist, seen per request of Dr. Brown, on-call for Dr. Mcgovern. HISTORY OF PRESENT ILLNESS: The patient is a 26- year-old G1, P0, with last menstrual period in July 2020 , and estimated date of confinement 05/18/2021. She presented at 33 and 2/7th weeks on 04/01, with disposition on 04/02/2021. She presented complaining of elevated blood pres sures on home monitoring. She noted a headache that was 6/10, in spite of Tyle nol not much improved. She checked her pressures and on multiple readings w ere in the 150s/100s. She denied scotomata, right upper quadrant pain, maza d and face edema, or other preeclampsia symptoms. Her initial blood pressur e in the OB ED was slightly elevated, but after resting quietly, her pressur es were within normal range. She has been followed with borderline elevated p ressures and a recent 24-hour urine collection was also borderline high. She d enied vaginal bleeding or leakage of fluid. She denied contractions and re ported good movement. She denied fever, chills, diarrhea, constipation , or dysuria. She has had chronic nausea and vomiting during the and uses antiemetics daily with good results. She denied cough, sor e throat, shortness of breath, loss of taste and smell or other COVID symptoms. She has not previously been diagnosed with COVID. She has not previously bee n vaccinated for COVID. The recommendations from ACOG and other similar orga nizations were discussed with the patient. She was told that recommendation is for all women and nursing moms to have the vaccines. Her p renatal care has been with Dr. Mcgovern since approximately 4 weeks' gestation. Her next visit is scheduled for 04/04/2021. The has been notable for t he nausea and vomiting for which she is currently on Diclegis with good results and recently, the patient reports her blood pressures were elevated. She w as hospitalized from 03/28/2021 through 03/30/2021, with elevated pre ssures. She received 2 doses of betamethasone. She was not on magnesium. She was instructed to check her pressures periodically at home and has been doin g so with normal pressures until the 04/01/2021. As stated above, her 24-ho ur urine collection was reported as 297. She states all other preeclamps ia labs were normal. Dr. Mcgovern has not started her on blood pressure me dications. Her next visit is scheduled for 04/04/2021. PAST MEDICAL HISTORY: Anxiety and depression quynh gnosed in 2011. She was on medications until she became , t hen stopped the medications, but began to have increased symptoms and therefore restart ed Prozac with good results. PATIENT NAME: ASHER MOELLER 04 The patient denies suicidal or homicidal ideatio n. PAST SURGICAL HISTORY: Tonsils and ear tubes in 2000 and 2001. Otherwise, no surgeries. ALLERGIES: NO KNOWN DRUG ALLERGIES. MEDICATIONS: vitamins, Prozac and Dicle gis or the pfcr-vay-fzemboi Unisom and B6 substitutes. OBSTETRICAL HISTORY: The patient is primiparous. GYNECOLOGIC HISTORY: Menarche at age 13 with reg ular monthly cycles lasting 3 to 4 days, moderate with minimal cramping. The p atient denies history of STDs and reports all Pap smears normal. SOCIAL HISTORY: The patient denies tobacco use. She reports occasional prepregnancy alcohol and marijuana use. She live s with her spouse, a 27-year-old healthy male. She does not work outs vern the home. FAMILY HISTORY: Mother with thyroid disease. Fat her with hypertension. Maternal grandmother with a history of p neumonia, diabetes, and heart disease. Paternal grandfather with diabetes, gout, and hy pertension. Paternal grandmother with asthma and sleep apnea. Paterna l grandfather without health problems. The patient has a sister living and he althy. She denies history of mental retardation or defects in her famil y or her partner's family. REVIEW OF SYSTEMS: A 10-point review of systems is negative except as stated above. PHYSICAL EXAMINATION: GENERAL: The patient is a well-nourished, well-d eveloped female, in no acute distress, lying on triage stretcher in OB ED. VITAL SIGNS: Height 5 feet 3 inches, weight prio r to the 145 pounds with a loss down to 130 pounds and now back up t o 153. Highest blood pressure at the time of admission was 156/74 with a few other 140s and 150s over 70s to 80s, but then pressures in the 120s to 130s rang e over 80s. At the time of evaluation pressure was 125/86, pulse 100, respi rations 16, and temperature 98.8. HEAD AND NECK: Within normal limits without lymp hadenopathy or thyromegaly. CHEST: Clear to auscultation bilaterally. HEART: With regular rate and rhythm. BREASTS: Deferred. ABDOMEN: Soft, nontender, gravid with a fundal h eight of 34 cm. PELVIC: Deferred as the aaliyah ent denied contractions and only occasional uterine irritability was noted. EXTREMITIES: Without edema. Bilateral patellar r eflexes 2+. NEUROLOGIC: Nonfocal. The patient is awake, aler t, and oriented x3. DIAGNOSTIC STUDIES: NST category 1 for gestation al age with baseline heart tones in the 130s, multiple 15 x 1 5 accelerations, no decelerations, and occasional uterine irritability. LABORATORY DATA: Dr. Brown ordered preec lampsia screening labs. These included white blood cell count of 16.9, hemoglobin 14.3, hematocrit 41.1, and PATIENT NAME: ASHER MOELLER 4 platelets 270,000. Sodium 13 7, potassium 3.7, chloride 101, bicarbonate 25, BUN 8, creatinine 0.6, and glucose 93 with A LT 21, AST 11 and alkaline phosphatase 128 with uric acid 3.0 and LDH 145. Urinalysis s howed 1+ blood with trace leukocytes, 0 to 2 rbc's, 0 to 2 wbc's, rare epi thelial cells, and rare bacteria. Protein creatinine ratio in the urine was 374, slightly elevated. The patient was resting in a dark quiet room. Serial blood pressures taken and as reported above, after res ting quietly and receiving a dose of Tylenol for her headache, which did improve, her pressures casey lized. ASSESSMENT AND PLAN: This is a 26-year-old G1, P0, at 33 and 3/7th weeks at the time of disposition. She presented with headache and reported elevated blood pressures on home monitoring. Now after treating headache with Tylenol and resting in a dark quiet room, her headac he is improved and her blood pressures also improved. I spoke to Dr. Brown. She agreed with plan to discharge the patient home with bed rest or ligh t activity. She is to follow up with Dr. Mcgovern as scheduled on 04/04/2021. She is to call or return for vaginal bleeding, leakage of fluid, decreased fe colton movement, worsening pain, headache not resolving with Tylenol, scotomata, right upper quadrant pain, hand and face edema or other concerns including persistent elevated blood pressures on monitoring. She is to bring her blo od pressure cuff each time she comes for visits or back to the OB ED. She is to use Tylenol as needed for headache. She is to drink greater manohar n 100 ounces of water daily and eat frequent small meals. Dictated By: Janina Guillen MD WT: HP:TrudySandovalHIM/DUFDI/NTS Conf#: [id number]/DID#: [id number] Authenticated and Edited by Janina Guillen MD On 04/08/21 1:34:44 PM Electronically Signed by Janina Guillen MD on 01/18 at 0137 PATIENT NAME: ASHER MOELLER 4 2021-03-30 11:08:00-00:00 [facility] ([facility]) OB Antepartum Prog Note REPORT#:[id number] REPORT STATUS: Signed DATE:03/30/21 TIME: 1108 PATIENT: ASHER MOELLER UNIT #: [id number] ROOM/BED: [address] : 96 AGE: 26 SEX: F ATTEND: Ignacio Mcgovern MD ADM AUTHOR: Jessika Baker MD * ALL edits or amendments must be made on the ulike/computer document * Subjective Subjective Admission EGA: Weeks: 32 Days: 5 Patient reports: Patient reports: Yes normal movement, No no complaints, No abdominal pain, No vaginal bleeding, No leaking fluid, No contractions, No headache, No blurred vision, No scotomata Objective Nursing Documentation Review Nursing data: The data set between the solid lines has been im ported from nursing documentation. Any exceptions have been noted be low under Provider comments. ROM date: ROM time: Labor onset date: Labor onset time: Provider comments on imported nursing data: [] VS: Last Documented: Result Date Time Pulse Ox 98 03/30 0944 Pulse 84 03/30 0944 B/P Mean 85.0 03/30 0943 B/P 113/68 03/30 0943 Temp 98.7 03/29 1637 Resp 18 03/29 1637 Vital Signs Date Temp Pulse Resp B/P B/P Mean Pulse Ox FiO2 03/29-03/30 98.4-98.7 64-148 17-18 108-162/59-88 81.0-115.0 95-100 PATIENT WEIGHT: Weight (lb): Weight (oz): Weight (kg): 69.523192 Membranes: Intact Uterine activity: Monitor: toco Frequency (description): none Neuro: Exam: alert, oriented x3 Abdomen: gravid, soft, no guarding Lower extremities: Edema: none Baby A: Baby A baseline: 120 bpm Baby A variability: moderate 6-25 bpm Baby A accelerations: 15 X 15 Baby A decelerations: none Baby A FHR category: category 1 Findings/data: Laboratory Tests: 03/29 1636 Chemistry Creatinine (0.5 - 1.0 mg/dL) 0.6 Urines Ur Random Creatinine (mg/dL) 138.4 U Random Total Protein (mg/dL) 29.7 Urine Total Volume (ML) 1000 Creatinine Clearance (70 - 120 ml/min) 159 H Ur Total Protein 24 Hr (20 - 150 mg/24HR) 297 * H Diagnosis, Assessment Plan Diagnosis, Assessment Plan Assessment: 33 weeks admitted with labile BPs to r/o Pre-e. Labs all normal with 24 hour urine borderline at 297 mg. BPs mostly normal, with occ elevation to 150-160 and immediate recovery. No sxs of Pre -e. s/p 2 doses of steroids. Plan: Plan d/c home today with decreased stress and activity and check BPs at home bid. f/u with Dr Mcgovern this week with BP log. at 1114 RPT #:[id number] END OF REPORT 2021-03-29 10:17:00-00:00 [facility] ([facility]) OB Antepartum Prog Note REPORT#:[id number] REPORT STATUS: Signed DATE:03/29/21 TIME: 1017 PATIENT: ASHER MOELLER UNIT #: [id number] ROOM/BED: [address] : 96 AGE: 26 SEX: F ATTEND: Natalie Mcgovern MD ADM AUTHOR: Britt Adam MD * ALL edits or amendments must be made on the ulike/computer document * Subjective Subjective Admission EGA: Weeks: 32 Days: 5 Patient reports: Patient reports: Yes normal movement, No no complaints, No abdominal pain, No vaginal bleeding, No leaking fluid, No contractions, No headache, No blurred vision, No shortness of breath Objective Nursing Documentation Review Nursing data: The data set between the solid lines has been im ported from nursing documentation. Any exceptions have been noted be low under Provider comments. ROM date: ROM time: Labor onset date: Labor onset time: Provider comments on imported nursing data: [] VS: Last Documented: Result Date Time B/P Mean 89.0 03/29 0750 B/P 122/66 03/29 0750 Pulse 75 03/29 0750 Pulse Ox 98 03/29 0749 Vital Signs Date Temp Pulse Resp B/P B/P Mean Pulse Ox FiO 2 03/28-03/29 70-123 118-149/66-87 88.0-112.0 97- 100 PATIENT WEIGHT: Weight (lb): Weight (oz): Weight (kg): 69.943735 Membranes: Intact Uterine activity: Monitor: toco Frequency (description): none Neuro: Exam: alert, oriented x3 Abdomen: gravid, soft, no guarding Lower extremities: Edema: none Baby A: Baby A baseline: 120 bpm Baby A variability: moderate 6-25 bpm Baby A accelerations: 15 X 15 Baby A decelerations: none Baby A FHR category: category 1 Findings/data: Laboratory Tests: 03/28 03/28 1240 1235 Chemistry Sodium (135 - 145 mEq/L) 130 L Potassium (3.5 - 5.0 mEq/L) 3.8 Chloride (100 - 115 mEq/L) 101 Carbon Dioxide (22 - 31 mEq/L) 26 Anion Gap (10 - 20) 6.50 L BUN (7 - 18 mg/dL) 7 Creatinine (0.5 - 1.0 mg/dL) 0.6 Glomerular Filtr Rate (>60 ml/min) 122 Glucose (65 - 110 mg/dL) 91 Uric Acid (2.6 - 6.0 mg/dL) 3.5 Calcium (8.4 - 10.2 mg/dL) 8.9 Total Bilirubin (0.2 - 1.0 mg/dL) 0.2 AST (15 - 37 units/L) 12 L ALT (12 - 78 units/L) 20 Total Alk Phosphatase (46 - 116 units/L) 124 H Lactate Dehydrogenase (81 - 234 units/L) 138 Total Protein (6.3 - 8.2 gm/dL) 7.0 Albumin (3.4 - 4.8 gm/dL) 3.1 L Hematology WBC (6.5 - 12.3 K/mm3) 14.0 H RBC (3.51 - 4.69 M/mm3) 4.30 Hgb (10.1 - 13.8 g/dL) 13.3 Hct (32.5 - 41.8 %) 38.7 MCV (84.6 - 96.6 fL) 90.0 MCH (27.3 - 33.9 pg) 30.9 MCHC (32.0 - 34.2 gm/dL) 34.4 H RDW (12.2 - 16.3 %) 11.9 L Plt Count (134 - 363 K/mm3) 245 MPV (9.2 - 12.7 fL) 8.6 L Neut % (Auto) (57.9 - 77.3 %) 76.2 Lymph % (Auto) (14.5 - 29.7 %) 15.0 [place] % (Auto) (3.6 - 10.2 %) 6.7 Eos % (Auto) (0.0 - 3.0 %) 0.6 Baso % (Auto) (0.1 - 0.9 %) 0.5 Neut # (Auto) (K/mm3) 10.6 Lymph # (Auto) (K/mm3) 2.1 [place] # (Auto) (K/mm3) 0.9 Eos # (Auto) (K/mm3) 0.09 Baso # (Auto) (K/mm3) 0.1 Serology SARS-CoV-2 Ag (Rapid) (NEGATIVE) NEGATIVE Urines Urine Color (YELLOW) YELLOW Urine Appearance (CLEAR) CLOUDY A Urine pH (5 - 9) 6.0 Ur Specific [place] (1.001 - 1.035) 1.020 Urine Protein (NEG) NEGATIVE Urine Glucose (UA) (NEG) NEGATIVE Urine Ketones (NEG) NEGATIVE Urine Blood (NEG) NEG Urine Nitrite (NEG) NEG Urine Bilirubin (NEG) NEGATIVE Urine Urobilinogen (NEG mg/dL) NEGATIVE Ur Leukocyte Esterase (NEG) 2+ H Urine RBC (NONE SEEN #/hpf) 3-5 H Urine WBC (NONE SEEN #/hpf) 6-10 H Ur Epithelial Cells (RARE - FEW #/HPF) RARE Urine Bacteria (RARE - FEW /HPF) FEW Urine Mucus (NONE SEEN) RARE Ur Random Creatinine (mg/dL) 133.4 U Random Total Protein (mg/dL) 32.8 Protein/Creatinin Ratio (<200 mg/gcrea) 245.8 H Diagnosis, Assessment Plan Diagnosis, Assessment Plan Free Text A P: 26 yo G1 at 32w6d adm at 32w 5d with c/b bipolar disorder (stopped all meds at beginning of pregnan cy, restarted prozac during ) who presented with elevated BPs in clinic and admitted for tristan l of gHTN vs preE. # elevated BP- potential gHTN vs eval for preE - Reported having elevated B P at home. In clinic 160/110. Admitted 03/28/21 for triage of HTN, concern of anxiety component. - Initial BP in MAC normal. However, last night BP noted 143/84, 149/80, 146/87. This AM normal. - Pending 24hr UP, complete today at 1600 - 03/28: U P:Cr 245, nl PIH labs - Will give course of BMZ given mild range BP ye sterday. - DC tomorrow if BP remain n ormal to mild range, f/u in clinic next week for BP check, potential labs/NST. Gave PIH Precautions. # Pt take home meds of prozac daily # FWB - NST Daily # Possible discharge home tomorrow if no severe range BP and after BMZ course. 24 hr UP will be completed today. A MD Jair Electronically Signed by Britt Adam MD on 03/29 at 1031 RPT #:[id number] END OF REPORT 2021-03-28 16:03:00-00:00 [facility] ([facility]) OB Admission / H P REPORT#:[id number] REPORT STATUS: Signed DATE:03/28/21 TIME: 1603 PATIENT: ASHER MOELLER UNIT #: [id number] ROOM/BED: [address] : 96 AGE: 26 SEX: F ATTEND: Natalie Mcgovern MD ADM AUTHOR: Kiko Mcgovern MD * ALL edits or amendments must be made on the el ectronic/computer document * OB History Chief complaint: elevated blood pressure HPI: 26 yo G1 at 32w5d admitted f rom the office for elevated BPs. Pt was seen in MAC for elevated BPs on 03/25, with negative evaluat ion and discharged home. Has been monitoring BPs at home and have had several elevated to 140/90s. BP in office today initially 162/110. Denies PIH sx. + FM history: : 1 Current : Admission EGA (weeks) 32 Admission EGA (days) 5 Conditions of : rh negative: s/p rhogam Labs: Blood type: A Rh: negative Rubella: immune Hepatitis B: negative HIV: negative STD: negative Syphilis: currently negative GBS: unknown Genetic testing: NIPT/AFP low risk Past History Additional Medical History: Bipolar disorder Additional Surgical History: Denies Alcohol Use Denies EtOH use Drug Use Denies recreational drugs Smoking status: Smoking status for patients 13 years old or old er: Never Smoker Medications: Home Medications: PNV WITH FE FUMARATE/FA () DOXYLAMINE (UNISOM) 25 MG PO BEDTIME PYRIDOXINE (VITAMIN B-6) 25 MG PO DAILY FLUoxetine (PROzac) 20 MG PO DAILY Allergies: Coded Allergies: No Known Allergies (12/26/20) Objective General VS: PATIENT WEIGHT: Weight (lb): Weight (oz): Weight (kg): Physical Exam Neuro: Exam: alert, oriented x3 Abdomen: gravid, soft, no guarding Uterine activity: Monitor: toco Frequency (description): none Membranes: Membranes: Intact Lower extremities: Edema: none Baby A: Baby A FHR category: category 1 Result Findings/Data: Laboratory Tests: 03/28 03/28 1240 1235 Chemistry Sodium (135 - 145 mEq/L) 130 L Potassium (3.5 - 5.0 mEq/L) 3.8 Chloride (100 - 115 mEq/L) 101 Carbon Dioxide (22 - 31 mEq/L) 26 Anion Gap (10 - 20) 6.50 L BUN (7 - 18 mg/dL) 7 Creatinine (0.5 - 1.0 mg/dL) 0.6 Glomerular Filtr Rate (>60 ml/min) 122 Glucose (65 - 110 mg/dL) 91 Uric Acid (2.6 - 6.0 mg/dL) 3.5 Calcium (8.4 - 10.2 mg/dL) 8.9 Total Bilirubin (0.2 - 1.0 mg/dL) 0.2 AST (15 - 37 units/L) 12 L ALT (12 - 78 units/L) 20 Total Alk Phosphatase (46 - 116 units/L) 124 H Lactate Dehydrogenase (81 - 234 units/L) 138 Total Protein (6.3 - 8.2 gm/dL) 7.0 Albumin (3.4 - 4.8 gm/dL) 3.1 L Hematology WBC (6.5 - 12.3 K/mm3) 14.0 H RBC (3.51 - 4.69 M/mm3) 4.30 Hgb (10.1 - 13.8 g/dL) 13.3 Hct (32.5 - 41.8 %) 38.7 MCV (84.6 - 96.6 fL) 90.0 MCH (27.3 - 33.9 pg) 30.9 MCHC (32.0 - 34.2 gm/dL) 34.4 H RDW (12.2 - 16.3 %) 11.9 L Plt Count (134 - 363 K/mm3) 245 MPV (9.2 - 12.7 fL) 8.6 L Neut % (Auto) (57.9 - 77.3 %) 76.2 Lymph % (Auto) (14.5 - 29.7 %) 15.0 [place] % (Auto) (3.6 - 10.2 %) 6.7 Eos % (Auto) (0.0 - 3.0 %) 0.6 Baso % (Auto) (0.1 - 0.9 %) 0.5 Neut # (Auto) (K/mm3) 10.6 Lymph # (Auto) (K/mm3) 2.1 [place] # (Auto) (K/mm3) 0.9 Eos # (Auto) (K/mm3) 0.09 Baso # (Auto) (K/mm3) 0.1 Serology SARS-CoV-2 Ag (Rapid) (NEGATIVE) NEGATIVE Urines Urine Color (YELLOW) YELLOW Urine Appearance (CLEAR) CLOUDY Urine pH (5 - 9) 6.0 Ur Specific [place] (1.001 - 1.035) 1.020 Urine Protein (NEG) NEGATIVE Urine Glucose (UA) (NEG) NEGATIVE Urine Ketones (NEG) NEGATIVE Urine Blood (NEG) NEG Urine Nitrite (NEG) NEG Urine Bilirubin (NEG) NEGATIVE Urine Urobilinogen (NEG mg/dL) NEGATIVE Ur Leukocyte Esterase (NEG) 2+ H Urine RBC (NONE SEEN #/hpf) 3-5 H Urine WBC (NONE SEEN #/hpf) 6-10 H Ur Epithelial Cells (RARE - FEW #/HPF) RARE Urine Bacteria (RARE - FEW /HPF) FEW Urine Mucus (NONE SEEN) RARE Ur Random Creatinine (mg/dL) 133.4 U Random Total Protein (mg/dL) 32.8 Protein/Creatinin Ratio (<200 mg/gcrea) 245.8 H Diagnosis, Assessment Plan Diagnosis, Assessment Plan Free Text A P: 26 yo G1 at 32w5d with c/b bipolar dis order (stopped all meds at beginning of , restarted prozac during ) who presents with elevated BPs. - Admit for BP eval - PIH labs wnl, Start 24 hr TP collection - BPs have significantly imp roved from values earlier today (160/110 in office). Possible component of anxiety. - Given BPs have significantly improved, will ho ld on starting BMS course. If BPs increase to GHTN range, plan to start course of BMS - Pt take home meds of prozac daily - Possible discharge home tomorrow if BP s normotensive and 24 hr TP reassuring Electronically Signed by Kiko Mcgovern MD on at 1719 RPT #:[id number] END OF REPORT 2020-12-26 08:32:00-00:00 [facility] ([facility]) EMERGENCY PROVIDER REPORT REPORT#:[id number] REPORT STATUS: Signed DATE:12/26/20 TIME: 0832 PATIENT: ASHER MOELLER UNIT #: [id number] ROOM/BED: AGE: 25 SEX: F PCP PHYS: Kiko Mcgovern MD SERVICE AUTHOR: Mandy Kaplan MD * ALL edits or amendments must be made on the ulike/[employer] document * HPI- Female General Initial Greet Date/Time 12/26/20 0610 Presentation Chief Complaint Vaginal discharge Hx Obtained From Patient )( Sudden in Onset? Yes Onset Occurred Yesterday Symptom Duration Brief Progression since Onset Resolved Context of Onset Spontaneous Associated with Denies: Abdominal pain, Abrasion, Anorexia, Chil ls, Constipation, Fever, Hematemesis, Laceration, Nausea, Rash, UTI sympt oms, Vomiting. Associated Other Pt denies other symptoms Free Text HPI Notes Free Text HPI Notes pt felt a gush of fluid from vagina yest erday. Seen at another ED and referred here. Pt denies other symptoms. Review of Systems ROS Statements All systems rev neg except as marked. Basic Review of Systems Basic ROS EYES: No redness, RESP: No SOB , CV: No chest pain, HEM: No bleeding/ bruising, PSYCH: NL thought content Focused Review of Systems Constitutional Denies: Chills, Fatigue, Fever, Lethargy, Malais e, Recent wt loss, Weakness - generalized. Ears/Nose/Throat Denies: Ear drainage R, Ear drainage L, Ear drainage bilat, Ear ringing R, Ear ringing L, Ear ringing bilat , Earache R, Earache L, Earache bilat, Hearing loss R, Hearing loss L, Hearing loss bilat, Mouth mindy n, Nasal congestion, Nose bleeding, Sinus problem, Sor e throat, Throat pain, Throat swelling, Tongue pain, Tongue swelling, Toothache, Voice change. GI Denies: Abdominal pain, Anorexia, Belching, Bloo dy/tarry stool, Constipation, Diarrhea, Dysphagia, Hematemesis, Hemato chezia, Mucousy stool, Melena, Nausea, Rectal pain, Vomiting. Female Reports: , Vaginal discharge. Denies: Dy suria, Flank pain, Hematuria, Incontinence, Nocturia, Pelvic pain, Urinary andrews quency, Urinary urgency, Urination decreased, Urination increased, Vagina l bleeding - abnl. Musculoskeletal Denies: Back pain, Extremity pain, Extremity swe lling, Joint pain, Joint swelling, Lumbar pain, Myalgia, Neck pain, Thora cic pain. Endocrine Denies: Cold intolerance, Heat intolerance, Poly dipsia, Polyphagia, Polyuria, Weight gain, Weight loss. Skin Denies: Abrasion, Abscess, Burn, Contusion, Diap horesis, Erythema, Itching, Jaundice, Laceration, Rash, Swelling, Ulceration . Neurologic Denies: Abnormal movement, Bladder dysfu nction, Bowel dysfunction, Change LOC, Confusion, Dizziness, Focal weakness, Generalize d weakness, Headache, Lightheaded, Numbness, Problem walking, Seizure, Shaking, Slurred speech, Spinning sensation, Syncope, Tingling, Unable to speak, Vision change. 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 Allergies Coded Allergies: No Known Allergies (12/26/20) Home Medications Reported Medications PNV WITH FE FUMARATE/FA () Calculated Suicide Risk (nurs) No risk Pt reports no significant: Past medical history, Past surgical history, Family history, Social history Smoking status: Smoking status for patients 13 years old or old er: Former Smoker Physical Exam Vital Signs Vital Signs First Documented: Result Date Time Pulse Ox 100 12/26 0620 B/P 142/72 12/26 0620 B/P Mean 95 12/26 0620 O2 Delivery Room air 12/26 0620 Temp 37.1 12/26 0620 Pulse 84 12/26 0620 Resp 17 12/26 0620 Last Documented: Result Date Time Pulse Ox 100 12/26 0842 B/P Mean 2 12/26 0842 O2 Delivery Room air 12/26 0842 Temp 37.1 12/26 0842 Pulse 78 12/26 0842 Resp 18 12/26 0842 B/P 142/72 12/26 0620 Review of Vital Signs Reviewed Basic Physical Exam Basic PE GEN: Well appearing /NAD, HEAD: Atraumatic/NC, EYES: PERRL, conj clear, ENT: Membranes moist, NECK: Supple, CV: Reg rate rhythm, ABD: Soft/non-tender, EXT: No gross abnormality, SKIN: No rashes, warm /dry, NEURO: alert oriented Focused PE Genitourinary General Portal Administrator present Vaginal Bleeding/Discharge Discharge thick, Discharge white. Negative: Ble eding mild, Bleeding moderate , Bleeding severe, Discharge malodorous. Pelvic Exam Negative: Os is open. Interpretation Diagnostics Lab Results Interpretation Results Recent Impressions: ULTRASOUND - US PREG UT TRANSVAGINAL 12/27 743 Report Impression - Status: SIGNED Entered: 12/26/2020821 IMPRESSION: Live intrauterine gestation. Impression By: Summer Gerber MD ULTRASOUND - US LTD 12/27 743 Report Impression - Status: SIGNED Entered: 12/26/2020821 IMPRESSION: Live intrauterine gestation. Impression By: Summer Gerber MD Re-Evaluation MDM Free Text MDM Notes Free Text MDM Notes no amniotic fluid detected Patient Discharge Departure Vital Signs/Condition Vital Signs First Documented: Result Date Time Pulse Ox 100 09/29 0620 B/P 142/72 12/26 0620 B/P Mean 95 12/26 0620 O2 Delivery Room air 12/26 06 Temp 37.1 12/26 0620 Pulse 84 12/26 0620 Resp 17 12/26 0620 Last Documented: Result Date Time Pulse Ox 100 12/26 0842 B/P Mean 2 12/26 0842 O2 Delivery Room air 12/26 0842 Temp 37.1 12/26 0842 Pulse 78 12/26 0842 Resp 18 12/26 0842 B/P 142/72 12/26 0620 All vital signs available at the time of this en try have been reviewed. Clinical Impression Clinical Impression Primary Impression: Second trimester Disposition Decision Discharge )( Discharged to Home Yes )( Time 0833 )( Date 12/26/20 Discharge/Care Plan Patient Instructions Comfort Tips During Pregnan cy Referrals Kiko Mcgovern MD (PCP/Family) at [facility] #:[id number] END OF REPORT
[2022-09-22 13:50] LABS: Specific Gravity 1.009 (1.005-1.030)
[2022-09-22] MEDS ORDERED: DIVALPROEX DR 250 MG TAB PO ONE (15:39)
[2022-09-22 15:41] LABS: Absolute Lymphocytes (CBC) 2.9 K/uL (0.7-4.9); Hematocrit 42.6 % (36.0-45.0); Lymphocytes % 29.7 % (15.3-44.8); MCV 93.4 fL (80-100); RBC Red Blood Cell Count 4.56 M/uL (3.86-4.86)
[2022-09-22 16:05] LABS: Albumin 3.7 g/dL (3.4-5.0); Bilirubin Total 0.3 mg/dL (0.2-1.0); Protein, Total 7.2 g/dL (6.4-8.2); Thyroid Stimulating Hormone 1.81 uIU/mL (0.358-3.740)
--- NOTE | 2022-09-22 16:28 | ER ---
Nurse's Notes [facility] Name: Josy Jasso Age: 27 yrs Sex: Female : 1995 Arrival Date: 09/22/2022 Time: 12:36 Bed 17 Private MD: Mini Ordonez Diagnosis: Bipolar disorder, current episode manic without psychotic features, moderate Presentation: 09/22 12:57 Chief complaint: Patient states: Pt states her tele psychiatrist advised her to come to [facility] ED for a medical evaluation. Pt was prescribed Xanax recently but she states she started having visual hallucinations so she stopped taking the Xanax and gabapentin about 4 days ago and the visual hallucinations stopped. Her paranoia continues, in the process of getting medications re adjusted to help her paranoia. Pt denies SI/HI at this time, states she is being able to work and care for her child. 12:57 Coronavirus screen: Vaccine status: Patient reports being unvaccinated. Ebola Screen: [facility] Patient denies travel to an Ebola-affected area in the 21 days before illness onset. Initial Sepsis Screen: Does the patient meet any 2 criteria? No. Patient's initial sepsis screen is negative. Does the patient have a suspected source of infection? No. Patient's initial sepsis screen is negative. Risk Assessment: Do you want to hurt yourself or someone else? Patient reports no desire to harm self or others. Onset of symptoms was August 2022. 12:57 Method Of Arrival: Ambulatory [facility] 12:57 Acuity: RICARDO 3 [facility] Historical: - Allergies: 12:57 No Known Allergies; [facility] - Home Meds: 12:57 Depakote ER 500 mg Oral Tablet, Extended Release 24 hr 1 tab 2 times per day [Active]; nj Depakote 125 mg Oral tablet, delayed release (enteric coated) 1 tabs Daily [Active]; gabapentin 400 mg oral capsule 1 cap 3 times per day [Active]; Xanax 0.5 mg Oral tablet [Active]; ziprasidone HCl 20 mg oral capsule 1 cap every morning [Active]; Prozac 20 mg Oral capsule 1 cap daily [Active]; - PMHx: 12:57 Bipolar disorder; Pshychosis; [facility] - Immunization history:: Client reports having NOT received the Covid vaccine. - Social history:: Smoking status: Patient denies any tobacco usage or history of. Screenin:15 [facility] ED Fall Risk Assessment (Adult) Score/Fall Risk Level 0 - 2 = Low Risk. Abuse eh3 screen: Denies threats or abuse. Denies injuries from another. Nutritional screening: No deficits noted. Tuberculosis screening: No symptoms or risk factors identified. Assessment: 13:15 General: Appears in no apparent distress. uncomfortable, Behavior is cooperative, eh3 anxious. Pain: Denies pain. Neuro: Level of Consciousness is awake, alert, obeys commands, Oriented to person, place, time, situation. Cardiovascular: Capillary refill < 3 seconds Patient's skin is warm and dry. Respiratory: Airway is patent Respiratory effort is even, unlabored, Respiratory pattern is regular, symmetrical. GI: Abdomen is round non-distended. Derm: Skin is pink, warm \T\ dry. Musculoskeletal: Circulation, motion, and sensation intact. 14:15 Reassessment: Patient appears in no apparent distress at this time. Patient and/or 3 family updated on plan of care and expected duration. Pain level reassessed. Patient is alert, oriented x 3, equal unlabored respirations, skin warm/dry/pink. 15:15 Reassessment: Patient appears in no apparent distress at this time. Patient and/or 3 family updated on plan of care and expected duration. Pain level reassessed. Patient is alert, oriented x 3, equal unlabored respirations, skin warm/dry/pink. 16:15 Reassessment: Patient appears in no apparent distress at this time. Patient and/or 3 family updated on plan of care and expected duration. Pain level reassessed. Patient is alert, oriented x 3, equal unlabored respirations, skin warm/dry/pink. Vital Signs: 12:57 BP 119 / 79; Pulse 56; Resp 18; Pulse Ox 100% on R/A; Weight 71.67 kg; Height 5 ft. 3 nj1 in. ; 13:15 BP 131 / 86; Pulse 50; Resp 18; Pulse Ox 100% on R/A; eh3 15:15 BP 135 / 91; Pulse 54; Resp 18; Pulse Ox 100% on R/A; eh3 12:57 Body Mass Index 27.99 (71.67 kg, 160.02 cm) [facility] ED Course: 12:38 Patient arrived in ED. mr 12:39 Hundle, Mini is Private Physician. mr 12:39 Nate Youssef MD is Attending Physician. bs3 12:57 Arm band placed on. nj1 13:12 Candice Henry, RN is Primary Nurse. eh3 13:15 Patient has correct armband on for positive identification. Bed in low position. Call eh3 light in reach. Pulse ox on. NIBP on. Door closed. Noise minimized. 13:15 Inserted saline lock: 22 gauge in right antecubital area, using aseptic technique. eh3 Blood collected. 13:28 Triage completed. nj1 16:27 Mini Ordonez is Referral Physician. bs3 16:44 No provider procedures requiring assistance completed. IV discontinued, intact, eh3 bleeding controlled, No redness/swelling at site. Pressure dressing applied. Administered Medications: 15:35 Drug: Valproic Acid PO 500 mg Route: PO; eh3 Medication: 16:44 VIS not applicable for this client. eh3 Outcome: 16:28 Discharge ordered by . bs3 16:44 Discharged to home ambulatory, with family. eh3 16:44 Condition: stable 16:44 Discharge instructions given to patient, Instructed on discharge instructions, follow up and referral plans. Demonstrated understanding of instructions, follow-up care. 16:44 Patient left the ED. eh3 Signatures: Alycia Hernandez mr Candice Henry, RN RN 3 Nate Youssef MD MD 3 Dorcas Dailey RN RN [facility] Corrections: (The following items were deleted from the chart) 13:28 13:21 Chief complaint: Patient states: Pt states her tele psychiatrist advised her to [facility] come to ED for a medical evaluation. nj1
--- NOTE | 2022-09-22 16:28 | EDPHYS ---
Physician Documentation [facility] Name: Josy Jasso Age: 27 yrs Sex: Female : 1995 Arrival Date: 09/22/2022 Time: 12:36 Bed 17 Private MD: Mini Ordonez ED Physician Nate Youssef HPI: 09/22 13:20 This 27 yrs old Female presents to ER via Unassigned with complaints of bs3 Mental Evaluation. 13:20 pt notes she is here for blood work, denies si, hi, she feels safe at home. She notes a bs3 hx of bipolar/psychosis nos, deisi she notes trying several medications and changing her medications multiple times. She states she spoke to her psychiatrist who wanted blood work done and therefore was referred in. Psych Dr. Angelica Mancilla. . Historical: - Allergies: 12:57 No Known Allergies; nj1 - Home Meds: 12:57 Depakote ER 500 mg Oral Tablet, Extended Release 24 hr 1 tab 2 times per day [Active]; nj1 Depakote 125 mg Oral tablet, delayed release (enteric coated) 1 tabs Daily [Active]; gabapentin 400 mg oral capsule 1 cap 3 times per day [Active]; Xanax 0.5 mg Oral tablet [Active]; ziprasidone HCl 20 mg oral capsule 1 cap every morning [Active]; Prozac 20 mg Oral capsule 1 cap daily [Active]; - PMHx: 12:57 Bipolar disorder; Pshychosis; nj1 - Immunization history:: Client reports having NOT received the Covid vaccine. - Social history:: Smoking status: Patient denies any tobacco usage or history of. ROS: 13:21 Constitutional: Negative for fever, chills bs3 13:21 All other systems are negative. Exam: 13:21 Constitutional: This is a well developed, well nourished patient who is awake, alert, bs3 and in no acute distress. Head/Face: Normocephalic, atraumatic. Eyes: Pupils equal round and reactive to light, extra-ocular motions intact. Lids and lashes normal. ENT: mmm, no posterior phyarngeal erythema Neck: Trachea midline, no thyromegaly, no neck stiffness Chest/axilla: Normal chest wall appearance and motion. Nontender with no deformity. No lesions are appreciated. Cardiovascular: Regular rate and rhythm with a normal S1 and S2. symmetric pulses in upper extremities Respiratory: Lungs have equal breath sounds bilaterally, clear to auscultation, no respiratory distress Abdomen/GI: Soft, non-tender, no rebound or guarding Back: No spinal tenderness. No costovertebral tenderness. Full range of motion. Skin: Warm, dry with normal turgor. Normal color with no rashes, no lesions, and no evidence of cellulitis. MS/ Extremity: Pulses equal, no cyanosis. Neurovascular intact. Full, normal range of motion. Neuro: Awake and alert, GCS 15, oriented to person, place, time, and situation. Cranial nerves II-XII grossly intact. Motor strength 5/5 in all extremities. Sensory grossly intact. Psych: pressured speech, verbose, tangential thought, no current active paranoid delusiosn Vital Signs: 12:57 BP 119 / 79; Pulse 56; Resp 18; Pulse Ox 100% on R/A; Weight 71.67 kg; Height 5 ft. 3 nj1 in. ; 13:15 BP 131 / 86; Pulse 50; Resp 18; Pulse Ox 100% on R/A; eh3 15:15 BP 135 / 91; Pulse 54; Resp 18; Pulse Ox 100% on R/A; eh3 12:57 Body Mass Index 27.99 (71.67 kg, 160.02 cm) nj1 MDM: 12:39 Patient medically screened. bs3 13:21 Data reviewed: vital signs, nurses notes. ED course: will check labs, and reassess, pt bs3 currently able to care for herself and does not want to be admitted voluntarily, will d/w Dr. Mancilla. 16:27 ED course: Case was discussed with her primary psychiatrist who recommended outpatient bs3 intensive psychiatric treatment which she is helping to arrange she requested a baseline set of labs lab work is negative for acute pathology will discharge home. 09/22 13:18 Order name: CBC with Diff; Complete Time: 15:56 bs3 09/22 13:18 Order name: Comprehensive Metabolic Panel; Complete Time: 16:26 bs3 09/22 13:18 Order name: TSH; Complete Time: 16:26 bs3 09/22 13:18 Order name: Test, Urine; Complete Time: 14:27 bs3 09/22 14:48 Order name: EKG; Complete Time: 14:49 bs3 Administered Medications: 15:35 Drug: Valproic Acid PO 500 mg Route: PO; eh3 Disposition Summary: 09/22/22 16:28 Discharge Ordered Location: Home bs3 Problem: new bs3 Symptoms: have improved bs3 Condition: Stable bs3 Diagnosis - Bipolar disorder, current episode manic without psychotic features, moderate bs3 Followup: bs3 - With: Mini Ordonez - When: 1 week - Reason: Re-evaluation by your physician Discharge Instructions: - Discharge Summary Sheet bs3 - Managing Bipolar Disorder bs3 - Mixed Bipolar Disorder bs3 Forms: - Medication Reconciliation Form bs3 - Thank You Letter bs3 - Antibiotic Education bs3 - Prescription Opioid Use bs3 - [email or web address] bs3 Signatures: Dispatcher [employer] Candice Maza RN RN eh3 Nate Youssef MD MD bs3 Dorcas Dailey RN RN nj1 Corrections: (The following items were deleted from the chart) 13:22 13:20 pt notes she is here for blood work, denies si, hi, she feels safe at home. She bs3 notes a hx of bipolar/psychosis nos, deisi she notes trialing care. bs3
[2022-09-22 16:49] VITALS: O2SAT 100
[2022-09-22 16:53] VITALS: BP 135/91
== END 2022-09-22 16:44 | disposition home or self-care (01) ==
LOC: ER 12:36
DX: F31.12 Bipolar disorder, current episode manic without psychotic features, moderate (principal)
CPT/HCPCS: 36415; 80053; 81025; 84443; 85025; 93005